=== PATIENT | male | born 1930 | race Caucasian/White ===

== ENCOUNTER 2016-10-26 12:22 | Emergency (ER) | payer OTHER ==
[~2016-10-26] VITALS: Ht 162.6 cm; Wt 62.0 kg
[~2016-10-26 12:22] MED LIST: ACET-1311 PO; ALUM-30 PO; ATOR-22 PO; BUDE0.5S INH; CHOL100010 PO; CHONCAP PO; CLR10 PO; DEXTSYP41 PO; DYZ; FINA5TAB PO; FLM4 PO; FLUT0.15 NAE; FSM70 PO; GLUC10007 PO; GUAI1TAB55 PO; IMD/2 PO; IPRASOL4 INH; MAGNSUS5 PO; MIRT15TA2 PO; NEOMOIN3 TOP; OXYB10TA PO; PRLSR20 PO; SALI0.6510 NAE; SODI5OIN4 OP
[2016-10-26 12:28] VITALS: TEMP 36.5; Ht 162.6 cm; Wt 62.0 kg
[2016-10-26] MEDS ORDERED: TAMS0.4C38 PO (13:20)
[2016-10-26] MEDS ORDERED: DEXTSYP27 PO (13:20)
[2016-10-26] MEDS ORDERED: TRIATAB3 PO (13:20)
[2016-10-26] MEDS ORDERED: OXYB15TA12 PO (13:20)
[2016-10-26] MEDS ORDERED: FORM1NEB NEB (13:20)
[2016-10-26] MEDS ORDERED: FSM70 PO (13:20)
[2016-10-26] MEDS ORDERED: GUAI1TAB75 PO (13:20)
[2016-10-26] MEDS ORDERED: CHOL1000 PO (13:20)
[2016-10-26] MEDS ORDERED: CALC625T4 PO (13:20)
[2016-10-26] MEDS ORDERED: PLMINSR5 INH (13:20)
[2016-10-26] MEDS ORDERED: SODI1SOL OPB (13:20)
[2016-10-26] MEDS ORDERED: ONDA4TAB46 UT (13:20)
--- NOTE | 2016-10-26 13:21 | DIAGNOSTIC IMAGING REPORT ---
CHEST ONE VIEW PORTABLE CLINICAL HISTORY: fall COMPARISON STUDY: 07/12/2014 FINDINGS: The cardiac and sternal contours remain stable. 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 There is no acute parenchymal consolidation. There are no pleural effusions. There is no pneumothorax.[ IMPRESSION: Stable interstitial point fibrotic change. No acute findings. Electronically signed by: Simon Braden M.D. 10/26/2016 1:20 PM Dictated Date/Time: 10/26/2016 1:19 PM
--- NOTE | 2016-10-26 13:22 | DIAGNOSTIC IMAGING REPORT ---
PELVIS 1 OR 2 VIEW ROUTINE CLINICAL HISTORY: Pelvic pain status post trauma COMPARISON STUDY: None FINDINGS: There are skinfolds the level of each proximal femur. No acute fractures or dislocations are visualized. There is lobulation the cortex inferior to the left lesser trochanter. This likely reflects either the sequela of old trauma, or an osteochondroma. This is incompletely visualized. Degenerative changes are present within the lower lumbar spine. IMPRESSION: No acute fractures identified. Electronically signed by: Simon Braden M.D. 10/26/2016 1:21 PM Dictated Date/Time: 10/26/2016 1:20 PM
--- NOTE | 2016-10-26 13:43 | DIAGNOSTIC IMAGING REPORT ---
CT HEAD WITHOUT CONTRAST (CT) CLINICAL HISTORY: Head trauma. COMPARISON STUDY: 03/08/2006 TECHNIQUE: Axial CT of the brain is performed from the vertex to the skull base. IV contrast was not administered for this examination. CT DOSE: 767.83 mGy.cm FINDINGS: No intra or extra-axial mass lesions are visualized. There is no CT evidence of acute cortical infarction. There is no evidence of midline shift. There is no acute hemorrhage. No calvarial fractures are visualized. There are patchy white matter hypodensities likely on a small vessel basis. 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 There is persistent dilatation of the anterior horns of the lateral ventricles. There is no evidence of acute sinusitis IMPRESSION: No acute intracranial findings Electronically signed by: Simon Braden M.D. 10/26/2016 1:41 PM Dictated Date/Time: 10/26/2016 1:39 PM
[2016-10-26 14:35] VITALS: BP 155/76; PULSE 78; O2SAT 98
--- NOTE | 2016-10-26 15:34 | EMERGENCY ROOM VISIT NOTE ---
History Report prepared by Paul: Radha Castillo Under the Supervision of: Dr. Rosalino Rodriguez D.O. First contact with patient: 12:37 Chief Complaint: FALL Stated Complaint: FALL History of Present Illness The patient is a 86 year old male who presents to the Emergency Room with complaints of a sudden fall that occurred [employer]. The patient's caregiver from [employer] is at bedside. The patient's caregiver states that she was in the house when the patient fell and heard him fall but she did not witness it. When she got to the patient, he was lying on his left side. She helped the patient up, but when he got to his feet he just fell back over. She did not notice any obvious bruising, but she states that she did not completely undress him. She states that the patient is at his baseline currently. He is unable to hold a conversation, but he can communicate yes or no to questions. The patient denies head pain, neck pain, back pain, abdominal pain, hip pain, and leg pain. The patient's caregiver denies any new cough, rhinorrhea, or sorethroat. The patient is not on any blood thinners. The patient's caregiver adds that the patient is supposed to be on oxygen at home, but he does not use it. Source of History: patient, caregiver Onset: GAS LINE REPAIRER Position: other (global) Quality: other (fall) Timing: other (sudden) Associated Symptoms: No abdominal pain, No back pain, No cough, No neck pain , No sorethroat Note: no head pain, no hip pain, no leg pain, no rhinorrhea Review of Systems See HPI for pertinent positives & negatives. A total of 10 systems reviewed and were otherwise negative. Past Medical & Surgical Medical Problems: (1) Asthma (2) Heart disease Family History Cancer Heart disease Hypertension Lung disease Social History Smoking Status: Never Smoker Housing Status: assisted living Current/Historical Medications Scheduled Alendronate Sodium (Alendronate Sodium), 70 MG PO WK Atorvastatin (Lipitor), 20 MG PO DAILY Budesonide (Pulmicort Respules 0.5MG/2ML), 2 ML INH BID Calcium Polycarbophil (Fiber Laxative), 625 MG PO DAILY Cholecalciferol (Vitamin D3), 1,000 INTER.UNIT PO DAILY Chondroitin Sulfate-Vitamin C- (Chondroitin Sulfate), 400 MG PO TID Finasteride (Proscar), 5 MG PO DAILY Fluticasone Propionate (Nasal) (Flonase Allergy Relief), 2 SPRAYS PRANEETH DAILY Formoterol Fumarate (Perforomist), 2 ML NEB BID Glucosamine Sulfate (Glucosamine), 500 MG PO TID Guaifenesin La (Guaifenesin Er), 600 MG PO BID Ipratropium-Albuterol (Duoneb), 1 TREATMENT INH TID Loratadine (Claritin), 10 MG PO DAILY Mirtazapine Soltab (Remeron Soltab), 15 MG PO HS Omeprazole (Prilosec), 20 MG PO DAILY Oxybutynin Chloride (Ditropan Xl), 15 MG PO DAILY Saline ([place]), 2 SPRAYS PRANEETH DAILY Sodium Chloride Hypertonic (Sodium Chloride), 1 DROP OPB BID Tamsulosin Hcl (Flomax), 0.4 MG PO HS Triamterene/Hctz (Triamterene/Hctz 37.5-25MG), 1 TAB PO DAILY Scheduled PRN Acetaminophen (Tylenol), 650 MG PO Q6 PRN for Pain Alum & Mag Hydrox-Simethicone (Mylanta), 30 ML PO Q6 PRN for GI Upset Dextromethorphan-Guaifenesin (Guaifenesin Dm), 2 TSP PEG Q6H PRN for Cough Loperamide Hcl (Imodium), 2 MG PO UD PRN for Diarrhea Neomycin/Polymyx/Bacitr (Neosporin), 1 APPL TOP UD PRN for ut/scrsape/scratch Ondansetron Hcl (Zofran), 4 MG UT QID PRN for Nausea Allergies Coded Allergies: Chocolate (Verified Allergy, Unknown, 07/19/09) Tomato (Verified Allergy, Unknown, 07/19/09) No Known Allergies (Verified , 07/02/08) Physical Exam Vital Signs Date Time Temp Pulse Resp B/P Pulse Ox O2 Delivery O2 Flow Rate FiO2 10/26/16 14:35 78 18 155/76 98 10/26/16 12:28 36.5 81 18 153/78 98 Room Air Physical Exam GENERAL: alert, sitting up in bed, well appearing, well nourished, no distress, non-toxic HEAD: normal cephalic, atraumatic EYE EXAM: normal conjunctiva, PERRL and EOM's grossly intact OROPHARYNX: no exudate, no erythema, lips, buccal mucosa, and tongue normal and mucous membranes are moist EARS: TMs clear b/l NECK: supple, no nuchal rigidity, no adenopathy, non-tender CHEST: stable to compression anteriorly and posteriorly LUNGS: clear to auscultation. Normal chest wall mechanics HEART: no murmurs, S1 normal and S2 normal ABDOMEN: abdomen soft, non-tender, normo-active bowel sounds, no masses, no rebound or guarding. PELVIS: stable to compression anteriorly and posteriorly BACK: Back is symmetrical on inspection and there is no deformity, no midline tenderness, no CVA tenderness. UPPER EXTREMITIES: full active and passive range of motion of all joints without tenderness to palpation, small abrasions over left posterior shoulder, bruising on right forearm with 4 mm laceration. LOWER EXTREMITIES: full active and passive range of motion of all joints without tenderness to palpation, healing bruising on left knee. NEURO EXAM: Alert, following commands, able to answer yes or no questions at baseline per examination scorer, no focal deficits Medical Decision & Procedures ER Provider Diagnostic Interpretation: Radiology results as stated below per my review and the radiologist's interpretation: CHEST ONE VIEW PORTABLE FINDINGS: The cardiac and sternal contours remain stable. 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 There is no acute parenchymal consolidation. There are no pleural effusions. There is no pneumothorax.[ IMPRESSION: Stable interstitial point fibrotic change. No acute findings. Electronically signed by: Simon Braden M.D. 10/26/2016 1:20 PM Dictated Date/Time: 10/26/2016 1:19 PM PELVIS 1 OR 2 VIEW ROUTINE FINDINGS: There are skinfolds the level of each proximal femur. No acute fractures or dislocations are visualized. There is lobulation the cortex inferior to the left lesser trochanter. This likely reflects either the sequela of old trauma, or an osteochondroma. This is incompletely visualized. Degenerative changes are present within the lower lumbar spine. IMPRESSION: No acute fractures identified. Electronically signed by: Simon Braden M.D. 10/26/2016 1:21 PM Dictated Date/Time: 10/26/2016 1:[address] HEAD WITHOUT CONTRAST (CT) FINDINGS: No intra or extra-axial mass lesions are visualized. There is no CT evidence of acute cortical infarction. There is no evidence of midline shift. There is no acute hemorrhage. No calvarial fractures are visualized. There are patchy white matter hypodensities likely on a small vessel basis. 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 There is persistent dilatation of the anterior horns of the lateral ventricles. There is no evidence of acute sinusitis IMPRESSION: No acute intracranial findings Electronically signed by: Simon Braden M.D. 10/26/2016 1:41 PM Dictated Date/Time: 10/26/2016 1:39 PM ED Course ED COURSE: Vital signs were reviewed and showed normal. The patients medical record was reviewed The above diagnostic studies were performed and reviewed. ED treatments and interventions as stated above. 1242: The patient was evaluated in room B4. A complete history and physical examination was performed. 1406: Upon reevaluation, the patient is doing well. I discussed my findings with the patient and his caregiver. They understand and agree with the treatment plan. Based on the patients age, coexisting illnesses, exam and lab findings the decision to treat as an outpatient was made. The patient remained stable while under my care. The patient appeared well at the time of discharge. Medical Decision Differential diagnoses include major intracranial, cervical, spinal, thoracic, abdominal, pelvic and neurologic injury. Fracture, contusion, sprain, strain, laceration, abrasions included as well. Patient is an 86 her old male who [facility]. Upon presentation of the examination scorer he was on the ground and she difficulty getting him up. No complaints. He does have previous old abrasions from falls. Exam shows no focal deficit. CT head, chest x-ray and x-ray of the pelvis were unremarkable. He was at his baseline. Patient was discharged in the care of examination scorer to follow up with the primary care. Tetanus is up-to- date per examination scorer. Discussed with Pt concerning signs and symptoms to watch out for. Pt was instructed to follow up with their PCP and discussed with the patient their option to return to the ED at anytime for persistent or worsening symptoms. The appropriate anticipatory guidance and out-patient management, including indications for return to the emergency department, were explained at length to the patient and understood. Impression Primary Impression: Fall Additional Impression: Contusion of upper back Scribe Attestation The scribe's documentation has been prepared under my direction and personally reviewed by me in its entirety. I confirm that the note above accurately reflects all work, treatment, procedures, and medical decision making performed by me. Departure Information Dispostion Home / Self-Care Referrals Barbra Phillips M.D. (MEDICAL) (PCP) Forms HOME CARE DOCUMENTATION FORM, IMPORTANT VISIT INFORMATION Patient Instructions ED Contusion Back, ED Fall Uncertain Cause, My [facility] Additional Instructions Please follow up with your primary care doctor with in the next 24 hours. Any worsening of your symptoms, please return to the ED immediately. This includes passing out, recurrent falls, new pain, or any other concerning signs or symptoms from your standpoint. Problem Qualifiers Primary Impression: Fall Encounter type: initial encounter Qualified Codes: W19.XXXA - Unspecified fall, initial encounter Additional Impression: Contusion of upper back Encounter type: initial encounter Laterality: left Qualified Codes: S20.222A - Contusion of left back wall of thorax, initial encounter
== END 2016-10-26 14:43 | disposition home or self-care (01) ==
LOC: EDBD 12:22 → C.EDB 12:24
DX: S20.222A Contusion of left back wall of thorax, initial encounter (principal); J45.909 Unspecified asthma, uncomplicated; Z79.899 Other long term (current) drug therapy; Z86.79 Personal history of other diseases of the circulatory system; Z82.49 Family history of ischemic heart disease and other diseases of the circulatory system; Z83.6 Family history of other diseases of the respiratory system; W19.XXXA Unspecified fall, initial encounter; Y92.009 Unspecified place in unspecified non-institutional (private) residence as the place of occurrence of the external cause

== ENCOUNTER 2016-10-29 11:28 | Emergency (ER) | payer OTHER ==
[~2016-10-29] VITALS: Ht 157.5 cm; Wt 59.3 kg
[~2016-10-29 11:28] MED LIST changes: -BUDE0.5S INH; +CALC625T4 PO; +CHOL1000 PO; -CHOL100010 PO; +DEXTSYP27 PO; -DEXTSYP41 PO; -DYZ; -FLM4 PO; +FORM1NEB NEB; -GUAI1TAB55 PO; +GUAI1TAB75 PO; -MAGNSUS5 PO; +ONDA4TAB46 UT; -OXYB10TA PO; +OXYB15TA12 PO; +PLMINSR5 INH; +SODI1SOL OPB; -SODI5OIN4 OP; +TAMS0.4C38 PO; +TRIATAB3 PO
[2016-10-29 11:32] VITALS: TEMP 36.3
[2016-10-29 11:52] VITALS: Ht 157.5 cm; Wt 59.3 kg
[2016-10-29] MEDS ORDERED: FIBER PO (12:03)
[2016-10-29] MEDS ORDERED: MOML PO (12:03)
--- NOTE | 2016-10-29 12:33 | EMERGENCY ROOM VISIT NOTE ---
History Report prepared by Paul: Ashly Neff Under the Supervision of: Dr. Rosalino Rodriguez D.O. First contact with patient: 11:49 Chief Complaint: SWELLING TO EXTREMITY Stated Complaint: HANDS SWELLING, FACE History of Present Illness The patient is an 86 year old male who presents to the Emergency Room with complaints of persistent bilateral hand swelling that began this morning. Per the patient's caregiver, the patient woke this morning with swelling to his bilateral hands and additionally his face and eyes. She states she tried getting the patient into his PCP's office, but notes that there were no openings. The patient's caregiver states that she took the patient to an urgent care facility and was told to bring the patient to the emergency department for further evaluation and treatment. She notes that the patient fell two weeks ago and ripped an area of skin off of his right arm. The patient 's caregiver states that she is concerned that the area has been becoming infected, but notes that she has been using Neosporin on the area and has been keeping it covered. The patient's caregiver states that the patient was evaluated on Wednesday after a recent fall. She additionally notes that the patient is going to see his PCP on Wednesday. Pt denies headache, chest pain, shortness of breath, abdominal pain, or extremity pain. Source of History: patient, caregiver Onset: this morning Position: head, hand (bilateral) Quality: other (swelling) Timing: other (persistent) Associated Symptoms: No abdominal pain, No chest pain, No headache Review of Systems See HPI for pertinent positives & negatives. A total of 10 systems reviewed and were otherwise negative. Past Medical & Surgical Medical Problems: (1) Asthma (2) Heart disease Family History Cancer Heart disease Hypertension Lung disease Social History Smoking Status: Never Smoker Marital Status: single Housing Status: assisted living Occupation Status: disabled Current/Historical Medications Scheduled Alendronate Sodium (Alendronate Sodium), 70 MG PO WK Atorvastatin (Lipitor), 20 MG PO DAILY Budesonide (Pulmicort Respules 0.5MG/2ML), 2 ML INH BID Calcium Polycarbophil (Fiber Laxative), 625 MG PO DAILY Cholecalciferol (Vitamin D3), 1,000 INTER.UNIT PO DAILY Chondroitin Sulfate-Vitamin C- (Chondroitin Sulfate), 400 MG PO TID Finasteride (Proscar), 5 MG PO DAILY Fluticasone Propionate (Nasal) (Flonase Allergy Relief), 2 SPRAYS PRANEETH DAILY Formoterol Fumarate (Perforomist), 2 ML NEB BID Glucosamine Sulfate (Glucosamine), 500 MG PO TID Guaifenesin La (Guaifenesin Er), 600 MG PO BID Ipratropium-Albuterol (Duoneb), 1 TREATMENT INH TID Loratadine (Claritin), 10 MG PO DAILY Mirtazapine Soltab (Remeron Soltab), 15 MG PO HS Omeprazole (Prilosec), 20 MG PO DAILY Oxybutynin Chloride (Ditropan Xl), 15 MG PO DAILY Saline ([place] Nasal [place]), 2 SPRAYS PRANEETH DAILY Sodium Chloride Hypertonic (Sodium Chloride), 1 DROP OPB BID Tamsulosin Hcl (Flomax), 0.4 MG PO HS Triamterene/Hctz (Triamterene/Hctz 37.5-25MG), 1 TAB PO DAILY Scheduled PRN Acetaminophen (Tylenol), 650 MG PO Q6 PRN for Pain Alum & Mag Hydrox-Simethicone (Mylanta), 30 ML PO Q6 PRN for GI Upset Dextromethorphan-Guaifenesin (Guaifenesin Dm), 2 TSP PEG Q6H PRN for Cough Loperamide Hcl (Imodium), 2 MG PO UD PRN for Diarrhea Magnesium Hydroxide (Milk Of Magnesia), 30 ML PO Q3D PRN for Constipation Neomycin/Polymyx/Bacitr (Neosporin), 1 APPL TOP UD PRN for ut/scrsape/scratch Ondansetron Hcl (Zofran), 4 MG UT QID PRN for Nausea Allergies Coded Allergies: Aspirin (Unverified Allergy, Severe, STOMACH ISSUES, 10/29/16) Grapefruit (Unverified Allergy, Severe, SHOULD AVOID DUE TO OTHER MEDS, ) Propoxyphene (Unverified Allergy, Severe, CONSTIPATION, 10/29/16) Tramadol (Unverified Allergy, Severe, CONSTIPATION, 10/29/16) Chocolate (Verified Allergy, Unknown, 07/19/09) Tomato (Verified Allergy, Unknown, 07/19/09) No Known Allergies (Verified , 07/02/08) Physical Exam Vital Signs Date Time Temp Pulse Resp B/P Pulse Ox O2 Delivery O2 Flow Rate FiO2 10/29/16 14:53 65 21 10/29/16 14:48 67 14 92 10/29/16 14:43 68 22 92 10/29/16 14:38 66 17 92 10/29/16 14:33 54 18 92 10/29/16 14:31 149/82 10/29/16 14:28 68 17 91 10/29/16 14:23 71 19 10/29/16 14:18 58 16 10/29/16 14:13 52 17 10/29/16 14:08 57 18 10/29/16 14:03 63 15 10/29/16 14:01 144/73 10/29/16 13:58 65 18 10/29/16 13:53 65 19 10/29/16 13:48 64 16 10/29/16 13:43 65 22 10/29/16 13:38 72 21 10/29/16 13:37 154/122 10/29/16 13:03 78 23 10/29/16 13:01 146/85 10/29/16 12:58 77 21 10/29/16 12:53 72 22 95 10/29/16 12:48 79 30 96 10/29/16 12:43 72 25 94 10/29/16 12:38 66 18 96 10/29/16 12:33 75 22 92 10/29/16 12:31 138/79 10/29/16 12:28 72 17 96 10/29/16 12:23 58 19 95 10/29/16 12:18 67 21 96 10/29/16 12:13 81 16 95 10/29/16 12:01 160/90 10/29/16 11:32 36.3 80 20 146/89 93 Room Air Physical Exam GENERAL: Sitting up in bed, alert, well appearing, well nourished, no acute distress, non-toxic HEAD: Normocephalic, atraumatic. EYE EXAM: normal conjunctiva, PERRL and EOM's grossly intact OROPHARYNX: no exudate, no erythema, lips, buccal mucosa, and tongue normal and mucous membranes are moist NECK: supple, no nuchal rigidity, no adenopathy, non-tender LUNGS: Diffuse wheezing bilaterally. Normal chest wall mechanics HEART: no murmurs, S1 normal and S2 normal ABDOMEN: abdomen soft, non-tender, normo-active bowel sounds, no masses, no rebound or guarding. BACK: Back is symmetrical on inspection and there is no deformity, no midline tenderness, no CVA tenderness. SKIN: no rashes and no bruising UPPER EXTREMITIES: Radial pulses in upper extremities bilaterally, Right upper extremity on dorsal aspect has a 2.5-3 cm laceration, which is moist, without purulent discharge or surrounding erythema. Small flap to the distal portion of the laceration. Mild edema to the right hand, just distal to the bandage. LOWER EXTREMITIES: No pitting edema. NEURO EXAM: Alert, answers yes or no questioning. Able to give a thumbs up, moving all extremities. No focal deficits. Medical Decision & Procedures ER Provider Diagnostic Interpretation: Radiology results as stated below per my review and the radiologist's interpretation: ULTRASOUND VENOUS DOPPLER ULTRASOUND THE RIGHT UPPER EXTREMITY CLINICAL HISTORY: Right upper extremity swelling COMPARISON STUDY: No previous studies for comparison. FINDINGS: No intraluminal thrombus was visualized. The internal jugular, subclavian, axillary, cephalic, brachial, basilic, radial, and ulnar veins were patent. IMPRESSION: No evidence of right upper extremity DVT. Electronically signed by: Simon Braden M.D. 10/29/2016 1:39 PM Dictated Date/Time: 10/29/2016 1:39 PM CHEST ONE VIEW PORTABLE CLINICAL HISTORY: Right upper extremity swelling COMPARISON STUDY: 10/26/2016 FINDINGS: The cardiac and mediastinal contours remain stable. There is radiographic evidence of underlying interstitial pulmonary fibrosis. There is no acute parenchymal consolidation. There are no significant pleural effusions.[ IMPRESSION: Stable interstitial pulmonary fibrotic change. Electronically signed by: Simon Braden M.D. 10/29/2016 12:41 PM Dictated Date/Time: 10/29/2016 12:40 PM Laboratory Results 10/29/16 12:50 Red Blood Count 4.77, Mean Corpuscular Volume 93.9, Mean Corpuscular Hemoglobin 31.4, Mean Corpuscular Hemoglobin Concent 33.5, Mean Platelet Volume 9.6, Neutrophils (%) (Auto) 68.5, Lymphocytes (%) (Auto) 23.8, Monocytes (%) (Auto) 5.7, Eosinophils (%) (Auto) 1.6, Basophils (%) (Auto) 0.3, Neutrophils # (Auto) 6.08, Lymphocytes # (Auto) 2.11, Monocytes # (Auto) 0.51, Eosinophils # (Auto) 0.14, Basophils # (Auto) 0.03 10/29/16 12:50 Test 10/29/16 12:50 White Blood Count 8.88 K/uL (4.8-10.8) Red Blood Count 4.77 M/uL (4.7-6.1) Hemoglobin 15.0 g/dL (14.0-18.0) Hematocrit 44.8 % (42-52) Mean Corpuscular Volume 93.9 fL (80-100) Mean Corpuscular Hemoglobin 31.4 pg (25-34) Mean Corpuscular Hemoglobin Concent 33.5 g/dl (32-36) Platelet Count 181 K/uL (130-400) Mean Platelet Volume 9.6 fL (7.4-10.4) Neutrophils (%) (Auto) 68.5 % Lymphocytes (%) (Auto) 23.8 % Monocytes (%) (Auto) 5.7 % Eosinophils (%) (Auto) 1.6 % Basophils (%) (Auto) 0.3 % Neutrophils # (Auto) 6.08 K/uL (1.4-6.5) Lymphocytes # (Auto) 2.11 K/uL (1.2-3.4) Monocytes # (Auto) 0.51 K/uL (0.11-0.59) Eosinophils # (Auto) 0.14 K/uL (0-0.5) Basophils # (Auto) 0.03 K/uL (0-0.2) RDW Standard Deviation 45.8 fL (36.4-46.3) RDW Coefficient of Variation 13.3 % (11.5-14.5) Immature Granulocyte % (Auto) 0.1 % Immature Granulocyte # (Auto) 0.01 K/uL (0.00-0.02) Anion Gap 7.0 mmol/L (3-11) Est Creatinine Clear Calc Drug Dose 31.5 ml/min Estimated GFR () 57.3 Estimated GFR (Non- 49.4 BUN/Creatinine Ratio 20.4 (10-20) Calcium Level 9.7 mg/dl (8.5-10.1) Total Bilirubin 0.5 mg/dl (0.2-1) Direct Bilirubin 0.1 mg/dl (0-0.2) Aspartate Amino Transf (AST/SGOT) 15 U/L (15-37) Alanine Aminotransferase (ALT/SGPT) 18 U/L (12-78) Alkaline Phosphatase 101 U/L (45-117) Pro-B-Type Natriuretic Peptide 255 pg/ml (0-1800) Total Protein 7.0 gm/dl (6.4-8.2) Albumin 3.7 gm/dl (3.4-5.0) Laboratory results per my review. ED Course ED COURSE: Vital signs were reviewed and showed normal vitals The patients medical record was reviewed The above diagnostic studies were performed and reviewed. ED treatments and interventions as stated above. 1203: The patient was evaluated in room B5. A complete history and physical examination was performed. 1442: Upon reevaluation, the patient is resting comfortably.I discussed my findings with the patient's caregiver and she understands and agrees with the treatment plan. Based on the patients age, coexisting illnesses, exam and lab findings the decision to treat as an outpatient was made. The patient remained stable while under my care. The patient appeared well at the time of discharge. Medical Decision Differential diagnosis: Etiologies such as DVT, musculoskeletal, infection, joint effusion, trauma, lymphedema, idiopathic, CHF, as well as others were entertained. Patient is an 86-year-old male that presents the ER for swelling in his right hand, left hand and face. Everything has resolved with exception of his right hand. He does have a brace around the wrist of his right hand for laceration which has been present for over a week. Laceration appears to be unchanged from his previous visit 3 days ago as I saw him at that time. At that point he had a CT head, chest x-ray and pelvis x-ray which were unremarkable. Gentleman has MR and has no complaints. He is able to state if he has pain by answering yes and no questioning. He is at his baseline. Again no edema with exception of his right wrist distally into the fingers. I do believe that this was secondary to the bandage that was in place which has been removed. Unable to suture the cut as this has been present for over week. Discussed with home theatre technician concerning signs and symptoms to watch out for. Health Safety Coordinator was instructed to follow up with their PCP and discussed with the home theatre technician their option to return to the ED at anytime for persistent or worsening symptoms. The appropriate anticipatory guidance and out-patient management, including indications for return to the emergency department, were explained at length to the home theatre technician and understood. Impression Primary Impression: Swelling of right extremity Additional Impression: Hypokalemia Scribe Attestation The scribe's documentation has been prepared under my direction and personally reviewed by me in its entirety. I confirm that the note above accurately reflects all work, treatment, procedures, and medical decision making performed by me. Departure Information Dispostion Home / Self-Care Referrals Barbra Phillips M.D. (MEDICAL) (PCP) Forms HOME CARE DOCUMENTATION FORM, IMPORTANT VISIT INFORMATION, WORK / SCHOOL INSTRUCTIONS Patient Instructions My [facility] - [facility], [place] Additional Instructions Please follow up with your primary care doctor with in the next 24 hours. Any worsening of your symptoms, please return to the ED immediately. This includes fevers greater than 100.4, significant redness around the wound site, purulent discharge, or any other concerning signs or symptoms from your standpoint. Please keep the wound dressed but in a loose bandage as I favor this is likely the cause of the edema in his hand. Please continue to apply double antibiotic ointment to the wound. Problem Qualifiers
--- NOTE | 2016-10-29 12:42 | DIAGNOSTIC IMAGING REPORT ---
CHEST ONE VIEW PORTABLE CLINICAL HISTORY: Right upper extremity swelling COMPARISON STUDY: 10/26/2016 FINDINGS: The cardiac and mediastinal contours remain stable. There is radiographic evidence of underlying interstitial pulmonary fibrosis. There is no acute parenchymal consolidation. There are no significant pleural effusions.[ IMPRESSION: Stable interstitial pulmonary fibrotic change. Electronically signed by: Simon Braden M.D. 10/29/2016 12:41 PM Dictated Date/Time: 10/29/2016 12:40 PM
[2016-10-29 13:07] LABS: BASO % 0.3 %; BASO ABS # 0.03 K/uL (0-0.2); COMPLETE YES; EOS % 1.6 %; HEMATOCRIT 44.8 % (42-52); IG% 0.1 %; LYMPH % 23.8 %; LYMPH ABS # 2.11 K/uL (1.2-3.4); MEAN CELL VOLUME 93.9 fL (80-100); MEAN CORPUSCULAR HEMOGLOBIN 31.4 pg (25-34); MEAN CORPUSCULAR HGB CONC 33.5 g/dl (32-36); MEAN PLATELET VOLUME 9.6 fL (7.4-10.4); MONO % 5.7 %; NEUT % 68.5 %; PLATELET COUNT 181 K/uL (130-400); RED BLOOD COUNT 4.77 M/uL (4.7-6.1); WHITE BLOOD COUNT 8.88 K/uL (4.8-10.8)
[2016-10-29 13:27] LABS: BUN/CREATININE RATIO 20.4 (10-20); CALCIUM 9.7 mg/dl (8.5-10.1); CREATININE 1.3 mg/dl (0.60-1.40); POTASSIUM 3.3 mmol/L (3.5-5.1)
--- NOTE | 2016-10-29 13:41 | DIAGNOSTIC IMAGING REPORT ---
ULTRASOUND VENOUS DOPPLER ULTRASOUND THE RIGHT UPPER EXTREMITY CLINICAL HISTORY: Right upper extremity swelling COMPARISON STUDY: No previous studies for comparison. FINDINGS: No intraluminal thrombus was visualized. The internal jugular, subclavian, axillary, cephalic, brachial, basilic, radial, and ulnar veins were patent. IMPRESSION: No evidence of right upper extremity DVT. Electronically signed by: Simon Braden M.D. 10/29/2016 1:39 PM Dictated Date/Time: 10/29/2016 1:39 PM
[2016-10-29 14:31] VITALS: BP 149/82
[2016-10-29 14:48] VITALS: O2SAT 92
[2016-10-29 14:53] VITALS: PULSE 65
== END 2016-10-29 14:58 | disposition home or self-care (01) ==
LOC: C.EDB 11:30
DX: R22.31 Localized swelling, mass and lump, right upper limb (principal); E87.6 Hypokalemia; I51.9 Heart disease, unspecified; J45.909 Unspecified asthma, uncomplicated; Z79.899 Other long term (current) drug therapy; Z88.6 Allergy status to analgesic agent; Z88.8 Allergy status to other drugs, medicaments and biological substances; Z91.018 Allergy to other foods; Z80.9 Family history of malignant neoplasm, unspecified; Z82.49 Family history of ischemic heart disease and other diseases of the circulatory system

== ENCOUNTER 2016-12-10 17:17 | Emergency (ER) | payer OTHER ==
[~2016-12-10] VITALS: Ht 167.6 cm; Wt 58.2 kg
[~2016-12-10 17:17] MED LIST changes: +MOML PO; +NEOMOIN2 TOP; -NEOMOIN3 TOP
[2016-12-10 17:25] VITALS: TEMP 36.7; Ht 167.6 cm; Wt 58.2 kg
[2016-12-10 18:14] VITALS: BP 150/71; PULSE 82; O2SAT 96
--- NOTE | 2016-12-11 01:06 | EMERGENCY ROOM VISIT NOTE ---
History Report prepared by Paul: Nathaniel Will Under the Supervision of: Dr. Black Solitario M.D. First contact with patient: 17:19 Chief Complaint: FALL Stated Complaint: FALL, SKIN TEARS History of Present Illness The patient is an 86 year old male who presents to the Emergency Room with complaints of a constant small contusion to his right elbow that occurred prior to arrival. EMS reports that the patient was reaching for something and fell between the wall and bed at his assisted living home. Pt denies LOC, headache, fevers, chills, diaphoresis, visual changes, neck pain, chest pain, breathing difficulties, nausea, vomiting, abdominal pain, back pain, melena, hematochezia , urinary symptoms, numbness, weakness, lymphadenopathy, rash, or other complaints. Source of History: patient, EMS Onset: prior to arrival Position: elbow (right) Timing: constant Review of Systems See HPI for pertinent positives and negatives. A total of ten systems were reviewed and were otherwise negative although somewhat limited secondary to the patient's mental acuity . Past Medical & Surgical Medical Problems: (1) Asthma (2) Heart disease Family History Cancer Heart disease Hypertension Lung disease Social History Smoking Status: Never Smoker Marital Status: single Housing Status: assisted living Occupation Status: disabled Current/Historical Medications Scheduled Alendronate Sodium (Alendronate Sodium), 70 MG PO WK Atorvastatin (Lipitor), 20 MG PO DAILY Budesonide (Pulmicort Respules 0.5MG/2ML), 2 ML INH BID Calcium Polycarbophil (Fiber Laxative), 625 MG PO DAILY Cholecalciferol (Vitamin D3), 1,000 INTER.UNIT PO DAILY Chondroitin Sulfate-Vitamin C- (Chondroitin Sulfate), 400 MG PO TID Finasteride (Proscar), 5 MG PO DAILY Fluticasone Propionate (Nasal) (Flonase Allergy Relief), 2 SPRAYS PRANEETH DAILY Formoterol Fumarate (Perforomist), 2 ML NEB BID Glucosamine Sulfate (Glucosamine), 500 MG PO TID Guaifenesin La (Guaifenesin Er), 600 MG PO BID Ipratropium-Albuterol (Duoneb), 1 TREATMENT INH TID Loratadine (Claritin), 10 MG PO DAILY Mirtazapine Soltab (Remeron Soltab), 15 MG PO HS Omeprazole (Prilosec), 20 MG PO DAILY Oxybutynin Chloride (Ditropan Xl), 15 MG PO DAILY Saline ([place] Nasal [place]), 2 SPRAYS PRANEETH DAILY Sodium Chloride Hypertonic (Sodium Chloride), 1 DROP OPB BID Tamsulosin Hcl (Flomax), 0.4 MG PO HS Triamterene/Hctz (Triamterene/Hctz 37.5-25MG), 1 TAB PO DAILY Scheduled PRN Acetaminophen (Tylenol), 650 MG PO Q6 PRN for Pain Alum & Mag Hydrox-Simethicone (Mylanta), 30 ML PO Q6 PRN for GI Upset Dextromethorphan-Guaifenesin (Guaifenesin Dm), 2 TSP PO Q6H PRN for Cough Loperamide Hcl (Imodium), 2 MG PO UD PRN for Diarrhea Magnesium Hydroxide (Milk Of Magnesia), 30 ML PO Q3D PRN for Constipation Neomycin/Polymyx/Bacitr (Neosporin), 1 APPL TOP UD PRN for ut/scrsape/scratch Ondansetron Hcl (Zofran), 4 MG UT QID PRN for Nausea Allergies Coded Allergies: Aspirin (Unverified Allergy, Severe, STOMACH ISSUES, 12/10/16) Grapefruit (Unverified Allergy, Severe, SHOULD AVOID DUE TO OTHER MEDS, ) Propoxyphene (Unverified Allergy, Severe, CONSTIPATION, 12/10/16) Tramadol (Unverified Allergy, Severe, CONSTIPATION, 12/10/16) Chocolate (Verified Allergy, Unknown, 12/10/16) Tomato (Verified Allergy, Unknown, 12/10/16) Physical Exam Vital Signs Date Time Temp Pulse Resp B/P (MAP) Pulse Ox O2 Delivery O2 Flow Rate FiO2 12/10/16 18:14 82 22 150/71 96 12/10/16 17:37 79 12/10/16 17:25 36.7 71 18 162/84 95 Room Air Physical Exam GENERAL: Awake, alert, well appearing, no distress HEAD: Normocephalic, atraumatic. No knox sign. No raccoon eyes. EYES: Normal conjunctiva. PERRL. EARS: External ears normal. Right TM normal. Left TM normal. NOSE: Atraumatic OROPHARYNX: Lips, tongue, and mucosa unremarkable. No erythema or exudate. NECK: Supple. Full ROM. No tracheal deviation or JVD. No posterior midline tenderness. No step offs noted. RESPIRATORY: CTA bilaterally CARDIAC: Regular rate, normal rhythm. ABDOMEN: Inspection reveals no abnormalities. Soft, non distended. No tenderness to palpation. No hernias. BACK: No midline step offs or tenderness to palpation. Small abrasion to the left lateral back, no tenderness to the ribs. PELVIS: Stable to rock. SKIN: Normal. LYMPH: No adenopathy. MUSCULOSKELETAL: Upper and lower extremities are atraumatic. Small contusion and skin tear to the right elbow, no tenderness or bony deformity. NEURO: GCS 15. Normal sensorium. No sensory or motor deficits noted. Medical Decision & Procedures Procedure Dermabond tissue adhesive repair: Indication skin tear. The wound was cleansed with sterile saline. The skin tear was placed back in the proper position and Dermabond was used to repair the wound. occasions. Patient tolerated well. ED Course 172: The patient was evaluated in room C06. A complete history and physical exam was performed. 1741: I reevaluated the patient. Discussed discharge instructions: he and his caregiver verbalized understanding and agreement. The patient is ready for discharge. Medical Decision Medication Reconciliation: I attest that I have personally reviewed the patient' s current medication list Blood pressure screening: Patient was found to have an elevated blood pressure and was referred to their primary doctor for recheck and further treatment. The patient was evaluated. He checked out very well. He had a minor wound to the right elbow. This was repaired as above. He had no other trauma. I discussed conservative management. The patient was discharged in stable condition. No indication for x-ray or blood work at this time. Impression Primary Impression: Skin tear of right elbow without complication Additional Impression: Fall Scribe Attestation The scribe's documentation has been prepared under my direction and personally reviewed by me in its entirety. I confirm that the note above accurately reflects all work, treatment, procedures, and medical decision making performed by me. Departure Information Dispostion Home / Self-Care Referrals Barbra Phillips M.D. (MEDICAL) (PCP) Forms HOME CARE DOCUMENTATION FORM, IMPORTANT VISIT INFORMATION Patient Instructions My [facility] Additional Instructions Dermabond skin adhesive was used to close the wound. It should fall off in 5 to 10 days on its own. You do not did not need to keep it bandaged. Do not soak the wound for 8 hours. After 8 hours you may get it wet, but again do not soak it. Tylenol: Take 1000 mg every 6 hours as needed for pain. Do not take more than 3000 mg in a 24 hour period. Continue current medications Follow-up with your primary care physician in 2 to 3 days for a recheck of your current condition and blood pressure. Return to the ER immediately for spreading redness, fevers, pus-like drainage, severe pain, or as needed. Problem Qualifiers
== END 2016-12-10 18:18 | disposition home or self-care (01) ==
LOC: EDBD 17:17 → C.EDC 17:18
DX: S50.01XA Contusion of right elbow, initial encounter (principal); W19.XXXA Unspecified fall, initial encounter; J45.909 Unspecified asthma, uncomplicated; I51.9 Heart disease, unspecified; Z82.49 Family history of ischemic heart disease and other diseases of the circulatory system

== ENCOUNTER 2017-06-08 16:41 | Inpatient (IN) | payer OTHER ==
[~2017-06-08] VITALS: Ht 165.1 cm; Wt 58.3 kg
[~2017-06-08 16:41] MED LIST changes: -NEOMOIN2 TOP; +NEOMOIN3 TOP; +ONDANSETRON INJ 2 MG/ML 2 ML VIAL IV STA; +SODIUM CHLORIDE 0.9% 1000ML 1,000 ML IV STA
--- NOTE | 2017-06-08 17:36 | DIAGNOSTIC IMAGING REPORT ---
CHEST ONE VIEW PORTABLE CLINICAL HISTORY: 86 years-old Male presenting with vomiting. TECHNIQUE: Portable upright AP view of the chest was obtained. COMPARISON: 10/29/2016. FINDINGS: Atherosclerosis of the aortic arch. Cardiac silhouette normal in size. Prominence of the bilateral viv unchanged. Persistent peripheral and basilar predominant reticular opacities, left greater than right. No new focal infiltrate. No large pleural effusion or pneumothorax. Osseous structures normal. Upper abdomen normal. IMPRESSION: 1. Chronic reticular opacities suggestive of fibrosis, left greater than right, with a peripheral and basilar predominance. No superimposed focal infiltrate. Electronically signed by: Kannan Pan M.D. 06/08/2017 5:34 PM Dictated Date/Time: 06/08/2017 5:33 PM
[2017-06-08 17:37] LABS: BASO % 0.1 %; BASO ABS # 0.01 K/uL (0-0.2); EOS ABS # 0.19 K/uL (0-0.5); HEMATOCRIT 48.7 % (42-52); HEMOGLOBIN 16.6 g/dL (14.0-18.0); IG# 0.06 K/uL (0.00-0.02); LYMPH % 2.8 %; LYMPH ABS # 0.51 K/uL (1.2-3.4); MEAN CELL VOLUME 94.2 fL (80-100); MEAN CORPUSCULAR HEMOGLOBIN 32.1 pg (25-34); MEAN CORPUSCULAR HGB CONC 34.1 g/dl (32-36); MONO % 2.8 %; MONO ABS # 0.52 K/uL (0.11-0.59); NEUT ABS # 17.06 K/uL (1.4-6.5); PLATELET COUNT 235 K/uL (130-400); RED CELL DISTRIBUTION WIDTH CV 13.8 % (11.5-14.5); RED CELL DISTRIBUTION WIDTH SD 47.1 fL (36.4-46.3); WHITE BLOOD COUNT 18.35 K/uL (4.8-10.8)
[2017-06-08 18:16] LABS: ALBUMIN 3.9 gm/dl (3.4-5.0); ALKALINE PHOSPHATASE 109 U/L (45-117); ALT/SGPT 24 U/L (12-78); BLOOD UREA NITROGEN 29 mg/dl (7-18); CALCIUM 10.4 mg/dl (8.5-10.1); CARBON DIOXIDE 29 mmol/L (21-32); GLUCOSE 92 mg/dl (70-99); LIPASE 108 U/L (73-393); SODIUM 140 mmol/L (136-145); TOTAL PROTEIN 8.1 gm/dl (6.4-8.2)
[2017-06-08] MEDS ORDERED: PROCHLORPERAZINE 5 MG/ML 2 ML VIAL IV STA (19:19)
[2017-06-08] MEDS ORDERED: SODIUM CHLORIDE 0.9% 1000ML 1,000 ML IV STA (19:28)
[2017-06-08] MEDS ORDERED: OPTIRAY 320 IV PRN (20:15)
--- NOTE | 2017-06-08 20:52 | DIAGNOSTIC IMAGING REPORT ---
CT OF THE ABDOMEN AND PELVIS WITH CONTRAST CLINICAL HISTORY: Vomiting. COMPARISON STUDY: CT of the abdomen and pelvis March 05, 2011 and renal ultrasound January 17, 2016. TECHNIQUE: Following IV administration of 115 mL of Optiray-320, axial images of the abdomen and pelvis were obtained from the lung bases to the proximal femurs. Images were reviewed in the axial, sagittal, and coronal planes. IV contrast was administered without complication. A dose lowering technique was utilized adhering to the principles of ALARA. CT DOSE: 432.46 mGy.cm FINDINGS: Visualized portions of the lower lungs are suboptimally assessed due to respiratory motion. There may be underlying emphysema or interstitial lung disease. A small hiatal hernia is noted. No pneumatosis, free air or portal venous gas is present. There is no biliary or pancreatic ductal dilatation. A peripherally calcified left renal lesion is unchanged since prior exam of March 05, 2011. This is likely benign given stability. An additional left renal cyst is noted. There is marked right renal atrophy. No peripancreatic or pericholecystic infiltration is present. There is extensive atherosclerotic plaque of the abdominal aorta. A sigmoid anastomosis is noted. There is no evidence for a bowel obstruction. There is a large amount of stool within the colon and rectum. The appendix is normal. Moderate bladder wall thickening is noted. IMPRESSION: 1. Large amount of stool within the rectum and colon. No evidence for a bowel obstruction. Normal appendix. 2. Moderate bladder wall thickening which could be correlated with urinalysis to exclude cystitis. 3. Partially calcified left renal lesion which is unchanged since CT of March 05, 2011. This is likely benign. No hydronephrosis. Marked right renal atrophy. 4. Study mildly compromised by motion artifact. Electronically signed by: Mina Hidalgo M.D. 06/08/2017 8:51 PM Dictated Date/Time: 06/08/2017 8:41 PM
[2017-06-08] MEDS ORDERED: BISACODYL 10 MG SUPP PR STA (21:01)
--- NOTE | 2017-06-08 21:40 | EMERGENCY ROOM VISIT NOTE ---
History Report prepared by Paul: Nathaniel Will Under the Supervision of: Dr. Ivan Shane D.O. First contact with patient: 16:38 Chief Complaint: VOMITING Stated Complaint: VOMITING History of Present Illness The patient is an 86 year old male who presents to the Emergency Room with complaints of intermittent vomiting beginning 8.5 hours ago. EMS states the patient started vomiting after he ate oatmeal for breakfast. They report the patient came from a detention and is nonverbal. EMS notes the patient has a history of COPD. They state they were not told how many times he vomited, but it was clear and more than once throughout the day. EMS reports the patient and staff members deny all other complaints. HPI limited secondary to the patient being nonverbal. Source of History: EMS History Limited By: other (nonverbal) Review of Systems ROS limited secondary to the patient being nonverbal. Past Medical & Surgical Medical Problems: (1) Asthma (2) Heart disease (3) Vomiting Unobtainable secondary to the patient being nonverbal. Family History Unobtainable secondary to the patient being nonverbal. Social History Unobtainable secondary to the patient being nonverbal. Current/Historical Medications Scheduled Alendronate Sodium (Alendronate Sodium), 70 MG PO WK Atorvastatin (Lipitor), 20 MG PO DAILY Budesonide (Pulmicort Respules 0.5MG/2ML), 2 ML INH BID Calcium Polycarbophil (Fiber Laxative), 625 MG PO DAILY Cholecalciferol (Vitamin D3), 1,000 INTER.UNIT PO DAILY Chondroitin Sulfate-Vitamin C- (Chondroitin Sulfate), 400 MG PO TID Finasteride (Proscar), 5 MG PO DAILY Fluticasone Propionate (Nasal) (Flonase Allergy Relief), 2 SPRAYS PRANEETH DAILY Formoterol Fumarate (Perforomist), 2 ML NEB BID Glucosamine Sulfate (Glucosamine), 500 MG PO TID Guaifenesin La (Guaifenesin Er), 600 MG PO BID Ipratropium-Albuterol (Duoneb), 1 TREATMENT INH TID Loratadine (Claritin), 10 MG PO DAILY Mirtazapine Soltab (Remeron Soltab), 15 MG PO HS Omeprazole (Prilosec), 20 MG PO DAILY Oxybutynin Chloride (Ditropan Xl), 15 MG PO DAILY Saline ([place] Nasal [place]), 2 SPRAYS PRANEETH DAILY Sodium Chloride Hypertonic (Sodium Chloride), 1 DROP OPB BID Tamsulosin Hcl (Flomax), 0.4 MG PO HS Triamterene/Hctz (Triamterene/Hctz 37.5-25MG), 1 TAB PO DAILY Scheduled PRN Acetaminophen (Tylenol), 650 MG PO Q6 PRN for Pain Alum & Mag Hydrox-Simethicone (Mylanta), 30 ML PO Q6 PRN for GI Upset Dextromethorphan-Guaifenesin (Guaifenesin Dm), 2 TSP PO Q6H PRN for Cough Loperamide Hcl (Imodium), 2 MG PO UD PRN for Diarrhea Magnesium Hydroxide (Milk Of Magnesia), 30 ML PO Q3D PRN for Constipation Neomycin/Polymyx/Bacitr (Neosporin), 1 APPL TOP UD PRN for ut/scrsape/scratch Ondansetron Hcl (Zofran), 4 MG UT QID PRN for Nausea Allergies Coded Allergies: Aspirin (Unverified Allergy, Severe, STOMACH ISSUES, 12/10/16) Grapefruit (Unverified Allergy, Severe, SHOULD AVOID DUE TO OTHER MEDS, ) Propoxyphene (Unverified Allergy, Severe, CONSTIPATION, 12/10/16) Tramadol (Unverified Allergy, Severe, CONSTIPATION, 12/10/16) Chocolate (Verified Allergy, Unknown, 12/10/16) Tomato (Verified Allergy, Unknown, 12/10/16) Physical Exam Vital Signs Date Time Temp Pulse Resp B/P (MAP) Pulse Ox O2 Delivery O2 Flow Rate FiO2 06/08/17 19:36 121 28 89 06/08/17 19:31 143/99 06/08/17 19:06 127 22 93 06/08/17 19:01 142/92 06/08/17 18:41 128 30 94 06/08/17 18:32 143/94 06/08/17 18:11 128 36 96 06/08/17 18:02 108/69 06/08/17 17:41 125 25 96 06/08/17 17:36 121 29 94 06/08/17 17:31 126/80 06/08/17 17:31 123 06/08/17 17:01 119/76 06/08/17 16:50 36.8 108 28 117/72 96 Room Air Physical Exam CONSTITUTIONAL/VITAL SIGNS: Reviewed / noted above. GENERAL: Non-toxic in appearance. INTEGUMENTARY: Warm, dry, and [place]. HEAD: Normocephalic. EYES: without scleral icterus or trauma. ENT/OROPHARYNX: clear and moist. LYMPHADENOPATHY/NECK: Is supple without lymphadenopathy or meningismus. RESPIRATORY: Lungs clear and equal. CARDIOVASCULAR: Regular rate and rhythm. GI/ABDOMEN: Soft and nontender. No organomegaly or pulsatile mass. No rebound or guarding. Normal bowel sounds. EXTREMITIES: Warm and well perfused. BACK: No CVA tenderness. NEUROLOGICAL: Intact without focal deficits. PSYCHIATRIC: normal affect. MUSCULOSKELETAL: Normally developed with good muscle tone. Medical Decision & Procedures ER Provider Diagnostic Interpretation: Radiology results as stated below per my review and radiologist interpretation: CHEST ONE VIEW PORTABLE CLINICAL HISTORY: 86 years-old Male presenting with vomiting. TECHNIQUE: Portable upright AP view of the chest was obtained. COMPARISON: 10/29/2016. FINDINGS: Atherosclerosis of the aortic arch. Cardiac silhouette normal in size. Prominence of the bilateral viv unchanged. Persistent peripheral and basilar predominant reticular opacities, left greater than right. No new focal infiltrate. No large pleural effusion or pneumothorax. Osseous structures normal. Upper abdomen normal. IMPRESSION: 1. Chronic reticular opacities suggestive of fibrosis, left greater than right, with a peripheral and basilar predominance. No superimposed focal infiltrate. Electronically signed by: Kannan Pan M.D. 06/08/2017 5:34 PM Dictated Date/Time: 06/08/2017 5:[address] OF THE ABDOMEN AND PELVIS WITH CONTRAST CLINICAL HISTORY: Vomiting. COMPARISON STUDY: CT of the abdomen and pelvis March 05, 2011 and renal ultrasound January 17, 2016. TECHNIQUE: Following IV administration of 115 mL of Optiray-320, axial images of the abdomen and pelvis were obtained from the lung bases to the proximal femurs. Images were reviewed in the axial, sagittal, and coronal planes. IV contrast was administered without complication. A dose lowering technique was utilized adhering to the principles of ALARA. CT DOSE: 432.46 mGy.cm FINDINGS: Visualized portions of the lower lungs are suboptimally assessed due to respiratory motion. There may be underlying emphysema or interstitial lung disease. A small hiatal hernia is noted. No pneumatosis, free air or portal venous gas is present. There is no biliary or pancreatic ductal dilatation. A peripherally calcified left renal lesion is unchanged since prior exam of March 05, 2011. This is likely benign given stability. An additional left renal cyst is noted. There is marked right renal atrophy. No peripancreatic or pericholecystic infiltration is present. There is extensive atherosclerotic plaque of the abdominal aorta. A sigmoid anastomosis is noted. There is no evidence for a bowel obstruction. There is a large amount of stool within the colon and rectum. The appendix is normal. Moderate bladder wall thickening is noted. IMPRESSION: 1. Large amount of stool within the rectum and colon. No evidence for a bowel obstruction. Normal appendix. 2. Moderate bladder wall thickening which could be correlated with urinalysis to exclude cystitis. 3. Partially calcified left renal lesion which is unchanged since CT of March 05, 2011. This is likely benign. No hydronephrosis. Marked right renal atrophy. 4. Study mildly compromised by motion artifact. Electronically signed by: Mina Hidalgo M.D. 06/08/2017 8:51 PM Dictated Date/Time: 06/08/2017 8:41 PM Laboratory Results 06/08/17 17:20 Red Blood Count 5.17, Mean Corpuscular Volume 94.2, Mean Corpuscular Hemoglobin 32.1, Mean Corpuscular Hemoglobin Concent 34.1, Mean Platelet Volume 10.0, Neutrophils (%) (Auto) 93.0, Lymphocytes (%) (Auto) 2.8, Monocytes (%) (Auto) 2.8, Eosinophils (%) (Auto) 1.0, Basophils (%) (Auto) 0.1, Neutrophils # (Auto) 17.06, Lymphocytes # (Auto) 0.51, Monocytes # (Auto) 0.52, Eosinophils # (Auto) 0.19, Basophils # (Auto) 0.01 06/08/17 17:20 06/08/17 18:18 Test 06/08/17 17:20 06/08/17 18:18 White Blood Count 18.35 K/uL (4.8-10.8) Red Blood Count 5.17 M/uL (4.7-6.1) Hemoglobin 16.6 g/dL (14.0-18.0) Hematocrit 48.7 % (42-52) Mean Corpuscular Volume 94.2 fL (80-100) Mean Corpuscular Hemoglobin 32.1 pg (25-34) Mean Corpuscular Hemoglobin Concent 34.1 g/dl (32-36) Platelet Count 235 K/uL (130-400) Mean Platelet Volume 10.0 fL (7.4-10.4) Neutrophils (%) (Auto) 93.0 % Lymphocytes (%) (Auto) 2.8 % Monocytes (%) (Auto) 2.8 % Eosinophils (%) (Auto) 1.0 % Basophils (%) (Auto) 0.1 % Neutrophils # (Auto) 17.06 K/uL (1.4-6.5) Lymphocytes # (Auto) 0.51 K/uL (1.2-3.4) Monocytes # (Auto) 0.52 K/uL (0.11-0.59) Eosinophils # (Auto) 0.19 K/uL (0-0.5) Basophils # (Auto) 0.01 K/uL (0-0.2) RDW Standard Deviation 47.1 fL (36.4-46.3) RDW Coefficient of Variation 13.8 % (11.5-14.5) Immature Granulocyte % (Auto) 0.3 % Immature Granulocyte # (Auto) 0.06 K/uL (0.00-0.02) Anion Gap 7.0 mmol/L (3-11) Estimated GFR () 52.4 Estimated GFR (Non- 45.2 BUN/Creatinine Ratio 20.6 (10-20) Calcium Level 10.4 mg/dl (8.5-10.1) Total Bilirubin 0.8 mg/dl (0.2-1) Alanine Aminotransferase (ALT/SGPT) 24 U/L (12-78) Alkaline Phosphatase 109 U/L (45-117) Total Protein 8.1 gm/dl (6.4-8.2) Albumin 3.9 gm/dl (3.4-5.0) Lipase 108 U/L (73-393) Direct Bilirubin mg/dl (0-0.2) Aspartate Amino Transf (AST/SGOT) U/L (15-37) Troponin I < 0.015 ng/ml (0-0.045) Laboratory results as stated above per my review. Medications Administered Medications (Trade) Dose Ordered Sig/Braulio Route Start Time Stop Time Status Last Admin Dose Admin Sodium Chloride 1,000 ml @ 999 mls/hr Q1H1M STAT IV 06/08/17 16:41 06/08/17 17:41 DC 06/08/17 17:27 999 MLS/HR Ondansetron HCl (Zofran Inj) 4 mg NOW STAT IV 06/08/17 16:41 06/08/17 16:43 DC 06/08/17 17:27 4 MG Prochlorperazine Edisylate (Compazine Inj) 10 mg NOW STAT IV 06/08/17 19:19 06/08/17 19:20 DC 06/08/17 19:50 10 MG Sodium Chloride 1,000 ml @ 999 mls/hr Q1H1M STAT IV 06/08/17 19:28 06/08/17 20:28 DC 06/08/17 19:50 999 MLS/HR Bisacodyl (Dulcolax Supp) 10 mg NOW STAT MO 06/08/17 21:01 06/08/17 21:02 DC 06/08/17 21:16 10 MG ED Course 1638: Previous medical records were reviewed. The patient was evaluated in room A04B. A complete history and physical examination was performed. 1641: Ordered Ondansetron HCl 4mg IV, Sodium Chloride 1000 ml @ 999 mls/hr IV IV 1919: Ordered Compazine inj 10 mg IV 8: Ordered Sodium Chloride 1000 ml @ 999 mls/hr IV 210: Ordered Bisacodyl 10mg MO 4: On reevaluation, the patient is resting comfortably. I discussed the results and findings with the staff member from the detention. They do not feel comfortable with the patient going home. They verbalized agreement of the treatment plan. 2109: I discussed the patient's case with Dr. Conway, [facility]. The patient will be evaluated for further management and care. Medical Decision Differential diagnosis: Etiologies such as gastroenteritis, food borne illness, infections, appendicitis , diverticulitis, inflammatory bowel disease, obstruction, GI bleed, biliary pathology, as well as others were entertained. This is a nonverbal 86-year-old male who presents from the detention where he resides with a chief complaint, per staff, of vomiting. The patient's vomiting started around 8 AM today. He has not had a bowel movement. His vital signs are stable. His physical exam did not reveal any obvious abdominal tenderness. His CBC reveals an elevated white blood cell count of 18,000. Troponin was negative. Complete metabolic panel was unremarkable. Chest x-ray did not show acute process. CT scan of the abdomen and pelvis reveals constipation. The patient was treated with IV fluids, normal saline 2 L. He was given IV Zofran. Despite this he continued to have vomiting here. He was given IV Compazine as well. The patient was given Dulcolax suppository. Because of his elevated white blood cell count and persistent vomiting as well as some persistent tachycardia despite 2 L normal saline, the patient will be observed overnight for his symptoms. She does not appear to be in any distress. Repeat abdominal exam did not reveal any focal or generalized tenderness. Medication Reconcilliation Current Medication List: was personally reviewed by me Blood Pressure Screening Patient's blood pressure: Elevated blood pressure Monitored by hospitalist. Consults Time Called: 2007 Consulting Physician: Tony Carvajal Hospitalist Returned Call: 2009 I discussed the patient's case with Tony Carvajal Hospitalist. The patient will be evaluated for further management and care. Impression Primary Impression: Constipation Additional Impressions: Leukocytosis Tachycardia Vomiting Scribe Attestation The scribe's documentation has been prepared under my direction and personally reviewed by me in its entirety. I confirm that the note above accurately reflects all work, treatment, procedures, and medical decision making performed by me. Departure Information Dispostion Being Evaluated By Hospitalist Patient Instructions My [facility] Problem Qualifiers
[2017-06-08] MEDS ORDERED: SKINOIL9 OTB (22:05)
[2017-06-08] MEDS ORDERED: CONSULT PHARMACY STA (22:05)
[2017-06-08] MEDS ORDERED: LEVALBUTEROL 0.63MG/3 ML NEB INH PRN (22:15)
[2017-06-08] MEDS ORDERED: TAP WATER ENEMA PR PRN (22:15)
[2017-06-08] MEDS ORDERED: MAGNESIUM HYDROXIDE SUSP 30 ML UDC PO PRN (22:15)
[2017-06-08] MEDS ORDERED: PIPERACILL/TAZOBAC IV 3.375 GM in DEXTROSE 5% 100ML IV STA (22:21)
[2017-06-08] MEDS ORDERED: PIPERACILLIN/TAZOBACTAM 4.5 GM/100ML D5W ONE (22:27)
[2017-06-08] MEDS ORDERED: ACETAMINOPHEN 325 MG TAB PO PRN (22:30)
[2017-06-08] MEDS ORDERED: PIPERACILL/TAZOBAC CONSULT ACTIVE PRN (22:30)
[2017-06-08] MEDS ORDERED: D5W AND NSS 1,000 ML IV SCH (23:00)
[2017-06-08] MEDS ORDERED: IPRATROPIUM BROMIDE NEB SOLN 0.02% 2.5 ML VIAL INH SCH (23:00)
[2017-06-08 23:35] VITALS: BP 106/70; PULSE 124; TEMP 37.5; O2SAT 96; Ht 165.1 cm; Wt 58.3 kg
[2017-06-09] VITALS (11 sets, daily range): BP systolic 99–124; BP diastolic 58–70; PULSE 73–97; TEMP 36.6–38.3; O2SAT 90–100
[2017-06-09] MEDS ORDERED: IV FLUIDS COMPLETED PRN (00:30)
[2017-06-09] MEDS: POTASSIUM CHLR 10 MEQ / WTR 10 MEQ in PREMIXED WATER 100 ML IV SCH ×2 (00:37→01:52)
[2017-06-09] MEDS: D5NSS + 20MEQ KCL 1,000 ML IV SCH ×3 (00:37→18:56)
--- NOTE | 2017-06-09 00:58 | History and Physical ---
History & Physical Date & Time of Service: Jun 09, 2017 at 00:51 Chief Complaint: Vomiting Primary Care Physician: Barbra Phillips M.D. (MEDICAL) History of Present Illness 86 year old male, resident of [facility], history of mental disability, rectal CA, Urinary Incontinence, UTI, Interstitial Fibrosis and other problems noted below presenting with vomiting episodes starting this afternoon. History obtained from patient's main caregiver Jane, at the bedside. Apparently, patient was noted to have multiple episodes of vomiting that started after patient had oatmeal for lunch. No blood noted in the vomitus. No fever/chills. Vomiting was then associated with coughing spells. Hence patient was brought to the ER. Per caregiver, patient was treated 1-2 months ago for UTI and has history of urinary incontinence. CT abdomen showed constipation- stool at the rectum and colon. No signs of obstruction. Also, patient was tachycardic in the 120s, and had an elevated WBC. On exam, patient was alert, cooperative, not in distress. Denies pain. Past Medical/Surgical History Medical Problems: (1) Asthma Status: Chronic (2) Heart disease Status: Chronic Family History Cancer Heart disease Hypertension Lung disease Social History Smoking Status: Never Smoker Smokeless Tobacco Use: No Alcohol Use: none Drug Use: none Marital Status: single Housing status: other (Detention) Occupational Status: disabled Immunizations History of Influenza Vaccine: No History of Tetanus Vaccine?: No Tetanus Immunization Date: Nov 20, 1999 History of Pneumococcal: No History of Hepatitis B Vaccine: No Hepatitis Immunization Date: Mar 08, 2004 Multi-Drug Resistant Organisms History of MDRO: No Allergies Coded Allergies: Aspirin (Unverified Allergy, Severe, STOMACH ISSUES, 12/10/16) Grapefruit (Unverified Allergy, Severe, SHOULD AVOID DUE TO OTHER MEDS, ) Propoxyphene (Unverified Allergy, Severe, CONSTIPATION, 12/10/16) Tramadol (Unverified Allergy, Severe, CONSTIPATION, 12/10/16) Chocolate (Verified Allergy, Unknown, 12/10/16) Tomato (Verified Allergy, Unknown, 12/10/16) Home Medications Scheduled Alendronate Sodium (Alendronate Sodium), 70 MG PO WK Atorvastatin (Lipitor), 20 MG PO DAILY Budesonide (Pulmicort Respules 0.5MG/2ML), 2 ML INH BID Calcium Polycarbophil (Fiber Laxative), 625 MG PO DAILY Cholecalciferol (Vitamin D3), 1,000 INTER.UNIT PO DAILY Chondroitin Sulfate-Vitamin C- (Chondroitin Sulfate), 400 MG PO TID Finasteride (Proscar), 5 MG PO DAILY Fluticasone Propionate (Nasal) (Flonase Allergy Relief), 2 SPRAYS PRANEETH DAILY Formoterol Fumarate (Perforomist), 2 ML NEB BID Glucosamine Sulfate (Glucosamine), 500 MG PO TID Guaifenesin La (Guaifenesin Er), 600 MG PO BID Ipratropium-Albuterol (Duoneb), 1 TREATMENT INH TID Loratadine (Claritin), 10 MG PO DAILY Mirtazapine Soltab (Remeron Soltab), 15 MG PO HS Omeprazole (Prilosec), 20 MG PO DAILY Oxybutynin Chloride (Ditropan Xl), 15 MG PO DAILY Saline ([place] Nasal [place]), 2 SPRAYS PRANEETH DAILY Skin Oils (Baby Oil), 2 DROPS OTB 2XWK Sodium Chloride Hypertonic (Sodium Chloride), 1 DROP OPB BID Tamsulosin Hcl (Flomax), 0.4 MG PO HS Triamterene/Hctz (Triamterene/Hctz 37.5-25MG), 1 TAB PO DAILY Scheduled PRN Acetaminophen (Tylenol), 650 MG PO Q6 PRN for Pain Alum & Mag Hydrox-Simethicone (Mylanta), 30 ML PO Q6 PRN for GI Upset Dextromethorphan-Guaifenesin (Guaifenesin Dm), 2 TSP PO Q6H PRN for Cough Loperamide Hcl (Imodium), 2 MG PO UD PRN for Diarrhea Magnesium Hydroxide (Milk Of Magnesia), 30 ML PO Q3D PRN for Constipation Neomycin/Polymyx/Bacitr (Neosporin), 1 APPL TOP UD PRN for ut/scrsape/scratch Ondansetron Hcl (Zofran), 4 MG UT QID PRN for Nausea Review of Systems Constitutional- no fever; no weight loss Eyes- no acute visual changes ENT- no sinus drainage; no pharyngitis Pulmonary- no cough, no wheezing, no shortness of breath Cardiac- no chest pain, no palpitations, no orthopnea, no dependent edema GI- (+) as noted above - no dysuria, no hematuria Musculoskeletal- no arthralgias, no myalgias Derm- no rashes, no new skin lesions, no changing skin lesions Hematologic- no unusual bruising, no unusual bleeding Lymphatics- no adenopathy Endocrine- no polyuria or polydipsia; no heat or cold intolerance Neuro- no headaches, no focal neurologic symptoms Psych- no anxiety, no depression Physical Exam Vital Signs Date Time Temp Pulse Resp B/P (MAP) Pulse Ox O2 Delivery O2 Flow Rate FiO2 06/08/17 23:35 37.5 124 32 106/70 96 Nasal Cannula 3.0 06/08/17 23:06 113 30 97/58 96 06/08/17 23:01 97/58 06/08/17 22:46 112 28 96 06/08/17 22:31 101/65 06/08/17 22:16 123 26 94 06/08/17 22:15 95 Nasal Cannula 2.0 06/08/17 22:15 95 Nasal Cannula 2.0 06/08/17 22:10 88 Room Air 06/08/17 22:08 104/65 06/08/17 22:07 37.4 126 22 104/65 94 Room Air 06/08/17 19:46 129 20 90 06/08/17 19:41 128 30 88 06/08/17 19:36 121 28 89 06/08/17 19:31 143/99 06/08/17 19:06 127 22 93 06/08/17 19:01 142/92 06/08/17 18:41 128 30 94 06/08/17 18:32 143/94 06/08/17 18:11 128 36 96 06/08/17 18:02 108/69 06/08/17 17:41 125 25 96 06/08/17 17:36 121 29 94 06/08/17 17:31 126/80 06/08/17 17:31 123 06/08/17 17:01 119/76 06/08/17 16:50 36.8 108 28 117/72 96 Room Air General Appearance: WD/WN, no apparent distress Head: normocephalic, atraumatic Eyes: normal inspection, PERRL, EOMI, sclerae normal ENT: normal ENT inspection, hearing grossly normal, pharynx normal, + pertinent finding (dry oral mucoa) Neck: supple, no adenopathy, thyroid normal, no JVD, trachea midline Respiratory/Chest: chest non-tender, no respiratory distress, no accessory muscle use, + pertinent finding (distant breath sounds) Cardiovascular: regular rate, rhythm, no edema, no gallop, no JVD, no murmur Abdomen/GI: normal bowel sounds, non tender, soft, no organomegaly Back: normal inspection, no CVA tenderness Extremities/Musculoskelatal: normal inspection, no calf tenderness, normal capillary refill, no pedal edema, normal range of motion 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, no motor/sensory deficits, alert, normal mood/affect, oriented x 3 Skin: normal color, warm/dry, no rash Lymphatic: no adenopathy Diagnostics Laboratory Results Results Past 24 Hours Test 06/08/17 17:20 06/08/17 18:18 06/08/17 22:57 Range/Units White Blood Count 18.35 4.8-10.8 K/uL Red Blood Count 5.17 4.7-6.1 M/uL Hemoglobin 16.6 14.0-18.0 g/dL Hematocrit 48.7 42-52 % Mean Corpuscular Volume 94.2 80-100 fL Mean Corpuscular Hemoglobin 32.1 25-34 pg Mean Corpuscular Hemoglobin Concent 34.1 32-36 g/dl Platelet Count 235 130-400 K/uL Mean Platelet Volume 10.0 7.4-10.4 fL Neutrophils (%) (Auto) 93.0 % Lymphocytes (%) (Auto) 2.8 % Monocytes (%) (Auto) 2.8 % Eosinophils (%) (Auto) 1.0 % Basophils (%) (Auto) 0.1 % Neutrophils # (Auto) 17.06 1.4-6.5 K/uL Lymphocytes # (Auto) 0.51 1.2-3.4 K/uL Monocytes # (Auto) 0.52 0.11-0.59 K/uL Eosinophils # (Auto) 0.19 0-0.5 K/uL Basophils # (Auto) 0.01 0-0.2 K/uL RDW Standard Deviation 47.1 36.4-46.3 fL RDW Coefficient of Variation 13.8 11.5-14.5 % Immature Granulocyte % (Auto) 0.3 % Immature Granulocyte # (Auto) 0.06 0.00-0.02 K/uL Sodium Level 140 136-145 mmol/L Potassium Level 3.4 3.5-5.1 mmol/L Chloride Level 104 98-107 mmol/L Carbon Dioxide Level 29 21-32 mmol/L Anion Gap 7.0 3-11 mmol/L Blood Urea Nitrogen 29 7-18 mg/dl Creatinine 1.40 0.60-1.40 mg/dl Estimated GFR () 52.4 Estimated GFR (Non- 45.2 BUN/Creatinine Ratio 20.6 10-20 Random Glucose 92 70-99 mg/dl Calcium Level 10.4 8.5-10.1 mg/dl Total Bilirubin 0.8 0.2-1 mg/dl Direct Bilirubin 0-0.2 mg/dl Aspartate Amino Transf (AST/SGOT) 15-37 U/L Alanine Aminotransferase (ALT/SGPT) 24 12-78 U/L Alkaline Phosphatase 109 45-117 U/L Total Protein 8.1 6.4-8.2 gm/dl Albumin 3.9 3.4-5.0 gm/dl Lipase 108 73-393 U/L Troponin I < 0.015 0-0.045 ng/ml Lactic Acid Level 0.8 0.4-2.0 mmol/L Microbiology Results 06/08/17 Blood Culture, Received Pending 06/08/17 Blood Culture, Received Pending Diagnostic Radiology CT abdomen 1. Large amount of stool within the rectum and colon. No evidence for a bowel obstruction. Normal appendix. 2. Moderate bladder wall thickening which could be correlated with urinalysis to exclude cystitis. 3. Partially calcified left renal lesion which is unchanged since CT of March 05, 2011. This is likely benign. No hydronephrosis. Marked right renal atrophy. 4. Study mildly compromised by motion artifact. Impression Assessment and Plan 86 year old male, resident of [facility], history of mental disability, rectal CA, Urinary Incontinence, UTI, Interstitial Fibrosis and other problems noted below presenting with vomiting episodes starting this afternoon. VOMITING, SECONDARY TO: CONSTIPATION - has history of Rectal Cancer last Colonoscopy by Dr. Gudino in 2008, family declined further intervention per chart history - CT abdomen: no masses noted - trial of Dulcolax Supp, tap water enema PRN may need to consult GI if without improvement R/O UTI - history of Enterococcus faecalis sens to Ampicillin Mar 2017 - ff up UA, Urine Culture - empiric Zosyn IV ordered TACHYCARDIA - sinus tachycardia - possible from dehydration, UTI? - IV NSS, antibiotics monitor R/O ASPIRATION - noted to be coughing after vomiting - noted to have O2 sats of 89% at the ER - has history of Interstitial Fibrosis - repeat CXR in AM on Zosyn HISTORY OF MENTAL DISABILITY - non verbal as per caregiver but does understand simple commands, able to say yes or no - 1:1 observation for now as patient used to ambulate to the bathroom at night HTN - hold triamterene/HCTZ as patient on the dry side monitor BPH - has history of urinary incontinence - continue Tamsulosin NOCTURNAL HYPOXEMIA - continue oxygen supplement DVT PROPHYLAXIS SCDs FULL CODE for now per caregiver, needs to verify with family DISPOSITION anticipate return to [facility] when medically stable Advanced Directives Existing Living Will: No Existing Power of Doll Wig Maker Rooted Hair: No VTE Prophylaxis VTE Risk Assessment Done? Y/N: Yes Risk Level: Moderate Given or contraindicated: SCD's
[2017-06-09] MEDS ORDERED: GUAIFENESIN/DEXTROM SYRUP 200MG/20MG 10ML UDC PO PRN (01:30)
[2017-06-09] MEDS ORDERED: PNEUMOCOCCAL ADMINISTRATION CHARGE ONE (01:30)
[2017-06-09] MEDS ORDERED: INFLUENZA ADMINISTRATION CHARGE ONE (01:30)
[2017-06-09] MEDS ORDERED: PNEUMOCOCCAL POLYSACCHARIDES 25 MCG/0.5 ML VIAL/SYR IM. ONE (01:30)
[2017-06-09] MEDS ORDERED: INFLUENZA VIRUS QUAD VACCINE 0.5 ML SYR IM. ONE (01:30)
[2017-06-09] MEDS: IPRATROPIUM BROMIDE NEB SOLN 0.02% 2.5 ML VIAL INH SCH ×4 (02:18→19:27)
[2017-06-09] MEDS: LEVALBUTEROL 0.63MG/3 ML NEB INH SCH ×4 (02:18→19:27)
[2017-06-09] MEDS: PIPERACILL/TAZOBAC IV 3.375 GM in DEXTROSE 5% 100ML IV SCH ×3 (04:56→20:31)
[2017-06-09] MEDS: GUAIFENESIN 600 MG TABCR PO SCH ×2 (07:26→21:14)
[2017-06-09] MEDS: FINASTERIDE 5 MG TAB PO SCH (07:26)
[2017-06-09] MEDS: SODIUM CHLORIDE 5% OP SOLN 15 ML BTL OPB SCH ×2 (07:26→21:15)
[2017-06-09] MEDS: LORATADINE 10 MG TAB PO SCH (07:26)
[2017-06-09] MEDS ORDERED: SODIUM CHLORIDE 0.65% NA SOLN 45 ML (OCEAN) ONE (07:27)
[2017-06-09] MEDS: SODIUM CHLORIDE 0.65% NA SOLN 45 ML (OCEAN) NAE SCH (07:28)
[2017-06-09 07:33] LABS: BASO % 0.1 %; BASO ABS # 0.02 K/uL (0-0.2); EOS % 0.1 %; EOS ABS # 0.01 K/uL (0-0.5); HEMATOCRIT 40.2 % (42-52); HEMOGLOBIN 13.7 g/dL (14.0-18.0); IG# 0.03 K/uL (0.00-0.02); LYMPH % 4.1 %; LYMPH ABS # 0.68 K/uL (1.2-3.4); MEAN CELL VOLUME 93.7 fL (80-100); MEAN CORPUSCULAR HEMOGLOBIN 31.9 pg (25-34); MEAN CORPUSCULAR HGB CONC 34.1 g/dl (32-36); MEAN PLATELET VOLUME 9.8 fL (7.4-10.4); MONO % 3.7 %; MONO ABS # 0.61 K/uL (0.11-0.59); NEUT % 91.8 %; NEUT ABS # 15.07 K/uL (1.4-6.5); PLATELET COUNT 197 K/uL (130-400); RED CELL DISTRIBUTION WIDTH SD 47.9 fL (36.4-46.3); WHITE BLOOD COUNT 16.42 K/uL (4.8-10.8)
[2017-06-09] MEDS: FORMOTEROL FUMA NEBULIZER SOLN 20 MCG/2 ML VIAL INH SCH ×2 (07:37→19:26)
[2017-06-09] MEDS: BUDESONIDE 0.5 MG/2 ML VIAL (PULMICORT) INH SCH ×2 (07:37→19:27)
[2017-06-09 07:54] LABS: CALCIUM 8.2 mg/dl (8.5-10.1); CREATININE 1.55 mg/dl (0.60-1.40); POTASSIUM 3.5 mmol/L (3.5-5.1)
[2017-06-09] MEDS ORDERED: FORMOTEROL FUMA NEBULIZER SOLN 20 MCG/2 ML VIAL INH SCH (08:00)
[2017-06-09] MEDS ORDERED: OXYBUTYNIN CHLORIDE 5 MG TABCR PO SCH (09:00)
[2017-06-09] MEDS: FLUTICASONE PROPIONATE NA SPR 16 GM BTL NAE SCH (09:02)
[2017-06-09] MEDS: BISACODYL 10 MG SUPP PR PRN (09:05)
--- NOTE | 2017-06-09 09:53 | DIAGNOSTIC IMAGING REPORT ---
CHEST ONE VIEW PORTABLE CLINICAL HISTORY: 86 years-old Male presenting with ff up, possible aspiration. TECHNIQUE: Portable upright AP view of the chest was obtained. COMPARISON: 06/08/2017. FINDINGS: Atherosclerosis of the aortic arch. Cardiac silhouette normal in size. Persistent reticular opacities, left greater than right, with a peripheral and basilar predominance. Lung aeration is unchanged. No new infiltrate. No large effusion or pneumothorax. Osseous structures normal. Upper abdomen normal. IMPRESSION: 1. Chronic reticular opacities suggestive of fibrosis, left greater than right. No new focal infiltrate. This could be seen in the setting of underlying fibrosis. Aspiration is also a consideration if the patient is frequently left lateral decubitus. This would be better evaluated with chest CT. Electronically signed by: Kannan Pan M.D. 06/09/2017 9:52 AM Dictated Date/Time: 06/09/2017 9:50 AM
--- NOTE | 2017-06-09 10:42 | Clinical Documentation Query ---
CLINICAL DOCUMENTATION QUERY Dr. LAUREN, In your clinical opinion is this patient being managed for: ( ) Suspected aspiration pneumonia ( ) Not Agree ( ) Other explanation of clinical findings (Please Explain) ( ) Unable to determine (Please Define) ( ) Need to Discuss The medical record reflects the following clinical findings, treatment, and risk factors. 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 Repeat CXR suggests aspiration is also a consideration if frequently left in L lateral decubitus position. WBC 18.35, HR 108, RR 28, initial O2 sat 96% on RA, eventually down trended to 88% requiring O2 support. Treatment:IV zosyn, IV fluids, nebs, aspiration precautions, NPO except meds, O2 support Risk Factors: age, vomiting, mentally challenged, interstitial fibrosis Please clarify and document your clinical opinion in the progress notes and discharge summary. Terms such as "probable", "suspected", "likely", "questionable", "possible", or "still to be ruled out" are acceptable. IF IN AGREEMENT, YOU MUST DOCUMENT ABOVE DIAGNOSTIC STATEMENT IN DAILY PROGRESS NOTES AND DISCHARGE SUMMARY. This document is not part of the patient's record. Thank You, Elisa Antonio, EVERARDO [phone]
[2017-06-09 13:56] LABS: INFLUENZA B ANTIGEN Neg for Influ B (NEG)
[2017-06-09] MEDS: ENOXAPARIN 30 MG/0.3 ML SYR SQ SCH (14:22)
--- NOTE | 2017-06-09 15:30 | Progress Note ---
Medicine Progress Note Date & Time of Visit: Jun 09, 2017 at 12:19. Subjective 86 yoM presents with acute onset vomiting yesterday. 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 He lives in a nursing home and has pulmonary fibrosis. His [employer] is at bedside today and reported that the vomiting began around 3pm yesterday and persisted for 1 hour which is what prompted him to come in. She states that the patient's roommate attends a day group and there has been a GI bug going around there. The roommate was not ill , however. The patient's reported last BM was 06/06. He was evaluated in the ER with a CT a/p and no signs of obstruction or perforation was seen. There was a notable about of stool present, however. The patient was admitted to telemetry because of new onset hypoxia, presence of leukocytosis and as a consideration for a developing sepsis picture. IVF were started and he was kept NPO overnight. Although he reports some nausea today he was able to tolerate his lunch and is drinking water and liquids on his own. WRT the new hypoxia the [employer] did report some coughing and gurgling with the vomiting yesterday and it sounds very possible that he might have aspirated. Repeat CXR this morning revealed chronic lung changes consistent with fibrosis but no new infiltrates. The patient is alert and answers yes and no on his own. Per [employer] he is at his baseline mental status. She also states that he ambulates independently at baseline. Will order PT/OT eval. She could not give me a code status and deferred me to his family. He was also recently treated for a UTI (E.faecalis) with two rounds of Nitrofurantoin in Mar. Objective Last 8 Hrs Date Time Temp Pulse Resp B/P (MAP) Pulse Ox O2 Delivery O2 Flow Rate FiO2 06/09/17 12:00 Nasal Cannula 3.0 06/09/17 10:57 36.6 78 20 101/58 (72) 92 Room Air 06/09/17 08:00 Nasal Cannula 3.0 06/09/17 07:37 91 16 93 06/09/17 07:21 36.7 73 20 110/65 (80) 100 Nasal Cannula 2.0 Physical Exam: GEN: WNWD, in no acute distress, alert and at baseline mental status per caregiver who is at bedside. nonverbal except for yes and no. Developmental delay. No respiratory distress. Pt with 2L via NC in place. HEENT: NC/AT, pupils are equal and round bilaterally, mucous membranes are dry. CARDIO: reg rate, S1/2 heard without m/g/r LUNGS: CTA bilaterally, no crackles, rales or wheezes, good diaphragmatic excursion ABD: soft, non-tender, non-distended, no rebound or guarding, +BS EXTREMITY: RP and DP palpable 2+ bilat, no LE swelling or edema, extremities are warm and well-perfused N/M: no gross focal deficits. SKIN: warm and dry Laboratory Results: 06/09/17 06:57 Red Blood Count 4.29, Mean Corpuscular Volume 93.7, Mean Corpuscular Hemoglobin 31.9, Mean Corpuscular Hemoglobin Concent 34.1, Mean Platelet Volume 9.8, Neutrophils (%) (Auto) 91.8, Lymphocytes (%) (Auto) 4.1, Monocytes (%) (Auto) 3.7, Eosinophils (%) (Auto) 0.1, Basophils (%) (Auto) 0.1, Neutrophils # (Auto) 15.07, Lymphocytes # (Auto) 0.68, Monocytes # (Auto) 0.61, Eosinophils # (Auto) 0.01, Basophils # (Auto) 0.02 06/09/17 06:57 Test 06/08/17 12:20 06/08/17 17:20 06/08/17 18:18 06/08/17 22:57 Prothrombin Time 10.2 SECONDS (9.0-12.0) Prothromb Time International Ratio 1.0 (0.9-1.1) Total Bilirubin 0.8 mg/dl (0.2-1) Alanine Aminotransferase (ALT/SGPT) 24 U/L (12-78) Alkaline Phosphatase 109 U/L (45-117) Total Protein 8.1 gm/dl (6.4-8.2) Albumin 3.9 gm/dl (3.4-5.0) Lipase 108 U/L (73-393) Direct Bilirubin mg/dl (0-0.2) Aspartate Amino Transf (AST/SGOT) U/L (15-37) Troponin I < 0.015 ng/ml (0-0.045) Lactic Acid Level 0.8 mmol/L (0.4-2.0) Test 06/09/17 00:00 06/09/17 06:57 06/09/17 12:25 06/09/17 15:02 Urine Color YELLOW Urine Appearance TURBID (CLEAR) Urine pH 5.0 (4.5-7.5) Urine Specific Ashley 1.033 (1.000-1.030) Urine Protein 1+ (NEG) Urine Glucose (UA) NEG (NEG) Urine Ketones NEG (NEG) Urine Occult Blood 1+ (NEG) Urine Nitrite POS (NEG) Urine Bilirubin NEG (NEG) Urine Urobilinogen NEG (NEG) Urine Leukocyte Esterase LARGE (NEG) Urine WBC (Auto) >30 /hpf (0-5) Urine RBC (Auto) 0-4 /hpf (0-4) Urine Hyaline Casts (Auto) 1-5 /lpf (0-5) Urine Epithelial Cells (Auto) 10-20 /lpf (0-5) Urine Bacteria (Auto) 1+ (NEG) Urine Pathogenic Casts /lpf (0) White Blood Count 16.42 K/uL (4.8-10.8) Red Blood Count 4.29 M/uL (4.7-6.1) Hemoglobin 13.7 g/dL (14.0-18.0) Hematocrit 40.2 % (42-52) Mean Corpuscular Volume 93.7 fL (80-100) Mean Corpuscular Hemoglobin 31.9 pg (25-34) Mean Corpuscular Hemoglobin Concent 34.1 g/dl (32-36) Platelet Count 197 K/uL (130-400) Mean Platelet Volume 9.8 fL (7.4-10.4) Neutrophils (%) (Auto) 91.8 % Lymphocytes (%) (Auto) 4.1 % Monocytes (%) (Auto) 3.7 % Eosinophils (%) (Auto) 0.1 % Basophils (%) (Auto) 0.1 % Neutrophils # (Auto) 15.07 K/uL (1.4-6.5) Lymphocytes # (Auto) 0.68 K/uL (1.2-3.4) Monocytes # (Auto) 0.61 K/uL (0.11-0.59) Eosinophils # (Auto) 0.01 K/uL (0-0.5) Basophils # (Auto) 0.02 K/uL (0-0.2) RDW Standard Deviation 47.9 fL (36.4-46.3) RDW Coefficient of Variation 14.0 % (11.5-14.5) Immature Granulocyte % (Auto) 0.2 % Immature Granulocyte # (Auto) 0.03 K/uL (0.00-0.02) Anion Gap 6.0 mmol/L (3-11) Est Creatinine Clear Calc Drug Dose 25.9 ml/min Estimated GFR () 46.3 Estimated GFR (Non- 39.9 BUN/Creatinine Ratio 15.2 (10-20) Calcium Level 8.2 mg/dl (8.5-10.1) Magnesium Level 1.9 mg/dl (1.8-2.4) Influenza Type A Antigen Neg for Influ A (NEG) Influenza Type B Antigen Neg for Influ B (NEG) Date/Time Source Procedure Growth Status 06/08/17 22:58 Blood Blood Culture Pending Received 06/09/17 00:00 Urine,Catheterized Urine Culture Pending Received Last 24 Hours Test 06/08/17 12:20 06/08/17 17:20 06/08/17 18:18 06/08/17 22:57 Prothrombin Time 10.2 SECONDS Prothromb Time International Ratio 1.0 White Blood Count 18.35 K/uL Red Blood Count 5.17 M/uL Hemoglobin 16.6 g/dL Hematocrit 48.7 % Mean Corpuscular Volume 94.2 fL Mean Corpuscular Hemoglobin 32.1 pg Mean Corpuscular Hemoglobin Concent 34.1 g/dl Platelet Count 235 K/uL Mean Platelet Volume 10.0 fL Neutrophils (%) (Auto) 93.0 % Lymphocytes (%) (Auto) 2.8 % Monocytes (%) (Auto) 2.8 % Eosinophils (%) (Auto) 1.0 % Basophils (%) (Auto) 0.1 % Neutrophils # (Auto) 17.06 K/uL Lymphocytes # (Auto) 0.51 K/uL Monocytes # (Auto) 0.52 K/uL Eosinophils # (Auto) 0.19 K/uL Basophils # (Auto) 0.01 K/uL RDW Standard Deviation 47.1 fL RDW Coefficient of Variation 13.8 % Immature Granulocyte % (Auto) 0.3 % Immature Granulocyte # (Auto) 0.06 K/uL Sodium Level 140 mmol/L Potassium Level mmol/L mmol/L 3.4 mmol/L Chloride Level 104 mmol/L Carbon Dioxide Level 29 mmol/L Anion Gap 7.0 mmol/L Blood Urea Nitrogen 29 mg/dl Creatinine 1.40 mg/dl Estimated GFR () 52.4 Estimated GFR (Non- 45.2 BUN/Creatinine Ratio 20.6 Random Glucose 92 mg/dl Calcium Level 10.4 mg/dl Total Bilirubin 0.8 mg/dl Direct Bilirubin mg/dl mg/dl Aspartate Amino Transf (AST/SGOT) U/L U/L Alanine Aminotransferase (ALT/SGPT) 24 U/L Alkaline Phosphatase 109 U/L Total Protein 8.1 gm/dl Albumin 3.9 gm/dl Lipase 108 U/L Troponin I < 0.015 ng/ml Lactic Acid Level 0.8 mmol/L Test 06/09/17 06:57 White Blood Count 16.42 K/uL Red Blood Count 4.29 M/uL Hemoglobin 13.7 g/dL Hematocrit 40.2 % Mean Corpuscular Volume 93.7 fL Mean Corpuscular Hemoglobin 31.9 pg Mean Corpuscular Hemoglobin Concent 34.1 g/dl Platelet Count 197 K/uL Mean Platelet Volume 9.8 fL Neutrophils (%) (Auto) 91.8 % Lymphocytes (%) (Auto) 4.1 % Monocytes (%) (Auto) 3.7 % Eosinophils (%) (Auto) 0.1 % Basophils (%) (Auto) 0.1 % Neutrophils # (Auto) 15.07 K/uL Lymphocytes # (Auto) 0.68 K/uL Monocytes # (Auto) 0.61 K/uL Eosinophils # (Auto) 0.01 K/uL Basophils # (Auto) 0.02 K/uL RDW Standard Deviation 47.9 fL RDW Coefficient of Variation 14.0 % Immature Granulocyte % (Auto) 0.2 % Immature Granulocyte # (Auto) 0.03 K/uL Sodium Level 144 mmol/L Potassium Level 3.5 mmol/L Chloride Level 112 mmol/L Carbon Dioxide Level 25 mmol/L Anion Gap 6.0 mmol/L Blood Urea Nitrogen 24 mg/dl Creatinine 1.55 mg/dl Est Creatinine Clear Calc Drug Dose 25.9 ml/min Estimated GFR () 46.3 Estimated GFR (Non- 39.9 BUN/Creatinine Ratio 15.2 Random Glucose 136 mg/dl Calcium Level 8.2 mg/dl Magnesium Level 1.9 mg/dl Date/Time Source Procedure Growth Status 06/08/17 22:58 Blood Blood Culture Pending Received 06/08/17 22:57 Blood Blood Culture Pending Received Assessment & Plan 86 yoM presents with acute onset vomiting yesterday. 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 He lives in a nursing home and has pulmonary fibrosis. His [employer] is at bedside today and reported that the vomiting began around 3pm yesterday and persisted for 1 hour which is what prompted him to come in. She states that the patient's roommate attends a day group and there has been a GI bug going around there. The roommate was not ill , however. The patient's reported last BM was 06/06. He was evaluated in the ER with a CT a/p and no signs of obstruction or perforation was seen. There was a notable about of stool present, however. The patient was admitted to telemetry because of new onset hypoxia, presence of leukocytosis and as a consideration for a developing sepsis picture. IVF were started and he was kept NPO overnight. Although he reports some nausea today he was able to tolerate his lunch and is drinking water and liquids on his own. WRT the new hypoxia the [employer] did report some coughing and gurgling with the vomiting yesterday and it sounds very possible that he might have aspirated. Repeat CXR this morning revealed chronic lung changes consistent with fibrosis but no new infiltrates. The patient is alert and answers yes and no on his own. Per [employer] he is at his baseline mental status. She also states that he ambulates independently at baseline. Will order PT/OT eval. She could not give me a code status and deferred me to his family. He was also recently treated for a UTI (E.faecalis) with two rounds of Nitrofurantoin in Mar.14. Nausea and vomiting-etiologies include but not limited to acute gastritis that is self-limited, as a result of constipation/stool impaction or poss related to a UTI. He was given an enema this morning and had a large BM per nursing staff. He has been kept NPO all night with IVF running. Attempt to give him lunch was successful. Will keep IVF running for now until it is clear he is rehydrated and back to baseline tolerance of PO. Flu swab was negative as this was a confirmed diagnosis going around his nursing home area. Cont Miralax and Fibercon supplementation daily until reliably going. 2. UTI-recent E faecalis UTI present in early Oct treated with two rounds of Macrobid. Some bacteria is present in his urine (cath specimen had to be obtained as he is incontinent). Ditropan was stopped for now. Cont Zosyn empirically pending culture results. 3. Tachycardia poss 2/2 dehydration vs anxiety vs early sepsis in setting of UTI or aspiration pneumonitis-resolved. 4. Hypoxia-pt uses oxygen at night only but now is requiring continuously while at rest. Poss 2/2 aspiration pneumonitis-no acute infiltrate seen on repeat CXR this morning. Cont Zosyn for now and try to wean oxygen. Considering CT chest tomorrow if no improvement. Will consult pulm to see him in am. 5. 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 Close monitoring per nursing staff. Pt lives in a nursing home setting. 6. HTN-restarted maxzide 7. CKD Stage III-appears to be at baseline creatinine which is 1.4-1.7. Monitor PRP in am. 8. BPH-cont tamsulosin and fiinasteride DVT PROPHYLAXIS: Lovenox 30mg Full Code Disposition: likely hospitalized 1-2 more days. Will keep on telemetry for now while hypoxia still ongoing. Joanne Brand DO [facility] Hospitalist Current Inpatient Medications: Current Inpatient Medications Medications (Trade) Dose Ordered Sig/Braulio Route Start Time Stop Time Status Last Admin Dose Admin Ioversol (Optiray 320) 115 ml UD PRN IV 06/08/17 20:15 06/12/17 20:14 Bisacodyl (Dulcolax Supp) 10 mg DAILY PRN IA 06/08/17 22:15 07/08/17 22:14 06/09/17 09:05 10 MG Magnesium Hydroxide (Milk Of Magnesia Susp) 30 ml Q6H PRN PO 06/08/17 22:15 07/08/17 22:14 06/09/17 09:05 30 ML Levalbuterol (Xopenex 0.63 Mg/ 3 Ml Neb) 0.63 mg Q4H PRN INH 06/08/17 22:15 07/08/17 22:14 Miscellaneous (Tap Water Enema) 1 ea DAILY PRN IA 06/08/17 22:15 07/08/17 22:14 Levalbuterol (Xopenex 0.63 Mg/ 3 Ml Neb) 0.63 mg Q6R INH 06/09/17 03:00 07/09/17 02:59 06/09/17 07:37 0.63 MG Piperacillin Sod/ Tazobactam Sod 3.375 gm/Dextrose 115 ml @ 28.75 mls/ hr Q8H IV 06/09/17 04:00 06/19/17 03:59 06/09/17 04:56 28.75 MLS/HR Ondansetron HCl (Zofran Inj) 4 mg Q6H PRN IV 06/08/17 22:30 07/08/17 22:29 Budesonide (Pulmicort Respules 0.5MG/ 2ML Neb Soln) 1 mg BID INH 06/09/17 09:00 07/09/17 08:59 06/09/17 07:37 1 MG Finasteride (Proscar Tab) 5 mg DAILY PO 06/09/17 09:00 07/09/17 08:59 06/09/17 07:26 5 MG Fluticasone Propionate (Flonase Nasal [place]) 2 sprays DAILY PRANEETH 06/09/17 09:00 07/09/17 08:59 06/09/17 09:02 2 SPRAYS Guaifenesin (Mucinex Contr Rel Tab) 600 mg BID PO 06/09/17 09:00 07/09/17 08:59 06/09/17 07:26 600 MG Loratadine (Claritin Tab) 10 mg DAILY PO 06/09/17 09:00 07/09/17 08:59 06/09/17 07:26 10 MG Sodium Chloride ([place] Nasal [place]) 2 sprays DAILY PRANEETH 06/09/17 09:00 07/09/17 08:59 06/09/17 07:28 2 SPRAYS Sodium Chloride ([place] 128 Oph Soln) 1 drops BID OPB 06/09/17 09:00 07/09/17 08:59 06/09/17 07:26 1 DROPS Tamsulosin HCl (Flomax Cap) 0.4 mg HS PO 06/09/17 21:00 07/09/17 20:59 Oxybutynin Chloride (Ditropan-Xl Tab) 15 mg DAILY PO 06/09/17 09:00 07/09/17 08:59 06/09/17 07:26 15 MG Piperacillin Sod/ Tazobactam Sod (Consult) 1 ea UD PRN N/A 06/08/17 22:30 07/08/17 22:29 Acetaminophen (Tylenol Tab) 650 mg Q4H PRN PO 06/08/17 22:30 07/08/17 22:29 Formoterol Fumarate (Perforomist 20MCG/2ML Neb Soln) 40 mcg BIDR INH 06/09/17 08:00 07/09/17 07:59 06/09/17 07:37 40 MCG Ipratropium [place] (Atrovent 0.02% 0.5MG/2.5ML Neb) 0.5 mg Q6R INH 06/09/17 03:00 07/08/17 22:59 06/09/17 07:37 0.5 MG Potassium Chloride/Dextrose/ Sod Cl 1,000 ml @ 100 mls/hr Q10H IV 06/09/17 00:15 07/09/17 00:14 06/09/17 09:06 100 MLS/HR Miscellaneous (Iv Fluids Completed) 1 ea PRN PRN N/A 06/09/17 00:30 06/09/18 00:29 Mirtazapine (Remeron Tab) 15 mg HS PO 06/09/17 21:00 07/09/17 20:59 Guaifenesin/ Dextromethorphan (Robitussin-Dm Syrup) 10 ml Q6H PRN PO 06/09/17 01:30 07/09/17 01:29
--- NOTE | 2017-06-09 20:12 | PULMONARY CONSULTATION ---
DATE OF CONSULTATION: 06/09/2017 TIME: 4:40 p.m. REPORT OF CONSULTATION: The patient was seen in room 241. He is an 86-year-old male who resides at a custodial. He was brought to the hospital yesterday because of severe episodes of vomiting. It is unknown exactly how many times he did vomit yesterday. He was brought to the ER. He was found to have tachycardia with heart rates in the 120s and he had leukocytosis. There has been concern about possible aspiration. Sepsis was also a concern. The patient himself is unable to give any substantial history. He cannot verbalize. He has a history of mental disability. When I came to see patient today, he was having severe coughing spell. He was not expectorating any phlegm. He reportedly did have lunch. Nursing staff did not think he had had something to eat or drink; however, just prior to my exam. The patient was also attended to by a caregiver from a custodial. He states patient can understand what we ask him, but he cannot respond properly. The patient apparently has some history of constipation. He did have reportedly a large amount of stool in the rectum and colon from a CAT scan of the abdomen and pelvis done when he came in. As noted, it is very difficult to get the history from patient. PAST MEDICAL HISTORY: 1. Asthma. 2. Heart disease. 3. Urinary incontinence. 4. Rectal cancer. 5. Urinary infection, fairly recently. 6. Interstitial fibrosis. FAMILY HISTORY: Reportedly there is a family history of cancer, heart disease, hypertension, and lung disease. Exactly what type and who had them is not clear. SOCIAL HISTORY: The patient reportedly never smoked and does not drink alcohol. ALLERGIES: LISTED ALLERGIES INCLUDE ASPIRIN, PROPOXYPHENE, TRAMADOL, CHOCOLATE, TOMATO, AND GRAPEFRUIT. MEDICATIONS AT HOME: 1. Alendronate 70 mg weekly. 2. Atorvastatin 20 mg daily. 3. Budesonide nebulizations 0.5 b.i.d. 4. DuoNeb t.i.d. 5. Vitamin D3 daily. 6. Chondroitin 400 mg t.i.d. 7. Finasteride 5 mg daily. 8. Fluticasone nasal spray 2 sprays daily. 9. Perforomist 1 treatment b.i.d. 10. Glucosamine 500 t.i.d. 11. Guaifenesin. 12. Loratadine 10 mg daily. 13. Mirtazapine 15 mg at bedtime. 14. Omeprazole 20 mg daily. 15. Oxybutynin 15 mg daily. 16. [place] nasal spray. 17. Tamsulosin 0.4 mg at bedtime. 18. Triamterene/HCTZ 37.5/25 one daily. 19. Ondansetron p.r.n. REVIEW OF SYSTEMS: Unable to obtain as patient cannot give me any history. PHYSICAL EXAMINATION: GENERAL: The patient is an 86-year-old male who looks younger than his chronologic age. He was coughing significantly during my exam. VITAL SIGNS: Temperature is 36.7. Maximum temperature has been 37.5. HEENT: Eye exam was difficult as patient would not cooperate for evaluation. His pupils did seem to react. Nasal passages were showing some deviated septum. Mouth exam reveals a large wad of thick mucus on the anterior hard palate, this looked to be dried. He had what appeared to be food or beverage on his tongue. NECK: Palpation of the neck reveals no lymph nodes. The patient was able to follow commands such as sitting forward for me. HEART: Rate was 88 per minute. Blood pressure was 106/62. Respiratory rate was 36 per minute, however, this was following a coughing spell and he was still coughing. LUNGS: The breath sounds were diffusely diminished and hard to evaluate. He seemed to have mild dry rales mainly on the left. Oxygen saturation on room air was 90%. ABDOMEN: Inspection of the abdomen shows a scar from prior surgery. Bowel sounds were present. There was no apparent tenderness to palpation and no definite mass. EXTREMITIES: Showed no cyanosis, clubbing or edema. LABORATORY DATA: Chest x-ray on admission suggests chronic reticular opacities suggesting fibrosis, greater on the left than the right. These appear to be chronic when compared with prior x-ray on 10/29/2016. Chest x-ray done today showed no significant change. CAT scan of the abdomen and pelvis showed a large amount of stool in the rectum and colon. There was motion artifact when evaluated the lower lung bautista. There was a calcified left renal lesion noted. A left renal cyst was noted. Moderate bladder wall thickening was noted. White count on admission was 18.35, today was 16.42. Hemoglobin was 16.6 yesterday and today was 13.7. Platelets yesterday 235,000. Differential count showed 93 neutrophils yesterday and 91.8 neutrophils today. Coags showed INR of 1. Urinalysis showed +1 protein, +1 blood, positive nitrites, greater than 30 WBCs, 1+ bacteria. Electrolytes showed a sodium of 144, potassium 3.5, chloride 112, bicarbonate 25. The BUN was 24 with a creatinine of 1.55. Yesterday, the BUN was 29 with a creatinine of 1.4. Lactic acid was 0.8. Troponin was negative. Flu test was negative. IMPRESSION: 1. Aspiration pneumonia. 2. Pulmonary fibrosis. 3. Renal insufficiency. COMMENTS AND RECOMMENDATIONS: This patient has a history of recurring episodes of vomiting recently. It is difficult with certainty to say if he has aspirated. He is being treated with Zosyn. I think I would make the assumption he may have aspirated. As far as I know, he is tolerating treatment well. His white count improved somewhat today. He has what appears to be radiographically pulmonary fibrosis and it is more prominent on the left than the right. The alternative would be if this reflected some degree of infiltrate superimposed from aspiration. The radiologist indicated it was difficult to say without doing a CAT scan. The CAT scan of the abdomen was done showing the lower lung field and due to motion that did not really add much either. I believe rather than giving patient additional radiation, I would simply treat him for 10 days first with Zosyn and subsequently with Augmentin if it is tolerated. He may need to have swallowing function test done while he is here; however. I have asked nursing staff to try and do mouth care to relieve the large amount of thickened mucus on the hard palate. He is tachypneic at present, but he just had a bad coughing spell as noted. A decision will need to be made whether he should be on a limited diet or n.p.o. at least in the short run. Perhaps a speech evaluation would be advisable. His oxygen saturation is marginal, but acceptable at present. Thank you for asking me to assist in his care.
[2017-06-09] MEDS ORDERED: TAMSULOSIN HCL 0.4 MG CAP PO SCH (21:00)
[2017-06-09] MEDS ORDERED: MIRTAZAPINE TAB 15 MG TAB PO SCH (21:00)
[2017-06-09] MEDS: ONDANSETRON INJ 2 MG/ML 2 ML VIAL IV PRN (21:17)
[2017-06-10] VITALS (10 sets, daily range): BP systolic 111–146; BP diastolic 68–84; PULSE 71–109; TEMP 36.8–37.6; O2SAT 90–94
[2017-06-10] MEDS: LEVALBUTEROL 0.63MG/3 ML NEB INH SCH ×4 (01:50→19:15)
[2017-06-10] MEDS: IPRATROPIUM BROMIDE NEB SOLN 0.02% 2.5 ML VIAL INH SCH ×4 (01:50→19:15)
[2017-06-10] MEDS: D5NSS + 20MEQ KCL 1,000 ML IV SCH ×2 (04:00→14:46)
[2017-06-10] MEDS: ONDANSETRON INJ 2 MG/ML 2 ML VIAL IV PRN (04:23)
[2017-06-10] MEDS: PIPERACILL/TAZOBAC IV 3.375 GM in DEXTROSE 5% 100ML IV SCH ×3 (04:23→20:21)
[2017-06-10] MEDS: FORMOTEROL FUMA NEBULIZER SOLN 20 MCG/2 ML VIAL INH SCH ×2 (07:12→19:12)
[2017-06-10] MEDS: BUDESONIDE 0.5 MG/2 ML VIAL (PULMICORT) INH SCH ×2 (07:12→19:12)
[2017-06-10 07:20] LABS: BASO % 0.1 %; BASO ABS # 0.01 K/uL (0-0.2); EOS % 0.1 %; EOS ABS # 0.01 K/uL (0-0.5); HEMATOCRIT 42.9 % (42-52); HEMOGLOBIN 14.2 g/dL (14.0-18.0); IG# 0.05 K/uL (0.00-0.02); LYMPH % 6.7 %; MEAN CELL VOLUME 94.3 fL (80-100); MEAN CORPUSCULAR HEMOGLOBIN 31.2 pg (25-34); MEAN CORPUSCULAR HGB CONC 33.1 g/dl (32-36); MEAN PLATELET VOLUME 9.8 fL (7.4-10.4); MONO % 4.6 %; MONO ABS # 0.68 K/uL (0.11-0.59); NEUT % 88.2 %; NEUT ABS # 13.12 K/uL (1.4-6.5); PLATELET COUNT 199 K/uL (130-400); RED CELL DISTRIBUTION WIDTH CV 14.2 % (11.5-14.5); RED CELL DISTRIBUTION WIDTH SD 49.2 fL (36.4-46.3); WHITE BLOOD COUNT 14.87 K/uL (4.8-10.8)
[2017-06-10 07:45] LABS: CALCIUM 8.5 mg/dl (8.5-10.1); CREATININE 1.43 mg/dl (0.60-1.40); POTASSIUM 3.4 mmol/L (3.5-5.1)
[2017-06-10] MEDS ORDERED: PROMETHAZINE HCL 12.5 MG SUPP PR PRN (08:45)
[2017-06-10] MEDS ORDERED: TRIAMTERENE/HCTZ 37.5/25MG TAB PO SCH (09:00)
[2017-06-10] MEDS ORDERED: ATORVASTATIN 20 MG TAB PO SCH (09:00)
[2017-06-10] MEDS ORDERED: CALCIUM POLYCARBOPHIL 1 TAB PO SCH (09:00)
[2017-06-10] MEDS ORDERED: POLYETHYLENE (MIRALAX) 17 GM PACK PO SCH (09:00)
[2017-06-10] MEDS ORDERED: PANTOprazole SOD 40 MG TAB PO SCH (09:00)
[2017-06-10] MEDS: ONDANSETRON INJ 2 MG/ML 2 ML VIAL IV SCH ×2 (09:27→17:15)
[2017-06-10] MEDS: ENOXAPARIN 30 MG/0.3 ML SYR SQ SCH (11:00)
[2017-06-10] MEDS: SODIUM CHLORIDE 0.65% NA SOLN 45 ML (OCEAN) NAE SCH (11:20)
[2017-06-10] MEDS: SODIUM CHLORIDE 5% OP SOLN 15 ML BTL OPB SCH ×2 (11:20→20:23)
[2017-06-10] MEDS: FLUTICASONE PROPIONATE NA SPR 16 GM BTL NAE SCH (11:20)
[2017-06-10] MEDS: LORATADINE 10 MG TAB PO SCH (11:20)
[2017-06-10] MEDS: FINASTERIDE 5 MG TAB PO SCH (11:21)
[2017-06-10] MEDS: GUAIFENESIN 600 MG TABCR PO SCH (11:21)
--- NOTE | 2017-06-10 15:32 | Progress Note ---
Medicine Progress Note Date & Time of Visit: Jun 10, 2017 at 15:11. Subjective 86 yoM presents with acute onset vomiting. 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 He lives in a assisted and has pulmonary fibrosis. IVF were started and he was kept NPO overnight. He was challenged with lunch and dinner the following day without issue but then began vomiting persistently throughout the night last night and through this morning. The vomitus is dark black appearing. He is still requiring 2L supplementation and reported some nausea. Answers are yes and no and not seemingly reliable. After the initial exam this morning, I called and spoke with his sister, Cassie, who is his mPOA. I explained the situation and we also discussed his code status. She confirmed that he was a DNR/DNI. Around 3pm I was called by the nurse with reports that he was persistently vomiting a stool-like substance and lungs sounded more coarse. Bedside exam performed,KUB and NGT ordered. See below. Objective Last 8 Hrs Date Time Temp Pulse Resp B/P (MAP) Pulse Ox O2 Delivery O2 Flow Rate FiO2 06/10/17 14:03 104 16 90 Nasal Cannula 2.0 06/10/17 12:00 Nasal Cannula 2.0 06/10/17 10:59 37.1 97 20 145/84 (104) 94 Room Air 06/10/17 08:00 Nasal Cannula 2.0 06/10/17 07:17 96 16 92 Nasal Cannula 2.0 Physical Exam: GEN: WNWD, in no acute distress, alert and appears to be at baseline. HEENT: NC/AT, pupils are equal and round bilaterally, mucous membranes are dry. CARDIO: reg rate, S1/2 heard without m/g/r LUNGS: CTA bilaterally, no crackles, rales or wheezes, good diaphragmatic excursion ABD: soft, non-tender, non-distended, no rebound or guarding, +BS EXTREMITY: RP and DP palpable 2+ bilat, no LE swelling or edema, extremities are warm and well-perfused N/M: no gross focal deficits. SKIN: warm and dry ADDENDUM 3pm: Lungs have coarse rhonchi diffusely with upper airway gurgling. Does not appear to be in respiratory distress. Abdomen appears diffusely more firm. +BS still present. Laboratory Results: 06/10/17 06:58 Red Blood Count 4.55, Mean Corpuscular Volume 94.3, Mean Corpuscular Hemoglobin 31.2, Mean Corpuscular Hemoglobin Concent 33.1, Mean Platelet Volume 9.8, Neutrophils (%) (Auto) 88.2, Lymphocytes (%) (Auto) 6.7, Monocytes (%) (Auto) 4.6, Eosinophils (%) (Auto) 0.1, Basophils (%) (Auto) 0.1, Neutrophils # (Auto) 13.12, Lymphocytes # (Auto) 1.00, Monocytes # (Auto) 0.68, Eosinophils # (Auto) 0.01, Basophils # (Auto) 0.01 06/10/17 06:58 Test 06/08/17 12:20 06/08/17 17:20 06/08/17 18:18 06/08/17 22:57 Prothrombin Time 10.2 SECONDS (9.0-12.0) Prothromb Time International Ratio 1.0 (0.9-1.1) Total Bilirubin 0.8 mg/dl (0.2-1) Alanine Aminotransferase (ALT/SGPT) 24 U/L (12-78) Alkaline Phosphatase 109 U/L (45-117) Total Protein 8.1 gm/dl (6.4-8.2) Albumin 3.9 gm/dl (3.4-5.0) Lipase 108 U/L (73-393) Direct Bilirubin mg/dl (0-0.2) Aspartate Amino Transf (AST/SGOT) U/L (15-37) Troponin I < 0.015 ng/ml (0-0.045) Lactic Acid Level 0.8 mmol/L (0.4-2.0) Test 06/09/17 00:00 06/09/17 12:25 06/10/17 06:58 Urine Color YELLOW Urine Appearance TURBID (CLEAR) Urine pH 5.0 (4.5-7.5) Urine Specific [place] 1.033 (1.000-1.030) Urine Protein 1+ (NEG) Urine Glucose (UA) NEG (NEG) Urine Ketones NEG (NEG) Urine Occult Blood 1+ (NEG) Urine Nitrite POS (NEG) Urine Bilirubin NEG (NEG) Urine Urobilinogen NEG (NEG) Urine Leukocyte Esterase LARGE (NEG) Urine WBC (Auto) >30 /hpf (0-5) Urine RBC (Auto) 0-4 /hpf (0-4) Urine Hyaline Casts (Auto) 1-5 /lpf (0-5) Urine Epithelial Cells (Auto) 10-20 /lpf (0-5) Urine Bacteria (Auto) 1+ (NEG) Urine Pathogenic Casts /lpf (0) Influenza Type A Antigen Neg for Influ A (NEG) Influenza Type B Antigen Neg for Influ B (NEG) White Blood Count 14.87 K/uL (4.8-10.8) Red Blood Count 4.55 M/uL (4.7-6.1) Hemoglobin 14.2 g/dL (14.0-18.0) Hematocrit 42.9 % (42-52) Mean Corpuscular Volume 94.3 fL (80-100) Mean Corpuscular Hemoglobin 31.2 pg (25-34) Mean Corpuscular Hemoglobin Concent 33.1 g/dl (32-36) Platelet Count 199 K/uL (130-400) Mean Platelet Volume 9.8 fL (7.4-10.4) Neutrophils (%) (Auto) 88.2 % Lymphocytes (%) (Auto) 6.7 % Monocytes (%) (Auto) 4.6 % Eosinophils (%) (Auto) 0.1 % Basophils (%) (Auto) 0.1 % Neutrophils # (Auto) 13.12 K/uL (1.4-6.5) Lymphocytes # (Auto) 1.00 K/uL (1.2-3.4) Monocytes # (Auto) 0.68 K/uL (0.11-0.59) Eosinophils # (Auto) 0.01 K/uL (0-0.5) Basophils # (Auto) 0.01 K/uL (0-0.2) RDW Standard Deviation 49.2 fL (36.4-46.3) RDW Coefficient of Variation 14.2 % (11.5-14.5) Immature Granulocyte % (Auto) 0.3 % Immature Granulocyte # (Auto) 0.05 K/uL (0.00-0.02) Anion Gap 5.0 mmol/L (3-11) Est Creatinine Clear Calc Drug Dose 29.6 ml/min Estimated GFR () 51.0 Estimated GFR (Non- 44.0 BUN/Creatinine Ratio 13.6 (10-20) Calcium Level 8.5 mg/dl (8.5-10.1) Magnesium Level 2.0 mg/dl (1.8-2.4) Date/Time Source Procedure Growth Status 06/08/17 22:58 Blood Blood Culture - Preliminary NO GROWTH TO DATE. Resulted 06/09/17 00:00 Urine,Catheterized Urine Culture - Preliminary Gram Negative Bacilli Resulted Last 24 Hours Test 06/10/17 06:58 White Blood Count 14.87 K/uL Red Blood Count 4.55 M/uL Hemoglobin 14.2 g/dL Hematocrit 42.9 % Mean Corpuscular Volume 94.3 fL Mean Corpuscular Hemoglobin 31.2 pg Mean Corpuscular Hemoglobin Concent 33.1 g/dl Platelet Count 199 K/uL Mean Platelet Volume 9.8 fL Neutrophils (%) (Auto) 88.2 % Lymphocytes (%) (Auto) 6.7 % Monocytes (%) (Auto) 4.6 % Eosinophils (%) (Auto) 0.1 % Basophils (%) (Auto) 0.1 % Neutrophils # (Auto) 13.12 K/uL Lymphocytes # (Auto) 1.00 K/uL Monocytes # (Auto) 0.68 K/uL Eosinophils # (Auto) 0.01 K/uL Basophils # (Auto) 0.01 K/uL RDW Standard Deviation 49.2 fL RDW Coefficient of Variation 14.2 % Immature Granulocyte % (Auto) 0.3 % Immature Granulocyte # (Auto) 0.05 K/uL Sodium Level 145 mmol/L Potassium Level 3.4 mmol/L Chloride Level 113 mmol/L Carbon Dioxide Level 27 mmol/L Anion Gap 5.0 mmol/L Blood Urea Nitrogen 20 mg/dl Creatinine 1.43 mg/dl Est Creatinine Clear Calc Drug Dose 29.6 ml/min Estimated GFR () 51.0 Estimated GFR (Non- 44.0 BUN/Creatinine Ratio 13.6 Random Glucose 155 mg/dl Calcium Level 8.5 mg/dl Magnesium Level 2.0 mg/dl Assessment & Plan 86 yoM presents with acute onset vomiting. 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 He lives in a assisted and has pulmonary fibrosis. IVF were started and he was kept NPO overnight. He was challenged with lunch and dinner the following day without issue but then began vomiting persistently throughout the night last night and through this morning. The vomitus is dark black appearing. He is still requiring 2L supplementation and reported some nausea. Answers are yes and no and not seemingly reliable. After the exam I called and spoke with his sister, Cassie, who is his mPOA. I explained the situation and we also discussed his code status. She confirmed that he was a DNR/DNI. Around 3pm I was called by the nurse with reports that he was persistently vomiting a stool-like substance and lungs sounded more coarse. Bedside exam performed,KUB and NGT ordered. See below. 1. Nausea and vomiting-etiologies include but not limited to acute gastritis that is self-limited, as a result of constipation/stool impaction vs evolving obstruction or ileus. Large BM yesterday per nursing staff and appeared to improve as he was tolerating regular food for lunch and dinner. Vomiting persistently overnight, however. Scheduled Zofran with PRN phenergan suppository was ordered. At that time his abdomen was soft and non-distended without guarding or apparent tenderness. Around 3pm abdomen seemed to be more diffusely distended and breath sounds were more coarse. Had some trickle vomit from his mouth while I was there that was blackish in color. NPO, all PO meds held. Cont IVF. Cont Zofran and PRN phenergan and bowel rest with NGT to LIS for now. KUB ordered. Would consider repeat CT scan if he continues to worsen. 2. Hypoxia 2/2 aspiration pneumonia-pt uses oxygen at night only but now is requiring continuously while at rest. No acute infiltrates seen on imaging to date, however, breath sounds are more coarse and patient continues to vomit making him very high risk for aspiration. Cont Zosyn and NGT with plan as above. PT is DNR/DNI. Apprec pulm input. 3. UTI-recent E faecalis UTI present in early Oct treated with two rounds of Macrobid. Some bacteria is present in his urine but this is 40K. Ditropan was stopped for now. Cont Zosyn which is covering him empirically. 4. Tachycardia poss 2/2 dehydration vs anxiety vs early sepsis in setting of UTI or aspiration pneumonitis-persistent. With dark black vomiting will check gastric contents for occult blood. 5. 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 Close monitoring per nursing staff. Pt lives in a assisted setting. 6. HTN-Maxzide on hold. Control with IV meds PRN. 7. CKD Stage III-appears to be at baseline creatinine which is 1.4-1.7. Monitor PRP in am. 8. BPH-cont tamsulosin and finasteride DVT PROPHYLAXIS: Lovenox 30mg DNR Disposition: cont telemetry monitoring. Joanne Brand DO [facility] Hospitalist Current Inpatient Medications: Current Inpatient Medications Medications (Trade) Dose Ordered Sig/Braulio Route Start Time Stop Time Status Last Admin Dose Admin Ioversol (Optiray 320) 115 ml UD PRN IV 06/08/17 20:15 06/12/17 20:14 Bisacodyl (Dulcolax Supp) 10 mg DAILY PRN [place] 06/08/17 22:15 07/08/17 22:14 06/09/17 09:05 10 MG Magnesium Hydroxide (Milk Of Magnesia Susp) 30 ml Q6H PRN PO 06/08/17 22:15 07/08/17 22:14 06/09/17 09:05 30 ML Levalbuterol (Xopenex 0.63 Mg/ 3 Ml Neb) 0.63 mg Q4H PRN INH 06/08/17 22:15 07/08/17 22:14 Levalbuterol (Xopenex 0.63 Mg/ 3 Ml Neb) 0.63 mg Q6R INH 06/09/17 03:00 07/09/17 02:59 06/10/17 14:03 0.63 MG Piperacillin Sod/ Tazobactam Sod 3.375 gm/Dextrose 115 ml @ 28.75 mls/ hr Q8H IV 06/09/17 04:00 06/19/17 03:59 06/10/17 11:19 28.75 MLS/HR Finasteride (Proscar Tab) 5 mg DAILY PO 06/09/17 09:00 07/09/17 08:59 06/09/17 07:26 5 MG Fluticasone Propionate (Flonase Nasal [place]) 2 sprays DAILY PRANEETH 06/09/17 09:00 07/09/17 08:59 06/09/17 09:02 2 SPRAYS Guaifenesin (Mucinex Contr Rel Tab) 600 mg BID PO 06/09/17 09:00 07/09/17 08:59 06/09/17 21:14 600 MG Loratadine (Claritin Tab) 10 mg DAILY PO 06/09/17 09:00 07/09/17 08:59 06/09/17 07:26 10 MG Sodium Chloride (Mccreary Nasal [place]) 2 sprays DAILY PRANEETH 06/09/17 09:00 07/09/17 08:59 06/09/17 07:28 2 SPRAYS Sodium Chloride ([place] 128 Oph Soln) 1 drops BID OPB 06/09/17 09:00 07/09/17 08:59 06/09/17 21:15 1 DROPS Tamsulosin HCl (Flomax Cap) 0.4 mg HS PO 06/09/17 21:00 07/09/17 20:59 06/09/17 21:14 0.4 MG Piperacillin Sod/ Tazobactam Sod (Consult) 1 ea UD PRN N/A 06/08/17 22:30 07/08/17 22:29 Acetaminophen (Tylenol Tab) 650 mg Q4H PRN PO 06/08/17 22:30 07/08/17 22:29 06/09/17 23:45 650 MG Ipratropium [place] (Atrovent 0.02% 0.5MG/2.5ML Neb) 0.5 mg Q6R INH 06/09/17 03:00 07/08/17 22:59 06/10/17 14:03 0.5 MG Potassium Chloride/Dextrose/ Sod Cl 1,000 ml @ 100 mls/hr Q10H IV 06/09/17 00:15 07/09/17 00:14 06/10/17 14:46 100 MLS/HR Miscellaneous (Iv Fluids Completed) 1 ea PRN PRN N/A 06/09/17 00:30 06/09/18 00:29 Mirtazapine (Remeron Tab) 15 mg HS PO 06/09/17 21:00 07/09/17 20:59 06/09/17 21:14 15 MG Guaifenesin/ Dextromethorphan (Robitussin-Dm Syrup) 10 ml Q6H PRN PO 06/09/17 01:30 07/09/17 01:29 Enoxaparin Sodium (Lovenox Inj) 30 mg Q24H SQ 06/09/17 12:30 07/09/17 12:29 06/10/17 11:00 30 MG Polyethylene (Miralax Powder Packet) 17 gm DAILY PO 06/10/17 09:00 07/10/17 08:59 Alendronate Sodium (Fosamax Tab) 70 mg Fr@0900 PO 06/11/17 09:00 07/11/17 08:59 Atorvastatin Calcium (Lipitor Tab) 20 mg DAILY PO 06/10/17 09:00 07/10/17 08:59 Calcium Polycarbophil (Fibercon Tab) 1 tab DAILY PO 06/10/17 09:00 07/10/17 08:59 Triamterene/HCTZ (Maxzide 37.5/25 Tab) 1 tab DAILY PO 06/10/17 09:00 07/10/17 08:59 Pantoprazole Sodium (Protonix Tab) 40 mg QAM PO 06/10/17 09:00 07/10/17 08:59 Ondansetron HCl (Zofran Inj) 4 mg Q8H IV 06/10/17 10:00 07/08/17 09:59 06/10/17 09:27 4 MG Promethazine HCl (Phenergan Supp) 12.5 mg Q6H PRN [place] 06/10/17 08:45 07/10/17 08:44 06/10/17 10:59 12.5 MG Formoterol Fumarate (Perforomist 20MCG/2ML Neb Soln) 20 mcg BIDR INH 06/10/17 20:00 07/09/17 07:59 Budesonide (Pulmicort Respules 0.5MG/ 2ML Neb Soln) 0.5 mg BIDR INH 06/10/17 20:00 07/10/17 19:59
--- NOTE | 2017-06-10 16:36 | DIAGNOSTIC IMAGING REPORT ---
AP CHEST AND KUB CLINICAL HISTORY: Bowel obstruction. FINDINGS: 3 AP supine chest radiographs are compared to study dated 06/09/2017. Examination is degraded by patient rotation. An enteric tube has been placed. This extends into the right lower lobe bronchus. The cardiomediastinal silhouette is unremarkable. There is atherosclerotic calcification of the thoracic aorta. Changes of chronic interstitial lung disease are similar to previous. More focal airspace opacities are present both lung bases. No large pleural effusion or pneumothorax is seen. The skeletal structures are osteopenic. Degenerative change is noted throughout the thoracic spine. AP supine abdominal radiographs are correlated with abdominal CT dated 06/08/2017. There is gaseous distention of the stomach and small bowel loops. The small bowel does measure up to 4.5 cm. Fecal retention is noted throughout the colon. No evidence of intraperitoneal free air is seen on these supine images. There are no abnormal abdominal calcifications. Phlebolith are seen in the pelvis. There is moderate to advanced lumbar sacral spondylosis as well as scoliosis. The lumbosacral spine and bony pelvis appear intact. IMPRESSION: 1. An enteric tube has been placed. This initially went in to the right lower lobe bronchus. This was subsequently repositioned and projects over the proximal stomach on the final image. 2. Changes of chronic lung disease are similar to previous. More focal bibasilar airspace opacities have increased from older prior studies. Correlate clinically for evidence of a superimposed infectious/inflammatory pneumonitis. 3. There is gaseous distention of the small bowel loops which could represent developing obstruction versus ileus. Electronically signed by: Wesly Car M.D. 06/10/2017 4:34 PM Dictated Date/Time: 06/10/2017 4:29 PM
--- NOTE | 2017-06-10 17:00 | Procedure Note ---
Procedure Note Procedure Date Jun 10, 2017. Procedure Description Procedure Name: Placement of nasal gastric tube Procedure time out: side/site verified, patient ID confirmed, correct procedure Time of procedure: 16:00 Performed by: physician geothermal technician (Wesly Mercado PA-C) Indications: therapeutic Contraindications: none Description: Nursing called and asked for assistance in placing an NG tube in Mr. Vargas. Dr. Brand had updated us on this patient and indicated that he was vomiting feces. Initial attempts to place the NGT were unsuccessful by nursing. Initial attempt my RN with my assistance resulted in the NGT migrating down the right main bronchus into the right lower lobe. The patient had no cough or other indication of placement in the lung. There was no bleeding or evidence of hemoptysis. Oxygenation remained adequate with NC at same settings as prior to procedure. A KUB was taken which revealed inappropriate placement. The patient had an episode of vomiting after which, a Glidescope was used to visualize the epiglottis and esophagus. The epiglottis did not seem to have any motion. The NGT was then advanced down the esophagus with the administration of sips of water. KUB confirmed placement below the diaphragm and presumably in the stomach. The NGT was placed to LIWS and immediately had return of approximately 250 mLs of bilious gastric contents. I then reported procedure to Dr. Mckenna and also called Dr. Brand to advise them of the placement of the tube in the RLL. The patient will be continued on Zosyn for aspiration and a repeat CXR will be obtained in the morning. Complications: other (Initial placement of the NGT in the RLL) Patient tolerated procedure: well Post-procedure vital signs: reviewed and stable
--- NOTE | 2017-06-10 17:07 | Pulmonology Progress Note ---
Pulmonary Progress Note Date of Service Jun 10, 2017. Attending Dr. Bradley Subjective Patient has had continued vomiting today per his SILK TRIMMER in the room with him. He is growing gram-negative bacilli from his urine culture. Blood cultures have shown no growth to date. His white blood cell count today was 14.87. His creatinine was 1.43, and BUN was 20. Vital signs were reviewed. The patient has been afebrile. O2 saturation has been 90-94% on 2 liters via nasal cannula. The patient did have a chest x-ray yesterday which showed chronic reticular opacities suggestive of fibrosis, but no new focal infiltrate. It was noted that aspiration was a consideration. Patient answered some brief yes or no questions today. He stated that he has not had coughing today but has had some shortness of breath. Objective CHEST ONE VIEW PORTABLE CLINICAL HISTORY: 86 years-old Male presenting with ff up, possible aspiration. TECHNIQUE: Portable upright AP view of the chest was obtained. COMPARISON: 06/08/2017. FINDINGS: Atherosclerosis of the aortic arch. Cardiac silhouette normal in size. Persistent reticular opacities, left greater than right, with a peripheral and basilar predominance. Lung aeration is unchanged. No new infiltrate. No large effusion or pneumothorax. Osseous structures normal. Upper abdomen normal. IMPRESSION: 1. Chronic reticular opacities suggestive of fibrosis, left greater than right. No new focal infiltrate. This could be seen in the setting of underlying fibrosis. Aspiration is also a consideration if the patient is frequently left lateral decubitus. This would be better evaluated with chest CT. General: Patient is nonverbal. Appears ill. Has a bucket beside him for vomiting. Head: Atraumatic. ENT: No discharge. Sclera normal Neck: Normal ROM. Trachea midline. Respiratory: Decreased breath sounds noted throughout. No respiratory distress. No accessory muscle use. Cardiovascular: Regular rate and rhythm. Neuro: Alert. Answers yes/no questions. Assessment & Plan Possible aspiration pneumonia Pulmonary fibrosis Renal insufficiency Patient continues to have episodes of vomiting today. He otherwise denies cough today which is an improvement from yesterday. He does continue to have some mild shortness of breath on an off. The patient is currently on Pulmicort , Zosyn, Xopenex, and Atrovent nebulizers. Recommend continuing current antibiotic therapy for concern of aspiration pneumonia with continued vomiting. Continue nebulizers as scheduled and p.r.n.. Continue supplemental O2 to maintain SaO2 >90%. Recommend speech evaluation once GI upset has settled. May be able to transition to p.o. Augmentin in a liquid or pill form once patient shows further improvement. Data Medications: Current Inpatient Medications Medications (Trade) Dose Ordered Sig/Braulio Route Start Time Stop Time Status Last Admin Dose Admin Ioversol (Optiray 320) 115 ml UD PRN IV 06/08/17 20:15 06/12/17 20:14 Bisacodyl (Dulcolax Supp) 10 mg DAILY PRN [place] 06/08/17 22:15 07/08/17 22:14 06/09/17 09:05 10 MG Magnesium Hydroxide (Milk Of Magnesia Susp) 30 ml Q6H PRN PO 06/08/17 22:15 07/08/17 22:14 Future Hold 06/09/17 09:05 30 ML Levalbuterol (Xopenex 0.63 Mg/ 3 Ml Neb) 0.63 mg Q4H PRN INH 06/08/17 22:15 07/08/17 22:14 Levalbuterol (Xopenex 0.63 Mg/ 3 Ml Neb) 0.63 mg Q6R INH 06/09/17 03:00 07/09/17 02:59 06/10/17 14:03 0.63 MG Piperacillin Sod/ Tazobactam Sod 3.375 gm/Dextrose 115 ml @ 28.75 mls/ hr Q8H IV 06/09/17 04:00 06/19/17 03:59 06/10/17 11:19 28.75 MLS/HR Finasteride (Proscar Tab) 5 mg DAILY PO 06/09/17 09:00 07/09/17 08:59 Future Hold 06/09/17 07:26 5 MG Fluticasone Propionate (Flonase Nasal [place]) 2 sprays DAILY PRANEETH 06/09/17 09:00 07/09/17 08:59 Future Hold 06/09/17 09:02 2 SPRAYS Guaifenesin (Mucinex Contr Rel Tab) 600 mg BID PO 06/09/17 09:00 07/09/17 08:59 Future Hold 06/09/17 21:14 600 MG Loratadine (Claritin Tab) 10 mg DAILY PO 06/09/17 09:00 07/09/17 08:59 Future Hold 06/09/17 07:26 10 MG Sodium Chloride ([place] Nasal [place]) 2 sprays DAILY PRANEETH 06/09/17 09:00 07/09/17 08:59 06/09/17 07:28 2 SPRAYS Sodium Chloride ([place] 128 Oph Soln) 1 drops BID OPB 06/09/17 09:00 07/09/17 08:59 06/09/17 21:15 1 DROPS Tamsulosin HCl (Flomax Cap) 0.4 mg HS PO 06/09/17 21:00 07/09/17 20:59 Future Hold 06/09/17 21:14 0.4 MG Piperacillin Sod/ Tazobactam Sod (Consult) 1 ea UD PRN N/A 06/08/17 22:30 07/08/17 22:29 Acetaminophen (Tylenol Tab) 650 mg Q4H PRN PO 06/08/17 22:30 07/08/17 22:29 Future Hold 06/09/17 23:45 650 MG Ipratropium [place] (Atrovent 0.02% 0.5MG/2.5ML Neb) 0.5 mg Q6R INH 06/09/17 03:00 07/08/17 22:59 06/10/17 14:03 0.5 MG Potassium Chloride/Dextrose/ Sod Cl 1,000 ml @ 100 mls/hr Q10H IV 06/09/17 00:15 07/09/17 00:14 06/10/17 14:46 100 MLS/HR Miscellaneous (Iv Fluids Completed) 1 ea PRN PRN N/A 06/09/17 00:30 06/09/18 00:29 Mirtazapine (Remeron Tab) 15 mg HS PO 06/09/17 21:00 07/09/17 20:59 Future Hold 06/09/17 21:14 15 MG Guaifenesin/ Dextromethorphan (Robitussin-Dm Syrup) 10 ml Q6H PRN PO 06/09/17 01:30 07/09/17 01:29 Future Hold Enoxaparin Sodium (Lovenox Inj) 30 mg Q24H SQ 06/09/17 12:30 07/09/17 12:29 06/10/17 11:00 30 MG Polyethylene (Miralax Powder Packet) 17 gm DAILY PO 06/10/17 09:00 07/10/17 08:59 Future Hold Alendronate Sodium (Fosamax Tab) 70 mg Fr@0900 PO 06/11/17 09:00 07/11/17 08:59 Future Hold Atorvastatin Calcium (Lipitor Tab) 20 mg DAILY PO 06/10/17 09:00 07/10/17 08:59 Future Hold Calcium Polycarbophil (Fibercon Tab) 1 tab DAILY PO 06/10/17 09:00 07/10/17 08:59 Future Hold Triamterene/HCTZ (Maxzide 37.5/25 Tab) 1 tab DAILY PO 06/10/17 09:00 07/10/17 08:59 Future Hold Pantoprazole Sodium (Protonix Tab) 40 mg QAM PO 06/10/17 09:00 07/10/17 08:59 Future Hold Ondansetron HCl (Zofran Inj) 4 mg Q8H IV 06/10/17 10:00 07/08/17 09:59 06/10/17 09:27 4 MG Promethazine HCl (Phenergan Supp) 12.5 mg Q6H PRN TX 06/10/17 08:45 07/10/17 08:44 06/10/17 10:59 12.5 MG Formoterol Fumarate (Perforomist 20MCG/2ML Neb Soln) 20 mcg BIDR INH 06/10/17 20:00 07/09/17 07:59 Budesonide (Pulmicort Respules 0.5MG/ 2ML Neb Soln) 0.5 mg BIDR INH 06/10/17 20:00 07/10/17 19:59 I & O: 24-Hour Column 06/11/17 08:00 Intake Total 1054 ml Balance 1054 ml Vital Signs: Date Time Temp Pulse Resp B/P (MAP) Pulse Ox O2 Delivery O2 Flow Rate FiO2 06/10/17 16:00 Nasal Cannula 2.0 06/10/17 15:19 37.0 109 22 136/73 (94) 90 2.0 06/10/17 14:03 104 16 90 Nasal Cannula 2.0 06/10/17 12:00 Nasal Cannula 2.0 06/10/17 10:59 37.1 97 20 145/84 (104) 94 Room Air 06/10/17 08:00 Nasal Cannula 2.0 06/10/17 07:17 96 16 92 Nasal Cannula 2.0 06/10/17 06:45 37.1 96 17 125/81 (96) 92 Nasal Cannula 2.0 06/10/17 05:00 Room Air 06/10/17 03:21 37.2 71 16 111/68 (82) 91 Nasal Cannula 2.0 06/10/17 01:52 83 14 90 Room Air 06/10/17 01:52 37.6 06/10/17 00:00 Room Air 06/09/17 22:50 38.3 97 20 124/70 (88) 90 Room Air 06/09/17 21:00 37.4 06/09/17 20:26 38.1 87 17 109/63 (78) 91 Room Air 06/09/17 20:00 Nasal Cannula 2.0 06/09/17 19:30 82 16 91 Room Air Laboratory Results: Last 24 Hours Test 06/10/17 06:58 White Blood Count 14.87 K/uL Red Blood Count 4.55 M/uL Hemoglobin 14.2 g/dL Hematocrit 42.9 % Mean Corpuscular Volume 94.3 fL Mean Corpuscular Hemoglobin 31.2 pg Mean Corpuscular Hemoglobin Concent 33.1 g/dl Platelet Count 199 K/uL Mean Platelet Volume 9.8 fL Neutrophils (%) (Auto) 88.2 % Lymphocytes (%) (Auto) 6.7 % Monocytes (%) (Auto) 4.6 % Eosinophils (%) (Auto) 0.1 % Basophils (%) (Auto) 0.1 % Neutrophils # (Auto) 13.12 K/uL Lymphocytes # (Auto) 1.00 K/uL Monocytes # (Auto) 0.68 K/uL Eosinophils # (Auto) 0.01 K/uL Basophils # (Auto) 0.01 K/uL RDW Standard Deviation 49.2 fL RDW Coefficient of Variation 14.2 % Immature Granulocyte % (Auto) 0.3 % Immature Granulocyte # (Auto) 0.05 K/uL Sodium Level 145 mmol/L Potassium Level 3.4 mmol/L Chloride Level 113 mmol/L Carbon Dioxide Level 27 mmol/L Anion Gap 5.0 mmol/L Blood Urea Nitrogen 20 mg/dl Creatinine 1.43 mg/dl Est Creatinine Clear Calc Drug Dose 29.6 ml/min Estimated GFR () 51.0 Estimated GFR (Non- 44.0 BUN/Creatinine Ratio 13.6 Random Glucose 155 mg/dl Calcium Level 8.5 mg/dl Magnesium Level 2.0 mg/dl
--- NOTE | 2017-06-10 17:26 | Critical Care Consultation ---
Critical Care Consultation Date of Consultation: Jun 10, 2017. Attending Physician: Joanne Brand DO Reason for Consultation: Placement of NG tube History of Present Illness Barrel Washer: Dr. Mckenna Consult only for placement of NG tube This is a 86-year-old male that presented with vomiting and episodes of nausea and questionable aspiration yesterday. The patient has associated coughing spells with the vomiting. CT abdomen showed constipation and stool in the rectum and colon. There was no sign of obstruction however patient had symptoms consistent with ileus versus obstruction. The attending physician Dr. Brand requested an NG tube be placed by nursing staff. After several attempts, I was asked to assist with placement. Patient was nonverbal due to mental disability. Patient was identified with name band and date of with nurse present. Please refer to procedure note under separate cover for details regarding NG tube placement Past Medical/Surgical History PAST MEDICAL HISTORY: Mental disability Nonverbal Rectal CA Urinary incontinence Recent UTI Interstitial fibrosis Intractable vomiting Probable aspiration Asthma Heart disease PAST SURGICAL HISTORY: Nothing noted in the chart Patient unable to give history Family History Cancer Heart disease Hypertension Lung disease Social History Smoking Status: Never Smoker Smokeless Tobacco Use: No Alcohol Use: none Drug Use: none Marital Status: single Housing Status: assisted living (patient resides in a retirement) Occupation Status: disabled Allergies Coded Allergies: Chocolate (Verified Allergy, Unknown, 12/10/16) Tomato (Verified Allergy, Unknown, 12/10/16) Grapefruit (Verified Adverse Reaction, Severe, SHOULD AVOID DUE TO OTHER MEDS, 06/09/17) Aspirin (Verified Adverse Reaction, Intermediate, STOMACH ISSUES, 06/09/17 ) Propoxyphene (Verified Adverse Reaction, Intermediate, CONSTIPATION, 06/09) Tramadol (Verified Adverse Reaction, Intermediate, CONSTIPATION, 06/09/17) Home Medications Scheduled Alendronate Sodium (Alendronate Sodium), 70 MG PO WK Atorvastatin (Lipitor), 20 MG PO DAILY Budesonide (Pulmicort Respules 0.5MG/2ML), 2 ML INH BID Calcium Polycarbophil (Fiber Laxative), 625 MG PO DAILY Cholecalciferol (Vitamin D3), 1,000 INTER.UNIT PO DAILY Chondroitin Sulfate-Vitamin C- (Chondroitin Sulfate), 400 MG PO TID Finasteride (Proscar), 5 MG PO DAILY Fluticasone Propionate (Nasal) (Flonase Allergy Relief), 2 SPRAYS PRANEETH DAILY Formoterol Fumarate (Perforomist), 2 ML NEB BID Glucosamine Sulfate (Glucosamine), 500 MG PO TID Guaifenesin La (Guaifenesin Er), 600 MG PO BID Ipratropium-Albuterol (Duoneb), 1 TREATMENT INH TID Loratadine (Claritin), 10 MG PO DAILY Mirtazapine Soltab (Remeron Soltab), 15 MG PO HS Omeprazole (Prilosec), 20 MG PO DAILY Oxybutynin Chloride (Ditropan Xl), 15 MG PO DAILY Saline (Mcneal Nasal [place]), 2 SPRAYS PRANEETH DAILY Skin Oils (Baby Oil), 2 DROPS OTB 2XWK Sodium Chloride Hypertonic (Sodium Chloride), 1 DROP OPB BID Tamsulosin Hcl (Flomax), 0.4 MG PO HS Triamterene/Hctz (Triamterene/Hctz 37.5-25MG), 1 TAB PO DAILY Scheduled PRN Acetaminophen (Tylenol), 650 MG PO Q6 PRN for Pain Alum & Mag Hydrox-Simethicone (Mylanta), 30 ML PO Q6 PRN for GI Upset Dextromethorphan-Guaifenesin (Guaifenesin Dm), 2 TSP PO Q6H PRN for Cough Loperamide Hcl (Imodium), 2 MG PO UD PRN for Diarrhea Magnesium Hydroxide (Milk Of Magnesia), 30 ML PO Q3D PRN for Constipation Neomycin/Polymyx/Bacitr (Neosporin), 1 APPL TOP UD PRN for ut/scrsape/scratch Ondansetron Hcl (Zofran), 4 MG UT QID PRN for Nausea Current Inpatient Medications Current Inpatient Medications Medications (Trade) Dose Ordered Sig/Braulio Route Start Time Stop Time Status Last Admin Dose Admin Ioversol (Optiray 320) 115 ml UD PRN IV 06/08/17 20:15 06/12/17 20:14 Bisacodyl (Dulcolax Supp) 10 mg DAILY PRN MS 06/08/17 22:15 07/08/17 22:14 06/09/17 09:05 10 MG Magnesium Hydroxide (Milk Of Magnesia Susp) 30 ml Q6H PRN PO 06/08/17 22:15 07/08/17 22:14 Future Hold 06/09/17 09:05 30 ML Levalbuterol (Xopenex 0.63 Mg/ 3 Ml Neb) 0.63 mg Q4H PRN INH 06/08/17 22:15 07/08/17 22:14 Levalbuterol (Xopenex 0.63 Mg/ 3 Ml Neb) 0.63 mg Q6R INH 06/09/17 03:00 07/09/17 02:59 06/10/17 14:03 0.63 MG Piperacillin Sod/ Tazobactam Sod 3.375 gm/Dextrose 115 ml @ 28.75 mls/ hr Q8H IV 06/09/17 04:00 06/19/17 03:59 06/10/17 11:19 28.75 MLS/HR Finasteride (Proscar Tab) 5 mg DAILY PO 06/09/17 09:00 07/09/17 08:59 Future Hold 06/09/17 07:26 5 MG Fluticasone Propionate (Flonase Nasal [place]) 2 sprays DAILY PRANEETH 06/09/17 09:00 07/09/17 08:59 Future Hold 06/09/17 09:02 2 SPRAYS Guaifenesin (Mucinex Contr Rel Tab) 600 mg BID PO 06/09/17 09:00 07/09/17 08:59 Future Hold 06/09/17 21:14 600 MG Loratadine (Claritin Tab) 10 mg DAILY PO 06/09/17 09:00 07/09/17 08:59 Future Hold 06/09/17 07:26 10 MG Sodium Chloride (Mcneal Nasal [place]) 2 sprays DAILY PRANEETH 06/09/17 09:00 07/09/17 08:59 06/09/17 07:28 2 SPRAYS Sodium Chloride ([place] 128 Oph Soln) 1 drops BID OPB 06/09/17 09:00 07/09/17 08:59 06/09/17 21:15 1 DROPS Tamsulosin HCl (Flomax Cap) 0.4 mg HS PO 06/09/17 21:00 07/09/17 20:59 Future Hold 06/09/17 21:14 0.4 MG Piperacillin Sod/ Tazobactam Sod (Consult) 1 ea UD PRN N/A 06/08/17 22:30 07/08/17 22:29 Acetaminophen (Tylenol Tab) 650 mg Q4H PRN PO 06/08/17 22:30 07/08/17 22:29 Future Hold 06/09/17 23:45 650 MG Ipratropium [place] (Atrovent 0.02% 0.5MG/2.5ML Neb) 0.5 mg Q6R INH 06/09/17 03:00 07/08/17 22:59 06/10/17 14:03 0.5 MG Potassium Chloride/Dextrose/ Sod Cl 1,000 ml @ 100 mls/hr Q10H IV 06/09/17 00:15 07/09/17 00:14 06/10/17 14:46 100 MLS/HR Miscellaneous (Iv Fluids Completed) 1 ea PRN PRN N/A 06/09/17 00:30 06/09/18 00:29 Mirtazapine (Remeron Tab) 15 mg HS PO 06/09/17 21:00 07/09/17 20:59 Future Hold 06/09/17 21:14 15 MG Guaifenesin/ Dextromethorphan (Robitussin-Dm Syrup) 10 ml Q6H PRN PO 06/09/17 01:30 07/09/17 01:29 Future Hold Enoxaparin Sodium (Lovenox Inj) 30 mg Q24H SQ 06/09/17 12:30 07/09/17 12:29 06/10/17 11:00 30 MG Polyethylene (Miralax Powder Packet) 17 gm DAILY PO 06/10/17 09:00 07/10/17 08:59 Future Hold Alendronate Sodium (Fosamax Tab) 70 mg Fr@0900 PO 06/11/17 09:00 07/11/17 08:59 Future Hold Atorvastatin Calcium (Lipitor Tab) 20 mg DAILY PO 06/10/17 09:00 07/10/17 08:59 Future Hold Calcium Polycarbophil (Fibercon Tab) 1 tab DAILY PO 06/10/17 09:00 07/10/17 08:59 Future Hold Triamterene/HCTZ (Maxzide 37.5/25 Tab) 1 tab DAILY PO 06/10/17 09:00 07/10/17 08:59 Future Hold Pantoprazole Sodium (Protonix Tab) 40 mg QAM PO 06/10/17 09:00 07/10/17 08:59 Future Hold Ondansetron HCl (Zofran Inj) 4 mg Q8H IV 06/10/17 10:00 07/08/17 09:59 06/10/17 09:27 4 MG Promethazine HCl (Phenergan Supp) 12.5 mg Q6H PRN MS 06/10/17 08:45 07/10/17 08:44 06/10/17 10:59 12.5 MG Formoterol Fumarate (Perforomist 20MCG/2ML Neb Soln) 20 mcg BIDR INH 06/10/17 20:00 07/09/17 07:59 Budesonide (Pulmicort Respules 0.5MG/ 2ML Neb Soln) 0.5 mg BIDR INH 06/10/17 20:00 07/10/17 19:59 Review of Systems Unable to obtain secondary to patient condition Physical Exam Date Time Temp Pulse Resp B/P (MAP) Pulse Ox O2 Delivery O2 Flow Rate FiO2 06/10/17 16:00 Nasal Cannula 2.0 06/10/17 15:19 37.0 109 22 136/73 (94) 90 2.0 06/10/17 14:03 104 16 90 Nasal Cannula 2.0 06/10/17 12:00 Nasal Cannula 2.0 06/10/17 10:59 37.1 97 20 145/84 (104) 94 Room Air 06/10/17 08:00 Nasal Cannula 2.0 06/10/17 07:17 96 16 92 Nasal Cannula 2.0 06/10/17 06:45 37.1 96 17 125/81 (96) 92 Nasal Cannula 2.0 06/10/17 05:00 Room Air 06/10/17 03:21 37.2 71 16 111/68 (82) 91 Nasal Cannula 2.0 06/10/17 01:52 83 14 90 Room Air 06/10/17 01:52 37.6 06/10/17 00:00 Room Air 06/09/17 22:50 38.3 97 20 124/70 (88) 90 Room Air 06/09/17 21:00 37.4 06/09/17 20:26 38.1 87 17 109/63 (78) 91 Room Air 06/09/17 20:00 Nasal Cannula 2.0 06/09/17 19:30 82 16 91 Room Air General Appearance: well-appearing, no apparent distress Eyes: PERRLA, sclerae normal ENT: other (patient absent of teeth. No dentures. Poor function of epiglottis when visualized with glide scope) Neck: normal range of motion, no tenderness, trachea midline, no stridor Respiratory: rhonchi, other (course Rales bilaterally) Cardiovasular: regular rate/rhythm Abdomen: hypoactive bowel sounds, other (abdomen distended but soft. No guarding or rebound tenderness) Upper Extremities: no edema Lower Extremities: no edema Neuro: other (appears to have mental retardation but does respond with hand gestures appropriately) Laboratory Results Last 24 Hours Test 06/10/17 06:58 White Blood Count 14.87 K/uL Red Blood Count 4.55 M/uL Hemoglobin 14.2 g/dL Hematocrit 42.9 % Mean Corpuscular Volume 94.3 fL Mean Corpuscular Hemoglobin 31.2 pg Mean Corpuscular Hemoglobin Concent 33.1 g/dl Platelet Count 199 K/uL Mean Platelet Volume 9.8 fL Neutrophils (%) (Auto) 88.2 % Lymphocytes (%) (Auto) 6.7 % Monocytes (%) (Auto) 4.6 % Eosinophils (%) (Auto) 0.1 % Basophils (%) (Auto) 0.1 % Neutrophils # (Auto) 13.12 K/uL Lymphocytes # (Auto) 1.00 K/uL Monocytes # (Auto) 0.68 K/uL Eosinophils # (Auto) 0.01 K/uL Basophils # (Auto) 0.01 K/uL RDW Standard Deviation 49.2 fL RDW Coefficient of Variation 14.2 % Immature Granulocyte % (Auto) 0.3 % Immature Granulocyte # (Auto) 0.05 K/uL Sodium Level 145 mmol/L Potassium Level 3.4 mmol/L Chloride Level 113 mmol/L Carbon Dioxide Level 27 mmol/L Anion Gap 5.0 mmol/L Blood Urea Nitrogen 20 mg/dl Creatinine 1.43 mg/dl Est Creatinine Clear Calc Drug Dose 29.6 ml/min Estimated GFR () 51.0 Estimated GFR (Non- 44.0 BUN/Creatinine Ratio 13.6 Random Glucose 155 mg/dl Calcium Level 8.5 mg/dl Magnesium Level 2.0 mg/dl Diagnostic Results AP CHEST AND KUB CLINICAL HISTORY: Bowel obstruction. FINDINGS: 3 AP supine chest radiographs are compared to study dated 06/09/2017. Examination is degraded by patient rotation. An enteric tube has been placed. This extends into the right lower lobe bronchus. The cardiomediastinal silhouette is unremarkable. There is atherosclerotic calcification of the thoracic aorta. Changes of chronic interstitial lung disease are similar to previous. More focal airspace opacities are present both lung bases. No large pleural effusion or pneumothorax is seen. The skeletal structures are osteopenic. Degenerative change is noted throughout the thoracic spine. AP supine abdominal radiographs are correlated with abdominal CT dated 06/08/2017. There is gaseous distention of the stomach and small bowel loops. The small bowel does measure up to 4.5 cm. Fecal retention is noted throughout the colon. No evidence of intraperitoneal free air is seen on these supine images. There are no abnormal abdominal calcifications. Phlebolith are seen in the pelvis. There is moderate to advanced lumbar sacral spondylosis as well as scoliosis. The lumbosacral spine and bony pelvis appear intact. IMPRESSION: 1. An enteric tube has been placed. This initially went in to the right lower lobe bronchus. This was subsequently repositioned and projects over the proximal stomach on the final image. 2. Changes of chronic lung disease are similar to previous. More focal bibasilar airspace opacities have increased from older prior studies. Correlate clinically for evidence of a superimposed infectious/inflammatory pneumonitis. 3. There is gaseous distention of the small bowel loops which could represent developing obstruction versus ileus. Electronically signed by: Wesly Car M.D. 06/10/2017 4:34 PM CHEST ONE VIEW PORTABLE CLINICAL HISTORY: 86 years-old Male presenting with ff up, possible aspiration. TECHNIQUE: Portable upright AP view of the chest was obtained. COMPARISON: 06/08/2017. FINDINGS: Atherosclerosis of the aortic arch. Cardiac silhouette normal in size. Persistent reticular opacities, left greater than right, with a peripheral and basilar predominance. Lung aeration is unchanged. No new infiltrate. No large effusion or pneumothorax. Osseous structures normal. Upper abdomen normal. IMPRESSION: 1. Chronic reticular opacities suggestive of fibrosis, left greater than right. No new focal infiltrate. This could be seen in the setting of underlying fibrosis. Aspiration is also a consideration if the patient is frequently left lateral decubitus. This would be better evaluated with chest CT. Electronically signed by: Kannan Pan M.D. 06/09/2017 9:[address] OF THE ABDOMEN AND PELVIS WITH CONTRAST CLINICAL HISTORY: Vomiting. COMPARISON STUDY: CT of the abdomen and pelvis March 05, 2011 and renal ultrasound January 17, 2016. TECHNIQUE: Following IV administration of 115 mL of Optiray-320, axial images of the abdomen and pelvis were obtained from the lung bases to the proximal femurs. Images were reviewed in the axial, sagittal, and coronal planes. IV contrast was administered without complication. A dose lowering technique was utilized adhering to the principles of ALARA. CT DOSE: 432.46 mGy.cm FINDINGS: Visualized portions of the lower lungs are suboptimally assessed due to respiratory motion. There may be underlying emphysema or interstitial lung disease. A small hiatal hernia is noted. No pneumatosis, free air or portal venous gas is present. There is no biliary or pancreatic ductal dilatation. A peripherally calcified left renal lesion is unchanged since prior exam of March 05, 2011. This is likely benign given stability. An additional left renal cyst is noted. There is marked right renal atrophy. No peripancreatic or pericholecystic infiltration is present. There is extensive atherosclerotic plaque of the abdominal aorta. A sigmoid anastomosis is noted. There is no evidence for a bowel obstruction. There is a large amount of stool within the colon and rectum. The appendix is normal. Moderate bladder wall thickening is noted. IMPRESSION: 1. Large amount of stool within the rectum and colon. No evidence for a bowel obstruction. Normal appendix. 2. Moderate bladder wall thickening which could be correlated with urinalysis to exclude cystitis. 3. Partially calcified left renal lesion which is unchanged since CT of March 05, 2011. This is likely benign. No hydronephrosis. Marked right renal atrophy. 4. Study mildly compromised by motion artifact. Electronically signed by: Mina Hidalgo M.D. 06/08/2017 8:51 PM Assessment & Plan INTRACTABLE NAUSEA AND VOMITING The attending PCP, Dr. Brand, requested placement of NG tube Unable to be adequately placed by nursing staff Using glide scope, I was able to visualize the epiglottis which had no movement as well as the opening to the esophagus Successfully placed NG tube and confirmed with KUB Continue NG tube to low intermittent wall suction Interim report given to Dr. Brand and to Dr. Mckenna Repeat KUB in the morning ASPIRATION PNEUMONIA Patient most likely has aspiration of stomach contents Patient empirically started on Zosyn Due to limited movement of epiglottis on visual examination, recommend speech swallow evaluation Repeat chest x-ray in the morning The patient is being followed by Dr. Bradley pulmonary - will defer to him for need for bronchoscopy due to large amounts of aspirated vomit Thank you for including us in the care of this patient. We will follow with the KUB tomorrow morning. Otherwise we will sign off at this time. Please feel free to reconsult us as needed. Please refer to Dr. Mckenna's addendum for further recommendations. I have seen the patient and examined the patient who had aspirated. Initially the patient had some respiratory distress after the NG tube, but it has cleared up and the CXR also do not represent any consolidation or aspiration. Clinically he looks better and seems to have improved. Also NG tube has drained 700 +. Will continue with current plan of care as prescribed above and agree with recommendations made by my colleague Wesly Mercado. If you have any questions, please do not hesitate to contact us. [facility].
[2017-06-11] VITALS (13 sets, daily range): BP systolic 116–143; BP diastolic 65–76; PULSE 90–100; TEMP 36.7–37.7; O2SAT 90–97
[2017-06-11] MEDS: D5NSS + 20MEQ KCL 1,000 ML IV SCH ×3 (00:42→21:53)
[2017-06-11] MEDS: ONDANSETRON INJ 2 MG/ML 2 ML VIAL IV SCH ×3 (01:37→17:51)
[2017-06-11] MEDS: IPRATROPIUM BROMIDE NEB SOLN 0.02% 2.5 ML VIAL INH SCH ×4 (02:00→20:08)
[2017-06-11] MEDS: LEVALBUTEROL 0.63MG/3 ML NEB INH SCH ×4 (02:00→20:08)
[2017-06-11] MEDS: PIPERACILL/TAZOBAC IV 3.375 GM in DEXTROSE 5% 100ML IV SCH ×3 (04:10→20:32)
[2017-06-11] MEDS: BUDESONIDE 0.5 MG/2 ML VIAL (PULMICORT) INH SCH ×2 (07:05→20:11)
[2017-06-11] MEDS: FORMOTEROL FUMA NEBULIZER SOLN 20 MCG/2 ML VIAL INH SCH ×2 (07:05→20:11)
--- NOTE | 2017-06-11 07:22 | DIAGNOSTIC IMAGING REPORT ---
CHEST ONE VIEW PORTABLE HISTORY: Aspiration of stomach contents COMPARISON: Chest 06/09/2017. FINDINGS: Nasogastric tube terminates in the proximal stomach. The heart is normal in size. No pleural effusions. No pneumothorax. Left greater than right interstitial thickening persists. IMPRESSION: Persistent interstitial thickening, left greater than right. This is not significantly changed. Nasogastric tube terminates in the stomach. Electronically signed by: Deuce Edouard M.D. 06/11/2017 7:21 AM Dictated Date/Time: 06/11/2017 7:19 AM
[2017-06-11 07:49] LABS: MEAN CORPUSCULAR HGB CONC 33.4 g/dl (32-36); MEAN PLATELET VOLUME 10.1 fL (7.4-10.4); PLATELET COUNT 194 K/uL (130-400)
[2017-06-11 08:10] LABS: BASO % 0.1 %; BASO ABS # 0.02 K/uL (0-0.2); EOS % 0.2 %; EOS ABS # 0.03 K/uL (0-0.5); HEMATOCRIT 42.8 % (42-52); HEMOGLOBIN 14.3 g/dL (14.0-18.0); IG# 0.06 K/uL (0.00-0.02); LYMPH ABS # 1.06 K/uL (1.2-3.4); MEAN CELL VOLUME 95.5 fL (80-100); MEAN CORPUSCULAR HEMOGLOBIN 31.9 pg (25-34); MONO % 4.8 %; MONO ABS # 0.86 K/uL (0.11-0.59); NEUT % 88.6 %; NEUT ABS # 15.78 K/uL (1.4-6.5); RED CELL DISTRIBUTION WIDTH CV 14.5 % (11.5-14.5); RED CELL DISTRIBUTION WIDTH SD 50.8 fL (36.4-46.3); WHITE BLOOD COUNT 17.81 K/uL (4.8-10.8)
--- NOTE | 2017-06-11 08:16 | DIAGNOSTIC IMAGING REPORT ---
YON CLINICAL HISTORY: Confirm placement of NGT placed 06/10 COMPARISON STUDY: KULeroy June 10, 2017. FINDINGS: Tip of nasogastric tube is within the body of the stomach. Small bowel dilatation has improved. There is a moderate amount of stool within the colon. IMPRESSION: 1. Tip of nasogastric tube within the body of stomach. 2. Interval improvement in small bowel dilatation. Electronically signed by: Mina Hidalgo M.D. 06/11/2017 8:15 AM Dictated Date/Time: 06/11/2017 8:01 AM
[2017-06-11 08:22] LABS: CALCIUM 8.3 mg/dl (8.5-10.1); CREATININE 1.28 mg/dl (0.60-1.40); POTASSIUM 3.5 mmol/L (3.5-5.1)
[2017-06-11] MEDS ORDERED: ALENDRONATE SODIUM 70 MG TAB PO SCH (09:00)
[2017-06-11] MEDS: SODIUM CHLORIDE 0.65% NA SOLN 45 ML (OCEAN) NAE SCH (09:11)
[2017-06-11] MEDS: SODIUM CHLORIDE 5% OP SOLN 15 ML BTL OPB SCH ×2 (09:12→20:39)
--- NOTE | 2017-06-11 10:34 | Pulmonology Progress Note ---
Pulmonary Progress Note Date of Service Jun 11, 2017. Attending Dr. Bradley Subjective Patient is s/p NG tube placement yesterday afternoon after continued vomiting throughout the day. Per Dr. Brand's notes, patient was having dark/black vomitus yesterday. His abdomen became increaslingly distended, and his breath sounds became more coarse. It was recommended that the patient have KUB and NG tube placement at that time. KUB/CXR reviewed: KUB noted initially enteric tube was place in right lower lobe bronchus and then was repositioned and was in the stomach on final KUB. Improvement of small bowel dilatation was noted post-placement. These images were viewed by me today. Chest X-Ray showed persistent interstitial thickening, L>R. No major change from previous chest X-Ray. Pansensitive E. Coli noted to be growing in the patient's urine culture. Patient continues IV Zosyn for concern of aspiration pneumonia. Medications otherwise reviewed. Labs reviewed: WBC 17.81 Hgb 14.3 Creatinine 1.28 BUN 18 Sodium 149 Chloride 114 Potassium 3.5 Patient does answer some yes/no questions, but the answers are of questionable reliability. Patient states that he has had continued cough. No further GI upset/nausea/ vomiting today with NG in place. No SOB today. Objective CHEST ONE VIEW PORTABLE HISTORY: Aspiration of stomach contents COMPARISON: Chest 06/09/2017. FINDINGS: Nasogastric tube terminates in the proximal stomach. The heart is normal in size. No pleural effusions. No pneumothorax. Left greater than right interstitial thickening persists. IMPRESSION: Persistent interstitial thickening, left greater than right. This is not significantly changed. Nasogastric tube terminates in the stomach. KUB CLINICAL HISTORY: Confirm placement of NGT placed 06/10 COMPARISON STUDY: KUB June 10, 2017. FINDINGS: Tip of nasogastric tube is within the body of the stomach. Small bowel dilatation has improved. There is a moderate amount of stool within the colon. IMPRESSION: 1. Tip of nasogastric tube within the body of stomach. 2. Interval improvement in small bowel dilatation. VS reviewed: TMax: 37.6 C over past 2 days RR 18 HR 92 BP 142/71 SaO2 90-95% on 2L-5L General: Patient is nonverbal. Appearing slightly improved from prior exam. NG Tube in place. Brown liquid in tubing draining. Head: Atraumatic. ENT: No discharge. Sclera normal Neck: Normal ROM. Trachea midline. Respiratory: Decreased breath sounds noted throughout. Mild coarse breath sounds at bases. Cardiovascular: Regular rate and rhythm. Neuro: Alert. Answers yes/no questions. Assessment & Plan Aspiration pneumonia Pulmonary fibrosis Renal insufficiency Patient is s/p NG tube placement following continued vomiting of black/dark substance. NG tube is draining dark liquid today. Cough has diminished, but patient continues to have decrease breath sounds/ coarse breath sounds. Recommend continuing IV Zosyn. If patient becomes increasingly hypoxic or begins to have fever, may need to consider bronchoscopic evaluation, but overall do not feel that it is necessary at this time. Continue O2 supplementation to maintain SaO2 >90%. Recommend speech evaluation once GI upset has settled. Pulmonary will follow. Data Medications: Current Inpatient Medications Medications (Trade) Dose Ordered Sig/Braulio Route Start Time Stop Time Status Last Admin Dose Admin Ioversol (Optiray 320) 115 ml UD PRN IV 06/08/17 20:15 06/12/17 20:14 Bisacodyl (Dulcolax Supp) 10 mg DAILY PRN [place] 06/08/17 22:15 07/08/17 22:14 06/09/17 09:05 10 MG Magnesium Hydroxide (Milk Of Magnesia Susp) 30 ml Q6H PRN PO 06/08/17 22:15 07/08/17 22:14 Future Hold 06/09/17 09:05 30 ML Levalbuterol (Xopenex 0.63 Mg/ 3 Ml Neb) 0.63 mg Q4H PRN INH 06/08/17 22:15 07/08/17 22:14 Levalbuterol (Xopenex 0.63 Mg/ 3 Ml Neb) 0.63 mg Q6R INH 06/09/17 03:00 07/09/17 02:59 06/11/17 02:00 0.63 MG Piperacillin Sod/ Tazobactam Sod 3.375 gm/Dextrose 115 ml @ 28.75 mls/ hr Q8H IV 06/09/17 04:00 06/19/17 03:59 06/11/17 04:10 28.75 MLS/HR Finasteride (Proscar Tab) 5 mg DAILY PO 06/09/17 09:00 07/09/17 08:59 Future Hold 06/09/17 07:26 5 MG Fluticasone Propionate (Flonase Nasal [place]) 2 sprays DAILY PRANEETH 06/09/17 09:00 07/09/17 08:59 Future Hold 06/09/17 09:02 2 SPRAYS Guaifenesin (Mucinex Contr Rel Tab) 600 mg BID PO 06/09/17 09:00 07/09/17 08:59 Future Hold 06/09/17 21:14 600 MG Loratadine (Claritin Tab) 10 mg DAILY PO 06/09/17 09:00 07/09/17 08:59 Future Hold 06/09/17 07:26 10 MG Sodium Chloride ([place] Nasal [place]) 2 sprays DAILY PRANEETH 06/09/17 09:00 07/09/17 08:59 06/11/17 09:11 2 SPRAYS Sodium Chloride ([place] 128 Oph Soln) 1 drops BID OPB 06/09/17 09:00 07/09/17 08:59 06/11/17 09:12 1 DROPS Tamsulosin HCl (Flomax Cap) 0.4 mg HS PO 06/09/17 21:00 07/09/17 20:59 Future Hold 06/09/17 21:14 0.4 MG Piperacillin Sod/ Tazobactam Sod (Consult) 1 ea UD PRN N/A 06/08/17 22:30 07/08/17 22:29 Acetaminophen (Tylenol Tab) 650 mg Q4H PRN PO 06/08/17 22:30 07/08/17 22:29 Future Hold 06/09/17 23:45 650 MG Ipratropium [place] (Atrovent 0.02% 0.5MG/2.5ML Neb) 0.5 mg Q6R INH 06/09/17 03:00 07/08/17 22:59 06/11/17 02:00 0.5 MG Potassium Chloride/Dextrose/ Sod Cl 1,000 ml @ 100 mls/hr Q10H IV 06/09/17 00:15 07/09/17 00:14 06/11/17 00:42 100 MLS/HR Miscellaneous (Iv Fluids Completed) 1 ea PRN PRN N/A 06/09/17 00:30 06/09/18 00:29 Mirtazapine (Remeron Tab) 15 mg HS PO 06/09/17 21:00 07/09/17 20:59 Future Hold 06/09/17 21:14 15 MG Guaifenesin/ Dextromethorphan (Robitussin-Dm Syrup) 10 ml Q6H PRN PO 06/09/17 01:30 07/09/17 01:29 Future Hold Polyethylene (Miralax Powder Packet) 17 gm DAILY PO 06/10/17 09:00 07/10/17 08:59 Future Hold Alendronate Sodium (Fosamax Tab) 70 mg Fr@0900 PO 06/11/17 09:00 07/11/17 08:59 Future Hold Atorvastatin Calcium (Lipitor Tab) 20 mg DAILY PO 06/10/17 09:00 07/10/17 08:59 Future Hold Calcium Polycarbophil (Fibercon Tab) 1 tab DAILY PO 06/10/17 09:00 07/10/17 08:59 Future Hold Triamterene/HCTZ (Maxzide 37.5/25 Tab) 1 tab DAILY PO 06/10/17 09:00 07/10/17 08:59 Future Hold Pantoprazole Sodium (Protonix Tab) 40 mg QAM PO 06/10/17 09:00 07/10/17 08:59 Future Hold Ondansetron HCl (Zofran Inj) 4 mg Q8H IV 06/10/17 10:00 07/08/17 09:59 06/11/17 09:57 4 MG Promethazine HCl (Phenergan Supp) 12.5 mg Q6H PRN [place] 06/10/17 08:45 07/10/17 08:44 06/10/17 10:59 12.5 MG Formoterol Fumarate (Perforomist 20MCG/2ML Neb Soln) 20 mcg BIDR INH 06/10/17 20:00 07/09/17 07:59 06/11/17 07:05 20 MCG Budesonide (Pulmicort Respules 0.5MG/ 2ML Neb Soln) 0.5 mg BIDR INH 06/10/17 20:00 07/10/17 19:59 06/11/17 07:05 0.5 MG Vital Signs: Date Time Temp Pulse Resp B/P (MAP) Pulse Ox O2 Delivery O2 Flow Rate FiO2 06/11/17 08:00 90 Nasal Cannula 5.0 06/11/17 07:38 36.7 90 20 136/74 (94) 90 Nasal Cannula 5.0 06/11/17 07:06 96 16 94 Nasal Cannula 2.0 06/11/17 04:14 37.6 92 18 142/71 (94) 95 Nasal Cannula 2.0 06/11/17 04:00 Nasal Cannula 2.0 06/11/17 02:03 90 14 94 Nasal Cannula 2.0 06/10/17 23:59 Nasal Cannula 2.0 06/10/17 23:58 37.5 95 18 146/83 (104) 91 06/10/17 20:00 Nasal Cannula 2.0 06/10/17 19:15 87 16 91 Nasal Cannula 2.0 06/10/17 18:50 36.8 100 20 131/81 (98) 94 Nasal Cannula 2.0 06/10/17 16:00 Nasal Cannula 2.0 06/10/17 15:19 37.0 109 22 136/73 (94) 90 2.0 06/10/17 14:03 104 16 90 Nasal Cannula 2.0 06/10/17 12:00 Nasal Cannula 2.0 06/10/17 10:59 37.1 97 20 145/84 (104) 94 Room Air Laboratory Results: Last 24 Hours Test 06/10/17 17:05 06/11/17 07:17 Gastric Fluid pH 3 Gastric Fluid Occult Blood POS White Blood Count 17.81 K/uL Red Blood Count 4.48 M/uL Hemoglobin 14.3 g/dL Hematocrit 42.8 % Mean Corpuscular Volume 95.5 fL Mean Corpuscular Hemoglobin 31.9 pg Mean Corpuscular Hemoglobin Concent 33.4 g/dl Platelet Count 194 K/uL Mean Platelet Volume 10.1 fL Neutrophils (%) (Auto) 88.6 % Lymphocytes (%) (Auto) 6.0 % Monocytes (%) (Auto) 4.8 % Eosinophils (%) (Auto) 0.2 % Basophils (%) (Auto) 0.1 % Neutrophils # (Auto) 15.78 K/uL Lymphocytes # (Auto) 1.06 K/uL Monocytes # (Auto) 0.86 K/uL Eosinophils # (Auto) 0.03 K/uL Basophils # (Auto) 0.02 K/uL RDW Standard Deviation 50.8 fL RDW Coefficient of Variation 14.5 % Immature Granulocyte % (Auto) 0.3 % Immature Granulocyte # (Auto) 0.06 K/uL Sodium Level 149 mmol/L Potassium Level 3.5 mmol/L Chloride Level 114 mmol/L Carbon Dioxide Level 28 mmol/L Anion Gap 7.0 mmol/L Blood Urea Nitrogen 18 mg/dl Creatinine 1.28 mg/dl Est Creatinine Clear Calc Drug Dose 33.5 ml/min Estimated GFR () 58.3 Estimated GFR (Non- 50.3 BUN/Creatinine Ratio 13.8 Random Glucose 115 mg/dl Calcium Level 8.3 mg/dl Magnesium Level 2.0 mg/dl
--- NOTE | 2017-06-11 11:23 | Critical Care Progress Note ---
Critical Care Progress Note Date of Service Jun 11, 2017. Attending Dr. Mckenna Subjective Patient seen and examined at bedside. NGT with approx. 750 mLs out. No further vomiting since placement of NGT. CXR this morning improved. Lung sounds this morning improved. KUB with improvement and with NGT in the stomach. Patient unable to speak so he is not able to provide ROS. He is pleasant and in ano acute distress. Objective Vital Signs - as noted below Laboratory Data - as noted below Physical Exam: General - NAD ENT - Mucosa moist, no lesions or candidiasis. NGT secured to nose Neck - Supple, No JVD Lungs - No bronchospasm or rhonchi. Fine crackles at bilateral bases Heart - Regular, rate controlled Abdomen - Soft, NT, ND, BS present. No rebound tenderness or guarding CHEST ONE VIEW PORTABLE HISTORY: Aspiration of stomach contents COMPARISON: Chest 06/09/2017. FINDINGS: Nasogastric tube terminates in the proximal stomach. The heart is normal in size. No pleural effusions. No pneumothorax. Left greater than right interstitial thickening persists. IMPRESSION: Persistent interstitial thickening, left greater than right. This is not significantly changed. Nasogastric tube terminates in the stomach. Electronically signed by: Deuce Edouard M.D. 06/11/2017 7:21 AM KUB CLINICAL HISTORY: Confirm placement of NGT placed 06/10 COMPARISON STUDY: KULeroy June 10, 2017. FINDINGS: Tip of nasogastric tube is within the body of the stomach. Small bowel dilatation has improved. There is a moderate amount of stool within the colon. IMPRESSION: 1. Tip of nasogastric tube within the body of stomach. 2. Interval improvement in small bowel dilatation. Electronically signed by: Mina Hidalgo M.D. 06/11/2017 8:15 AM Current SOFA Score SOFA Score Response (Comments) Value Platelets (x10) > 150 0 Bilirubin (mg/dL) < 1.2 0 Alysha Coma Score 15 0 Level of Hypotension No Hypotension 0 Creatinine (mg/dL) < 1.2 0 Total 0 Assessment & Plan ASPIRATION OF VOMIT CXR with improvement and no blossuming of infiltrates NGT in place Oxygenation adequate on NC Day # 2 Zosyn Pulmonology following NGT Adequate placement Continue LIWS Dr. Brand to manage from this point forward DVT PROPHYLAXIS Occult blood with gastric secretions Enoxaparin held Consider SCDs and TEDs Thank you for including us in the care of this patient. We will sign off at this time. Further management per primary team. This has been discussed with Dr. Brand Consults & Procedures Consultants: Critical Care Medicine for placement of NG Tube Procedures: NG Tube placement 06/10/2017 Data Medications: Current Inpatient Medications Medications (Trade) Dose Ordered Sig/Braulio Route Start Time Stop Time Status Last Admin Dose Admin Ioversol (Optiray 320) 115 ml UD PRN IV 06/08/17 20:15 06/12/17 20:14 Bisacodyl (Dulcolax Supp) 10 mg DAILY PRN [place] 06/08/17 22:15 07/08/17 22:14 06/09/17 09:05 10 MG Magnesium Hydroxide (Milk Of Magnesia Susp) 30 ml Q6H PRN PO 06/08/17 22:15 07/08/17 22:14 Future Hold 06/09/17 09:05 30 ML Levalbuterol (Xopenex 0.63 Mg/ 3 Ml Neb) 0.63 mg Q4H PRN INH 06/08/17 22:15 07/08/17 22:14 Levalbuterol (Xopenex 0.63 Mg/ 3 Ml Neb) 0.63 mg Q6R INH 06/09/17 03:00 07/09/17 02:59 06/11/17 02:00 0.63 MG Piperacillin Sod/ Tazobactam Sod 3.375 gm/Dextrose 115 ml @ 28.75 mls/ hr Q8H IV 06/09/17 04:00 06/19/17 03:59 06/11/17 04:10 28.75 MLS/HR Finasteride (Proscar Tab) 5 mg DAILY PO 06/09/17 09:00 07/09/17 08:59 Future Hold 06/09/17 07:26 5 MG Fluticasone Propionate (Flonase Nasal [place]) 2 sprays DAILY PRANEETH 06/09/17 09:00 07/09/17 08:59 Future Hold 06/09/17 09:02 2 SPRAYS Guaifenesin (Mucinex Contr Rel Tab) 600 mg BID PO 06/09/17 09:00 07/09/17 08:59 Future Hold 06/09/17 21:14 600 MG Loratadine (Claritin Tab) 10 mg DAILY PO 06/09/17 09:00 07/09/17 08:59 Future Hold 06/09/17 07:26 10 MG Sodium Chloride ([place] Nasal [place]) 2 sprays DAILY PRANEETH 06/09/17 09:00 07/09/17 08:59 06/11/17 09:11 2 SPRAYS Sodium Chloride ([place] 128 Oph Soln) 1 drops BID OPB 06/09/17 09:00 07/09/17 08:59 06/11/17 09:12 1 DROPS Tamsulosin HCl (Flomax Cap) 0.4 mg HS PO 06/09/17 21:00 07/09/17 20:59 Future Hold 06/09/17 21:14 0.4 MG Piperacillin Sod/ Tazobactam Sod (Consult) 1 ea UD PRN N/A 06/08/17 22:30 07/08/17 22:29 Acetaminophen (Tylenol Tab) 650 mg Q4H PRN PO 06/08/17 22:30 07/08/17 22:29 Future Hold 06/09/17 23:45 650 MG Ipratropium [place] (Atrovent 0.02% 0.5MG/2.5ML Neb) 0.5 mg Q6R INH 06/09/17 03:00 07/08/17 22:59 06/11/17 02:00 0.5 MG Potassium Chloride/Dextrose/ Sod Cl 1,000 ml @ 100 mls/hr Q10H IV 06/09/17 00:15 07/09/17 00:14 06/11/17 00:42 100 MLS/HR Miscellaneous (Iv Fluids Completed) 1 ea PRN PRN N/A 06/09/17 00:30 06/09/18 00:29 Mirtazapine (Remeron Tab) 15 mg HS PO 06/09/17 21:00 07/09/17 20:59 Future Hold 06/09/17 21:14 15 MG Guaifenesin/ Dextromethorphan (Robitussin-Dm Syrup) 10 ml Q6H PRN PO 06/09/17 01:30 07/09/17 01:29 Future Hold Polyethylene (Miralax Powder Packet) 17 gm DAILY PO 06/10/17 09:00 07/10/17 08:59 Future Hold Alendronate Sodium (Fosamax Tab) 70 mg Fr@0900 PO 06/11/17 09:00 07/11/17 08:59 Future Hold Atorvastatin Calcium (Lipitor Tab) 20 mg DAILY PO 06/10/17 09:00 07/10/17 08:59 Future Hold Calcium Polycarbophil (Fibercon Tab) 1 tab DAILY PO 06/10/17 09:00 07/10/17 08:59 Future Hold Triamterene/HCTZ (Maxzide 37.5/25 Tab) 1 tab DAILY PO 06/10/17 09:00 07/10/17 08:59 Future Hold Pantoprazole Sodium (Protonix Tab) 40 mg QAM PO 06/10/17 09:00 07/10/17 08:59 Future Hold Ondansetron HCl (Zofran Inj) 4 mg Q8H IV 06/10/17 10:00 07/08/17 09:59 06/11/17 09:57 4 MG Promethazine HCl (Phenergan Supp) 12.5 mg Q6H PRN [place] 06/10/17 08:45 07/10/17 08:44 06/10/17 10:59 12.5 MG Formoterol Fumarate (Perforomist 20MCG/2ML Neb Soln) 20 mcg BIDR INH 06/10/17 20:00 07/09/17 07:59 06/11/17 07:05 20 MCG Budesonide (Pulmicort Respules 0.5MG/ 2ML Neb Soln) 0.5 mg BIDR INH 06/10/17 20:00 07/10/17 19:59 06/11/17 07:05 0.5 MG Pantoprazole Sodium 40 mg/ Syringe 10 ml @ 5 mls/min BID IV 06/11/17 11:15 07/11/17 11:14 UNV Vital Signs: Date Time Temp Pulse Resp B/P (MAP) Pulse Ox O2 Delivery O2 Flow Rate FiO2 06/11/17 11:08 36.7 91 20 134/76 (95) 90 5.0 06/11/17 08:00 90 Nasal Cannula 5.0 06/11/17 07:38 36.7 90 20 136/74 (94) 90 Nasal Cannula 5.0 06/11/17 07:06 96 16 94 Nasal Cannula 2.0 06/11/17 04:14 37.6 92 18 142/71 (94) 95 Nasal Cannula 2.0 06/11/17 04:00 Nasal Cannula 2.0 06/11/17 02:03 90 14 94 Nasal Cannula 2.0 06/10/17 23:59 Nasal Cannula 2.0 06/10/17 23:58 37.5 95 18 146/83 (104) 91 06/10/17 20:00 Nasal Cannula 2.0 06/10/17 19:15 87 16 91 Nasal Cannula 2.0 06/10/17 18:50 36.8 100 20 131/81 (98) 94 Nasal Cannula 2.0 06/10/17 16:00 Nasal Cannula 2.0 06/10/17 15:19 37.0 109 22 136/73 (94) 90 2.0 06/10/17 14:03 104 16 90 Nasal Cannula 2.0 06/10/17 12:00 Nasal Cannula 2.0 Laboratory Results: Last 24 Hours Test 06/10/17 17:05 06/11/17 07:17 Gastric Fluid pH 3 Gastric Fluid Occult Blood POS White Blood Count 17.81 K/uL Red Blood Count 4.48 M/uL Hemoglobin 14.3 g/dL Hematocrit 42.8 % Mean Corpuscular Volume 95.5 fL Mean Corpuscular Hemoglobin 31.9 pg Mean Corpuscular Hemoglobin Concent 33.4 g/dl Platelet Count 194 K/uL Mean Platelet Volume 10.1 fL Neutrophils (%) (Auto) 88.6 % Lymphocytes (%) (Auto) 6.0 % Monocytes (%) (Auto) 4.8 % Eosinophils (%) (Auto) 0.2 % Basophils (%) (Auto) 0.1 % Neutrophils # (Auto) 15.78 K/uL Lymphocytes # (Auto) 1.06 K/uL Monocytes # (Auto) 0.86 K/uL Eosinophils # (Auto) 0.03 K/uL Basophils # (Auto) 0.02 K/uL RDW Standard Deviation 50.8 fL RDW Coefficient of Variation 14.5 % Immature Granulocyte % (Auto) 0.3 % Immature Granulocyte # (Auto) 0.06 K/uL Sodium Level 149 mmol/L Potassium Level 3.5 mmol/L Chloride Level 114 mmol/L Carbon Dioxide Level 28 mmol/L Anion Gap 7.0 mmol/L Blood Urea Nitrogen 18 mg/dl Creatinine 1.28 mg/dl Est Creatinine Clear Calc Drug Dose 33.5 ml/min Estimated GFR () 58.3 Estimated GFR (Non- 50.3 BUN/Creatinine Ratio 13.8 Random Glucose 115 mg/dl Calcium Level 8.3 mg/dl Magnesium Level 2.0 mg/dl
[2017-06-11] MEDS: PANTOprazole INJ 40 MG in SYRINGE 0 ML IV SCH ×2 (12:11→20:39)
--- NOTE | 2017-06-11 18:42 | Progress Note ---
Medicine Progress Note Date & Time of Visit: Jun 11, 2017 at 1300 Subjective 86 yoM presents with acute onset vomiting. 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 He lives in a long-term and has pulmonary fibrosis. IVF were started and he was kept NPO overnight. He was challenged with lunch and dinner the following day without issue but then began vomiting persistently throughout the night last night and through the day. NGT was placed 06/10 and put out 1300cc overnight. He is still requiring 2L supplementation but appears more comfortable. Abdomen is improved. Sister, Cassie, was updated on his status this morning. Objective Last 8 Hrs Date Time Temp Pulse Resp B/P (MAP) Pulse Ox O2 Delivery O2 Flow Rate FiO2 06/11/17 16:00 90 Nasal Cannula 5.0 06/11/17 15:33 37.1 100 18 133/75 (94) 94 Nasal Cannula 2.0 06/11/17 14:15 98 16 97 Nasal Cannula 5.0 06/11/17 12:00 90 Nasal Cannula 5.0 06/11/17 11:08 36.7 91 20 134/76 (95) 90 5.0 Physical Exam: GEN: WNWD, in no acute distress, alert and appears to be at baseline. HEENT: NC/AT, pupils are equal and round bilaterally, mucous membranes are dry. CARDIO: tachy rate, S1/2 heard without m/g/r LUNGS: CTA bilaterally, no crackles, rales or wheezes, good diaphragmatic excursion ABD: soft, non-tender, non-distended, no rebound or guarding EXTREMITY: RP and DP palpable 2+ bilat, no LE swelling or edema, extremities are warm and well-perfused N/M: no gross focal deficits. SKIN: warm and dry Laboratory Results: 06/11/17 07:17 Red Blood Count 4.48, Mean Corpuscular Volume 95.5, Mean Corpuscular Hemoglobin 31.9, Mean Corpuscular Hemoglobin Concent 33.4, Mean Platelet Volume 10.1, Neutrophils (%) (Auto) 88.6, Lymphocytes (%) (Auto) 6.0, Monocytes (%) (Auto) 4.8, Eosinophils (%) (Auto) 0.2, Basophils (%) (Auto) 0.1, Neutrophils # (Auto) 15.78, Lymphocytes # (Auto) 1.06, Monocytes # (Auto) 0.86, Eosinophils # (Auto) 0.03, Basophils # (Auto) 0.02 06/11/17 07:17 Test 06/08/17 12:20 06/08/17 17:20 06/08/17 18:18 06/08/17 22:57 Prothrombin Time 10.2 SECONDS (9.0-12.0) Prothromb Time International Ratio 1.0 (0.9-1.1) Total Bilirubin 0.8 mg/dl (0.2-1) Alanine Aminotransferase (ALT/SGPT) 24 U/L (12-78) Alkaline Phosphatase 109 U/L (45-117) Total Protein 8.1 gm/dl (6.4-8.2) Albumin 3.9 gm/dl (3.4-5.0) Lipase 108 U/L (73-393) Direct Bilirubin mg/dl (0-0.2) Aspartate Amino Transf (AST/SGOT) U/L (15-37) Troponin I < 0.015 ng/ml (0-0.045) Lactic Acid Level 0.8 mmol/L (0.4-2.0) Test 06/09/17 00:00 06/09/17 12:25 06/10/17 17:05 06/11/17 07:17 Urine Color YELLOW Urine Appearance TURBID (CLEAR) Urine pH 5.0 (4.5-7.5) Urine Specific [place] 1.033 (1.000-1.030) Urine Protein 1+ (NEG) Urine Glucose (UA) NEG (NEG) Urine Ketones NEG (NEG) Urine Occult Blood 1+ (NEG) Urine Nitrite POS (NEG) Urine Bilirubin NEG (NEG) Urine Urobilinogen NEG (NEG) Urine Leukocyte Esterase LARGE (NEG) Urine WBC (Auto) >30 /hpf (0-5) Urine RBC (Auto) 0-4 /hpf (0-4) Urine Hyaline Casts (Auto) 1-5 /lpf (0-5) Urine Epithelial Cells (Auto) 10-20 /lpf (0-5) Urine Bacteria (Auto) 1+ (NEG) Urine Pathogenic Casts /lpf (0) Influenza Type A Antigen Neg for Influ A (NEG) Influenza Type B Antigen Neg for Influ B (NEG) Gastric Fluid pH 3 Gastric Fluid Occult Blood POS (NEG) White Blood Count 17.81 K/uL (4.8-10.8) Red Blood Count 4.48 M/uL (4.7-6.1) Hemoglobin 14.3 g/dL (14.0-18.0) Hematocrit 42.8 % (42-52) Mean Corpuscular Volume 95.5 fL (80-100) Mean Corpuscular Hemoglobin 31.9 pg (25-34) Mean Corpuscular Hemoglobin Concent 33.4 g/dl (32-36) Platelet Count 194 K/uL (130-400) Mean Platelet Volume 10.1 fL (7.4-10.4) Neutrophils (%) (Auto) 88.6 % Lymphocytes (%) (Auto) 6.0 % Monocytes (%) (Auto) 4.8 % Eosinophils (%) (Auto) 0.2 % Basophils (%) (Auto) 0.1 % Neutrophils # (Auto) 15.78 K/uL (1.4-6.5) Lymphocytes # (Auto) 1.06 K/uL (1.2-3.4) Monocytes # (Auto) 0.86 K/uL (0.11-0.59) Eosinophils # (Auto) 0.03 K/uL (0-0.5) Basophils # (Auto) 0.02 K/uL (0-0.2) RDW Standard Deviation 50.8 fL (36.4-46.3) RDW Coefficient of Variation 14.5 % (11.5-14.5) Immature Granulocyte % (Auto) 0.3 % Immature Granulocyte # (Auto) 0.06 K/uL (0.00-0.02) Anion Gap 7.0 mmol/L (3-11) Est Creatinine Clear Calc Drug Dose 33.5 ml/min Estimated GFR () 58.3 Estimated GFR (Non- 50.3 BUN/Creatinine Ratio 13.8 (10-20) Calcium Level 8.3 mg/dl (8.5-10.1) Magnesium Level 2.0 mg/dl (1.8-2.4) Date/Time Source Procedure Growth Status 06/08/17 22:58 Blood Blood Culture - Preliminary NO GROWTH TO DATE. Resulted 06/09/17 00:00 Urine,Catheterized Urine Culture - Final Escherichia Coli Complete Last 24 Hours Test 06/11/17 07:17 White Blood Count 17.81 K/uL Red Blood Count 4.48 M/uL Hemoglobin 14.3 g/dL Hematocrit 42.8 % Mean Corpuscular Volume 95.5 fL Mean Corpuscular Hemoglobin 31.9 pg Mean Corpuscular Hemoglobin Concent 33.4 g/dl Platelet Count 194 K/uL Mean Platelet Volume 10.1 fL Neutrophils (%) (Auto) 88.6 % Lymphocytes (%) (Auto) 6.0 % Monocytes (%) (Auto) 4.8 % Eosinophils (%) (Auto) 0.2 % Basophils (%) (Auto) 0.1 % Neutrophils # (Auto) 15.78 K/uL Lymphocytes # (Auto) 1.06 K/uL Monocytes # (Auto) 0.86 K/uL Eosinophils # (Auto) 0.03 K/uL Basophils # (Auto) 0.02 K/uL RDW Standard Deviation 50.8 fL RDW Coefficient of Variation 14.5 % Immature Granulocyte % (Auto) 0.3 % Immature Granulocyte # (Auto) 0.06 K/uL Sodium Level 149 mmol/L Potassium Level 3.5 mmol/L Chloride Level 114 mmol/L Carbon Dioxide Level 28 mmol/L Anion Gap 7.0 mmol/L Blood Urea Nitrogen 18 mg/dl Creatinine 1.28 mg/dl Est Creatinine Clear Calc Drug Dose 33.5 ml/min Estimated GFR () 58.3 Estimated GFR (Non- 50.3 BUN/Creatinine Ratio 13.8 Random Glucose 115 mg/dl Calcium Level 8.3 mg/dl Magnesium Level 2.0 mg/dl Assessment & Plan 86 yoM presents with acute onset vomiting. 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 He lives in a long-term and has pulmonary fibrosis. IVF were started and he was kept NPO overnight. He was challenged with lunch and dinner the following day without issue but then began vomiting persistently throughout the night last night and through the day. NGT was placed 06/10 and put out 1300cc overnight. He is still requiring 2L supplementation but appears more comfortable. Abdomen is improved. Sister, Cassie, was updated on his status this morning. 1. Nausea and vomiting-etiologies include but not limited to acute gastritis that is self-limited, as a result of constipation/stool impaction vs evolving obstruction or ileus. NGT placement with improvement overnight. Cont low- intermittent suction until output decreases. Cont IVF for hydration 2. Hypoxia 2/2 aspiration pneumonia-pt uses oxygen at night only but now is requiring continuously while at rest. Breath sounds are more clear today than yesterday. Possible that some debris was sucked out of lung with accidental intubation of R mainstem yesterday during placement on NGT. Cont Zosyn and NGT with plan as above. PT is DNR/DNI. Apprec pulm input. 3. UTI-recent E faecalis UTI present in early Oct treated with two rounds of Macrobid. Some bacteria is present in his urine but this is 40K. Ditropan was stopped for now. Cont Zosyn which is covering him empirically. 4. Tachycardia poss 2/2 dehydration vs anxiety vs early sepsis in setting of UTI or aspiration pneumonitis-persistent. No drop in Hb despite gastric occult blood positive. This may be from NGT placement as it was difficult and involved the glidescope. Discussed briefly with GI team who recommended monitoring for now and consulting them if he became unstable. 5. 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 Close monitoring per nursing staff. Pt lives in a long-term setting. 6. HTN-Maxzide on hold as NPO. Control with IV meds PRN. 7. CKD Stage III-appears to be at baseline creatinine which is improved since admission. Cont IVF. 8. BPH- PO meds held in setting of NGT. DVT PROPHYLAXIS: Lovenox DNR Disposition: cont telemetry monitoring. DO Tony Ferrer Hospitalist Consultants: [facility]. Current Inpatient Medications: Current Inpatient Medications Medications (Trade) Dose Ordered Sig/Braulio Route Start Time Stop Time Status Last Admin Dose Admin Ioversol (Optiray 320) 115 ml UD PRN IV 06/08/17 20:15 06/12/17 20:14 Bisacodyl (Dulcolax Supp) 10 mg DAILY PRN VA 06/08/17 22:15 07/08/17 22:14 06/09/17 09:05 10 MG Magnesium Hydroxide (Milk Of Magnesia Susp) 30 ml Q6H PRN PO 06/08/17 22:15 07/08/17 22:14 Future Hold 06/09/17 09:05 30 ML Levalbuterol (Xopenex 0.63 Mg/ 3 Ml Neb) 0.63 mg Q4H PRN INH 06/08/17 22:15 07/08/17 22:14 Levalbuterol (Xopenex 0.63 Mg/ 3 Ml Neb) 0.63 mg Q6R INH 06/09/17 03:00 07/09/17 02:59 06/11/17 14:15 0.63 MG Piperacillin Sod/ Tazobactam Sod 3.375 gm/Dextrose 115 ml @ 28.75 mls/ hr Q8H IV 06/09/17 04:00 06/19/17 03:59 06/11/17 11:21 28.75 MLS/HR Finasteride (Proscar Tab) 5 mg DAILY PO 06/09/17 09:00 07/09/17 08:59 Future Hold 06/09/17 07:26 5 MG Fluticasone Propionate (Flonase Nasal [place]) 2 sprays DAILY PRANEETH 06/09/17 09:00 07/09/17 08:59 Future Hold 06/09/17 09:02 2 SPRAYS Guaifenesin (Mucinex Contr Rel Tab) 600 mg BID PO 06/09/17 09:00 07/09/17 08:59 Future Hold 06/09/17 21:14 600 MG Loratadine (Claritin Tab) 10 mg DAILY PO 06/09/17 09:00 07/09/17 08:59 Future Hold 06/09/17 07:26 10 MG Sodium Chloride (Porter Nasal [place]) 2 sprays DAILY PRANEETH 06/09/17 09:00 07/09/17 08:59 06/11/17 09:11 2 SPRAYS Sodium Chloride ([place] 128 Oph Soln) 1 drops BID OPB 06/09/17 09:00 07/09/17 08:59 06/11/17 09:12 1 DROPS Tamsulosin HCl (Flomax Cap) 0.4 mg HS PO 06/09/17 21:00 07/09/17 20:59 Future Hold 06/09/17 21:14 0.4 MG Piperacillin Sod/ Tazobactam Sod (Consult) 1 ea UD PRN N/A 06/08/17 22:30 07/08/17 22:29 Acetaminophen (Tylenol Tab) 650 mg Q4H PRN PO 06/08/17 22:30 07/08/17 22:29 Future Hold 06/09/17 23:45 650 MG Ipratropium [place] (Atrovent 0.02% 0.5MG/2.5ML Neb) 0.5 mg Q6R INH 06/09/17 03:00 07/08/17 22:59 06/11/17 14:15 0.5 MG Potassium Chloride/Dextrose/ Sod Cl 1,000 ml @ 100 mls/hr Q10H IV 06/09/17 00:15 07/09/17 00:14 06/11/17 11:21 100 MLS/HR Miscellaneous (Iv Fluids Completed) 1 ea PRN PRN N/A 06/09/17 00:30 06/09/18 00:29 Mirtazapine (Remeron Tab) 15 mg HS PO 06/09/17 21:00 07/09/17 20:59 Future Hold 06/09/17 21:14 15 MG Guaifenesin/ Dextromethorphan (Robitussin-Dm Syrup) 10 ml Q6H PRN PO 06/09/17 01:30 07/09/17 01:29 Future Hold Polyethylene (Miralax Powder Packet) 17 gm DAILY PO 06/10/17 09:00 07/10/17 08:59 Future Hold Alendronate Sodium (Fosamax Tab) 70 mg Fr@0900 PO 06/11/17 09:00 07/11/17 08:59 Future Hold Atorvastatin Calcium (Lipitor Tab) 20 mg DAILY PO 06/10/17 09:00 07/10/17 08:59 Future Hold Calcium Polycarbophil (Fibercon Tab) 1 tab DAILY PO 06/10/17 09:00 07/10/17 08:59 Future Hold Triamterene/HCTZ (Maxzide 37.5/25 Tab) 1 tab DAILY PO 06/10/17 09:00 07/10/17 08:59 Future Hold Pantoprazole Sodium (Protonix Tab) 40 mg QAM PO 06/10/17 09:00 07/10/17 08:59 Future Hold Ondansetron HCl (Zofran Inj) 4 mg Q8H IV 06/10/17 10:00 07/08/17 09:59 06/11/17 17:51 4 MG Promethazine HCl (Phenergan Supp) 12.5 mg Q6H PRN VA 06/10/17 08:45 07/10/17 08:44 06/10/17 10:59 12.5 MG Formoterol Fumarate (Perforomist 20MCG/2ML Neb Soln) 20 mcg BIDR INH 06/10/17 20:00 07/09/17 07:59 06/11/17 07:05 20 MCG Budesonide (Pulmicort Respules 0.5MG/ 2ML Neb Soln) 0.5 mg BIDR INH 06/10/17 20:00 07/10/17 19:59 06/11/17 07:05 0.5 MG Pantoprazole Sodium 40 mg/ Syringe 10 ml @ 5 mls/min BID IV 06/11/17 12:00 07/11/17 11:59 06/11/17 12:11 5 MLS/MIN
[2017-06-12] VITALS (14 sets, daily range): BP systolic 112–128; BP diastolic 57–70; PULSE 62–88; TEMP 36.3–37.9; O2SAT 89–95
[2017-06-12] MEDS: IPRATROPIUM BROMIDE NEB SOLN 0.02% 2.5 ML VIAL INH SCH ×4 (01:52→19:26)
[2017-06-12] MEDS: LEVALBUTEROL 0.63MG/3 ML NEB INH SCH ×4 (01:52→19:26)
[2017-06-12] MEDS: ONDANSETRON INJ 2 MG/ML 2 ML VIAL IV SCH ×3 (02:07→17:04)
[2017-06-12] MEDS: PIPERACILL/TAZOBAC IV 3.375 GM in DEXTROSE 5% 100ML IV SCH ×3 (04:32→19:50)
[2017-06-12 06:56] LABS: BASO % 0.2 %; BASO ABS # 0.03 K/uL (0-0.2); EOS % 0.9 %; EOS ABS # 0.11 K/uL (0-0.5); HEMATOCRIT 38.6 % (42-52); HEMOGLOBIN 12.5 g/dL (14.0-18.0); IG# 0.07 K/uL (0.00-0.02); LYMPH % 6.8 %; LYMPH ABS # 0.87 K/uL (1.2-3.4); MEAN CORPUSCULAR HEMOGLOBIN 31.1 pg (25-34); MEAN CORPUSCULAR HGB CONC 32.4 g/dl (32-36); MEAN PLATELET VOLUME 9.9 fL (7.4-10.4); MONO % 5.8 %; MONO ABS # 0.75 K/uL (0.11-0.59); NEUT % 85.8 %; NEUT ABS # 11.01 K/uL (1.4-6.5); PLATELET COUNT 180 K/uL (130-400); RED CELL DISTRIBUTION WIDTH CV 14.5 % (11.5-14.5); RED CELL DISTRIBUTION WIDTH SD 51.9 fL (36.4-46.3); WHITE BLOOD COUNT 12.84 K/uL (4.8-10.8)
[2017-06-12 07:15] LABS: CALCIUM 7.8 mg/dl (8.5-10.1); CREATININE 1.07 mg/dl (0.60-1.40); POTASSIUM 3.3 mmol/L (3.5-5.1)
[2017-06-12] MEDS ORDERED: CHLORASEPTIC 1.4% SOLN 180 ML BTL MT ONE (07:53)
[2017-06-12] MEDS ORDERED: CHLORASEPTIC 1.4% SOLN 180 ML BTL MT PRN (08:00)
[2017-06-12] MEDS: BUDESONIDE 0.5 MG/2 ML VIAL (PULMICORT) INH SCH ×2 (08:07→19:26)
[2017-06-12] MEDS: FORMOTEROL FUMA NEBULIZER SOLN 20 MCG/2 ML VIAL INH SCH ×2 (08:07→19:25)
[2017-06-12] MEDS: SODIUM CHLORIDE 0.65% NA SOLN 45 ML (OCEAN) NAE SCH (08:23)
[2017-06-12] MEDS: PANTOprazole INJ 40 MG in SYRINGE 0 ML IV SCH ×2 (08:23→19:50)
[2017-06-12] MEDS: ENOXAPARIN 30 MG/0.3 ML SYR SQ SCH (08:24)
[2017-06-12] MEDS: SODIUM CHLORIDE 5% OP SOLN 15 ML BTL OPB SCH ×2 (08:24→19:50)
[2017-06-12] MEDS: DEXTROSE 5% 1000ML 1,000 ML IV SCH ×3 (08:40→21:37)
--- NOTE | 2017-06-12 09:04 | PULMONARY PROGRESS NOTE ---
DATE: 06/12/2017 TIME: 08:40 a.m. SUBJECTIVE: The patient appears comfortable. He has a loose cough. Nursing staff states he has been sounding a little congested in the upper airways. His NG drainage this morning is very little according to nursing staff. I cannot obtain the history from the patient as he is nonverbal. OBJECTIVE: GENERAL: The patient looked fairly comfortable. He has a nasogastric tube in place. VITAL SIGNS: The heart rate is 80 beats per minute. The rhythm is regular. Blood pressure is 123/64. LUNGS: Lung bautista were difficult to assess as I could not get the patient to take deep breaths. He did have a few rales on the left side. He had a loose cough, but I did not hear rhonchi after he had cough somewhat. Nursing did report upper airway rhonchi, however, as noted. Respiratory rate is 16 breaths per minute. Oxygen saturation is 95% on 2 liters. ABDOMEN: Fairly soft. He has bowel sounds. EXTREMITIES: Showed no edema. LABORATORY DATA: White blood cell count today is 12.84. Yesterday, it had been 17.81. Hemoglobin is 12.5. Platelets 180,000. Electrolytes today show sodium 152, potassium 3.3, chloride 121, and bicarbonate 28. The BUN is 17 with a creatinine of 1.07. IMPRESSIONS: 1. Probable aspiration pneumonia. 2. Pulmonary fibrosis. 3. Recurring vomiting of uncertain etiology. COMMENTS AND RECOMMENDATIONS: The patient seems to have stabilized from a GI perspective with placement of the NG tube. I do not believe we know with certainty why he was having the vomiting. The NG drainage has decreased. Likely soon, can give a trial of clamping the NG and see how the patient does with that. I think some of his upper airway congestion may be due from the nasogastric tube itself and that may improve after the tube is removed. He is not requiring very much oxygen and he is maintaining his saturations well. I believe the Perforomist likely could be discontinued, but would continue with levalbuterol/ipratropium for now. Would also continue with the Zosyn for the 10-day course.
[2017-06-12] MEDS: CALCIUM GLUCONATE 10% 1,000 MG in SODIUM CHLORIDE 0.9% 50ML 50 ML IV SCH ×2 (09:39→10:01)
[2017-06-12 13:16] LABS: CALCIUM 8.5 mg/dl (8.5-10.1); CREATININE 1.05 mg/dl (0.60-1.40); POTASSIUM 3.4 mmol/L (3.5-5.1)
--- NOTE | 2017-06-12 15:29 | Progress Note ---
Medicine Progress Note Date & Time of Visit: Jun 12, 2017 at 15:14. Subjective 86 yoM presents with acute onset vomiting. 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 He lives in a prison and has pulmonary fibrosis. IVF were started and he was kept NPO overnight. He was challenged with lunch and dinner the following day without issue but then began vomiting persistently throughout the night last night and through the day. NGT was placed 06/10 and put out 1300cc overnight. He has had no output since 7pm last night and is clinically more awake and looking better today. He remains on the scheduled Zofran and denies nausea. He reports feeling well. Abdomen is improved. Tele review reveals a few beats that were slow and appeared junctional which resolved. Later in the day he had a couple of runs of SVT which was also self- limited. Objective Last 8 Hrs Date Time Temp Pulse Resp B/P (MAP) Pulse Ox O2 Delivery O2 Flow Rate FiO2 06/12/17 12:00 Nasal Cannula 2.0 06/12/17 10:58 37.1 85 18 127/68 (87) 94 Nasal Cannula 2.0 06/12/17 08:07 72 16 95 Nasal Cannula 2.0 06/12/17 08:00 90 Nasal Cannula 2.0 Physical Exam: GEN: WNWD, in no acute distress, alert and appears to be at baseline. HEENT: NC/AT, pupils are equal and round bilaterally, mucous membranes are dry. NGT in place CARDIO: reg rate, S1/2 heard without m/g/r LUNGS: CTA bilaterally, no crackles, rales or wheezes, good diaphragmatic excursion ABD: soft, non-tender, non-distended, no rebound or guarding EXTREMITY: RP and DP palpable 2+ bilat, no LE swelling or edema, extremities are warm and well-perfused N/M: no gross focal deficits. SKIN: warm and dry Laboratory Results: 06/12/17 06:23 Red Blood Count 4.02, Mean Corpuscular Volume 96.0, Mean Corpuscular Hemoglobin 31.1, Mean Corpuscular Hemoglobin Concent 32.4, Mean Platelet Volume 9.9, Neutrophils (%) (Auto) 85.8, Lymphocytes (%) (Auto) 6.8, Monocytes (%) (Auto) 5.8, Eosinophils (%) (Auto) 0.9, Basophils (%) (Auto) 0.2, Neutrophils # (Auto) 11.01, Lymphocytes # (Auto) 0.87, Monocytes # (Auto) 0.75, Eosinophils # (Auto) 0.11, Basophils # (Auto) 0.03 06/12/17 12:08 Test 06/08/17 12:20 06/08/17 17:20 06/08/17 18:18 06/08/17 22:57 Prothrombin Time 10.2 SECONDS (9.0-12.0) Prothromb Time International Ratio 1.0 (0.9-1.1) Total Bilirubin 0.8 mg/dl (0.2-1) Alanine Aminotransferase (ALT/SGPT) 24 U/L (12-78) Alkaline Phosphatase 109 U/L (45-117) Total Protein 8.1 gm/dl (6.4-8.2) Albumin 3.9 gm/dl (3.4-5.0) Lipase 108 U/L (73-393) Direct Bilirubin mg/dl (0-0.2) Aspartate Amino Transf (AST/SGOT) U/L (15-37) Troponin I < 0.015 ng/ml (0-0.045) Lactic Acid Level 0.8 mmol/L (0.4-2.0) Test 06/09/17 00:00 06/09/17 12:25 06/10/17 17:05 06/12/17 06:23 Urine Color YELLOW Urine Appearance TURBID (CLEAR) Urine pH 5.0 (4.5-7.5) Urine Specific [place] 1.033 (1.000-1.030) Urine Protein 1+ (NEG) Urine Glucose (UA) NEG (NEG) Urine Ketones NEG (NEG) Urine Occult Blood 1+ (NEG) Urine Nitrite POS (NEG) Urine Bilirubin NEG (NEG) Urine Urobilinogen NEG (NEG) Urine Leukocyte Esterase LARGE (NEG) Urine WBC (Auto) >30 /hpf (0-5) Urine RBC (Auto) 0-4 /hpf (0-4) Urine Hyaline Casts (Auto) 1-5 /lpf (0-5) Urine Epithelial Cells (Auto) 10-20 /lpf (0-5) Urine Bacteria (Auto) 1+ (NEG) Urine Pathogenic Casts /lpf (0) Influenza Type A Antigen Neg for Influ A (NEG) Influenza Type B Antigen Neg for Influ B (NEG) Gastric Fluid pH 3 Gastric Fluid Occult Blood POS (NEG) White Blood Count 12.84 K/uL (4.8-10.8) Red Blood Count 4.02 M/uL (4.7-6.1) Hemoglobin 12.5 g/dL (14.0-18.0) Hematocrit 38.6 % (42-52) Mean Corpuscular Volume 96.0 fL (80-100) Mean Corpuscular Hemoglobin 31.1 pg (25-34) Mean Corpuscular Hemoglobin Concent 32.4 g/dl (32-36) Platelet Count 180 K/uL (130-400) Mean Platelet Volume 9.9 fL (7.4-10.4) Neutrophils (%) (Auto) 85.8 % Lymphocytes (%) (Auto) 6.8 % Monocytes (%) (Auto) 5.8 % Eosinophils (%) (Auto) 0.9 % Basophils (%) (Auto) 0.2 % Neutrophils # (Auto) 11.01 K/uL (1.4-6.5) Lymphocytes # (Auto) 0.87 K/uL (1.2-3.4) Monocytes # (Auto) 0.75 K/uL (0.11-0.59) Eosinophils # (Auto) 0.11 K/uL (0-0.5) Basophils # (Auto) 0.03 K/uL (0-0.2) RDW Standard Deviation 51.9 fL (36.4-46.3) RDW Coefficient of Variation 14.5 % (11.5-14.5) Immature Granulocyte % (Auto) 0.5 % Immature Granulocyte # (Auto) 0.07 K/uL (0.00-0.02) Magnesium Level 1.8 mg/dl (1.8-2.4) Test 06/12/17 12:08 Anion Gap 6.0 mmol/L (3-11) Est Creatinine Clear Calc Drug Dose 40.8 ml/min Estimated GFR () 74.1 Estimated GFR (Non- 64.0 BUN/Creatinine Ratio 15.8 (10-20) Calcium Level 8.5 mg/dl (8.5-10.1) Chemistry Specimen Hemolysis Date/Time Source Procedure Growth Status 06/08/17 22:58 Blood Blood Culture - Preliminary NO GROWTH TO DATE. Resulted 06/09/17 00:00 Urine,Catheterized Urine Culture - Final Escherichia Coli Complete Last 24 Hours Test 06/12/17 06:23 06/12/17 12:08 White Blood Count 12.84 K/uL Red Blood Count 4.02 M/uL Hemoglobin 12.5 g/dL Hematocrit 38.6 % Mean Corpuscular Volume 96.0 fL Mean Corpuscular Hemoglobin 31.1 pg Mean Corpuscular Hemoglobin Concent 32.4 g/dl Platelet Count 180 K/uL Mean Platelet Volume 9.9 fL Neutrophils (%) (Auto) 85.8 % Lymphocytes (%) (Auto) 6.8 % Monocytes (%) (Auto) 5.8 % Eosinophils (%) (Auto) 0.9 % Basophils (%) (Auto) 0.2 % Neutrophils # (Auto) 11.01 K/uL Lymphocytes # (Auto) 0.87 K/uL Monocytes # (Auto) 0.75 K/uL Eosinophils # (Auto) 0.11 K/uL Basophils # (Auto) 0.03 K/uL RDW Standard Deviation 51.9 fL RDW Coefficient of Variation 14.5 % Immature Granulocyte % (Auto) 0.5 % Immature Granulocyte # (Auto) 0.07 K/uL Sodium Level 152 mmol/L 150 mmol/L Potassium Level 3.3 mmol/L 3.4 mmol/L Chloride Level 121 mmol/L 119 mmol/L Carbon Dioxide Level 28 mmol/L 25 mmol/L Anion Gap 3.0 mmol/L 6.0 mmol/L Blood Urea Nitrogen 17 mg/dl 17 mg/dl Creatinine 1.07 mg/dl 1.05 mg/dl Est Creatinine Clear Calc Drug Dose 40.0 ml/min 40.8 ml/min Estimated GFR () 72.5 74.1 Estimated GFR (Non- 62.5 64.0 BUN/Creatinine Ratio 15.5 15.8 Random Glucose 134 mg/dl 133 mg/dl Calcium Level 7.8 mg/dl 8.5 mg/dl Magnesium Level 1.8 mg/dl Chemistry Specimen Hemolysis Assessment & Plan 86 yoM presents with acute onset vomiting. 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 He lives in a prison and has pulmonary fibrosis. IVF were started and he was kept NPO overnight. He was challenged with lunch and dinner the following day without issue but then began vomiting persistently throughout the night last night and through the day. NGT was placed 06/10 and put out 1300cc overnight. He has had no output since 7pm last night and is clinically more awake and looking better today. He remains on the scheduled Zofran and denies nausea. He reports feeling well. Abdomen is improved. Tele review reveals a few beats that were slow and appeared junctional which resolved. Later in the day he had a couple of runs of SVT which was also self- limited. 1. Nausea and vomiting-etiologies include but not limited to acute gastritis, as a result of constipation/stool impaction vs evolving obstruction or ileus. NGT placement with improvement overnight. Clamping NGT and checking residuals for 8 hrs prior to removing. Cont Zofran and IVF. 2. Hypernatremia 2/2 no access to free water. Changed IVF to D5W and trending Na. Already improved from 152 to 150. Cont IVF. 3. Hypoxia 2/2 aspiration pneumonia-pt uses oxygen at night only but now is requiring continuously while at rest. Breath sounds are more clear today than yesterday. Possible that some debris was sucked out of lung with accidental intubation of R mainstem yesterday during placement on NGT. Cont Zosyn and NGT with plan as above. PT is DNR/DNI. Apprec pulm input. 4. UTI-recent E faecalis UTI present in early Mar treated with two rounds of Macrobid. Some bacteria is present in his urine but this is 40K. Ditropan was stopped for now. Cont Zosyn which is covering him empirically. 5. Tachycardia-resolved. Noted telemetry changes above are likely 2/[address] with maybe some vagal responses. Will cont to monitor. 6. 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 Close monitoring per nursing staff. Pt lives in a prison setting. 7. HTN-Maxzide on hold as NPO. Control with IV meds PRN. 8. CKD Stage III-appears to be at baseline creatinine which is improved since admission. Cont IVF. 9. BPH- PO meds held in setting of NGT. DVT PROPHYLAXIS: Lovenox DNR Disposition: cont telemetry monitoring. Joanne Brand DO [facility] Hospitalist Consultants: Pulm-[facility]. Current Inpatient Medications: Current Inpatient Medications Medications (Trade) Dose Ordered Sig/Braulio Route Start Time Stop Time Status Last Admin Dose Admin Ioversol (Optiray 320) 115 ml UD PRN IV 06/08/17 20:15 06/12/17 20:14 Bisacodyl (Dulcolax Supp) 10 mg DAILY PRN NV 06/08/17 22:15 07/08/17 22:14 06/09/17 09:05 10 MG Magnesium Hydroxide (Milk Of Magnesia Susp) 30 ml Q6H PRN PO 06/08/17 22:15 07/08/17 22:14 Future Hold 06/09/17 09:05 30 ML Levalbuterol (Xopenex 0.63 Mg/ 3 Ml Neb) 0.63 mg Q4H PRN INH 06/08/17 22:15 07/08/17 22:14 Levalbuterol (Xopenex 0.63 Mg/ 3 Ml Neb) 0.63 mg Q6R INH 06/09/17 03:00 07/09/17 02:59 06/12/17 01:52 0.63 MG Piperacillin Sod/ Tazobactam Sod 3.375 gm/Dextrose 115 ml @ 28.75 mls/ hr Q8H IV 06/09/17 04:00 06/19/17 03:59 06/12/17 12:45 28.75 MLS/HR Finasteride (Proscar Tab) 5 mg DAILY PO 06/09/17 09:00 07/09/17 08:59 Future Hold 06/09/17 07:26 5 MG Fluticasone Propionate (Flonase Nasal [place]) 2 sprays DAILY PRANEETH 06/09/17 09:00 07/09/17 08:59 Future Hold 06/09/17 09:02 2 SPRAYS Guaifenesin (Mucinex Contr Rel Tab) 600 mg BID PO 06/09/17 09:00 07/09/17 08:59 Future Hold 06/09/17 21:14 600 MG Loratadine (Claritin Tab) 10 mg DAILY PO 06/09/17 09:00 07/09/17 08:59 Future Hold 06/09/17 07:26 10 MG Sodium Chloride ([place] Nasal [place]) 2 sprays DAILY PRANEETH 06/09/17 09:00 07/09/17 08:59 06/12/17 08:23 2 SPRAYS Sodium Chloride ([place] 128 Oph Soln) 1 drops BID OPB 06/09/17 09:00 07/09/17 08:59 06/12/17 08:24 1 DROPS Tamsulosin HCl (Flomax Cap) 0.4 mg HS PO 06/09/17 21:00 07/09/17 20:59 Future Hold 06/09/17 21:14 0.4 MG Piperacillin Sod/ Tazobactam Sod (Consult) 1 ea UD PRN N/A 06/08/17 22:30 07/08/17 22:29 Acetaminophen (Tylenol Tab) 650 mg Q4H PRN PO 06/08/17 22:30 07/08/17 22:29 Future Hold 06/09/17 23:45 650 MG Ipratropium [place] (Atrovent 0.02% 0.5MG/2.5ML Neb) 0.5 mg Q6R INH 06/09/17 03:00 07/08/17 22:59 06/12/17 01:52 0.5 MG Miscellaneous (Iv Fluids Completed) 1 ea PRN PRN N/A 06/09/17 00:30 06/09/18 00:29 Mirtazapine (Remeron Tab) 15 mg HS PO 06/09/17 21:00 07/09/17 20:59 Future Hold 06/09/17 21:14 15 MG Guaifenesin/ Dextromethorphan (Robitussin-Dm Syrup) 10 ml Q6H PRN PO 06/09/17 01:30 07/09/17 01:29 Future Hold Polyethylene (Miralax Powder Packet) 17 gm DAILY PO 06/10/17 09:00 07/10/17 08:59 Future Hold Alendronate Sodium (Fosamax Tab) 70 mg Fr@0900 PO 06/11/17 09:00 07/11/17 08:59 Future Hold Atorvastatin Calcium (Lipitor Tab) 20 mg DAILY PO 06/10/17 09:00 07/10/17 08:59 Future Hold Calcium Polycarbophil (Fibercon Tab) 1 tab DAILY PO 06/10/17 09:00 07/10/17 08:59 Future Hold Triamterene/HCTZ (Maxzide 37.5/25 Tab) 1 tab DAILY PO 06/10/17 09:00 07/10/17 08:59 Future Hold Pantoprazole Sodium (Protonix Tab) 40 mg QAM PO 06/10/17 09:00 07/10/17 08:59 Future Hold Ondansetron HCl (Zofran Inj) 4 mg Q8H IV 06/10/17 10:00 07/08/17 09:59 06/12/17 11:00 4 MG Promethazine HCl (Phenergan Supp) 12.5 mg Q6H PRN NV 06/10/17 08:45 07/10/17 08:44 06/10/17 10:59 12.5 MG Formoterol Fumarate (Perforomist 20MCG/2ML Neb Soln) 20 mcg BIDR INH 06/10/17 20:00 07/09/17 07:59 06/12/17 08:07 20 MCG Budesonide (Pulmicort Respules 0.5MG/ 2ML Neb Soln) 0.5 mg BIDR INH 06/10/17 20:00 07/10/17 19:59 06/12/17 08:07 0.5 MG Pantoprazole Sodium 40 mg/ Syringe 10 ml @ 5 mls/min BID IV 06/11/17 12:00 07/11/17 11:59 06/12/17 08:23 5 MLS/MIN Enoxaparin Sodium (Lovenox Inj) 30 mg QAM SQ 06/12/17 09:00 07/12/17 08:59 06/12/17 08:24 30 MG Dextrose 1,000 ml @ 150 mls/hr Q6H40M IV 06/12/17 08:00 07/12/17 07:59 06/12/17 14:35 150 MLS/HR Phenol (Chloraseptic 1.4% [place]) 2 sprays Q2H PRN MT 06/12/17 08:00 07/12/17 07:59
[2017-06-12 16:30] LABS: CALCIUM 8.3 mg/dl (8.5-10.1); CREATININE 1.1 mg/dl (0.60-1.40)
[2017-06-12] MEDS ORDERED: POTASSIUM CHLORIDE 20 MEQ/15 ML UDC PO ONE (17:45)
[2017-06-12] MEDS: POTASSIUM CHLORIDE 20 MEQ TABCR PO SCH ×2 (18:21→21:37)
[2017-06-12] MEDS ORDERED: POTASSIUM CHLORIDE 20 MEQ/15 ML UDC PO SCH (22:30)
[2017-06-13] VITALS (12 sets, daily range): BP systolic 106–142; BP diastolic 64–79; PULSE 73–93; TEMP 36.5–37.4; O2SAT 90–95
[2017-06-13] MEDS: ONDANSETRON INJ 2 MG/ML 2 ML VIAL IV SCH (01:46)
[2017-06-13] MEDS: IPRATROPIUM BROMIDE NEB SOLN 0.02% 2.5 ML VIAL INH SCH ×4 (01:56→20:41)
[2017-06-13] MEDS: LEVALBUTEROL 0.63MG/3 ML NEB INH SCH ×4 (01:58→20:41)
[2017-06-13] MEDS: PIPERACILL/TAZOBAC IV 3.375 GM in DEXTROSE 5% 100ML IV SCH ×3 (04:20→20:38)
[2017-06-13] MEDS: DEXTROSE 5% 1000ML 1,000 ML IV SCH (04:20)
[2017-06-13] MEDS: FORMOTEROL FUMA NEBULIZER SOLN 20 MCG/2 ML VIAL INH SCH (07:21)
[2017-06-13] MEDS: BUDESONIDE 0.5 MG/2 ML VIAL (PULMICORT) INH SCH ×2 (07:21→20:00)
[2017-06-13 07:22] LABS: BASO % 0.3 %; BASO ABS # 0.03 K/uL (0-0.2); EOS % 2.6 %; IG# 0.07 K/uL (0.00-0.02); LYMPH % 11.8 %; LYMPH ABS # 1.36 K/uL (1.2-3.4); MEAN CELL VOLUME 95.2 fL (80-100); MEAN CORPUSCULAR HEMOGLOBIN 31.7 pg (25-34); MEAN CORPUSCULAR HGB CONC 33.3 g/dl (32-36); MEAN PLATELET VOLUME 9.8 fL (7.4-10.4); MONO % 5.6 %; MONO ABS # 0.64 K/uL (0.11-0.59); NEUT % 79.1 %; NEUT ABS # 9.13 K/uL (1.4-6.5); PLATELET COUNT 155 K/uL (130-400); RED CELL DISTRIBUTION WIDTH CV 14.4 % (11.5-14.5); RED CELL DISTRIBUTION WIDTH SD 49.8 fL (36.4-46.3); WHITE BLOOD COUNT 11.53 K/uL (4.8-10.8)
[2017-06-13 08:16] LABS: CALCIUM 8.1 mg/dl (8.5-10.1); CREATININE 1.02 mg/dl (0.60-1.40); POTASSIUM 3.2 mmol/L (3.5-5.1)
[2017-06-13] MEDS: PANTOprazole INJ 40 MG in SYRINGE 0 ML IV SCH (08:30)
[2017-06-13] MEDS: SODIUM CHLORIDE 5% OP SOLN 15 ML BTL OPB SCH ×2 (08:30→21:00)
[2017-06-13] MEDS: SODIUM CHLORIDE 0.65% NA SOLN 45 ML (OCEAN) NAE SCH (08:30)
[2017-06-13] MEDS: ENOXAPARIN 30 MG/0.3 ML SYR SQ SCH (08:31)
[2017-06-13] MEDS: FLUTICASONE PROPIONATE NA SPR 16 GM BTL NAE SCH (09:00)
[2017-06-13] MEDS ORDERED: DOCUSATE SODIUM 100 MG CAP PO SCH (09:00)
[2017-06-13] MEDS ORDERED: POLYETHYLENE (MIRALAX) 17 GM PACK PO SCH (09:00)
[2017-06-13] MEDS ORDERED: POTASSIUM CHLORIDE 20 MEQ TABCR PO SCH (09:00)
[2017-06-13] MEDS ORDERED: ONDANSETRON INJ 2 MG/ML 2 ML VIAL IV PRN (10:00)
[2017-06-13] MEDS: MAGNESIUM SULFATE 1GM / D5W 1 GM in PREMIXED IN D5W 100 ML IV SCH ×4 (10:04→13:17)
--- NOTE | 2017-06-13 12:58 | PULMONARY PROGRESS NOTE ---
DATE: 06/13/2017 TIME: 12:40 p.m. SUBJECTIVE: The patient was ambulating today. However, he has had a significant increasing cough and shortness of breath since eating lunch. His RN witnessed this. He is much more congested than he had been previously. I did ask the patient yes or no type questions, so that he could respond. He acknowledged that he was having trouble swallowing. He denied feeling sick in the stomach. The NG tube obviously is out now. OBJECTIVE: GENERAL: The patient looks fairly comfortable. VITAL SIGNS: He is afebrile. Heart rate is 92 per minute. The rhythm was regular. Blood pressure is 106/64. CHEST: Diffuse rhonchi are heard bilaterally. The patient is actually fairly tight. This clearly is a change from yesterday when I examined him. It would seem that he is aspirating as he swallows. ABDOMEN: Soft. Bowel sounds were present. LABORATORY DATA: Electrolytes showed a sodium of 139, potassium 3.2, chloride 109, and bicarbonate 25. The BUN was 13 with a creatinine of 1.02. White count is 11.53. Hemoglobin is 12. Platelets are 155,000. IMPRESSIONS: 1. Aspiration pneumonia. 2. Pulmonary fibrosis. 3. Vomiting. COMMENTS AND RECOMMENDATIONS: It appears that the patient is aspirating from swallowing. This is strongly suggested based upon his history of what happened today and his change in physical exam. I do suggest that he be made n.p.o. Speech did see the patient. They cannot do a swallow study, however, until Wednesday. It would seem prudent to put him on IV fluids and keep him n.p.o. until that study can be done for completeness. We are asking respiratory to give him a treatment now. Because he is on the Perforomist, he was not given a short acting treatment this morning. I am going to stop the Perforomist. Dr. Waite will be coming on pulmonary service as of tomorrow. She will see the patient if requested. VAMSHI
[2017-06-13] MEDS ORDERED: NURSING VERBAL MED ORDER ONE (13:15)
[2017-06-13] MEDS: D5W AND 1/2NSS + 40MEQ KCL 1,000 ML IV SCH (20:00)
--- NOTE | 2017-06-13 20:36 | Progress Note ---
Medicine Progress Note Date & Time of Visit: Jun 13, 2017 at 0730. Subjective denies issues today no vomiting overnight since NGT was pulled. advancing diet as tolerated Objective Last 8 Hrs Date Time Temp Pulse Resp B/P (MAP) Pulse Ox O2 Delivery O2 Flow Rate FiO2 06/13/17 19:10 36.5 85 18 142/79 (100) 90 Nasal Cannula 1.5 06/13/17 16:00 Nasal Cannula 2.0 06/13/17 15:35 37.0 83 20 122/67 (85) 94 Nasal Cannula 2.0 06/13/17 13:02 84 20 95 Nasal Cannula 2.0 Physical Exam: GEN: WNWD, in no acute distress, alert and appears to be at baseline. HEENT: NC/AT, pupils are equal and round bilaterally, mucous membranes are moist CARDIO: reg rate, S1/2 heard without m/g/r LUNGS: CTA bilaterally, no crackles, rales or wheezes, good diaphragmatic excursion ABD: soft, non-tender, non-distended, no rebound or guarding EXTREMITY: RP and DP palpable 2+ bilat, no LE swelling or edema, extremities are warm and well-perfused N/M: no gross focal deficits. SKIN: warm and dry Laboratory Results: 06/13/17 06:46 Red Blood Count 3.78, Mean Corpuscular Volume 95.2, Mean Corpuscular Hemoglobin 31.7, Mean Corpuscular Hemoglobin Concent 33.3, Mean Platelet Volume 9.8, Neutrophils (%) (Auto) 79.1, Lymphocytes (%) (Auto) 11.8, Monocytes (%) (Auto) 5.6, Eosinophils (%) (Auto) 2.6, Basophils (%) (Auto) 0.3, Neutrophils # (Auto) 9.13, Lymphocytes # (Auto) 1.36, Monocytes # (Auto) 0.64, Eosinophils # (Auto) 0.30, Basophils # (Auto) 0.03 06/13/17 06:46 Test 06/08/17 12:20 06/08/17 17:20 06/08/17 18:18 06/08/17 22:57 Prothrombin Time 10.2 SECONDS (9.0-12.0) Prothromb Time International Ratio 1.0 (0.9-1.1) Total Bilirubin 0.8 mg/dl (0.2-1) Alanine Aminotransferase (ALT/SGPT) 24 U/L (12-78) Alkaline Phosphatase 109 U/L (45-117) Total Protein 8.1 gm/dl (6.4-8.2) Albumin 3.9 gm/dl (3.4-5.0) Lipase 108 U/L (73-393) Direct Bilirubin mg/dl (0-0.2) Aspartate Amino Transf (AST/SGOT) U/L (15-37) Troponin I < 0.015 ng/ml (0-0.045) Lactic Acid Level 0.8 mmol/L (0.4-2.0) Test 06/09/17 00:00 06/09/17 12:25 06/10/17 17:05 06/12/17 12:08 Urine Color YELLOW Urine Appearance TURBID (CLEAR) Urine pH 5.0 (4.5-7.5) Urine Specific [place] 1.033 (1.000-1.030) Urine Protein 1+ (NEG) Urine Glucose (UA) NEG (NEG) Urine Ketones NEG (NEG) Urine Occult Blood 1+ (NEG) Urine Nitrite POS (NEG) Urine Bilirubin NEG (NEG) Urine Urobilinogen NEG (NEG) Urine Leukocyte Esterase LARGE (NEG) Urine WBC (Auto) >30 /hpf (0-5) Urine RBC (Auto) 0-4 /hpf (0-4) Urine Hyaline Casts (Auto) 1-5 /lpf (0-5) Urine Epithelial Cells (Auto) 10-20 /lpf (0-5) Urine Bacteria (Auto) 1+ (NEG) Urine Pathogenic Casts /lpf (0) Influenza Type A Antigen Neg for Influ A (NEG) Influenza Type B Antigen Neg for Influ B (NEG) Gastric Fluid pH 3 Gastric Fluid Occult Blood POS (NEG) Chemistry Specimen Hemolysis Test 06/13/17 06:46 White Blood Count 11.53 K/uL (4.8-10.8) Red Blood Count 3.78 M/uL (4.7-6.1) Hemoglobin 12.0 g/dL (14.0-18.0) Hematocrit 36.0 % (42-52) Mean Corpuscular Volume 95.2 fL (80-100) Mean Corpuscular Hemoglobin 31.7 pg (25-34) Mean Corpuscular Hemoglobin Concent 33.3 g/dl (32-36) Platelet Count 155 K/uL (130-400) Mean Platelet Volume 9.8 fL (7.4-10.4) Neutrophils (%) (Auto) 79.1 % Lymphocytes (%) (Auto) 11.8 % Monocytes (%) (Auto) 5.6 % Eosinophils (%) (Auto) 2.6 % Basophils (%) (Auto) 0.3 % Neutrophils # (Auto) 9.13 K/uL (1.4-6.5) Lymphocytes # (Auto) 1.36 K/uL (1.2-3.4) Monocytes # (Auto) 0.64 K/uL (0.11-0.59) Eosinophils # (Auto) 0.30 K/uL (0-0.5) Basophils # (Auto) 0.03 K/uL (0-0.2) RDW Standard Deviation 49.8 fL (36.4-46.3) RDW Coefficient of Variation 14.4 % (11.5-14.5) Immature Granulocyte % (Auto) 0.6 % Immature Granulocyte # (Auto) 0.07 K/uL (0.00-0.02) Anion Gap 5.0 mmol/L (3-11) Est Creatinine Clear Calc Drug Dose 43.2 ml/min Estimated GFR () 76.8 Estimated GFR (Non- 66.2 BUN/Creatinine Ratio 12.5 (10-20) Calcium Level 8.1 mg/dl (8.5-10.1) Magnesium Level 1.5 mg/dl (1.8-2.4) Date/Time Source Procedure Growth Status 06/08/17 22:58 Blood Blood Culture - Preliminary NO GROWTH TO DATE. Resulted 06/09/17 00:00 Urine,Catheterized Urine Culture - Final Escherichia Coli Complete Last 24 Hours Test 06/13/17 06:46 White Blood Count 11.53 K/uL Red Blood Count 3.78 M/uL Hemoglobin 12.0 g/dL Hematocrit 36.0 % Mean Corpuscular Volume 95.2 fL Mean Corpuscular Hemoglobin 31.7 pg Mean Corpuscular Hemoglobin Concent 33.3 g/dl Platelet Count 155 K/uL Mean Platelet Volume 9.8 fL Neutrophils (%) (Auto) 79.1 % Lymphocytes (%) (Auto) 11.8 % Monocytes (%) (Auto) 5.6 % Eosinophils (%) (Auto) 2.6 % Basophils (%) (Auto) 0.3 % Neutrophils # (Auto) 9.13 K/uL Lymphocytes # (Auto) 1.36 K/uL Monocytes # (Auto) 0.64 K/uL Eosinophils # (Auto) 0.30 K/uL Basophils # (Auto) 0.03 K/uL RDW Standard Deviation 49.8 fL RDW Coefficient of Variation 14.4 % Immature Granulocyte % (Auto) 0.6 % Immature Granulocyte # (Auto) 0.07 K/uL Sodium Level 139 mmol/L Potassium Level 3.2 mmol/L Chloride Level 109 mmol/L Carbon Dioxide Level 25 mmol/L Anion Gap 5.0 mmol/L Blood Urea Nitrogen 13 mg/dl Creatinine 1.02 mg/dl Est Creatinine Clear Calc Drug Dose 43.2 ml/min Estimated GFR () 76.8 Estimated GFR (Non- 66.2 BUN/Creatinine Ratio 12.5 Random Glucose 131 mg/dl Calcium Level 8.1 mg/dl Magnesium Level 1.5 mg/dl Assessment & Plan 1. Nausea and vomiting-etiologies include but not limited to acute gastritis, as a result of constipation/stool impaction vs evolving obstruction or ileus. NGT placement with improvement-tube removed last night and patient continues to do well. Started diet today, however, he appeared to be frankly aspirating. Speech path re-evaluated him today and initially made recs for pureed diet with mods, however, he began to frankly aspirate after this and was switched to NPO until he can have a repeat video swallow study on . 2. Hypernatremia 2/2 no access to free water-resolved. With patient NPO, changed IVF to D51/5NSS + K 3. Hypoxia 2/2 aspiration pneumonia-pt uses oxygen at night only but now is requiring continuously while at rest. Breath sounds are more clear today than yesterday. Possible that some debris was sucked out of lung with accidental intubation of R mainstem yesterday during placement on NGT. Cont Zosyn for 10 days, Apprec Pulm input. 4. Bacteriuria-40K E coli in urine, on Zosyn 5. 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 Close monitoring per nursing staff. Pt lives in a custodial setting. 6. HTN-Maxzide on hold as NPO. Control with IV meds PRN. 7. CKD Stage III-appears to be at baseline creatinine which is improved since admission. Cont IVF. 8. BPH- PO meds held in setting of NGT. 9. Hypokalemia/Hypomag-replaced, repeat in am. DVT PROPHYLAXIS: Lovenox DNR Disposition: cont telemetry monitoring. [facility] Consultants: Andrés. Current Inpatient Medications: Current Inpatient Medications Medications (Trade) Dose Ordered Sig/Braulio Route Start Time Stop Time Status Last Admin Dose Admin Bisacodyl (Dulcolax Supp) 10 mg DAILY PRN MD 06/08/17 22:15 07/08/17 22:14 06/09/17 09:05 10 MG Levalbuterol (Xopenex 0.63 Mg/ 3 Ml Neb) 0.63 mg Q6R INH 06/09/17 03:00 07/09/17 02:59 06/13/17 13:02 0.63 MG Piperacillin Sod/ Tazobactam Sod 3.375 gm/Dextrose 115 ml @ 28.75 mls/ hr Q8H IV 06/09/17 04:00 06/19/17 03:59 06/13/17 11:56 28.75 MLS/HR Fluticasone Propionate (Flonase Nasal [place]) 2 sprays DAILY PRANEETH 06/09/17 09:00 07/09/17 08:59 Future hold 06/13/17 09:00 2 SPRAYS Sodium Chloride ([place] Nasal [place]) 2 sprays DAILY PRANEETH 06/09/17 09:00 07/09/17 08:59 06/13/17 08:30 2 SPRAYS Sodium Chloride ([place] 128 Oph Soln) 1 drops BID OPB 06/09/17 09:00 07/09/17 08:59 06/13/17 08:30 1 DROPS Piperacillin Sod/ Tazobactam Sod (Consult) 1 ea UD PRN N/A 06/08/17 22:30 07/08/17 22:29 Ipratropium [place] (Atrovent 0.02% 0.5MG/2.5ML Neb) 0.5 mg Q6R INH 06/09/17 03:00 07/08/17 22:59 06/13/17 13:02 0.5 MG Miscellaneous (Iv Fluids Completed) 1 ea PRN PRN N/A 06/09/17 00:30 06/09/18 00:29 Promethazine HCl (Phenergan Supp) 12.5 mg Q6H PRN MD 06/10/17 08:45 07/10/17 08:44 06/10/17 10:59 12.5 MG Budesonide (Pulmicort Respules 0.5MG/ 2ML Neb Soln) 0.5 mg BIDR INH 06/10/17 20:00 07/10/17 19:59 06/13/17 07:21 0.5 MG Enoxaparin Sodium (Lovenox Inj) 30 mg QAM SQ 06/12/17 09:00 07/12/17 08:59 06/13/17 08:31 30 MG Ondansetron HCl (Zofran Inj) 4 mg Q8H PRN IV 06/13/17 10:00 07/08/17 09:59 Potassium Chloride/Dextrose/ Sod Cl 1,000 ml @ 125 mls/hr Q8H IV 06/13/17 19:00 07/13/17 18:59
[2017-06-14] VITALS (12 sets, daily range): BP systolic 129–171; BP diastolic 68–85; PULSE 50–96; TEMP 36.3–37.5; O2SAT 92–97
[2017-06-14] MEDS: IPRATROPIUM BROMIDE NEB SOLN 0.02% 2.5 ML VIAL INH SCH ×4 (02:22→19:41)
[2017-06-14] MEDS: LEVALBUTEROL 0.63MG/3 ML NEB INH SCH ×4 (02:22→19:41)
[2017-06-14] MEDS: D5W AND 1/2NSS + 40MEQ KCL 1,000 ML IV SCH ×3 (03:58→18:41)
[2017-06-14] MEDS: PIPERACILL/TAZOBAC IV 3.375 GM in DEXTROSE 5% 100ML IV SCH ×3 (04:00→20:19)
[2017-06-14] MEDS: BUDESONIDE 0.5 MG/2 ML VIAL (PULMICORT) INH SCH ×2 (07:01→19:41)
[2017-06-14 07:20] LABS: HEMATOCRIT 37.1 % (42-52); HEMOGLOBIN 12.3 g/dL (14.0-18.0); MEAN CELL VOLUME 94.4 fL (80-100); MEAN CORPUSCULAR HEMOGLOBIN 31.3 pg (25-34); MEAN CORPUSCULAR HGB CONC 33.2 g/dl (32-36); PLATELET COUNT 180 K/uL (130-400); RED CELL DISTRIBUTION WIDTH CV 14.1 % (11.5-14.5); RED CELL DISTRIBUTION WIDTH SD 48.9 fL (36.4-46.3); WHITE BLOOD COUNT 10.11 K/uL (4.8-10.8)
[2017-06-14 07:53] LABS: CALCIUM 8.1 mg/dl (8.5-10.1); CREATININE 0.93 mg/dl (0.60-1.40); POTASSIUM 3.9 mmol/L (3.5-5.1)
[2017-06-14 08:11] LABS: PHOSPHORUS 1.3 mg/dl (2.5-4.9)
[2017-06-14] MEDS ORDERED: SODIUM PHOSPHATE 3 MMOL/1 ML INFUSION IV STA (08:29)
[2017-06-14] MEDS: FLUTICASONE PROPIONATE NA SPR 16 GM BTL NAE SCH (08:31)
[2017-06-14] MEDS: SODIUM CHLORIDE 0.65% NA SOLN 45 ML (OCEAN) NAE SCH (08:32)
[2017-06-14] MEDS: ENOXAPARIN 30 MG/0.3 ML SYR SQ SCH (08:32)
[2017-06-14] MEDS: SODIUM CHLORIDE 5% OP SOLN 15 ML BTL OPB SCH ×2 (08:32→20:29)
[2017-06-14] MEDS ORDERED: SODIUM PHOSPHATE INJ 30 MMOL in SODIUM CHLORIDE 0.9% 500ML 500 ML IV ONE (09:00)
--- NOTE | 2017-06-14 13:19 | DIAGNOSTIC IMAGING REPORT ---
SINGLE VIEW CHEST CLINICAL HISTORY: Wheezing. FINDINGS: An AP, portable, upright chest radiograph is compared to study dated 06/11/2017 The examination is degraded by portable technique and patient rotation. The enteric tube has been removed. The heart is top normal for projection and there is atherosclerotic calcification of the thoracic aorta. The pulmonary vasculature is noncongested. Chronic interstitial lung disease is similar to previous. Bibasilar airspace consolidation persists, and has increased at the right lung base as compared to 06/11/2017. Small pleural effusions are noted. No pneumothorax is seen. The skeletal structures are osteopenic. The bony thorax is grossly intact. IMPRESSION: 1. There is bibasilar airspace consolidation and small pleural effusions, increasing at the right lung base from 06/11/2017. The appearance suggests pneumonia/aspiration pneumonitis. Clinical correlation will be required and radiographic follow-up to resolution is recommended. 2. Additional changes of chronic lung disease are similar to previous. Electronically signed by: Wesly Car M.D. 06/14/2017 1:18 PM Dictated Date/Time: 06/14/2017 1:15 PM
--- NOTE | 2017-06-14 18:29 | Progress Note ---
Medicine Progress Note Date & Time of Visit: Jun 14, 2017 at 12:49. Subjective PT appears comfortable, denies nausea or pain or any discomfort at this time. Has not been vomiting after NGT removed. Remains NPO until video swallow tomorrow. Objective Last 8 Hrs Date Time Temp Pulse Resp B/P (MAP) Pulse Ox O2 Delivery O2 Flow Rate FiO2 06/14/17 11:43 36.6 88 24 150/68 (95) 97 Nasal Cannula 3.0 06/14/17 08:00 Nasal Cannula 2.0 06/14/17 07:37 36.7 85 24 133/76 (95) 96 Nasal Cannula 3.0 06/14/17 07:02 74 20 97 Nasal Cannula 3.0 Physical Exam: GEN: WNWD, in no acute distress, alert and appears to be at baseline. HEENT: NC/AT, pupils are equal and round bilaterally, mucous membranes are moist CARDIO: reg rate, S1/2 heard without m/g/r LUNGS: wheezing at bases. ABD: soft, non-tender, non-distended, no rebound or guarding, +BS EXTREMITY: RP and DP palpable 2+ bilat, no LE swelling or edema, extremities are warm and well-perfused N/M: no gross focal deficits. SKIN: warm and dry Laboratory Results: 06/14/17 06:20 06/14/17 06:20 Test 06/08/17 12:20 06/08/17 17:20 06/08/17 18:18 06/08/17 22:57 Prothrombin Time 10.2 SECONDS (9.0-12.0) Prothromb Time International Ratio 1.0 (0.9-1.1) Total Bilirubin 0.8 mg/dl (0.2-1) Alanine Aminotransferase (ALT/SGPT) 24 U/L (12-78) Alkaline Phosphatase 109 U/L (45-117) Total Protein 8.1 gm/dl (6.4-8.2) Albumin 3.9 gm/dl (3.4-5.0) Lipase 108 U/L (73-393) Direct Bilirubin mg/dl (0-0.2) Aspartate Amino Transf (AST/SGOT) U/L (15-37) Troponin I < 0.015 ng/ml (0-0.045) Lactic Acid Level 0.8 mmol/L (0.4-2.0) Test 06/09/17 00:00 06/09/17 12:25 06/10/17 17:05 06/12/17 12:08 Urine Color YELLOW Urine Appearance TURBID (CLEAR) Urine pH 5.0 (4.5-7.5) Urine Specific [place] 1.033 (1.000-1.030) Urine Protein 1+ (NEG) Urine Glucose (UA) NEG (NEG) Urine Ketones NEG (NEG) Urine Occult Blood 1+ (NEG) Urine Nitrite POS (NEG) Urine Bilirubin NEG (NEG) Urine Urobilinogen NEG (NEG) Urine Leukocyte Esterase LARGE (NEG) Urine WBC (Auto) >30 /hpf (0-5) Urine RBC (Auto) 0-4 /hpf (0-4) Urine Hyaline Casts (Auto) 1-5 /lpf (0-5) Urine Epithelial Cells (Auto) 10-20 /lpf (0-5) Urine Bacteria (Auto) 1+ (NEG) Urine Pathogenic Casts /lpf (0) Influenza Type A Antigen Neg for Influ A (NEG) Influenza Type B Antigen Neg for Influ B (NEG) Gastric Fluid pH 3 Gastric Fluid Occult Blood POS (NEG) Chemistry Specimen Hemolysis Test 06/13/17 06:46 06/14/17 06:20 Immature Granulocyte % (Auto) 0.6 % White Blood Count 11.53 K/uL (4.8-10.8) Red Blood Count 3.78 M/uL (4.7-6.1) 3.93 M/uL (4.7-6.1) Hemoglobin 12.0 g/dL (14.0-18.0) Hematocrit 36.0 % (42-52) Mean Corpuscular Volume 95.2 fL (80-100) 94.4 fL (80-100) Mean Corpuscular Hemoglobin 31.7 pg (25-34) 31.3 pg (25-34) Mean Corpuscular Hemoglobin Concent 33.3 g/dl (32-36) 33.2 g/dl (32-36) Platelet Count 155 K/uL (130-400) Mean Platelet Volume 9.8 fL (7.4-10.4) 10.0 fL (7.4-10.4) Neutrophils (%) (Auto) 79.1 % Lymphocytes (%) (Auto) 11.8 % Monocytes (%) (Auto) 5.6 % Eosinophils (%) (Auto) 2.6 % Basophils (%) (Auto) 0.3 % Neutrophils # (Auto) 9.13 K/uL (1.4-6.5) Lymphocytes # (Auto) 1.36 K/uL (1.2-3.4) Monocytes # (Auto) 0.64 K/uL (0.11-0.59) Eosinophils # (Auto) 0.30 K/uL (0-0.5) Basophils # (Auto) 0.03 K/uL (0-0.2) Immature Granulocyte # (Auto) 0.07 K/uL (0.00-0.02) RDW Standard Deviation 48.9 fL (36.4-46.3) RDW Coefficient of Variation 14.1 % (11.5-14.5) Anion Gap 6.0 mmol/L (3-11) Est Creatinine Clear Calc Drug Dose 47.0 ml/min Estimated GFR () 85.9 Estimated GFR (Non- 74.1 BUN/Creatinine Ratio 9.8 (10-20) Calcium Level 8.1 mg/dl (8.5-10.1) Phosphorus Level 1.3 mg/dl (2.5-4.9) Magnesium Level 2.2 mg/dl (1.8-2.4) Date/Time Source Procedure Growth Status 06/08/17 22:58 Blood Blood Culture - Final NO GROWTH Complete 06/14/17 00:00 Nasal MRSA DNA Surveillance Screen - Final Specimen Positive for MRSA by DNA Probe Complete 06/09/17 00:00 Urine,Catheterized Urine Culture - Final Escherichia Coli Complete Last 24 Hours Test 06/14/17 06:20 White Blood Count 10.11 K/uL Red Blood Count 3.93 M/uL Hemoglobin 12.3 g/dL Hematocrit 37.1 % Mean Corpuscular Volume 94.4 fL Mean Corpuscular Hemoglobin 31.3 pg Mean Corpuscular Hemoglobin Concent 33.2 g/dl RDW Standard Deviation 48.9 fL RDW Coefficient of Variation 14.1 % Platelet Count 180 K/uL Mean Platelet Volume 10.0 fL Sodium Level 141 mmol/L Potassium Level 3.9 mmol/L Chloride Level 110 mmol/L Carbon Dioxide Level 25 mmol/L Anion Gap 6.0 mmol/L Blood Urea Nitrogen 9 mg/dl Creatinine 0.93 mg/dl Est Creatinine Clear Calc Drug Dose 47.0 ml/min Estimated GFR () 85.9 Estimated GFR (Non- 74.1 BUN/Creatinine Ratio 9.8 Random Glucose 122 mg/dl Calcium Level 8.1 mg/dl Phosphorus Level 1.3 mg/dl Magnesium Level 2.2 mg/dl Date/Time Source Procedure Growth Status 06/14/17 00:00 Nasal MRSA DNA Surveillance Screen Pending Received Assessment & Plan 1. Nausea and vomiting-resolved. Etiologies include but not limited to acute gastritis, as a result of constipation/stool impaction vs evolving obstruction or ileus. NGT placement with improvement-tube removed 06/12 and patient continues to do well from this standpoint. Started diet on 06/13, however, he appeared to be frankly aspirating. Planning for video swallow study on . NPO until that time. If aspirating, which I suspect, will need to have a sindi conversation with sister Cassie who is POA about dangers of this and what she wants to do. Palliative consulted to assist with this. 2. Hypernatremia 2/2 no access to free water-resolved. Fluid is now D51/2 NS + KCl 3. Hypoxia 2/2 aspiration pneumonia-pt uses oxygen at night only at baseline but now is requiring continuously while at rest. Wheezing on exam today and yesterday after aspiration episode. Cont bronchodilators. Looks stable on Zosyn despite +MRSA in nares and worsening infiltrates on CXR today. Add Vanc if he gets worse clinically. Cont Zosyn for 10 days, Apprec Pulm input. 4. Bacteriuria-40K E coli in urine, on Zosyn 5. 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 Close monitoring per nursing staff. Pt lives in a shelter setting. 6. HTN-Maxzide on hold as NPO. Control with IV meds PRN. 7. CKD Stage III-appears to be at baseline creatinine which is improved since admission. Cont IVF. 8. BPH- PO meds held in setting of NGT. 9. Hypophosphatemia-replaced IV today and recheck in am. DVT PROPHYLAXIS: Lovenox DNR Disposition: cont telemetry monitoring. Joanne Brand DO [facility] Hospitalist Consultants: Andrés. Current Inpatient Medications: Current Inpatient Medications Medications (Trade) Dose Ordered Sig/Braulio Route Start Time Stop Time Status Last Admin Dose Admin Bisacodyl (Dulcolax Supp) 10 mg DAILY PRN [place] 06/08/17 22:15 07/08/17 22:14 06/09/17 09:05 10 MG Levalbuterol (Xopenex 0.63 Mg/ 3 Ml Neb) 0.63 mg Q6R INH 06/09/17 03:00 07/09/17 02:59 06/14/17 07:01 0.63 MG Piperacillin Sod/ Tazobactam Sod 3.375 gm/Dextrose 115 ml @ 28.75 mls/ hr Q8H IV 06/09/17 04:00 06/19/17 03:59 06/14/17 11:50 28.75 MLS/HR Fluticasone Propionate (Flonase Nasal [place]) 2 sprays DAILY PRANEETH 06/09/17 09:00 07/09/17 08:59 Future hold 06/13/17 09:00 2 SPRAYS Sodium Chloride ([place] Nasal [place]) 2 sprays DAILY PRANEETH 06/09/17 09:00 07/09/17 08:59 06/14/17 08:32 2 SPRAYS Sodium Chloride ([place] 128 Oph Soln) 1 drops BID OPB 06/09/17 09:00 07/09/17 08:59 06/14/17 08:32 1 DROPS Piperacillin Sod/ Tazobactam Sod (Consult) 1 ea UD PRN N/A 06/08/17 22:30 07/08/17 22:29 Ipratropium [place] (Atrovent 0.02% 0.5MG/2.5ML Neb) 0.5 mg Q6R INH 06/09/17 03:00 07/08/17 22:59 06/14/17 07:01 0.5 MG Miscellaneous (Iv Fluids Completed) 1 ea PRN PRN N/A 06/09/17 00:30 06/09/18 00:29 Promethazine HCl (Phenergan Supp) 12.5 mg Q6H PRN AL 06/10/17 08:45 07/10/17 08:44 06/10/17 10:59 12.5 MG Budesonide (Pulmicort Respules 0.5MG/ 2ML Neb Soln) 0.5 mg BIDR INH 06/10/17 20:00 07/10/17 19:59 06/14/17 07:01 0.5 MG Enoxaparin Sodium (Lovenox Inj) 30 mg QAM SQ 06/12/17 09:00 07/12/17 08:59 06/14/17 08:32 30 MG Ondansetron HCl (Zofran Inj) 4 mg Q8H PRN IV 06/13/17 10:00 07/08/17 09:59 Potassium Chloride/Dextrose/ Sod Cl 1,000 ml @ 125 mls/hr Q8H IV 06/13/17 19:00 07/13/17 18:59 06/14/17 11:43 125 MLS/HR Sodium Phosphate 30 mmol/Sodium Chloride 510 ml @ 88 mls/hr ONE ONCE IV 06/14/17 09:00 06/14/17 14:47 06/14/17 08:57 88 MLS/HR
[2017-06-14] MEDS: MUPIROCIN 2% OINT 22 GM TUBE EXT SCH (20:29)
[2017-06-15] VITALS (8 sets, daily range): BP systolic 123–149; BP diastolic 77–82; PULSE 78–113; TEMP 36.6–36.9; O2SAT 80–96
[2017-06-15] MEDS: IPRATROPIUM BROMIDE NEB SOLN 0.02% 2.5 ML VIAL INH SCH ×4 (01:32→20:19)
[2017-06-15] MEDS: LEVALBUTEROL 0.63MG/3 ML NEB INH SCH ×4 (01:32→20:19)
[2017-06-15] MEDS: PIPERACILL/TAZOBAC IV 3.375 GM in DEXTROSE 5% 100ML IV SCH ×3 (04:05→21:04)
[2017-06-15] MEDS: D5W AND 1/2NSS + 40MEQ KCL 1,000 ML IV SCH ×2 (04:06→11:32)
[2017-06-15] MEDS: BUDESONIDE 0.5 MG/2 ML VIAL (PULMICORT) INH SCH ×2 (07:45→20:19)
[2017-06-15] MEDS: SODIUM CHLORIDE 5% OP SOLN 15 ML BTL OPB SCH ×2 (08:00→21:07)
[2017-06-15] MEDS: FLUTICASONE PROPIONATE NA SPR 16 GM BTL NAE SCH (09:12)
[2017-06-15] MEDS: MUPIROCIN 2% OINT 22 GM TUBE EXT SCH ×2 (09:12→21:06)
[2017-06-15] MEDS: ENOXAPARIN 30 MG/0.3 ML SYR SQ SCH (09:13)
[2017-06-15] MEDS: SODIUM CHLORIDE 0.65% NA SOLN 45 ML (OCEAN) NAE SCH (09:13)
--- NOTE | 2017-06-15 14:00 | Progress Note ---
Subjective Date of Service: Jun 15, 2017. Subjective Pt evaluation today including: physical exam, lab review, review of studies, review of inpatient medication list Saw/examined the patient in room 453 He is nonverbal, unable to express ROS in no distress, laying comfortably Problem List Medical Problems: (1) Constipation Status: Acute (2) Fall Status: Acute (3) Leukocytosis Status: Acute (4) Swelling of right extremity Status: Acute (5) Tachycardia Status: Acute Medications Current Inpatient Medications Medications (Trade) Dose Ordered Sig/Braulio Route Start Time Stop Time Status Last Admin Dose Admin Bisacodyl (Dulcolax Supp) 10 mg DAILY PRN MA 06/08/17 22:15 07/08/17 22:14 06/09/17 09:05 10 MG Levalbuterol (Xopenex 0.63 Mg/ 3 Ml Neb) 0.63 mg Q6R INH 06/09/17 03:00 07/09/17 02:59 06/15/17 07:43 0.63 MG Piperacillin Sod/ Tazobactam Sod 3.375 gm/Dextrose 115 ml @ 28.75 mls/ hr Q8H IV 06/09/17 04:00 06/19/17 03:59 06/15/17 04:05 28.75 MLS/HR Fluticasone Propionate (Flonase Nasal [place]) 2 sprays DAILY PRANEETH 06/09/17 09:00 07/09/17 08:59 Future hold 06/15/17 09:12 2 SPRAYS Sodium Chloride ([place] Nasal [place]) 2 sprays DAILY PRANEETH 06/09/17 09:00 07/09/17 08:59 06/15/17 09:13 2 SPRAYS Sodium Chloride ([place] 128 Oph Soln) 1 drops BID OPB 06/09/17 09:00 07/09/17 08:59 06/15/17 08:00 1 DROPS Piperacillin Sod/ Tazobactam Sod (Consult) 1 ea UD PRN N/A 06/08/17 22:30 07/08/17 22:29 Ipratropium [place] (Atrovent 0.02% 0.5MG/2.5ML Neb) 0.5 mg Q6R INH 06/09/17 03:00 07/08/17 22:59 06/15/17 07:42 0.5 MG Miscellaneous (Iv Fluids Completed) 1 ea PRN PRN N/A 06/09/17 00:30 06/09/18 00:29 Promethazine HCl (Phenergan Supp) 12.5 mg Q6H PRN MA 06/10/17 08:45 07/10/17 08:44 06/10/17 10:59 12.5 MG Budesonide (Pulmicort Respules 0.5MG/ 2ML Neb Soln) 0.5 mg BIDR INH 06/10/17 20:00 07/10/17 19:59 06/14/17 19:41 0.5 MG Enoxaparin Sodium (Lovenox Inj) 30 mg QAM SQ 06/12/17 09:00 07/12/17 08:59 06/15/17 09:13 30 MG Ondansetron HCl (Zofran Inj) 4 mg Q8H PRN IV 06/13/17 10:00 07/08/17 09:59 Potassium Chloride/Dextrose/ Sod Cl 1,000 ml @ 125 mls/hr Q8H IV 06/13/17 19:00 07/13/17 18:59 06/15/17 11:32 125 MLS/HR Mupirocin (Bactroban 2% Oint) 1 appln BID EXT 06/14/17 20:00 06/19/17 20:59 06/15/17 09:12 1 APPLN Objective Vital Signs Date Time Temp Pulse Resp B/P (MAP) Pulse Ox O2 Delivery O2 Flow Rate FiO2 06/15/17 08:01 Nasal Cannula 2.0 06/15/17 07:45 88 20 80 Room Air 06/15/17 07:16 36.9 88 18 149/82 (104) 96 Room Air 06/15/17 01:32 78 20 95 Nasal Cannula 2.0 06/15/17 00:00 Nasal Cannula 2.0 06/14/17 23:26 36.3 82 18 129/68 (88) 95 Nasal Cannula 2.0 06/14/17 19:42 85 20 94 Nasal Cannula 2.0 06/14/17 17:10 142/85 (104) 06/14/17 17:04 36.4 84 22 156/81 (106) 96 Nasal Cannula 2.0 06/14/17 16:00 Nasal Cannula 2.0 06/14/17 15:25 36.4 96 19 171/78 (109) 96 Nasal Cannula 3.0 06/14/17 14:40 90 20 93 Nasal Cannula 3.0 Physical Exam General Appearance: no apparent distress Respiratory/Chest: no respiratory distress, no accessory muscle use Cardiovascular: regular rate, rhythm Abdomen: normal bowel sounds, non tender, soft, no organomegaly Neurologic/Psychiatric: + pertinent finding (MR; nonverbal at baseline) Assessment and Plan This is an 86 year old male with a PMH of mental disability, HTN, CKD stage 3, BPH - presents with nausea/vomiting, possible gastritis Aspiration patient is frankly aspirating currently NPO status will obtain a video swallow today speech therapy consulted will need palliative discussion with POA regarding goals likely comfort feeds if okay with family possible pneumonia - currently on Zosyn Possible Acute Gastritis patient has had nausea/vomiting has had NG tube placed and now removed with occult bleeding monitor H/H HTN blood pressure stable hold Maxzide Electrolyte Imbalances continue to monitor K, Mg, and Phos replace as necessary Hx. of Delayed Mental Ability lives at skilled nursing, at baseline DVT ppx Lovenox DNR
[2017-06-15] MEDS: SODIUM CHLORIDE 0.9% 1000ML 1,000 ML IV SCH (14:18)
--- NOTE | 2017-06-15 14:22 | DIAGNOSTIC IMAGING REPORT ---
VIDEO SWALLOW HISTORY: Aspiration vomiting TECHNIQUE: Video fluoroscopic evaluation of swallowing was performed in the AP and lateral projections by the speech pathology staff. The patient is fed nectar-thick and thin liquid barium, a barium coated wafer, and barium pudding. FLUOROSCOPY TIME: 2.7 minutes. NUMBER OF FLUOROSCOPY IMAGES: 0 COMPARISON STUDY: 05/13/2010 FINDINGS: With swallowing thin liquids via a teaspoon there was episode of aspiration. There is an episode of aspiration with swallowing thin liquids via cup. There is penetration, but no evidence of aspiration when swallowing nectar thick liquids. There is no aspiration when swallowing pudding or cracker with paste. IMPRESSION: 1. Aspiration of thin liquids. 2. Please see the speech pathologist report for detailed findings and recommendations. Electronically signed by: Simon Braden M.D. 06/15/2017 2:21 PM Dictated Date/Time: 06/15/2017 2:13 PM
[2017-06-16 03:26] VITALS: PULSE 72; O2SAT 95
[2017-06-16] MEDS: IPRATROPIUM BROMIDE NEB SOLN 0.02% 2.5 ML VIAL INH SCH ×4 (03:26→19:18)
[2017-06-16] MEDS: LEVALBUTEROL 0.63MG/3 ML NEB INH SCH ×4 (03:26→19:18)
[2017-06-16] MEDS: PIPERACILL/TAZOBAC IV 3.375 GM in DEXTROSE 5% 100ML IV SCH ×3 (04:26→20:44)
[2017-06-16] MEDS: SODIUM CHLORIDE 0.9% 1000ML 1,000 ML IV SCH ×2 (04:52→17:08)
[2017-06-16 06:58] LABS: HEMATOCRIT 30.7 % (42-52); HEMOGLOBIN 10.3 g/dL (14.0-18.0); MEAN CELL VOLUME 93.6 fL (80-100); MEAN CORPUSCULAR HEMOGLOBIN 31.4 pg (25-34); MEAN CORPUSCULAR HGB CONC 33.6 g/dl (32-36); MEAN PLATELET VOLUME 9.8 fL (7.4-10.4); PLATELET COUNT 206 K/uL (130-400); RED CELL DISTRIBUTION WIDTH CV 14.2 % (11.5-14.5); RED CELL DISTRIBUTION WIDTH SD 48.2 fL (36.4-46.3); WHITE BLOOD COUNT 14.89 K/uL (4.8-10.8)
[2017-06-16 07:40] LABS: CREATININE 0.88 mg/dl (0.60-1.40); PHOSPHORUS 2.3 mg/dl (2.5-4.9); POTASSIUM 4.2 mmol/L (3.5-5.1)
[2017-06-16 07:42] VITALS: BP 151/79; PULSE 103; TEMP 36.6; O2SAT 92
[2017-06-16] MEDS: MUPIROCIN 2% OINT 22 GM TUBE EXT SCH ×2 (07:44→20:46)
[2017-06-16] MEDS: SODIUM CHLORIDE 5% OP SOLN 15 ML BTL OPB SCH ×2 (07:45→20:46)
[2017-06-16] MEDS: ENOXAPARIN 30 MG/0.3 ML SYR SQ SCH (07:45)
[2017-06-16] MEDS: FLUTICASONE PROPIONATE NA SPR 16 GM BTL NAE SCH (07:45)
[2017-06-16] MEDS: SODIUM CHLORIDE 0.65% NA SOLN 45 ML (OCEAN) NAE SCH (07:45)
[2017-06-16] MEDS: BISACODYL 10 MG SUPP PR PRN (07:50)
[2017-06-16 08:14] VITALS: PULSE 105; O2SAT 92
[2017-06-16] MEDS: BUDESONIDE 0.5 MG/2 ML VIAL (PULMICORT) INH SCH ×2 (08:14→19:18)
[2017-06-16 14:58] VITALS: PULSE 104; O2SAT 96
--- NOTE | 2017-06-16 16:57 | Palliative Care Consultation ---
Consultation Date of Consultation: Jun 16, 2017. Requesting Physician: Dr. Brand Attending Physician: Dr. Brand Reason for Consultation: Goals of care History of Present Illness This 86 year old male patient with PMH severe cognitive disability, rectal CA, UTI, interstitial fibrosis, and others listed below, presented to the hospital one week ago from his care home with c/o vomiting after eating. CXR shows pneumonitis vs. pneumonia- presumed to be aspiration given the coughing after eating. CT abd/pelvis showed constipation which has been resolved. Patient has been seen by speech and had a video swallow evaluation which showed aspiration of thin liquids. Patient is now on pureed diet and nectar thickened liquids. Palliative care is consulted to help establish goals of care. I met with the patient in 453-2. He is awake and alert but essentially nonverbal and not able to answer questions/participate in conversation. He was smiling and pleasant. I called patient's sister/POA, Cassie. I discussed the patient's conditions including aspiration and its complications. Cassie states she would not want to place a feeding tube and is okay with continuing comfort feeding despite risks. We discussed goals of care and whether or not she wants patient to return to hospital in the future. See plan below. Past Medical/Surgical History Medical History: Cognitive disability Rectal CA UTI Interstitial fibrosis Asthma Htn Urinary incontinence Aspiration Social History Smoking Status: Never Smoker History of Alcohol Use: No Drug Use: none Marital Status: single Housing Status: other (Skilled Nursing) Occupation Status: disabled Review of Systems unable to obtain ROS due to cognitive disability Allergies Coded Allergies: Chocolate (Verified Allergy, Unknown, 12/10/16) Tomato (Verified Allergy, Unknown, 12/10/16) Grapefruit (Verified Adverse Reaction, Severe, SHOULD AVOID DUE TO OTHER MEDS, 06/09/17) Aspirin (Verified Adverse Reaction, Intermediate, STOMACH ISSUES, 06/09/17 ) Propoxyphene (Verified Adverse Reaction, Intermediate, CONSTIPATION, 06/09) Tramadol (Verified Adverse Reaction, Intermediate, CONSTIPATION, 06/09/17) Medications Current Inpatient Medications Medications (Trade) Dose Ordered Sig/Braulio Route Start Time Stop Time Status Last Admin Dose Admin Bisacodyl (Dulcolax Supp) 10 mg DAILY PRN [place] 06/08/17 22:15 07/08/17 22:14 06/16/17 07:50 10 MG Levalbuterol (Xopenex 0.63 Mg/ 3 Ml Neb) 0.63 mg Q6R INH 06/09/17 03:00 07/09/17 02:59 06/16/17 08:14 0.63 MG Piperacillin Sod/ Tazobactam Sod 3.375 gm/Dextrose 115 ml @ 28.75 mls/ hr Q8H IV 06/09/17 04:00 06/19/17 03:59 06/16/17 04:26 28.75 MLS/HR Fluticasone Propionate (Flonase Nasal [place]) 2 sprays DAILY PRANEETH 06/09/17 09:00 07/09/17 08:59 Future hold 06/16/17 07:45 2 SPRAYS Sodium Chloride ([place] Nasal [place]) 2 sprays DAILY PRANEETH 06/09/17 09:00 07/09/17 08:59 06/16/17 07:45 2 SPRAYS Sodium Chloride ([place] 128 Oph Soln) 1 drops BID OPB 06/09/17 09:00 07/09/17 08:59 06/16/17 07:45 1 DROPS Piperacillin Sod/ Tazobactam Sod (Consult) 1 ea UD PRN N/A 06/08/17 22:30 07/08/17 22:29 Ipratropium [place] (Atrovent 0.02% 0.5MG/2.5ML Neb) 0.5 mg Q6R INH 06/09/17 03:00 07/08/17 22:59 06/16/17 08:14 0.5 MG Miscellaneous (Iv Fluids Completed) 1 ea PRN PRN N/A 06/09/17 00:30 06/09/18 00:29 Promethazine HCl (Phenergan Supp) 12.5 mg Q6H PRN [place] 06/10/17 08:45 07/10/17 08:44 06/10/17 10:59 12.5 MG Budesonide (Pulmicort Respules 0.5MG/ 2ML Neb Soln) 0.5 mg BIDR INH 06/10/17 20:00 07/10/17 19:59 06/16/17 08:14 0.5 MG Enoxaparin Sodium (Lovenox Inj) 30 mg QAM SQ 06/12/17 09:00 07/12/17 08:59 06/16/17 07:45 30 MG Ondansetron HCl (Zofran Inj) 4 mg Q8H PRN IV 06/13/17 10:00 07/08/17 09:59 Mupirocin (Bactroban 2% Oint) 1 appln BID EXT 06/14/17 20:00 06/19/17 20:59 06/16/17 07:44 1 APPLN Sodium Chloride 1,000 ml @ 80 mls/hr [id number] IV 06/15/17 14:00 07/15/17 13:59 06/16/17 04:52 80 MLS/HR Physical Exam Date Time Temp Pulse Resp B/P (MAP) Pulse Ox O2 Delivery O2 Flow Rate FiO2 06/16/17 08:14 105 18 92 Nasal Cannula 2.0 06/16/17 07:42 36.6 103 20 151/79 (103) 92 Nasal Cannula 2.0 06/16/17 03:26 72 18 95 Nasal Cannula 2.0 06/16/17 00:00 Nasal Cannula 2.0 06/15/17 23:49 36.6 113 18 123/77 (92) 94 2.0 06/15/17 20:19 78 20 94 Nasal Cannula 2.0 06/15/17 16:34 36.8 101 18 125/79 (94) 92 Nasal Cannula 2.0 06/15/17 16:32 36.9 88 20 149/82 (104) 95 Nasal Cannula 2.0 06/15/17 16:00 Nasal Cannula 2.0 06/15/17 14:51 80 20 95 Nasal Cannula 2.0 General Appearance: no apparent distress, + thin ENT: hearing grossly normal Neck: supple, no JVD Respiratory: no respiratory distress, no accessory muscle use, + pertinent finding (LS assessment difficult due to patient condition) Cardiovascular: regular rate, rhythm, no edema, + normal peripheral pulses Abdomen: normal bowel sounds, soft Neurologic/Psychiatric: alert, + pertinent finding (nonverbal) Laboratory Results Last 24 Hours Test 06/16/17 06:27 White Blood Count 14.89 K/uL Red Blood Count 3.28 M/uL Hemoglobin 10.3 g/dL Hematocrit 30.7 % Mean Corpuscular Volume 93.6 fL Mean Corpuscular Hemoglobin 31.4 pg Mean Corpuscular Hemoglobin Concent 33.6 g/dl RDW Standard Deviation 48.2 fL RDW Coefficient of Variation 14.2 % Platelet Count 206 K/uL Mean Platelet Volume 9.8 fL Sodium Level 140 mmol/L Potassium Level 4.2 mmol/L Chloride Level 109 mmol/L Carbon Dioxide Level 25 mmol/L Anion Gap 6.0 mmol/L Blood Urea Nitrogen 8 mg/dl Creatinine 0.88 mg/dl Est Creatinine Clear Calc Drug Dose 49.7 ml/min Estimated GFR () 90.1 Estimated GFR (Non- 77.8 BUN/Creatinine Ratio 8.7 Random Glucose 94 mg/dl Calcium Level 9.0 mg/dl Phosphorus Level 2.3 mg/dl Magnesium Level 1.8 mg/dl Assessment & Plan Problem list: Altered mental status/chronic cognitive disability Aspiration Pneumonia vs. pneumonitis- likely aspiration Constipation- resolved Hx UTI Goals of care (Z51.5) Palliative care recs: discussed with patient's sister, Cassie, and Dr. Cash -Patient is level 5/DNR. -Plan is for patient to return to [facility] as long as they are able to accommodate patient's needs. -Continue comfort feeding with recommended diet despite risk of aspiration per the patient's sister. -Sister/POA, Cassie, is not able to make a decision at this time on whether or not she wants patient to return to hospital for further treatment if/when this happens again. She does understand that this is a chronic problem that cannot be fixed. -For now, continue current treatment. -manager of global will speak to [facility] to see what their capabilities are. I do know they have taken hospice patients in the past. I do not know if the patient' s sister is quite there yet, however. Thank you kindly for this consult. I will follow as needed.
--- NOTE | 2017-06-16 17:02 | Progress Note ---
Subjective Date of Service: Jun 16, 2017. Subjective Pt evaluation today including: conversation w/ patient, physical exam, lab review, review of studies, review of inpatient medication list Saw/examined the patient in room 453 Patient's sister, Cassie, is in the room I explained patient's situation and how we are thickening his liquid She would like him to go back to the [facility] when they are able to take him Problem List Medical Problems: (1) Constipation Status: Acute (2) Fall Status: Acute (3) Leukocytosis Status: Acute (4) Swelling of right extremity Status: Acute (5) Tachycardia Status: Acute Medications Current Inpatient Medications Medications (Trade) Dose Ordered Sig/Braulio Route Start Time Stop Time Status Last Admin Dose Admin Bisacodyl (Dulcolax Supp) 10 mg DAILY PRN [place] 06/08/17 22:15 07/08/17 22:14 06/16/17 07:50 10 MG Levalbuterol (Xopenex 0.63 Mg/ 3 Ml Neb) 0.63 mg Q6R INH 06/09/17 03:00 07/09/17 02:59 06/16/17 14:58 0.63 MG Piperacillin Sod/ Tazobactam Sod 3.375 gm/Dextrose 115 ml @ 28.75 mls/ hr Q8H IV 06/09/17 04:00 06/19/17 03:59 06/16/17 12:31 28.75 MLS/HR Fluticasone Propionate (Flonase Nasal [place]) 2 sprays DAILY PRANEETH 06/09/17 09:00 07/09/17 08:59 Future hold 06/16/17 07:45 2 SPRAYS Sodium Chloride ([place] Nasal [place]) 2 sprays DAILY PRANEETH 06/09/17 09:00 07/09/17 08:59 06/16/17 07:45 2 SPRAYS Sodium Chloride ([place] 128 Oph Soln) 1 drops BID OPB 06/09/17 09:00 07/09/17 08:59 06/16/17 07:45 1 DROPS Piperacillin Sod/ Tazobactam Sod (Consult) 1 ea UD PRN N/A 06/08/17 22:30 07/08/17 22:29 Ipratropium [place] (Atrovent 0.02% 0.5MG/2.5ML Neb) 0.5 mg Q6R INH 06/09/17 03:00 07/08/17 22:59 06/16/17 14:58 0.5 MG Miscellaneous (Iv Fluids Completed) 1 ea PRN PRN N/A 06/09/17 00:30 06/09/18 00:29 Promethazine HCl (Phenergan Supp) 12.5 mg Q6H PRN [place] 06/10/17 08:45 07/10/17 08:44 06/10/17 10:59 12.5 MG Budesonide (Pulmicort Respules 0.5MG/ 2ML Neb Soln) 0.5 mg BIDR INH 06/10/17 20:00 07/10/17 19:59 06/16/17 08:14 0.5 MG Enoxaparin Sodium (Lovenox Inj) 30 mg QAM SQ 06/12/17 09:00 07/12/17 08:59 06/16/17 07:45 30 MG Ondansetron HCl (Zofran Inj) 4 mg Q8H PRN IV 06/13/17 10:00 07/08/17 09:59 Mupirocin (Bactroban 2% Oint) 1 appln BID EXT 06/14/17 20:00 06/19/17 20:59 06/16/17 07:44 1 APPLN Sodium Chloride 1,000 ml @ 80 mls/hr [id number] IV 06/15/17 14:00 07/15/17 13:59 06/16/17 04:52 80 MLS/HR Objective Vital Signs Date Time Temp Pulse Resp B/P (MAP) Pulse Ox O2 Delivery O2 Flow Rate FiO2 06/16/17 14:58 104 18 96 Nasal Cannula 2.0 06/16/17 08:14 105 18 92 Nasal Cannula 2.0 06/16/17 08:01 Nasal Cannula 2.0 06/16/17 07:42 36.6 103 20 151/79 (103) 92 Nasal Cannula 2.0 06/16/17 03:26 72 18 95 Nasal Cannula 2.0 06/16/17 00:00 Nasal Cannula 2.0 06/15/17 23:49 36.6 113 18 123/77 (92) 94 2.0 06/15/17 20:19 78 20 94 Nasal Cannula 2.0 Physical Exam General Appearance: no apparent distress, + pertinent finding (underlying mental ) Respiratory/Chest: no respiratory distress, no accessory muscle use, + rhonchi Cardiovascular: regular rate, rhythm, no edema, no murmur Extremities: non-tender, normal inspection, no pedal edema Laboratory Results Last 24 Hours Test 06/16/17 06:27 White Blood Count 14.89 K/uL Red Blood Count 3.28 M/uL Hemoglobin 10.3 g/dL Hematocrit 30.7 % Mean Corpuscular Volume 93.6 fL Mean Corpuscular Hemoglobin 31.4 pg Mean Corpuscular Hemoglobin Concent 33.6 g/dl RDW Standard Deviation 48.2 fL RDW Coefficient of Variation 14.2 % Platelet Count 206 K/uL Mean Platelet Volume 9.8 fL Sodium Level 140 mmol/L Potassium Level 4.2 mmol/L Chloride Level 109 mmol/L Carbon Dioxide Level 25 mmol/L Anion Gap 6.0 mmol/L Blood Urea Nitrogen 8 mg/dl Creatinine 0.88 mg/dl Est Creatinine Clear Calc Drug Dose 49.7 ml/min Estimated GFR () 90.1 Estimated GFR (Non- 77.8 BUN/Creatinine Ratio 8.7 Random Glucose 94 mg/dl Calcium Level 9.0 mg/dl Phosphorus Level 2.3 mg/dl Magnesium Level 1.8 mg/dl Assessment and Plan This is an 86 year old male with a PMH of mental disability, HTN, CKD stage 3, BPH - presents with nausea/vomiting, possible gastritis Aspiration 1/3 aspirating thin liquids, should thicken liquids elevate HOB appreciate palliative care consult plan is to possibly discharge to rehab and then back to nursing home POA, Cassie (sister), will consider hospice, but does not seem ready for it yet 1/2 patient is frankly aspirating currently NPO status will obtain a video swallow today speech therapy consulted will need palliative discussion with POA regarding goals likely comfort feeds if okay with family possible pneumonia - currently on Zosyn Possible Acute Gastritis patient has had nausea/vomiting has had NG tube placed and now removed with occult bleeding monitor H/H HTN blood pressure stable hold Maxzide Electrolyte Imbalances continue to monitor K, Mg, and Phos replace as necessary Hx. of Delayed Mental Ability lives at nursing home, at baseline DVT ppx Lovenox DNR
[2017-06-16 19:19] VITALS: PULSE 101; O2SAT 96
[2017-06-17] VITALS (9 sets, daily range): BP systolic 108–135; BP diastolic 65–74; PULSE 86–100; TEMP 36.3–37.4; O2SAT 80–94
[2017-06-17] MEDS: IPRATROPIUM BROMIDE NEB SOLN 0.02% 2.5 ML VIAL INH SCH ×4 (02:29→19:16)
[2017-06-17] MEDS: LEVALBUTEROL 0.63MG/3 ML NEB INH SCH ×4 (02:29→19:16)
[2017-06-17] MEDS: SODIUM CHLORIDE 0.9% 1000ML 1,000 ML IV SCH ×2 (03:37→16:03)
[2017-06-17] MEDS: PIPERACILL/TAZOBAC IV 3.375 GM in DEXTROSE 5% 100ML IV SCH ×3 (03:38→20:28)
[2017-06-17] MEDS: BUDESONIDE 0.5 MG/2 ML VIAL (PULMICORT) INH SCH ×2 (07:51→19:16)
[2017-06-17] MEDS: SODIUM CHLORIDE 5% OP SOLN 15 ML BTL OPB SCH ×2 (08:46→20:00)
[2017-06-17] MEDS: ENOXAPARIN 30 MG/0.3 ML SYR SQ SCH (08:46)
[2017-06-17] MEDS: MUPIROCIN 2% OINT 22 GM TUBE EXT SCH ×3 (08:47→20:28)
[2017-06-17] MEDS: SODIUM CHLORIDE 0.65% NA SOLN 45 ML (OCEAN) NAE SCH (08:47)
[2017-06-17] MEDS: FLUTICASONE PROPIONATE NA SPR 16 GM BTL NAE SCH (08:47)
[2017-06-17 09:38] LABS: HEMATOCRIT 32.5 % (42-52); HEMOGLOBIN 10.8 g/dL (14.0-18.0); MEAN CELL VOLUME 93.9 fL (80-100); MEAN CORPUSCULAR HEMOGLOBIN 31.2 pg (25-34); MEAN CORPUSCULAR HGB CONC 33.2 g/dl (32-36); MEAN PLATELET VOLUME 9.7 fL (7.4-10.4); PLATELET COUNT 238 K/uL (130-400); RED CELL DISTRIBUTION WIDTH CV 14.2 % (11.5-14.5); RED CELL DISTRIBUTION WIDTH SD 48.1 fL (36.4-46.3); WHITE BLOOD COUNT 13.48 K/uL (4.8-10.8)
[2017-06-17 10:17] LABS: CALCIUM 8.7 mg/dl (8.5-10.1); CREATININE 0.9 mg/dl (0.60-1.40); POTASSIUM 3.2 mmol/L (3.5-5.1)
[2017-06-17] MEDS: BOOST VANILLA PUDDING CUP PO SCH (16:05)
--- NOTE | 2017-06-17 19:01 | Progress Note ---
Subjective Date of Service: Jun 17, 2017. Subjective Pt evaluation today including: physical exam, lab review, review of studies Saw/examined the patient in room 453 In no distress Eating is dinner, including mashed potatoes during my exam and no coughing during it No rhonchi Problem List Medical Problems: (1) Constipation Status: Acute (2) Fall Status: Acute (3) Leukocytosis Status: Acute (4) Swelling of right extremity Status: Acute (5) Tachycardia Status: Acute Medications Current Inpatient Medications Medications (Trade) Dose Ordered Sig/Braulio Route Start Time Stop Time Status Last Admin Dose Admin Bisacodyl (Dulcolax Supp) 10 mg DAILY PRN [place] 06/08/17 22:15 07/08/17 22:14 06/16/17 07:50 10 MG Levalbuterol (Xopenex 0.63 Mg/ 3 Ml Neb) 0.63 mg Q6R INH 06/09/17 03:00 07/09/17 02:59 06/17/17 14:26 0.63 MG Piperacillin Sod/ Tazobactam Sod 3.375 gm/Dextrose 115 ml @ 28.75 mls/ hr Q8H IV 06/09/17 04:00 06/18/17 23:59 06/17/17 11:55 28.75 MLS/HR Fluticasone Propionate (Flonase Nasal [place]) 2 sprays DAILY PRANEETH 06/09/17 09:00 07/09/17 08:59 Future hold 06/17/17 08:47 2 SPRAYS Sodium Chloride ([place] Nasal [place]) 2 sprays DAILY PRANEETH 06/09/17 09:00 07/09/17 08:59 06/17/17 08:47 2 SPRAYS Sodium Chloride ([place] 128 Oph Soln) 1 drops BID OPB 06/09/17 09:00 07/09/17 08:59 06/17/17 08:46 1 DROPS Piperacillin Sod/ Tazobactam Sod (Consult) 1 ea UD PRN N/A 06/08/17 22:30 06/18/17 23:59 Ipratropium [place] (Atrovent 0.02% 0.5MG/2.5ML Neb) 0.5 mg Q6R INH 06/09/17 03:00 07/08/17 22:59 06/17/17 14:26 0.5 MG Miscellaneous (Iv Fluids Completed) 1 ea PRN PRN N/A 06/09/17 00:30 06/09/18 00:29 Promethazine HCl (Phenergan Supp) 12.5 mg Q6H PRN [place] 06/10/17 08:45 07/10/17 08:44 06/10/17 10:59 12.5 MG Budesonide (Pulmicort Respules 0.5MG/ 2ML Neb Soln) 0.5 mg BIDR INH 06/10/17 20:00 07/10/17 19:59 06/17/17 07:51 0.5 MG Enoxaparin Sodium (Lovenox Inj) 30 mg QAM SQ 06/12/17 09:00 07/12/17 08:59 06/17/17 08:46 30 MG Ondansetron HCl (Zofran Inj) 4 mg Q8H PRN IV 06/13/17 10:00 07/08/17 09:59 Mupirocin (Bactroban 2% Oint) 1 appln BID EXT 06/14/17 20:00 06/19/17 20:59 06/16/17 20:46 1 APPLN Sodium Chloride 1,000 ml @ 80 mls/hr [id number] IV 06/15/17 14:00 07/15/17 13:59 06/17/17 16:03 80 MLS/HR Enteral Nutritional Formula (Boost Pudding) 1 cup BIDM PO 06/17/17 17:00 07/17/17 16:59 06/17/17 16:05 1 CUP Objective Vital Signs Date Time Temp Pulse Resp B/P (MAP) Pulse Ox O2 Delivery O2 Flow Rate FiO2 06/17/17 15:40 Nasal Cannula 2.0 06/17/17 15:34 37.4 100 18 108/65 (79) 91 Nasal Cannula 3.0 06/17/17 14:26 95 18 80 Nasal Cannula 2.0 06/17/17 08:30 Nasal Cannula 2.0 06/17/17 07:51 91 18 80 Room Air 06/17/17 07:23 37.0 94 20 118/68 (85) 93 Nasal Cannula 3.0 06/17/17 02:30 88 18 92 Nasal Cannula 2.0 1/4/18 00:34 36.3 92 18 120/70 (87) 93 Nasal Cannula 2.0 06/17/17 00:10 Nasal Cannula 2.0 06/16/17 19:19 101 18 96 Nasal Cannula 2.0 Physical Exam General Appearance: no apparent distress Respiratory/Chest: lungs clear, normal breath sounds, no respiratory distress, no accessory muscle use Cardiovascular: regular rate, rhythm Extremities: no pedal edema Neurologic/Psychiatric: + pertinent finding (mental disability) Laboratory Results Last 24 Hours Test 06/17/17 09:08 White Blood Count 13.48 K/uL Red Blood Count 3.46 M/uL Hemoglobin 10.8 g/dL Hematocrit 32.5 % Mean Corpuscular Volume 93.9 fL Mean Corpuscular Hemoglobin 31.2 pg Mean Corpuscular Hemoglobin Concent 33.2 g/dl RDW Standard Deviation 48.1 fL RDW Coefficient of Variation 14.2 % Platelet Count 238 K/uL Mean Platelet Volume 9.7 fL Sodium Level 139 mmol/L Potassium Level 3.2 mmol/L Chloride Level 106 mmol/L Carbon Dioxide Level 25 mmol/L Anion Gap 8.0 mmol/L Blood Urea Nitrogen 12 mg/dl Creatinine 0.90 mg/dl Est Creatinine Clear Calc Drug Dose 48.6 ml/min Estimated GFR () 89.3 Estimated GFR (Non- 77.1 BUN/Creatinine Ratio 13.5 Random Glucose 102 mg/dl Calcium Level 8.7 mg/dl Magnesium Level 1.9 mg/dl Assessment and Plan This is an 86 year old male with a PMH of mental disability, HTN, CKD stage 3, BPH - presents with nausea/vomiting, possible gastritis Aspiration 06/17 patient is doing better with thickened liquids plan is to d/c to [facility] rehab prior to returning to [facility]-way will likely d/c on 06/18 06/16 aspirating thin liquids, should thicken liquids elevate HOB appreciate palliative care consult plan is to possibly discharge to rehab and then back to half-way POA, Cassie (sister), will consider hospice, but does not seem ready for it yet 1/2 patient is frankly aspirating currently NPO status will obtain a video swallow today speech therapy consulted will need palliative discussion with POA regarding goals likely comfort feeds if okay with family possible pneumonia - currently on Zosyn Possible Acute Gastritis patient has had nausea/vomiting has had NG tube placed and now removed with occult bleeding monitor H/H HTN blood pressure stable hold Maxzide Electrolyte Imbalances continue to monitor K, Mg, and Phos replace as necessary Hx. of Delayed Mental Ability lives at half-way, at baseline DVT ppx Lovenox DNR
[2017-06-17] MEDS ORDERED: POTASSIUM CHLORIDE 20 MEQ TABCR PO ONE (19:30)
[2017-06-18] VITALS (7 sets, daily range): BP systolic 146–149; BP diastolic 71–76; PULSE 77–93; TEMP 36.9; O2SAT 90–96
[2017-06-18] MEDS: IPRATROPIUM BROMIDE NEB SOLN 0.02% 2.5 ML VIAL INH SCH ×4 (02:18→18:14)
[2017-06-18] MEDS: LEVALBUTEROL 0.63MG/3 ML NEB INH SCH ×4 (02:18→18:14)
[2017-06-18] MEDS: PIPERACILL/TAZOBAC IV 3.375 GM in DEXTROSE 5% 100ML IV SCH ×2 (04:19→12:46)
[2017-06-18] MEDS: SODIUM CHLORIDE 0.9% 1000ML 1,000 ML IV SCH (04:19)
[2017-06-18] MEDS: BUDESONIDE 0.5 MG/2 ML VIAL (PULMICORT) INH SCH ×2 (07:32→18:13)
[2017-06-18] MEDS: SODIUM CHLORIDE 0.65% NA SOLN 45 ML (OCEAN) NAE SCH (08:31)
[2017-06-18] MEDS: MUPIROCIN 2% OINT 22 GM TUBE EXT SCH ×2 (08:31→20:18)
[2017-06-18] MEDS: FLUTICASONE PROPIONATE NA SPR 16 GM BTL NAE SCH (08:31)
[2017-06-18] MEDS: BOOST VANILLA PUDDING CUP PO SCH ×2 (08:32→17:00)
[2017-06-18] MEDS: SODIUM CHLORIDE 5% OP SOLN 15 ML BTL OPB SCH ×2 (08:34→20:18)
[2017-06-18] MEDS: ENOXAPARIN 30 MG/0.3 ML SYR SQ SCH (08:35)
[2017-06-18] MEDS ORDERED: POTASSIUM PHOS 3 MMOL/1 ML INFUSION IV STA (17:18)
--- NOTE | 2017-06-18 17:28 | Progress Note ---
Subjective Date of Service: Jun 18, 2017. Subjective Pt evaluation today including: conversation w/ patient, physical exam, lab review, review of studies, review of inpatient medication list Saw/examined the patient in room 453 He's doing well, coughing has improved Problem List Medical Problems: (1) Constipation Status: Acute (2) Fall Status: Acute (3) Leukocytosis Status: Acute (4) Swelling of right extremity Status: Acute (5) Tachycardia Status: Acute Review of Systems Cannot obtain due to patient's mental status Medications Current Inpatient Medications Medications (Trade) Dose Ordered Sig/Braluio Route Start Time Stop Time Status Last Admin Dose Admin Bisacodyl (Dulcolax Supp) 10 mg DAILY PRN [place] 06/08/17 22:15 07/08/17 22:14 06/16/17 07:50 10 MG Levalbuterol (Xopenex 0.63 Mg/ 3 Ml Neb) 0.63 mg Q6R INH 06/09/17 03:00 07/09/17 02:59 06/18/17 13:58 0.63 MG Piperacillin Sod/ Tazobactam Sod 3.375 gm/Dextrose 115 ml @ 28.75 mls/ hr Q8H IV 06/09/17 04:00 06/18/17 23:59 06/18/17 12:46 28.75 MLS/HR Fluticasone Propionate (Flonase Nasal [place]) 2 sprays DAILY PRANEETH 06/09/17 09:00 07/09/17 08:59 Future hold 06/18/17 08:31 2 SPRAYS Sodium Chloride ([place] Nasal [place]) 2 sprays DAILY PRANEETH 06/09/17 09:00 07/09/17 08:59 06/18/17 08:31 2 SPRAYS Sodium Chloride ([place] 128 Oph Soln) 1 drops BID OPB 06/09/17 09:00 07/09/17 08:59 06/18/17 08:34 1 DROPS Piperacillin Sod/ Tazobactam Sod (Consult) 1 ea UD PRN N/A 06/08/17 22:30 06/18/17 23:59 Ipratropium [place] (Atrovent 0.02% 0.5MG/2.5ML Neb) 0.5 mg Q6R INH 06/09/17 03:00 07/08/17 22:59 06/18/17 13:58 0.5 MG Miscellaneous (Iv Fluids Completed) 1 ea PRN PRN N/A 06/09/17 00:30 06/09/18 00:29 Promethazine HCl (Phenergan Supp) 12.5 mg Q6H PRN [place] 06/10/17 08:45 07/10/17 08:44 06/10/17 10:59 12.5 MG Budesonide (Pulmicort Respules 0.5MG/ 2ML Neb Soln) 0.5 mg BIDR INH 06/10/17 20:00 07/10/17 19:59 06/18/17 07:32 0.5 MG Enoxaparin Sodium (Lovenox Inj) 30 mg QAM SQ 06/12/17 09:00 07/12/17 08:59 06/18/17 08:35 30 MG Ondansetron HCl (Zofran Inj) 4 mg Q8H PRN IV 06/13/17 10:00 07/08/17 09:59 Mupirocin (Bactroban 2% Oint) 1 appln BID EXT 06/14/17 20:00 06/19/17 20:59 06/18/17 08:31 1 APPLN Sodium Chloride 1,000 ml @ 80 mls/hr [id number] IV 06/15/17 14:00 07/15/17 13:59 06/18/17 04:19 80 MLS/HR Enteral Nutritional Formula (Boost Pudding) 1 cup BIDM PO 06/17/17 17:00 07/17/17 16:59 06/18/17 17:00 1 CUP Potassium Phosphate (Potassium Phosphate Replacement) 21 mmol NOW STAT IV 06/18/17 17:18 06/18/17 17:19 UNV Objective Vital Signs Date Time Temp Pulse Resp B/P (MAP) Pulse Ox O2 Delivery O2 Flow Rate FiO2 06/18/17 16:00 Nasal Cannula 3.0 06/18/17 14:48 36.9 82 22 149/76 (100) 96 Nasal Cannula 3.0 06/18/17 13:58 93 18 90 Nasal Cannula 3.0 06/18/17 07:55 Nasal Cannula 2.0 06/18/17 07:35 79 18 95 Nasal Cannula 3.0 06/18/17 07:27 36.9 86 22 146/76 (99) 90 Nasal Cannula 3.0 06/18/17 02:18 88 18 92 Nasal Cannula 3.0 06/18/17 00:00 Nasal Cannula 2.0 06/17/17 23:51 36.7 97 20 135/74 (94) 94 Nasal Cannula 3.0 06/17/17 21:19 37.1 06/17/17 19:00 86 18 92 Nasal Cannula 3.0 06/17/17 19:00 Nasal Cannula 2.0 Physical Exam General Appearance: no apparent distress, + pertinent finding (at baseline, cognitive dysfunction, nonverbal) Respiratory/Chest: lungs clear, normal breath sounds, no respiratory distress, no accessory muscle use Cardiovascular: regular rate, rhythm Assessment and Plan This is an 86 year old male with a PMH of mental disability, HTN, CKD stage 3, BPH - presents with nausea/vomiting, possible gastritis Aspiration Pneumonia 06/18 doing better with thickened liquids d/c when able to [facility] aware will change Zosyn to Augmentin to total out 10 days 06/17 patient is doing better with thickened liquids plan is to [facility] prior to returning to residential will likely d/c on 06/18 06/16 aspirating thin liquids, should thicken liquids elevate HOB appreciate palliative care consult plan is to possibly discharge to rehab and then back to residential POA, Cassie (sister), will consider hospice, but does not seem ready for it yet / patient is frankly aspirating currently NPO status will obtain a video swallow today speech therapy consulted will need palliative discussion with POA regarding goals likely comfort feeds if okay with family possible pneumonia - currently on Zosyn Possible Acute Gastritis patient has had nausea/vomiting has had NG tube placed and now removed with occult bleeding monitor H/H HTN blood pressure stable hold Maxzide Electrolyte Imbalances continue to monitor K, Mg, and Phos replace as necessary Hx. of Delayed Mental Ability lives at residential, at baseline DVT ppx Lovenox DNR
[2017-06-18] MEDS ORDERED: POTASSIUM PHOSPHATE INJ 21 MMOL in SODIUM CHLORIDE 0.9% 500ML 500 ML IV ONE (18:00)
[2017-06-18] MEDS: AMOXICILLIN/CLAVULANATE TAB 875 MG TAB PO SCH (18:17)
[2017-06-19] MEDS: SODIUM CHLORIDE 0.9% 1000ML 1,000 ML IV SCH ×2 (01:35→13:37)
[2017-06-19 07:03] VITALS: BP 142/76; PULSE 81; TEMP 36.8; O2SAT 91
[2017-06-19 07:33] VITALS: PULSE 88; O2SAT 94
[2017-06-19] MEDS: IPRATROPIUM BROMIDE NEB SOLN 0.02% 2.5 ML VIAL INH SCH ×2 (07:33→14:29)
[2017-06-19] MEDS: LEVALBUTEROL 0.63MG/3 ML NEB INH SCH ×2 (07:33→14:29)
[2017-06-19] MEDS: BUDESONIDE 0.5 MG/2 ML VIAL (PULMICORT) INH SCH (07:33)
[2017-06-19 07:59] LABS: HEMATOCRIT 29.2 % (42-52); HEMOGLOBIN 9.6 g/dL (14.0-18.0); MEAN CELL VOLUME 94.8 fL (80-100); MEAN CORPUSCULAR HEMOGLOBIN 31.2 pg (25-34); MEAN CORPUSCULAR HGB CONC 32.9 g/dl (32-36); MEAN PLATELET VOLUME 9.9 fL (7.4-10.4); PLATELET COUNT 271 K/uL (130-400); RED CELL DISTRIBUTION WIDTH CV 14.6 % (11.5-14.5); WHITE BLOOD COUNT 10.72 K/uL (4.8-10.8)
[2017-06-19] MEDS: AMOXICILLIN/CLAVULANATE TAB 875 MG TAB PO SCH (08:00)
[2017-06-19] MEDS ORDERED: AMOXICILLIN/CLAVULANATE SUSP 400 MG/5 ML PO SCH (08:00)
[2017-06-19] MEDS: SODIUM CHLORIDE 5% OP SOLN 15 ML BTL OPB SCH (08:00)
[2017-06-19 08:33] LABS: CALCIUM 8.1 mg/dl (8.5-10.1); CREATININE 0.7 mg/dl (0.60-1.40); PHOSPHORUS 2.3 mg/dl (2.5-4.9)
[2017-06-19 09:23] LABS: POTASSIUM 3.3 mmol/L (3.5-5.1)
[2017-06-19] MEDS: MUPIROCIN 2% OINT 22 GM TUBE EXT SCH (09:35)
[2017-06-19] MEDS: ENOXAPARIN 30 MG/0.3 ML SYR SQ SCH (09:36)
[2017-06-19] MEDS: SODIUM CHLORIDE 0.65% NA SOLN 45 ML (OCEAN) NAE SCH (09:38)
[2017-06-19] MEDS: FLUTICASONE PROPIONATE NA SPR 16 GM BTL NAE SCH (09:38)
[2017-06-19] MEDS: BOOST VANILLA PUDDING CUP PO SCH (12:11)
[2017-06-19] MEDS ORDERED: POTASSIUM PHOS 3 MMOL/1 ML INFUSION IV STA (12:34)
--- NOTE | 2017-06-19 12:39 | Progress Note ---
Subjective Date of Service: Jun 19, 2017. Subjective Pt evaluation today including: conversation w/ patient, physical exam, lab review, review of studies, review of inpatient medication list Saw/examined the patient in room 453 He is doing well, no rhonchi on exam, minimal wheezing eating solids with no issues In no distress Problem List Medical Problems: (1) Constipation Status: Acute (2) Fall Status: Acute (3) Leukocytosis Status: Acute (4) Swelling of right extremity Status: Acute (5) Tachycardia Status: Acute Medications Current Inpatient Medications Medications (Trade) Dose Ordered Sig/Braulio Route Start Time Stop Time Status Last Admin Dose Admin Bisacodyl (Dulcolax Supp) 10 mg DAILY PRN [place] 06/08/17 22:15 07/08/17 22:14 06/16/17 07:50 10 MG Levalbuterol (Xopenex 0.63 Mg/ 3 Ml Neb) 0.63 mg Q6R INH 06/09/17 03:00 07/09/17 02:59 06/19/17 07:33 0.63 MG Fluticasone Propionate (Flonase Nasal [place]) 2 sprays DAILY PRANEETH 06/09/17 09:00 07/09/17 08:59 Future hold 06/19/17 09:38 2 SPRAYS Sodium Chloride ([place] Nasal [place]) 2 sprays DAILY PRANEETH 06/09/17 09:00 07/09/17 08:59 06/19/17 09:38 2 SPRAYS Sodium Chloride ([place] 128 Oph Soln) 1 drops BID OPB 06/09/17 09:00 07/09/17 08:59 06/19/17 08:00 1 DROPS Ipratropium [place] (Atrovent 0.02% 0.5MG/2.5ML Neb) 0.5 mg Q6R INH 06/09/17 03:00 07/08/17 22:59 06/19/17 07:33 0.5 MG Miscellaneous (Iv Fluids Completed) 1 ea PRN PRN N/A 06/09/17 00:30 06/09/18 00:29 Promethazine HCl (Phenergan Supp) 12.5 mg Q6H PRN [place] 06/10/17 08:45 07/10/17 08:44 06/10/17 10:59 12.5 MG Budesonide (Pulmicort Respules 0.5MG/ 2ML Neb Soln) 0.5 mg BIDR INH 06/10/17 20:00 07/10/17 19:59 06/19/17 07:33 0.5 MG Enoxaparin Sodium (Lovenox Inj) 30 mg QAM SQ 06/12/17 09:00 07/12/17 08:59 06/19/17 09:36 30 MG Ondansetron HCl (Zofran Inj) 4 mg Q8H PRN IV 06/13/17 10:00 07/08/17 09:59 Mupirocin (Bactroban 2% Oint) 1 appln BID EXT 06/14/17 20:00 06/19/17 20:59 06/19/17 09:35 1 APPLN Sodium Chloride 1,000 ml @ 80 mls/hr [id number] IV 06/15/17 14:00 07/15/17 13:59 06/19/17 01:35 80 MLS/HR Enteral Nutritional Formula (Boost Pudding) 1 cup BIDM PO 06/17/17 17:00 07/17/17 16:59 06/19/17 12:11 1 CUP Amoxicillin/ Clavulanate Potassium (Augmentin Susp) 10.93 ml BIDM PO 06/19/17 08:00 06/25/17 16:59 06/19/17 09:36 10.93 ML Objective Vital Signs Date Time Temp Pulse Resp B/P (MAP) Pulse Ox O2 Delivery O2 Flow Rate FiO2 06/19/17 08:00 Nasal Cannula 2.0 06/19/17 07:33 88 18 94 Nasal Cannula 3.0 06/19/17 07:03 36.8 81 20 142/76 (98) 91 Nasal Cannula 3.0 06/19/17 00:45 Nasal Cannula 3.0 06/18/17 23:23 36.9 77 18 149/71 (97) 95 Nasal Cannula 3.0 06/18/17 18:14 91 18 92 Nasal Cannula 3.0 06/18/17 16:00 Nasal Cannula 3.0 06/18/17 14:48 36.9 82 22 149/76 (100) 96 Nasal Cannula 3.0 06/18/17 13:58 93 18 90 Nasal Cannula 3.0 Physical Exam General Appearance: no apparent distress, + pertinent finding (mental disability) Respiratory/Chest: no respiratory distress, no accessory muscle use, + wheezing (minimal end expiratory wheezing) Extremities: normal inspection, no pedal edema Laboratory Results Last 24 Hours Test 06/19/17 06:51 06/19/17 08:50 White Blood Count 10.72 K/uL Red Blood Count 3.08 M/uL Hemoglobin 9.6 g/dL Hematocrit 29.2 % Mean Corpuscular Volume 94.8 fL Mean Corpuscular Hemoglobin 31.2 pg Mean Corpuscular Hemoglobin Concent 32.9 g/dl RDW Standard Deviation 50.0 fL RDW Coefficient of Variation 14.6 % Platelet Count 271 K/uL Mean Platelet Volume 9.9 fL Sodium Level 141 mmol/L Potassium Level mmol/L 3.3 mmol/L Chloride Level 111 mmol/L Carbon Dioxide Level 23 mmol/L Anion Gap 7.0 mmol/L Blood Urea Nitrogen 10 mg/dl Creatinine 0.70 mg/dl Est Creatinine Clear Calc Drug Dose 62.5 ml/min Estimated GFR () 99.0 Estimated GFR (Non- 85.5 BUN/Creatinine Ratio 13.8 Random Glucose 70 mg/dl Calcium Level 8.1 mg/dl Phosphorus Level 2.3 mg/dl Magnesium Level mg/dl 1.7 mg/dl Assessment and Plan This is an 86 year old male with a PMH of mental disability, HTN, CKD stage 3, BPH - presents with nausea/vomiting, possible gastritis Aspiration Pneumonia 06/19 plan on d/c'ing to [facility] today will d/c with Augmentin thickened liquids 06/18 doing better with thickened liquids d/c when able to [facility] CM aware will change Zosyn to Augmentin to total out 10 days 06/17 patient is doing better with thickened liquids plan is to d/c to [facility] rehab prior to returning to residential will likely d/c on 06/18 06/16 aspirating thin liquids, should thicken liquids elevate HOB appreciate palliative care consult plan is to possibly discharge to rehab and then back to residential JOSIAS, Cassie (sister), will consider hospice, but does not seem ready for it yet 1/ patient is frankly aspirating currently NPO status will obtain a video swallow today speech therapy consulted will need palliative discussion with POJanusz regarding goals likely comfort feeds if okay with family possible pneumonia - currently on Zosyn Possible Acute Gastritis patient has had nausea/vomiting has had NG tube placed and now removed with occult bleeding monitor H/H HTN blood pressure stable hold Maxzide Electrolyte Imbalances continue to monitor K, Mg, and Phos replace as necessary Hx. of Delayed Mental Ability lives at residential, at baseline DVT ppx Lovenox DNR
[2017-06-19] MEDS ORDERED: AMOX400S2 PO (12:42)
[2017-06-19] MEDS ORDERED: NUTRMIS PO (12:42)
--- NOTE | 2017-06-19 12:44 | Discharge Instructions ---
Discharge Instructions Date of Service Jun 19, 2017. Admission Reason for Admission: Vomiting Discharge Discharge Diagnosis / Problem: Aspiration, likely pneumonia Discharge Goals Goal(s): Decrease discomfort, Improve function, Diagnostic testing, Therapeutic intervention Activity Recommendations Activity Level: Up Ad [place] Therapies: Physical Therapy, Occupational Therapy, Speech Therapy . Additional Information Patient informed of condition: No Advance Directives: Yes DNR: Yes Level of Care: Skilled Communicable Disease: No Prognosis: Stable Oxygen at (LPM): 2; wean as tolerated Waite Catheter: No Instructions / Follow-Up Instructions / Follow-Up Patient to be on Augmentin for aspiration pneumonia MUST THICKEN LIQUIDS 1.Pureed diet, NECTAR thick liquids. 2.Aspiration precautions, NO straws, fully upright for meals and for 30 minutes after meals. Chin neutral. 3.Stringent oral care to include brushing all surfaces of the mouth and tongue prior to and after meals, as well as before bed to reduced oral bacteria that can be aspirated in saliva. As tolerated. 4.Small single sips of liquid. Monitor for impulsivity. Meds placed in a carrier (applesauce or pudding). 5.Would benefit from continued speech upon discharge for carryover of diet and recommendations. Current Hospital Diet Patient's current hospital diet: Regular Diet Discharge Diet Recommended Diet: Regular Diet Diet Texture: Pureed (blended smooth) Liquid Consistency: [place] Thick Pending Studies Studies pending at discharge: no Medical Emergencies . Who to Call and When: Medical Emergencies: If at any time you feel your situation is an emergency, please call 911 immediately. . Non-Emergent Contact Non-Emergency issues call your: Primary Care Provider . . "Provider Documentation" section prepared by Santosh Cash. . Core Measure Problem Core Measures: None
[2017-06-19] MEDS ORDERED: POTASSIUM PHOSPHATE INJ 15 MMOL in SODIUM CHLORIDE 0.9% 250ML 250 ML IV ONE (12:45)
[2017-06-19] MEDS ORDERED: POTASSIUM CHLORIDE PWD 20 MEQ PACK PO ONE (12:45)
[2017-06-19] MEDS ORDERED: MAGNESIUM CHLORIDE 64MG DELAYED REL TAB PO ONE (12:45)
--- NOTE | 2017-06-19 12:46 | Discharge Summary ---
Discharge Summary Date of Service Jun 19, 2017. Discharge Summary Admission Date: Jun 08, 2017 at 22:13 Discharge Date: Jun 19, 2017 Discharge Disposition: snf facility Principal Diagnosis: Aspiration Pneumonia Aspirating Liquids Consultations: Pulclaire-Mirna. Medication Reconciliation New Medications: Amoxicillin & Pot Clavulanate (Amoxicillin/Clavulanate P) 1 Jossy Jossy 10.93 ML PO BIDM for 5 Days, #150 ML Nutritional Supplements (Boost Pudding) 1 Mis Mis 1 CUP PO BIDM for 30 Days, #60 PKT 5 Refills Continued Medications: Acetaminophen (Tylenol) 325 Mg Tab 650 MG PO Q6 PRN for Pain, TAB Alendronate Sodium (Alendronate Sodium) 70 Mg Tab 70 MG PO WK TAKE FIRST THING IN THE MORNING WITH 8OZ OF WATER. DO NOT LAY FLAT FOR 1 HR AFTER TAKING PILL. TAKES ON FRIDAYS Alum & Mag Hydrox-Simethicone (Mylanta) 1 Jossy Jossy 30 ML PO Q6 PRN for GI Upset Atorvastatin (Lipitor) 20 Mg Tab 20 MG PO DAILY, TAB Budesonide (Pulmicort Respules 0.5MG/2ML) 0.5 Mg/2 Ml Nebu 2 ML INH BID MIX WITH PERFOROMIST Calcium Polycarbophil (Fiber Laxative) 625 Mg Tab 625 MG PO DAILY Cholecalciferol (Vitamin D3) 1,000 Unit Tab 1000 INTER.UNIT PO DAILY for 90 Days, TAB 3 Refills Chondroitin Sulfate-Vitamin C- (Chondroitin Sulfate) 1 Cap Cap 400 MG PO TID Dextromethorphan-Guaifenesin (Guaifenesin Dm) 1 Syp Syp 2 TSP PO Q6H PRN for Cough Finasteride (Proscar) 5 Mg Tab 5 MG PO DAILY, 0 Refills Fluticasone Propionate (Nasal) (Flonase Allergy Relief) 50 Mcg/Act Spr 2 SPRAYS PRANEETH DAILY Formoterol Fumarate (Perforomist) 20 Mcg/2 Ml Neb 2 ML NEB BID MIX WITH PULMICORT Glucosamine Sulfate (Glucosamine) 1,000 Mg Tab 500 MG PO TID, TAB Guaifenesin La (Guaifenesin Er) 600 Mg Tabcr 600 MG PO BID, TAB TAKE WITH PLENTY OF WATER. DO NOT CRUSH OR CHEW Ipratropium-Albuterol (Duoneb) 3 Ml Nebu 1 TREATMENT INH TID, INHA Loperamide Hcl (Imodium) 2 Mg Cap 2 MG PO UD PRN for Diarrhea, CAP Loratadine (Claritin) 10 Mg Tab 10 MG PO DAILY, TAB Magnesium Hydroxide (Milk Of Magnesia) 30 Ml Susp 30 ML PO Q3D PRN for Constipation, ML Mirtazapine Soltab (Remeron Soltab) 15 Mg Soltab 15 MG PO HS, TAB Neomycin/Polymyx/Bacitr (Neosporin) Oint 1 APPL TOP UD PRN for ut/scrsape/scratch Omeprazole (Prilosec) 20 Mg Capcr 20 MG PO DAILY, 0 Refills TAKE 30 MINS BEFORE MEAL Ondansetron Hcl (Zofran) 4 Mg Tab 4 MG UT QID PRN for Nausea, TAB Oxybutynin Chloride (Ditropan Xl) 15 Mg Tab 15 MG PO DAILY, 3 Refills Saline (Morgan Nasal [place]) 0.65 % Spr 2 SPRAYS PRANEETH DAILY Skin Oils (Baby Oil) 1 Oil Oil 2 DROPS OTB 2XWK Sodium Chloride Hypertonic (Sodium Chloride) 5 % Sissy 1 DROP OPB BID Tamsulosin Hcl (Flomax) 0.4 Mg Cap 0.4 MG PO HS, CAP Triamterene/Hctz (Triamterene/Hctz 37.5-25MG) 1 Tab Tab 1 TAB PO DAILY, TAB Admission Information HPI (per Admitting provider): 86 year old male, resident of [facility], history of mental disability, rectal CA, Urinary Incontinence, UTI, Interstitial Fibrosis and other problems noted below presenting with vomiting episodes starting this afternoon. History obtained from patient's main caregiver Jane, at the bedside. Apparently, patient was noted to have multiple episodes of vomiting that started after patient had oatmeal for lunch. No blood noted in the vomitus. No fever/chills. Vomiting was then associated with coughing spells. Hence patient was brought to the ER. Per caregiver, patient was treated 1-2 months ago for UTI and has history of urinary incontinence. CT abdomen showed constipation- stool at the rectum and colon. No signs of obstruction. Also, patient was tachycardic in the 120s, and had an elevated WBC. On exam, patient was alert, cooperative, not in distress. Denies pain. Physical Exam (per Admitting): General Appearance: WD/WN, no apparent distress Head: normocephalic, atraumatic Eyes: normal inspection, PERRL, EOMI, sclerae normal ENT: normal ENT inspection, hearing grossly normal, pharynx normal, + pertinent finding (dry oral mucoa) Neck: supple, no adenopathy, thyroid normal, no JVD, trachea midline Respiratory/Chest: chest non-tender, no respiratory distress, no accessory muscle use, + pertinent finding (distant breath sounds) Cardiovascular: regular rate, rhythm, no edema, no gallop, no JVD, no murmur Abdomen/GI: normal bowel sounds, non tender, soft, no organomegaly Back: normal inspection, no CVA tenderness Extremities/Musculoskelatal: normal inspection, no calf tenderness, normal capillary refill, no pedal edema, normal range of motion Neurologic/Psych: hot box spotter II-XII nml as tested, no motor/sensory deficits, alert , normal mood/affect, oriented x 3 Skin: normal color, warm/dry, no rash Lymphatic: no adenopathy Hospital Course This is an 86 year old male with a PMH of mental disability, HTN, CKD stage 3, BPH - presents with nausea/vomiting, possible gastritis Aspiration Pneumonia 06/19 plan on d/c'ing to [facility] today will d/c with Augmentin thickened liquids 06/18 doing better with thickened liquids d/c when able to [facility] CM aware will change Zosyn to Augmentin to total out 10 days 1 patient is doing better with thickened liquids plan is to d/c to [facility] rehab prior to returning to [facility] will likely d/c on 06/18 06/16 aspirating thin liquids, should thicken liquids elevate HOB appreciate palliative care consult plan is to possibly discharge to rehab and then back to [facility] POA, Cassie (sister), will consider hospice, but does not seem ready for it yet 1/2 patient is frankly aspirating currently NPO status will obtain a video swallow today speech therapy consulted will need palliative discussion with POJanusz regarding goals likely comfort feeds if okay with family possible pneumonia - currently on Zosyn Possible Acute Gastritis patient has had nausea/vomiting has had NG tube placed and now removed with occult bleeding monitor H/H HTN blood pressure stable hold Maxzide Electrolyte Imbalances continue to monitor K, Mg, and Phos replace as necessary Hx. of Delayed Mental Ability lives at [facility], at baseline DVT ppx Lovenox DNR Total time spent on discharge = 40 minutes This includes examination of the patient, discharge planning, medication reconciliation, and communication with other providers. Discharge Instructions Patient to be on Augmentin for aspiration pneumonia MUST THICKEN LIQUIDS 1.Pureed diet, NECTAR thick liquids. 2.Aspiration precautions, NO straws, fully upright for meals and for 30 minutes after meals. Chin neutral. 3.Stringent oral care to include brushing all surfaces of the mouth and tongue prior to and after meals, as well as before bed to reduced oral bacteria that can be aspirated in saliva. As tolerated. 4.Small single sips of liquid. Monitor for impulsivity. Meds placed in a carrier (applesauce or pudding). 5.Would benefit from continued speech upon discharge for carryover of diet and recommendations.
[2017-06-19] MEDS ORDERED: MAGNESIUM OXIDE 400 MG TAB PO ONE (13:15)
[2017-06-19 14:04] VITALS: BP 142/76; PULSE 88; TEMP 36.8; O2SAT 94
[2017-06-19 14:29] VITALS: PULSE 88; O2SAT 95
[2017-06-19 16:04] VITALS: BP 156/97; PULSE 86; TEMP 36.4; O2SAT 97
[2017-07-21] MEDS ORDERED: MCTP EXT (10:31)
[2017-07-21] MEDS ORDERED: SLWMEC PO (10:31)
[2017-07-21] MEDS ORDERED: MCRK20 PO (10:31)
[2017-07-21] MEDS ORDERED: ASPEC81 PO (10:31)
== END 2017-06-19 16:15 | DRG 178 ==
LOC: EDBD 16:41 → C.EDA 16:42 → EDBEDREQSVC 21:31 → ENRESERV 21:51 → C.2T 22:13 → EDBEDREQ 22:16 → CANRESERV 06-14 13:59 → ENRESERV 06-14 13:59 → C.MS4W 06-14 17:00
PROVIDERS: ADMIT Internal Medicine; ATTEND Family Medicine
DX: J69.0 Pneumonitis due to inhalation of food and vomit (principal); E87.0 Hyperosmolality and hypernatremia; N39.0 Urinary tract infection, site not specified; F72 Severe intellectual disabilities; J44.9 Chronic obstructive pulmonary disease, unspecified; K29.00 Acute gastritis without bleeding; I12.9 Hypertensive chronic kidney disease with stage 1 through stage 4 chronic kidney disease, or unspecified chronic kidney disease; E87.8 Other disorders of electrolyte and fluid balance, not elsewhere classified; Z66 Do not resuscitate; Z51.5 Encounter for palliative care; R09.02 Hypoxemia; R00.0 Tachycardia, unspecified; N18.3 Chronic kidney disease, stage 3 (moderate); N40.0 Benign prostatic hyperplasia without lower urinary tract symptoms

== ENCOUNTER 2017-07-08 09:49 | Inpatient (IN) | payer OTHER ==
[~2017-07-08] VITALS: Ht 175.3 cm; Wt 52.2 kg
[2017-07-08] MEDS: SODIUM CHLORIDE 0.9% 1000ML 1,000 ML IV SCH ×2 (03:30→17:58)
[~2017-07-08 09:49] MED LIST changes: +AMOX400S2 PO; +NUTRMIS PO; -ONDANSETRON INJ 2 MG/ML 2 ML VIAL IV STA; +SKINOIL9 OTB; -SODIUM CHLORIDE 0.9% 1000ML 1,000 ML IV STA
[2017-07-08] MEDS ORDERED: ACETAMINOPHEN 500 MG TAB PO STA (10:15)
[2017-07-08] MEDS ORDERED: SODIUM CHLORIDE 0.9% 1000ML 1,000 ML IV ONE (10:15)
[2017-07-08] MEDS ORDERED: ACETAMINOPHEN 500 MG TAB PO ONE (10:16)
--- NOTE | 2017-07-08 10:31 | EMERGENCY ROOM VISIT NOTE ---
History Report prepared by Paul: Mae Escoto Under the Supervision of: Dr. Parag Victoria D.O. First contact with patient: 10:12 Chief Complaint: FEVER Stated Complaint: ILLNESS History of Present Illness The patient is a 87 year old male who presents to the Emergency Room with complaints of an constant fever occurring this morning. The patient lives in a chcf. Per nursing, the patient wears 2 L of oxygen at baseline. The patient was recently in the ED and was diagnosed with pneumonia and was discharged to [facility]. History is limited secondary to the patient's mental status. Source of History: patient History Limited By: other (mental status) Onset: this morning Position: other (generalized) Timing: constant Associated Symptoms: + fevers Review of Systems ROS limited secondary to the patient's mental status. Past Medical & Surgical Medical Problems: (1) BPH (benign prostatic hyperplasia) (2) Cancer of rectum (3) CKD (chronic kidney disease), stage III (4) Depression (5) HLD (hyperlipidemia) (6) HTN (hypertension) (7) Moderate intellectual disability (8) Nocturnal hypoxia (9) Pulmonary interstitial fibrosis (10) Urinary incontinence (11) Vitamin D deficiency Family History Cancer Heart disease Hypertension Lung disease Social History Smoking Status: Unknown if Ever Smoked Drug Use: none Marital Status: single Housing Status: assisted living Occupation Status: disabled Current/Historical Medications Scheduled Alendronate Sodium (Alendronate Sodium), 70 MG PO WK Atorvastatin (Lipitor), 20 MG PO DAILY Budesonide (Pulmicort Respules 0.5MG/2ML), 2 ML INH BID Cholecalciferol (Vitamin D3), 1,000 INTER.UNIT PO DAILY Chondroitin Sulfate-Vitamin C- (Chondroitin Sulfate), 400 MG PO TID Finasteride (Proscar), 5 MG PO DAILY Fluticasone Propionate (Nasal) (Flonase Allergy Relief), 2 SPRAYS PRANEETH DAILY Formoterol Fumarate (Perforomist), 2 ML NEB BID Glucosamine Sulfate (Glucosamine), 500 MG PO TID Guaifenesin La (Guaifenesin Er), 600 MG PO BID Loratadine (Claritin), 10 MG PO DAILY Mirtazapine Soltab (Remeron Soltab), 15 MG PO HS Omeprazole (Prilosec), 20 MG PO DAILY Oxybutynin Chloride (Ditropan Xl), 15 MG PO DAILY Saline (Isabela Nasal [place]), 2 SPRAYS PRANEETH DAILY Skin Oils (Baby Oil), 2 DROPS OTB 2XWK Sodium Chloride Hypertonic (Sodium Chloride), 1 DROP OPB BID Tamsulosin Hcl (Flomax), 0.4 MG PO HS Triamterene/Hctz (Triamterene/Hctz 37.5-25MG), 1 TAB PO DAILY Scheduled PRN Acetaminophen (Tylenol), 650 MG PO Q6 PRN for Pain Alum & Mag Hydrox-Simethicone (Mylanta), 30 ML PO Q6 PRN for GI Upset Dextromethorphan-Guaifenesin (Guaifenesin Dm), 2 TSP PO Q6H PRN for Cough Ipratropium-Albuterol (Duoneb), 1 TREATMENT INH TID PRN for SOB/Wheezing Loperamide Hcl (Imodium), 2 MG PO UD PRN for Diarrhea Magnesium Hydroxide (Milk Of Magnesia), 30 ML PO Q3D PRN for Constipation Ondansetron Hcl (Zofran), 4 MG UT QID PRN for Nausea Allergies Coded Allergies: Chocolate (Verified Allergy, Unknown, 07/08/17) Tomato (Verified Allergy, Unknown, 07/08/17) Grapefruit (Verified Adverse Reaction, Severe, SHOULD AVOID DUE TO OTHER MEDS, 07/08/17) Aspirin (Verified Adverse Reaction, Intermediate, STOMACH ISSUES, 07/08/17) Propoxyphene (Verified Adverse Reaction, Intermediate, CONSTIPATION, ) Tramadol (Verified Adverse Reaction, Intermediate, CONSTIPATION, 07/08/17) Physical Exam Vital Signs Date Time Temp Pulse Resp B/P (MAP) Pulse Ox O2 Delivery O2 Flow Rate FiO2 07/08/17 13:35 36.4 90 22 124/69 98 Nasal Cannula 2.0 07/08/17 12:55 76 22 124/69 95 Nasal Cannula 2.0 07/08/17 12:50 95 Nasal Cannula 2.0 07/08/17 11:53 75 22 115/59 95 Nasal Cannula 2.0 07/08/17 11:12 73 20 113/60 96 Nasal Cannula 2.0 07/08/17 10:09 96 Nasal Cannula 4.0 07/08/17 10:09 96 Nasal Cannula 4.0 07/08/17 10:03 38.8 87 24 121/61 96 Nasal Cannula 4.0 Physical Exam GENERAL: Patient is awake, alert, and oriented to person, palace but not time or situation. He does not appear to be in pain. EYES: The conjunctivae are clear. The pupils are round and reactive. EARS, NOSE, MOUTH AND THROAT: The nose is without any evidence of any deformity. Mucous membranes are dry tongue is midline NECK: The neck is nontender and supple. RESPIRATORY: Lung sounds diminished in left lung field, scattered rhonchi throughout, mild tachypnea. CARDIOVASCULAR: Tachycardic rate and regular rhythm noted there are no murmurs appreciated. GASTROINTESTINAL: The abdomen is soft. Bowel sounds are present in all quadrants. Abdomen is nontender MUSCULOSKELETAL/EXTREMITIES: There is no evidence of gross deformity full range of motion is noted in the hips and shoulders SKIN: There is no obvious evidence of any rash. There are no petechiae, pallor or cyanosis noted. NEUROLOGIC: Patient is awake alert and oriented x3 strength is symmetric patellar reflexes are 2+ bilaterally Medical Decision & Procedures ER Provider Diagnostic Interpretation: Radiology results as stated below per my review and radiologist interpretation: CHEST ONE VIEW PORTABLE FINDINGS: No pleural effusions. No pneumothorax. The heart is normal in size. There is diffuse interstitial thickening most pronounced at the periphery and the lung bases consistent with fibrotic change. This is similar to the prior study. No new focal lung consolidations identified. No evidence for pulmonary edema. IMPRESSION: Chronic interstitial thickening consistent with fibrotic change. No new focal lung consolidations. Electronically signed by: Deuce Edouard M.D. Laboratory Results 07/08/17 10:30 Red Blood Count 3.78, Mean Corpuscular Volume 99.2, Mean Corpuscular Hemoglobin 31.7, Mean Corpuscular Hemoglobin Concent 32.0, Mean Platelet Volume 9.9, Neutrophils (%) (Auto) 88.5, Lymphocytes (%) (Auto) 8.3, Monocytes (%) (Auto) 2.5, Eosinophils (%) (Auto) 0.2, Basophils (%) (Auto) 0.2, Neutrophils # (Auto) 7.79, Lymphocytes # (Auto) 0.73, Monocytes # (Auto) 0.22, Eosinophils # (Auto) 0.02, Basophils # (Auto) 0.02 07/08/17 10:30 Test 07/08/17 10:30 07/08/17 10:37 07/08/17 10:40 07/08/17 10:50 White Blood Count 8.81 K/uL (4.8-10.8) Red Blood Count 3.78 M/uL (4.7-6.1) Hemoglobin 12.0 g/dL (14.0-18.0) Hematocrit 37.5 % (42-52) Mean Corpuscular Volume 99.2 fL (80-100) Mean Corpuscular Hemoglobin 31.7 pg (25-34) Mean Corpuscular Hemoglobin Concent 32.0 g/dl (32-36) Platelet Count 289 K/uL (130-400) Mean Platelet Volume 9.9 fL (7.4-10.4) Neutrophils (%) (Auto) 88.5 % Lymphocytes (%) (Auto) 8.3 % Monocytes (%) (Auto) 2.5 % Eosinophils (%) (Auto) 0.2 % Basophils (%) (Auto) 0.2 % Neutrophils # (Auto) 7.79 K/uL (1.4-6.5) Lymphocytes # (Auto) 0.73 K/uL (1.2-3.4) Monocytes # (Auto) 0.22 K/uL (0.11-0.59) Eosinophils # (Auto) 0.02 K/uL (0-0.5) Basophils # (Auto) 0.02 K/uL (0-0.2) RDW Standard Deviation 57.7 fL (36.4-46.3) RDW Coefficient of Variation 15.9 % (11.5-14.5) Immature Granulocyte % (Auto) 0.3 % Immature Granulocyte # (Auto) 0.03 K/uL (0.00-0.02) Erythrocyte Sedimentation Rate 75 mm/hr (0-14) Prothrombin Time 10.6 SECONDS (9.0-12.0) Prothromb Time International Ratio 1.0 (0.9-1.1) Activated Partial Thromboplast Time 29.2 SECONDS (21.0-31.0) Partial Thromboplastin Ratio 1.1 Anion Gap 6.0 mmol/L (3-11) Est Creatinine Clear Calc Drug Dose 25.1 ml/min Estimated GFR () 46.7 Estimated GFR (Non- 40.3 BUN/Creatinine Ratio 23.1 (10-20) Calcium Level 9.6 mg/dl (8.5-10.1) Phosphorus Level 2.5 mg/dl (2.5-4.9) Magnesium Level 2.2 mg/dl (1.8-2.4) Total Bilirubin 0.4 mg/dl (0.2-1) Aspartate Amino Transf (AST/SGOT) 27 U/L (15-37) Alanine Aminotransferase (ALT/SGPT) 40 U/L (12-78) Alkaline Phosphatase 98 U/L (45-117) Total Creatine Kinase 27 U/L (39-308) Creatine Kinase MB < 0.5 ng/ml (0.5-3.6) Creatine Kinase MB Ratio (0-3.0) Troponin I < 0.015 ng/ml (0-0.045) C-Reactive Protein 6.41 mg/dl (0-0.29) Pro-B-Type Natriuretic Peptide 310 pg/ml (0-1800) Total Protein 7.0 gm/dl (6.4-8.2) Albumin 2.6 gm/dl (3.4-5.0) Globulin 4.4 gm/dl (2.5-4.0) Albumin/Globulin Ratio 0.6 (0.9-2) Lipase 81 U/L (73-393) Venous Blood pH 7.44 (7.36-7.41) Venous Blood Partial Pressure CO2 41 mmHg (38.0-50.0) Venous Blood Partial Pressure O2 124 mmHg Venous Blood HCO3 27 mmol/L Venous Blood Oxygen Saturation 98.4 % Venous Blood Base Excess 2.5 mEq/L Bedside Lactic Acid Venous 1.30 mmol/L (0.90-1.70) Influenza Type A Antigen Neg for Influ A (NEG) Influenza Type B Antigen Neg for Influ B (NEG) Urine Color YELLOW Urine Appearance CLEAR (CLEAR) Urine pH 7.5 (4.5-7.5) Urine Specific [place] 1.018 (1.000-1.030) Urine Protein NEG (NEG) Urine Glucose (UA) NEG (NEG) Urine Ketones NEG (NEG) Urine Occult Blood NEG (NEG) Urine Nitrite NEG (NEG) Urine Bilirubin NEG (NEG) Urine Urobilinogen NEG (NEG) Urine Leukocyte Esterase NEG (NEG) Urine WBC (Auto) 1-5 /hpf (0-5) Urine RBC (Auto) 0-4 /hpf (0-4) Urine Hyaline Casts (Auto) 1-5 /lpf (0-5) Urine Epithelial Cells (Auto) 5-10 /lpf (0-5) Urine Bacteria (Auto) NEG (NEG) Laboratory results per my review. Medications Administered Medications (Trade) Dose Ordered Sig/Braulio Route Start Time Stop Time Status Last Admin Dose Admin Sodium Chloride 1,000 ml @ 999 mls/hr Q1H1M ONCE IV 07/08/17 10:15 07/08/17 11:15 DC 07/08/17 10:19 999 MLS/HR Acetaminophen (Tylenol Tab) 1,000 mg NOW STAT PO 07/08/17 10:15 07/08/17 10:17 DC 07/08/17 10:19 1,000 MG Levofloxacin (Levaquin / D5W) 750 mg NOW STAT IV 07/08/17 11:42 07/08/17 11:43 DC 07/08/17 11:51 750 MG Sodium Chloride 1,000 ml @ 100 mls/hr Q10H IV 07/08/17 12:04 08/07/17 12:03 07/08/17 17:58 100 MLS/HR ED Course 1014: The patient was evaluated in room A11A. A complete history and physical examination were performed. 1015: Ordered Acetaminophen 1000 mg PO, NSS 1,000 ml @ 999 mls/hr IV. 1016: Ordered Acetaminophen 1000 mg PO. 1142: Ordered Levofloxacin 750 mg IV. 1147: I updated the patient on his test results. 1151: I discussed the patient's case with Dr. Edy Jimenez. The patient will be evaluated for further management. Medical Decision Differential diagnosis: Etiologies such as viral syndrome, otitis, pharyngitis, pneumonia, influenza, meningitis, urinary tract infection, sepsis, bacteremia, as well as others were entertained. Nursing reviewed. The patient is an 87-year-old male who presented to the emergency department for evaluation of fever. The patient definite pneumonia on chest x-ray. CT abdomen was an area of possible consolidation noted. The patient was treated with IV fluids and IV antibiotics. He was reevaluated multiple times. The patient had an episode of hypoxia prior to arrival. He was placed on supplemental oxygen and appears to be holding an improved saturation. I discussed the patient's condition with the on-call Tony hospitalist. Agreed to evaluate the patient in the emergency department for further management and disposition. Medication Reconcilliation Current Medication List: was personally reviewed by me Blood Pressure Screening Patient's blood pressure: Normal blood pressure Consults Time Called: 1149 Consulting Physician: Dr. Edy Jimenez Returned Call: 1151 I discussed the patient's case with Dr. Edy Jimenez. The patient will be evaluated for further management. Impression Primary Impression: Fever Additional Impressions: Pneumonia Acute kidney injury Scribe Attestation The scribe's documentation has been prepared under my direction and personally reviewed by me in its entirety. I confirm that the note above accurately reflects all work, treatment, procedures, and medical decision making performed by me. Departure Information Dispostion Being Evaluated By Hospitalist Referrals Barbra Phillips M.D. (MEDICAL) (PCP) Patient Instructions My [facility] Problem Qualifiers Primary Impression: Fever Fever type: unspecified Qualified Codes: R50.9 - Fever, unspecified Additional Impressions: Pneumonia Pneumonia type: due to unspecified organism Laterality: unspecified laterality Lung location: unspecified part of lung Qualified Codes: J18.9 - Pneumonia, unspecified organism
[2017-07-08 10:54] LABS: BASO % 0.2 %; BASO ABS # 0.02 K/uL (0-0.2); EOS % 0.2 %; EOS ABS # 0.02 K/uL (0-0.5); HEMATOCRIT 37.5 % (42-52); IG# 0.03 K/uL (0.00-0.02); LYMPH % 8.3 %; LYMPH ABS # 0.73 K/uL (1.2-3.4); MEAN CELL VOLUME 99.2 fL (80-100); MEAN CORPUSCULAR HEMOGLOBIN 31.7 pg (25-34); MEAN PLATELET VOLUME 9.9 fL (7.4-10.4); MONO % 2.5 %; MONO ABS # 0.22 K/uL (0.11-0.59); NEUT % 88.5 %; NEUT ABS # 7.79 K/uL (1.4-6.5); PLATELET COUNT 289 K/uL (130-400); RED CELL DISTRIBUTION WIDTH CV 15.9 % (11.5-14.5); RED CELL DISTRIBUTION WIDTH SD 57.7 fL (36.4-46.3); WHITE BLOOD COUNT 8.81 K/uL (4.8-10.8)
[2017-07-08 11:08] LABS: PTT PATIENT 29.2 SECONDS (21.0-31.0)
--- NOTE | 2017-07-08 11:12 | DIAGNOSTIC IMAGING REPORT ---
CHEST ONE VIEW PORTABLE HISTORY: Sepsis COMPARISON: Chest 06/14/2017. FINDINGS: No pleural effusions. No pneumothorax. The heart is normal in size. There is diffuse interstitial thickening most pronounced at the periphery and the lung bases consistent with fibrotic change. This is similar to the prior study. No new focal lung consolidations identified. No evidence for pulmonary edema. IMPRESSION: Chronic interstitial thickening consistent with fibrotic change. No new focal lung consolidations. Electronically signed by: Deuce Edouard M.D. 07/08/2017 11:11 AM Dictated Date/Time: 07/08/2017 11:08 AM
[2017-07-08 11:17] LABS: ALBUMIN 2.6 gm/dl (3.4-5.0); ALT/SGPT 40 U/L (12-78); BLOOD UREA NITROGEN 35 mg/dl (7-18); CALCIUM 9.6 mg/dl (8.5-10.1); CARBON DIOXIDE 27 mmol/L (21-32); CREATININE 1.53 mg/dl (0.60-1.40); GLUCOSE 151 mg/dl (70-99); LIPASE 81 U/L (73-393); POTASSIUM 3.6 mmol/L (3.5-5.1); SODIUM 145 mmol/L (136-145)
[2017-07-08 11:20] LABS: ALKALINE PHOSPHATASE 98 U/L (45-117); AST/SGOT 27 U/L (15-37); CKMB < 0.5 ng/ml (0.5-3.6); PHOSPHORUS 2.5 mg/dl (2.5-4.9)
[2017-07-08 11:35] LABS: INFLUENZA B ANTIGEN Neg for Influ B (NEG)
[2017-07-08] MEDS ORDERED: LEVAQUIN 750MG / 150ML D5W IV STA (11:42)
[2017-07-08] MEDS ORDERED: ACETAMINOPHEN 325 MG TAB PO PRN ×2 (12:15→14:00)
[2017-07-08] MEDS ORDERED: MAGNESIUM HYDROXIDE SUSP 30 ML UDC PO PRN (12:15)
[2017-07-08] MEDS ORDERED: POLYETHYLENE (MIRALAX) 17 GM PACK PO PRN (12:15)
[2017-07-08] MEDS ORDERED: ONDANSETRON INJ 2 MG/ML 2 ML VIAL IV PRN (12:15)
[2017-07-08] MEDS ORDERED: ALUMINUM/MAGNESIUM/SIMETH (MAALOX MAX) 30 ML UDC PO PRN (12:15)
[2017-07-08] MEDS ORDERED: NITROGLYCERIN 0.4 MG SL PER TAB CHARGE SL PRN (12:15)
[2017-07-08 12:50] VITALS: O2SAT 95; BMI 17.0
[2017-07-08] MEDS ORDERED: ALBUT/IPRATROP 3MG/0.5MG NEB 3 ML VIAL INH PRN (14:15)
--- NOTE | 2017-07-08 14:39 | History and Physical ---
History & Physical Date & Time of Service: Jul 08, 2017 at 12:30 Chief Complaint: Illness Primary Care Physician: Barbra Phillips M.D. (MEDICAL) History of Present Illness Source: patient, clinic records, hospital records This is a 87yo M with a PMH of pulmonary interstitial fibrosis, HTN, HLD, nocturnal hypoxia, urinary incontinence, BPH, CKD III, h/o rectal cancer, moderate intellectual disability and other medical problems listed below who presents with fever and worsening SOB. Patient resides at [facility]. Was recently admitted to [facility] from 06/08/17-06/19/17 for aspiration PNA and was treated with Zosyn and discharged to [facility] for rehab. Returned to [facility] 2 days ago. Due to patient's intellectual disability, history was obtained from [facility] employee and sister/JOSIAS Matthews, at bedside. They state that the patient's health has been slowly declining ever since his May admission. He ambulates with more difficulty, is harder to transfer and seems to be experiencing generalized weakness. Appetite is consistent to before, despite recent adjustments to food texture made after speech evaluation during last admission. Per staff, patient was sitting on the edge of his bed today awaiting transfer when he slid down to the floor. Seems to be out of breath despite chronic wearing 2L NC O2. Was found to have a temperature of 103 degrees and EMS was called to bring patient to ED for further evaluation. Patient denies that he is in pain. Endorses SOB. Denies fever, chills, CP, palpitations, abd pain, nausea, vomiting. Has not had a bowel movement in 3 days. During previous admission, palliative care met with patient's sister, Cassie, to discuss transitioning patient to hospice care. Sister was not ready to make that decision but has since met with Dr. Phillips, patient's PCP, to further discuss end of life care. Completed paperwork to initiate hospice yesterday and brought a DNR/DNI POLST form to the hospital today. Is still interested in patient receiving IVF and IV abx. Would ideally like patient to return to [facility] at discharge if they are able to care for him with new hospice diagnosis. Past Medical/Surgical History Medical Problems: (1) BPH (benign prostatic hyperplasia) Status: Chronic (2) Cancer of rectum Status: Chronic (3) CKD (chronic kidney disease), stage III Status: Chronic (4) Depression Status: Chronic (5) HLD (hyperlipidemia) Status: Chronic (6) HTN (hypertension) Status: Chronic (7) Moderate intellectual disability Status: Chronic (8) Nocturnal hypoxia Status: Chronic (9) Pulmonary interstitial fibrosis Status: Chronic (10) Urinary incontinence Status: Chronic (11) Vitamin D deficiency Status: Chronic Family History Cancer Heart disease Hypertension Lung disease Social History Smoking Status: Former Smoker Drug Use: none Marital Status: single Housing status: other Occupational Status: disabled Immunizations History of Influenza Vaccine: No History of Tetanus Vaccine?: No Tetanus Immunization Date: Nov 20, 1999 History of Pneumococcal: No History of Hepatitis B Vaccine: No Hepatitis Immunization Date: Mar 08, 2004 Multi-Drug Resistant Organisms History of MDRO: Yes Type of MDRO: MRSA Allergies Coded Allergies: Chocolate (Verified Allergy, Unknown, 07/08/17) Tomato (Verified Allergy, Unknown, 07/08/17) Grapefruit (Verified Adverse Reaction, Severe, SHOULD AVOID DUE TO OTHER MEDS, 07/08/17) Aspirin (Verified Adverse Reaction, Intermediate, STOMACH ISSUES, 07/08/17) Propoxyphene (Verified Adverse Reaction, Intermediate, CONSTIPATION, ) Tramadol (Verified Adverse Reaction, Intermediate, CONSTIPATION, 07/08/17) Home Medications Scheduled Alendronate Sodium (Alendronate Sodium), 70 MG PO WK Atorvastatin (Lipitor), 20 MG PO DAILY Budesonide (Pulmicort Respules 0.5MG/2ML), 2 ML INH BID Cholecalciferol (Vitamin D3), 1,000 INTER.UNIT PO DAILY Chondroitin Sulfate-Vitamin C- (Chondroitin Sulfate), 400 MG PO TID Finasteride (Proscar), 5 MG PO DAILY Fluticasone Propionate (Nasal) (Flonase Allergy Relief), 2 SPRAYS PRANEETH DAILY Formoterol Fumarate (Perforomist), 2 ML NEB BID Glucosamine Sulfate (Glucosamine), 500 MG PO TID Guaifenesin La (Guaifenesin Er), 600 MG PO BID Loratadine (Claritin), 10 MG PO DAILY Mirtazapine Soltab (Remeron Soltab), 15 MG PO HS Omeprazole (Prilosec), 20 MG PO DAILY Oxybutynin Chloride (Ditropan Xl), 15 MG PO DAILY Saline ([place] Nasal [place]), 2 SPRAYS PRANEETH DAILY Skin Oils (Baby Oil), 2 DROPS OTB 2XWK Sodium Chloride Hypertonic (Sodium Chloride), 1 DROP OPB BID Tamsulosin Hcl (Flomax), 0.4 MG PO HS Triamterene/Hctz (Triamterene/Hctz 37.5-25MG), 1 TAB PO DAILY Scheduled PRN Acetaminophen (Tylenol), 650 MG PO Q6 PRN for Pain Alum & Mag Hydrox-Simethicone (Mylanta), 30 ML PO Q6 PRN for GI Upset Dextromethorphan-Guaifenesin (Guaifenesin Dm), 2 TSP PO Q6H PRN for Cough Ipratropium-Albuterol (Duoneb), 1 TREATMENT INH TID PRN for SOB/Wheezing Loperamide Hcl (Imodium), 2 MG PO UD PRN for Diarrhea Magnesium Hydroxide (Milk Of Magnesia), 30 ML PO Q3D PRN for Constipation Ondansetron Hcl (Zofran), 4 MG UT QID PRN for Nausea Review of Systems Ten systems reviewed and negative except as noted in the HPI. Physical Exam Vital Signs Date Time Temp Pulse Resp B/P (MAP) Pulse Ox O2 Delivery O2 Flow Rate FiO2 07/08/17 13:35 36.4 90 22 124/69 98 Nasal Cannula 2.0 07/08/17 12:55 76 22 124/69 95 Nasal Cannula 2.0 07/08/17 12:50 95 Nasal Cannula 2.0 07/08/17 11:53 75 22 115/59 95 Nasal Cannula 2.0 07/08/17 11:12 73 20 113/60 96 Nasal Cannula 2.0 07/08/17 10:09 96 Nasal Cannula 4.0 07/08/17 10:09 96 Nasal Cannula 4.0 07/08/17 10:03 38.8 87 24 121/61 96 Nasal Cannula 4.0 General Appearance: no apparent distress Head: normocephalic, atraumatic Eyes: normal inspection, PERRL, sclerae normal ENT: normal ENT inspection, hearing grossly normal, pharynx normal Neck: supple, thyroid normal, trachea midline Respiratory/Chest: chest non-tender, no respiratory distress, no accessory muscle use, + decreased breath sounds, + pertinent finding (Breathing comfortably on NC O2) Cardiovascular: regular rate, rhythm, no murmur, normal peripheral pulses Abdomen/GI: non tender, soft, no organomegaly Extremities/Musculoskelatal: normal inspection, no calf tenderness, no pedal edema Neurologic/Psych: alert (at baseline mentation per staff), normal mood/affect, + pertinent finding (communicated mainly with nodding yes/no) Skin: normal color, warm/dry Diagnostics Laboratory Results Results Past 24 Hours Test 07/08/17 10:30 07/08/17 10:37 07/08/17 10:40 07/08/17 10:50 Range/Units White Blood Count 8.81 4.8-10.8 K/uL Red Blood Count 3.78 4.7-6.1 M/uL Hemoglobin 12.0 14.0-18.0 g/dL Hematocrit 37.5 42-52 % Mean Corpuscular Volume 99.2 80-100 fL Mean Corpuscular Hemoglobin 31.7 25-34 pg Mean Corpuscular Hemoglobin Concent 32.0 32-36 g/dl Platelet Count 289 130-400 K/uL Mean Platelet Volume 9.9 7.4-10.4 fL Neutrophils (%) (Auto) 88.5 % Lymphocytes (%) (Auto) 8.3 % Monocytes (%) (Auto) 2.5 % Eosinophils (%) (Auto) 0.2 % Basophils (%) (Auto) 0.2 % Neutrophils # (Auto) 7.79 1.4-6.5 K/uL Lymphocytes # (Auto) 0.73 1.2-3.4 K/uL Monocytes # (Auto) 0.22 0.11-0.59 K/uL Eosinophils # (Auto) 0.02 0-0.5 K/uL Basophils # (Auto) 0.02 0-0.2 K/uL RDW Standard Deviation 57.7 36.4-46.3 fL RDW Coefficient of Variation 15.9 11.5-14.5 % Immature Granulocyte % (Auto) 0.3 % Immature Granulocyte # (Auto) 0.03 0.00-0.02 K/uL Erythrocyte Sedimentation Rate 75 0-14 mm/hr Prothrombin Time 10.6 9.0-12.0 SECONDS Prothromb Time International Ratio 1.0 0.9-1.1 Activated Partial Thromboplast Time 29.2 21.0-31.0 SECONDS Partial Thromboplastin Ratio 1.1 Sodium Level 145 136-145 mmol/L Potassium Level 3.6 3.5-5.1 mmol/L Chloride Level 112 98-107 mmol/L Carbon Dioxide Level 27 21-32 mmol/L Anion Gap 6.0 3-11 mmol/L Blood Urea Nitrogen 35 7-18 mg/dl Creatinine 1.53 0.60-1.40 mg/dl Est Creatinine Clear Calc Drug Dose 25.1 ml/min Estimated GFR () 46.7 Estimated GFR (Non- 40.3 BUN/Creatinine Ratio 23.1 10-20 Random Glucose 151 70-99 mg/dl Calcium Level 9.6 8.5-10.1 mg/dl Phosphorus Level 2.5 2.5-4.9 mg/dl Magnesium Level 2.2 1.8-2.4 mg/dl Total Bilirubin 0.4 0.2-1 mg/dl Aspartate Amino Transf (AST/SGOT) 27 15-37 U/L Alanine Aminotransferase (ALT/SGPT) 40 12-78 U/L Alkaline Phosphatase 98 45-117 U/L Total Creatine Kinase 27 39-308 U/L Creatine Kinase MB < 0.5 0.5-3.6 ng/ml Creatine Kinase MB Ratio 0-3.0 Troponin I < 0.015 0-0.045 ng/ml C-Reactive Protein 6.41 0-0.29 mg/dl Pro-B-Type Natriuretic Peptide 310 0-1800 pg/ml Total Protein 7.0 6.4-8.2 gm/dl Albumin 2.6 3.4-5.0 gm/dl Globulin 4.4 2.5-4.0 gm/dl Albumin/Globulin Ratio 0.6 0.9-2 Lipase 81 73-393 U/L Venous Blood pH 7.44 7.36-7.41 Venous Blood Partial Pressure CO2 41 38.0-50.0 mmHg Venous Blood Partial Pressure O2 124 mmHg Venous Blood HCO3 27 mmol/L Venous Blood Oxygen Saturation 98.4 % Venous Blood Base Excess 2.5 mEq/L Bedside Lactic Acid Venous 1.30 0.90-1.70 mmol/L Influenza Type A Antigen Neg for Influ A NEG Influenza Type B Antigen Neg for Influ B NEG Urine Color YELLOW Urine Appearance CLEAR CLEAR Urine pH 7.5 4.5-7.5 Urine Specific [place] 1.018 1.000-1.030 Urine Protein NEG NEG Urine Glucose (UA) NEG NEG Urine Ketones NEG NEG Urine Occult Blood NEG NEG Urine Nitrite NEG NEG Urine Bilirubin NEG NEG Urine Urobilinogen NEG NEG Urine Leukocyte Esterase NEG NEG Urine WBC (Auto) 1-5 0-5 /hpf Urine RBC (Auto) 0-4 0-4 /hpf Urine Hyaline Casts (Auto) 1-5 0-5 /lpf Urine Epithelial Cells (Auto) 5-10 0-5 /lpf Urine Bacteria (Auto) NEG NEG Microbiology Results 07/08/17 Blood Culture, Received Pending 07/08/17 Blood Culture, Received Pending Diagnostic Radiology CXR: IMPRESSION: Chronic interstitial thickening consistent with fibrotic change. No new focal lung consolidations. Normal EKG Impression Assessment and Plan This is a 87yo M with a PMH of pulmonary interstitial fibrosis, HTN, HLD, nocturnal hypoxia, urinary incontinence, BPH, CKD III, h/o rectal cancer, moderate intellectual disability and other medical problems listed below who presents with fever and worsening SOB and was found to have PNA. PNA: -Fever, cough, SOB in setting of interstitial fibrosis -Flu Ag negative -Unasyn empirically -Follow blood cultures -IVF resuscitation -Home nebs, inhalers, mucinex -Supplemental O2 (currently saturating well at baseline of 2L NC) MICHELINE on CKD: -Likely caused by poor po intake -Cr of 1.5 today (baseline ~ 0.8) -IVF resuscitation -Repeat lab work in AM -Hold triamterene/hctz HTN: -Held meds 2/2 MICHELINE -Monitor and add additional agent if needed HLD: -Cont statin Nocturnal hypoxia: -Supplemental O2 as needed BPH: -Has history of urinary incontinence -Cont home tamsulosin, oxybutynin H/o aspiration: -Pudding consistency food, nectar thick liquids -Medications to be given in pudding Dispo: -Palliative care consulted -Cassie wishes patient to return to [facility] after discharge DVT Ppx: SQ heparin Code status: DNR/DNI PCP: Alan Dispo: Admitted to [facility]. Discharge planning ordered. Patient seen in collaboration with Dr. Sarabia. Please see addendum. ATTENDING ADDENDUM : pt seen and examined with Meaghan Vargas PA-C , in agree with above H&P labs and images reviewed 87 yo M with complicated past medical hx of Intellectual disability /MR , pulmonary fibrosis on home 02 , sent form [facility]f [facility] for generalized weakness hypoxia , moist cough , concern for aspiration P/E: gen : elderly gentleman , frail appearing , no sign of distress HEENT : sclera non icteric HT : regular , tachycardic Lungs : Coarse breath sound ,+ crackles at base abdomen : soft, non tender Ext: no edema , no skin breakdown neuro: Mental retardation , minimally communicative , no focal neurological deficit A/P : HYPOXIA /ASPIRATION PNEUMONIA : will empirically treat with Unasyn baseline dysphagia -on Purred and [place] thick diet NPO except meds till Speech eval Sister Cassie POA present -no feeding tube , wants palliative care to be involved willing for comfort care MICHELINE on CKD stage 3 Due to above, veterinarian laboratory animal care also reports poor PO intake pt does not like to drink fluid as it is thickened gentle IV fluids VERY POOR PROGNOSIS , multiple co morbidities, severe dysphagia , repeated aspiration at present bed bound , needs complete care , Pt's Sister Cassie had a discussion with Primary Care Physician yesterday at the Clinic POLST form signed -Comfort care only with further clinical decline -referral was made for Hospice agency had long discussion with Sister and Caregiver at the [facility] wants to have D/w Palliative care -consult placed Sister wants pt to be treated with Abx and IVF for Antibiotic and dehydration and return back to [facility] as hospice DNR/DNI please refer to documentation of Meaghan Vargas PA-C for further discussion of other issues Justina Sarabia MD Level of Care Med/Surg Advanced Directives Existing Living Will: No Existing Power of Engineering Technical Specialist: No Resuscitation Status DO NOT RESUSCITATE VTE Prophylaxis VTE Risk Assessment Done? Y/N: Yes Risk Level: Moderate Given or contraindicated: Enoxaparin (Lovenox)SQ Additional Copies To Barbra Phillips M.D. (MEDICAL)
[2017-07-08 16:00] VITALS: O2SAT 98
[2017-07-08] MEDS ORDERED: AMPICILLIN/SULBACTAM CONSULT ACTIVE PRN (16:00)
[2017-07-08 16:12] VITALS: BP 106/69; PULSE 100; TEMP 36.8; O2SAT 96
[2017-07-08] MEDS ORDERED: NURSING VERBAL MED ORDER ONE (16:15)
[2017-07-08] MEDS ORDERED: SOD PHOSPHATE/SOD BIPHOSPHATE ENEMA 132 ML BTL PR STA (16:16)
[2017-07-08] MEDS: BUDESONIDE 0.5 MG/2 ML VIAL (PULMICORT) INH SCH (19:08)
[2017-07-08 19:09] VITALS: PULSE 94; O2SAT 92
[2017-07-08] MEDS: FORMOTEROL FUMA NEBULIZER SOLN 20 MCG/2 ML VIAL INH SCH (19:09)
[2017-07-08 20:02] VITALS: BP 121/72; PULSE 86; TEMP 36; O2SAT 96
[2017-07-08] MEDS: GUAIFENESIN 600 MG TABCR PO SCH (22:17)
[2017-07-08] MEDS: AMPICILLIN/SULBACTAM SOD INJ 1,500 MG in SODIUM CHLORIDE 0.9% 100ML 100 ML IV SCH (22:17)
[2017-07-08] MEDS: HEPARIN SOD 5000 UNIT/0.5 ML CARP SQ SCH (22:17)
[2017-07-08] MEDS: TAMSULOSIN HCL 0.4 MG CAP PO SCH (22:18)
[2017-07-08] MEDS: MIRTAZAPINE SOLTAB 15 MG PO SCH (22:19)
[2017-07-08] MEDS: SODIUM CHLORIDE 5% OP SOLN 15 ML BTL OPB SCH (22:21)
[2017-07-08 22:56] VITALS: BP 118/74; PULSE 75; TEMP 36; O2SAT 95
[2017-07-09] MEDS: HEPARIN SOD 5000 UNIT/0.5 ML CARP SQ SCH ×3 (06:27→20:35)
[2017-07-09] MEDS: FORMOTEROL FUMA NEBULIZER SOLN 20 MCG/2 ML VIAL INH SCH ×2 (07:04→19:40)
[2017-07-09] MEDS: BUDESONIDE 0.5 MG/2 ML VIAL (PULMICORT) INH SCH ×2 (07:04→19:41)
[2017-07-09 07:05] VITALS: PULSE 84; O2SAT 90
[2017-07-09 07:11] LABS: HEMATOCRIT 38.6 % (42-52); HEMOGLOBIN 12.2 g/dL (14.0-18.0); MEAN CELL VOLUME 99.2 fL (80-100); MEAN CORPUSCULAR HEMOGLOBIN 31.4 pg (25-34); MEAN CORPUSCULAR HGB CONC 31.6 g/dl (32-36); MEAN PLATELET VOLUME 9.7 fL (7.4-10.4); PLATELET COUNT 222 K/uL (130-400); RED CELL DISTRIBUTION WIDTH CV 15.4 % (11.5-14.5); RED CELL DISTRIBUTION WIDTH SD 55.6 fL (36.4-46.3); WHITE BLOOD COUNT 10.02 K/uL (4.8-10.8)
[2017-07-09 07:33] VITALS: BP 94/52; PULSE 84; TEMP 36.8; O2SAT 91
[2017-07-09 07:45] LABS: CALCIUM 8.6 mg/dl (8.5-10.1); CREATININE 1.18 mg/dl (0.60-1.40); POTASSIUM 3.1 mmol/L (3.5-5.1)
[2017-07-09] MEDS: GUAIFENESIN 600 MG TABCR PO SCH ×2 (08:43→20:31)
[2017-07-09] MEDS: LORATADINE 10 MG TAB PO SCH (08:43)
[2017-07-09] MEDS: FINASTERIDE 5 MG TAB PO SCH (08:44)
[2017-07-09] MEDS: PANTOprazole SOD 40 MG TAB PO SCH (08:45)
[2017-07-09] MEDS: ATORVASTATIN 20 MG TAB PO SCH (08:45)
[2017-07-09] MEDS: OXYBUTYNIN CHLORIDE 5 MG TABCR PO SCH (08:45)
[2017-07-09] MEDS: FLUTICASONE PROPIONATE NA SPR 16 GM BTL NAE SCH (08:47)
[2017-07-09] MEDS: SODIUM CHLORIDE 5% OP SOLN 15 ML BTL OPB SCH ×2 (08:47→20:31)
[2017-07-09] MEDS: ASPIRIN 81 MG ECTAB PO SCH (08:48)
[2017-07-09] MEDS: SODIUM CHLORIDE 0.65% NA SOLN 45 ML (OCEAN) NAE SCH (08:51)
[2017-07-09] MEDS: GUAIFENESIN/DEXTROM SYRUP 100MG/10MG 5ML UDC PO PRN (08:58)
--- NOTE | 2017-07-09 10:21 | Palliative Care Consultation ---
Consultation Date of Consultation: Jul 09, 2017. Requesting Physician: Dr. Sarabia Attending Physician: Dr. Weber Reason for Consultation: Goals of care/hospice History of Present Illness This 87 year old male patient with PMH severe cognitive disability, recurrent aspiration/pneumonia, rectal CA, UTI, interstitial fibrosis, and others listed below, presented to the hospital for the second time in 30 days with fever and SOB. Found to have pneumonia. He is on IV fluids and abx. Has been seen by speech in the past and had video swallow done which showed aspiration of thin liquids. Given patient's cognitive dysfunction, he is very high risk for aspiration. Palliative care saw patient on previous admission given his chronic problems and advanced age. At the time, sister/POA Cassie was not ready to place patient on hospice. Since discharge, patient has reportedly continued to decline and Cassie made the decision to place him on hospice. He was signed up for hospice the day before admission, but sister wanted him to come to hospital for IVF and abx. Plan is for him to return to [facility] hosp[facility] as documented. Palliative care is asked to see patient again. I met with patient in room 453. He is awake and alert, currently being assessed by primary RN and was somewhat agitated. He is in no distress and looks about the way he did when I last saw him at the beginning of the month. Patient unable to participate in conversation as he is mostly nonverbal. I called patient's sister Cassie, but no answer. I left a message. It seems that arrangements have already been made, so I asked case investigator to follow up on this and confirm plan to return to [facility] hospice. Past Medical/Surgical History Medical History: Cognitive disability Rectal CA UTI Interstitial fibrosis Asthma Htn Urinary incontinence Aspiration Social History Smoking Status: Former Smoker History of Alcohol Use: No Drug Use: none Marital Status: single Housing Status: other Occupation Status: disabled Review of Systems unable to obtain due to AMS Allergies Coded Allergies: Chocolate (Verified Allergy, Unknown, 07/08/17) Tomato (Verified Allergy, Unknown, 07/08/17) Grapefruit (Verified Adverse Reaction, Severe, SHOULD AVOID DUE TO OTHER MEDS, 07/08/17) Aspirin (Verified Adverse Reaction, Intermediate, STOMACH ISSUES, 07/08/17) Propoxyphene (Verified Adverse Reaction, Intermediate, CONSTIPATION, ) Tramadol (Verified Adverse Reaction, Intermediate, CONSTIPATION, 07/08/17) Medications Current Inpatient Medications Medications (Trade) Dose Ordered Sig/Braulio Route Start Time Stop Time Status Last Admin Dose Admin Heparin Sodium (Porcine) (Heparin Sq 5000 Unit/0.5ml) 5,000 unit Q8 SQ 07/08/17 22:00 08/07/17 21:59 07/09/17 06:27 5,000 UNIT Sodium Chloride 1,000 ml @ 100 mls/hr Q10H IV 07/08/17 12:04 08/07/17 12:03 07/08/17 03:30 100 MLS/HR Al Hydrox/Mg Hydrox/Simethicone (Maalox Max Susp) 15 ml Q4H PRN PO 07/08/17 12:15 08/07/17 12:14 Magnesium Hydroxide (Milk Of Magnesia Susp) 30 ml Q12H PRN PO 07/08/17 12:15 08/07/17 12:14 Ondansetron HCl (Zofran Inj) 4 mg Q6H PRN IV 07/08/17 12:15 08/07/17 12:14 Nitroglycerin (Nitrostat Tab) 0.4 mg UD PRN SL 07/08/17 12:15 08/07/17 12:14 Polyethylene (Miralax Powder Packet) 17 gm DAILY PRN PO 07/08/17 12:15 08/07/17 12:14 Acetaminophen (Tylenol Tab) 650 mg Q6 PRN PO 07/08/17 14:00 08/07/17 13:59 Atorvastatin Calcium (Lipitor Tab) 20 mg DAILY PO 07/09/17 08:00 08/08/17 08:59 07/09/17 08:45 20 MG Budesonide (Pulmicort Respules 0.5MG/ 2ML Neb Soln) 1 mg BIDR INH 07/08/17 20:00 08/07/17 19:59 07/09/17 07:04 1 MG Guaifenesin/ Dextromethorphan (Robitussin-Dm Syrup) 10 ml Q6H PRN PO 07/08/17 16:00 08/07/17 15:59 07/09/17 08:58 10 ML Finasteride (Proscar Tab) 5 mg DAILY PO 07/09/17 08:00 08/08/17 08:59 07/09/17 08:44 5 MG Fluticasone Propionate (Flonase Nasal [place]) 2 sprays DAILY PRANEETH 07/09/17 08:00 08/08/17 08:59 07/09/17 08:47 2 SPRAYS Formoterol Fumarate (Perforomist 20MCG/2ML Neb Soln) 40 mcg BIDR INH 07/08/17 20:00 08/07/17 19:59 07/09/17 07:04 40 MCG Guaifenesin (Mucinex Contr Rel Tab) 600 mg BID PO 07/08/17 20:00 08/07/17 20:59 07/09/17 08:43 600 MG Loratadine (Claritin Tab) 10 mg DAILY PO 07/09/17 08:00 08/08/17 08:59 07/09/17 08:43 10 MG Sodium Chloride ([place] Nasal [place]) 2 sprays DAILY PRANEETH 07/09/17 08:00 08/08/17 08:59 07/09/17 08:51 2 SPRAYS Sodium Chloride ([place] 128 Oph Soln) 1 drops BID OPB 07/08/17 20:00 08/07/17 20:59 07/09/17 08:47 1 DROPS Tamsulosin HCl (Flomax Cap) 0.4 mg HS PO 07/08/17 21:00 08/07/17 20:59 07/08/17 22:18 0.4 MG Mirtazapine (Remeron Solutab) 15 mg HS PO 07/08/17 21:00 08/07/17 20:59 07/08/17 22:19 15 MG Pantoprazole Sodium (Protonix Tab) 40 mg QAM PO 07/09/17 08:00 08/08/17 08:59 07/09/17 08:45 40 MG Oxybutynin Chloride (Ditropan-Xl Tab) 15 mg DAILY PO 07/09/17 08:00 08/08/17 08:59 07/09/17 08:45 15 MG Albuterol/ Ipratropium (Duoneb) 3 ml TID PRN INH 07/08/17 14:15 08/07/17 14:14 Ampicillin Sodium/ Sulbactam Sodium (Consult) 1 ea UD PRN N/A 07/08/17 16:00 08/07/17 15:59 Aspirin (Ecotrin Tab) 81 mg QAM PO 07/09/17 08:00 08/08/17 08:59 07/09/17 08:48 81 MG Ampicillin Sodium/ Sulbactam Sodium 3000 mg/Sodium Chloride 108 ml @ 200 mls/hr Q6H IV 07/09/17 16:00 07/15/17 23:59 Physical Exam Date Time Temp Pulse Resp B/P (MAP) Pulse Ox O2 Delivery O2 Flow Rate FiO2 07/09/17 07:33 36.8 84 16 94/52 (66) 91 07/09/17 07:05 84 16 90 Nasal Cannula 1.0 07/09/17 00:00 Nasal Cannula 2.0 07/08/17 22:56 36.0 75 20 118/74 (89) 95 Nasal Cannula 1.5 07/08/17 20:02 36.0 86 22 121/72 (88) 96 Nasal Cannula 2.0 07/08/17 20:00 Nasal Cannula 2.0 07/08/17 19:09 94 16 92 Nasal Cannula 2.0 07/08/17 16:12 36.8 100 20 106/69 (81) 96 Nasal Cannula 2.0 07/08/17 16:00 98 Nasal Cannula 2.0 07/08/17 14:55 95 16 128/76 96 Nasal Cannula 2.0 07/08/17 13:35 36.4 90 22 124/69 98 Nasal Cannula 2.0 07/08/17 12:55 76 22 124/69 95 Nasal Cannula 2.0 07/08/17 12:50 95 Nasal Cannula 2.0 07/08/17 11:53 75 22 115/59 95 Nasal Cannula 2.0 07/08/17 11:12 73 20 113/60 96 Nasal Cannula 2.0 General Appearance: no apparent distress, + thin ENT: hearing grossly normal Neck: supple, no JVD Respiratory: no respiratory distress, no accessory muscle use, + pertinent finding (2LNC) Cardiovascular: regular rate, rhythm, no edema Abdomen: + pertinent finding (did not assess abdomen at this time) Neurologic/Psychiatric: alert, + pertinent finding (in his normal mental state) Skin: normal color Laboratory Results Last 24 Hours Test 07/08/17 10:30 07/08/17 10:37 07/08/17 10:40 07/08/17 10:50 White Blood Count 8.81 K/uL Red Blood Count 3.78 M/uL Hemoglobin 12.0 g/dL Hematocrit 37.5 % Mean Corpuscular Volume 99.2 fL Mean Corpuscular Hemoglobin 31.7 pg Mean Corpuscular Hemoglobin Concent 32.0 g/dl Platelet Count 289 K/uL Mean Platelet Volume 9.9 fL Neutrophils (%) (Auto) 88.5 % Lymphocytes (%) (Auto) 8.3 % Monocytes (%) (Auto) 2.5 % Eosinophils (%) (Auto) 0.2 % Basophils (%) (Auto) 0.2 % Neutrophils # (Auto) 7.79 K/uL Lymphocytes # (Auto) 0.73 K/uL Monocytes # (Auto) 0.22 K/uL Eosinophils # (Auto) 0.02 K/uL Basophils # (Auto) 0.02 K/uL RDW Standard Deviation 57.7 fL RDW Coefficient of Variation 15.9 % Immature Granulocyte % (Auto) 0.3 % Immature Granulocyte # (Auto) 0.03 K/uL Erythrocyte Sedimentation Rate 75 mm/hr Prothrombin Time 10.6 SECONDS Prothromb Time International Ratio 1.0 Activated Partial Thromboplast Time 29.2 SECONDS Partial Thromboplastin Ratio 1.1 Sodium Level 145 mmol/L Potassium Level 3.6 mmol/L Chloride Level 112 mmol/L Carbon Dioxide Level 27 mmol/L Anion Gap 6.0 mmol/L Blood Urea Nitrogen 35 mg/dl Creatinine 1.53 mg/dl Est Creatinine Clear Calc Drug Dose 25.1 ml/min Estimated GFR () 46.7 Estimated GFR (Non- 40.3 BUN/Creatinine Ratio 23.1 Random Glucose 151 mg/dl Calcium Level 9.6 mg/dl Phosphorus Level 2.5 mg/dl Magnesium Level 2.2 mg/dl Total Bilirubin 0.4 mg/dl Aspartate Amino Transf (AST/SGOT) 27 U/L Alanine Aminotransferase (ALT/SGPT) 40 U/L Alkaline Phosphatase 98 U/L Total Creatine Kinase 27 U/L Creatine Kinase MB < 0.5 ng/ml Creatine Kinase MB Ratio Troponin I < 0.015 ng/ml C-Reactive Protein 6.41 mg/dl Pro-B-Type Natriuretic Peptide 310 pg/ml Total Protein 7.0 gm/dl Albumin 2.6 gm/dl Globulin 4.4 gm/dl Albumin/Globulin Ratio 0.6 Lipase 81 U/L Venous Blood pH 7.44 Venous Blood Partial Pressure CO2 41 mmHg Venous Blood Partial Pressure O2 124 mmHg Venous Blood HCO3 27 mmol/L Venous Blood Oxygen Saturation 98.4 % Venous Blood Base Excess 2.5 mEq/L Bedside Lactic Acid Venous 1.30 mmol/L Influenza Type A Antigen Neg for Influ A Influenza Type B Antigen Neg for Influ B Urine Color YELLOW Urine Appearance CLEAR Urine pH 7.5 Urine Specific [place] 1.018 Urine Protein NEG Urine Glucose (UA) NEG Urine Ketones NEG Urine Occult Blood NEG Urine Nitrite NEG Urine Bilirubin NEG Urine Urobilinogen NEG Urine Leukocyte Esterase NEG Urine WBC (Auto) 1-5 /hpf Urine RBC (Auto) 0-4 /hpf Urine Hyaline Casts (Auto) 1-5 /lpf Urine Epithelial Cells (Auto) 5-10 /lpf Urine Bacteria (Auto) NEG Test 07/09/17 06:34 White Blood Count 10.02 K/uL Red Blood Count 3.89 M/uL Hemoglobin 12.2 g/dL Hematocrit 38.6 % Mean Corpuscular Volume 99.2 fL Mean Corpuscular Hemoglobin 31.4 pg Mean Corpuscular Hemoglobin Concent 31.6 g/dl RDW Standard Deviation 55.6 fL RDW Coefficient of Variation 15.4 % Platelet Count 222 K/uL Mean Platelet Volume 9.7 fL Sodium Level 145 mmol/L Potassium Level 3.1 mmol/L Chloride Level 112 mmol/L Carbon Dioxide Level 27 mmol/L Anion Gap 6.0 mmol/L Blood Urea Nitrogen 32 mg/dl Creatinine 1.18 mg/dl Est Creatinine Clear Calc Drug Dose 32.6 ml/min Estimated GFR () 63.9 Estimated GFR (Non- 55.2 BUN/Creatinine Ratio 27.1 Random Glucose 114 mg/dl Calcium Level 8.6 mg/dl Magnesium Level 2.2 mg/dl Assessment & Plan Problem list: Fever and SOB- improved Hypoxia Pneumonia with history of recurrent aspiration MICHELINE on CKD- improved Overall decline in health and functional status Goals of care Palliative care recs: -Patient is DNR. POLST form was completed prior to arriving to hospital by patient's PCP. -Patient seems to be back at his baseline. Hopefully abx can be switched to PO so he may be discharged. Abx treatment not likely to help much at this point given recurrent aspiration and therefore recurrent pneumonia. -Could add low dose Roxanol 5mg PO Q3h PRN pain or SOB for when patient becomes symptomatic at [facility]. -Already has plans/arrangements for hospice at [facility]. Case management following. Thank you kindly for this consult. I have nothing further to add at this time. Please contact me with any further palliative care needs.
[2017-07-09] MEDS: SODIUM CHLORIDE 0.9% 1000ML 1,000 ML IV SCH ×2 (11:25→20:30)
[2017-07-09] MEDS: AMPICILLIN/SULBACTAM SOD INJ 1,500 MG in SODIUM CHLORIDE 0.9% 100ML 100 ML IV SCH (11:25)
[2017-07-09 12:20] VITALS: Ht 175.3 cm; Wt 52.2 kg
[2017-07-09] MEDS: BOOST VANILLA PUDDING CUP PO SCH ×2 (13:32→20:39)
--- NOTE | 2017-07-09 13:37 | Clinical Documentation Query ---
Dr. LAUREN,RUSTY : CLINICAL DOCUMENTATION QUERIES QUERY 1 OF 2 Patient is an 87 year old male admitted for evaluation and treatment of pneumonia and MICHELINE. 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 He is being treated with IV Unasyn. Blood cultures pending in addition to IVF, nebs, inhalers, mucinex. Please clarify as clinically appropriate. Thank you. In your clinical opinion is this patient being managed for: ( x ) Aspiration pneumonia ( ) Not Agree ( ) Other explanation of clinical findings (Please Explain) ( ) Unable to determine (Please Define) ( ) Need to Discuss The medical record reflects the following clinical findings, treatment, and risk factors. Clinical Indicators: As above Treatment:He is being treated with IV Unasyn. Blood cultures pending in addition to IVF, nebs, inhalers, Mucinex Risk Factors: Age, intellectual disability QUERY 2 OF 2 BMI 17.0 kg/m*m. Body weight of 52.2 Kg is 10% less than documented weight earlier this mount in EMR. Noted decreased intake in the setting of intellectual disability, infection/pneumonia. In order to capture this clinical information (the BMI), an associated medical diagnosis must be explicitly documented by the provider. As appropriate, consider documentation as below. Thank you. In your clinical opinion is this patient being managed for: ( x ) Underweight, BMI 17.0 kg/m*m ( ) Not Agree ( ) Other explanation of clinical findings (Please Explain) ( ) Unable to determine (Please Define) ( ) Need to Discuss The medical record reflects the following clinical findings, treatment, and risk factors. Clinical Indicators: As above Treatment: Boost pudding, palliative care consultation Risk Factors: Age, infection, intellectual disability Please clarify and document your clinical opinion in the progress notes and discharge summary. Terms such as "probable", "suspected", "likely", "questionable", "possible", or "still to be ruled out" are acceptable. IF IN AGREEMENT, YOU MUST DOCUMENT ABOVE DIAGNOSTIC STATEMENT IN DAILY PROGRESS NOTES AND DISCHARGE SUMMARY. This document is not part of the patient's record. Thank You, Angel Sloan, RN [phone]
[2017-07-09 14:50] VITALS: BP 95/60; PULSE 81; TEMP 36.7; O2SAT 94
[2017-07-09] MEDS: AMPICILLIN/SULBACTAM SOD INJ 3,000 MG in SODIUM CHLORIDE 0.9% 100ML 100 ML IV SCH ×2 (16:04→21:41)
--- NOTE | 2017-07-09 18:37 | Progress Note ---
Medicine Progress Note Date & Time of Visit: Jul 09, 2017 at 18:35. Subjective Patient denies any complaints. Tolerating PO without difficulty. No overnight events noted. No issues noted per staff. Spoke with Cassie FERRARA and Katy (at [facility]) and plan is for discharge with hospice on Wednesday. Objective Last 8 Hrs Date Time Temp Pulse Resp B/P (MAP) Pulse Ox O2 Delivery O2 Flow Rate FiO2 07/09/17 16:00 Nasal Cannula 2.0 07/09/17 14:50 36.7 81 20 95/60 (72) 94 Physical Exam: GENERAL: Patient is in no acute distress. HEENT: No acute trauma, normocephalic, mucous membranes moist, no nasal congestion, no scleral icterus. NECK: No stridor, trachea is midline. LUNGS: Coarse breath sounds bilaterally, no wheeze, no rhonchi, breath sounds equal. HEART: Without murmurs gallops or rubs, regular rate and rhythm. ABDOMEN: Soft, nontender, bowel sounds positive, no hepatosplenomegaly EXTREMITIES: No cyanosis or edema, full range of motion of all the joints without pain or difficulty, no signs for acute trauma. NEUROLOGIC: Oriented, no acute motor or sensory deficits, no focal weakness. SKIN: No rash, no jaundice, no diaphoresis. Laboratory Results: Last 24 Hours Test 07/09/17 06:34 White Blood Count 10.02 K/uL Red Blood Count 3.89 M/uL Hemoglobin 12.2 g/dL Hematocrit 38.6 % Mean Corpuscular Volume 99.2 fL Mean Corpuscular Hemoglobin 31.4 pg Mean Corpuscular Hemoglobin Concent 31.6 g/dl RDW Standard Deviation 55.6 fL RDW Coefficient of Variation 15.4 % Platelet Count 222 K/uL Mean Platelet Volume 9.7 fL Sodium Level 145 mmol/L Potassium Level 3.1 mmol/L Chloride Level 112 mmol/L Carbon Dioxide Level 27 mmol/L Anion Gap 6.0 mmol/L Blood Urea Nitrogen 32 mg/dl Creatinine 1.18 mg/dl Est Creatinine Clear Calc Drug Dose 32.6 ml/min Estimated GFR () 63.9 Estimated GFR (Non- 55.2 BUN/Creatinine Ratio 27.1 Random Glucose 114 mg/dl Calcium Level 8.6 mg/dl Magnesium Level 2.2 mg/dl Assessment & Plan PNEUMONIA: likely aspiration pneumonia -Fever, cough, SOB, with known interstitial fibrosis -Flu Ag negative -on Unasyn empirically -blood cultures no growth thus far -IV fluids -continued on nebs, inhalers, mucinex -oxygen therapy, at baseline requirements of 2L NC MICHELINE on CKD Stage II: -Likely caused by poor po intake -Cr of 1.5 (baseline ~ 0.8)-->1.18 today -IV fluids -monitor -Hold triamterene/hctz HTN: -Held meds secondary to MICHELINE, resume when BP improves if needed -monitor HYPERLIPIDEMIA: -continue statin Nocturnal hypoxia: -Supplemental O2 as needed BPH: -has history of urinary incontinence -continue home tamsulosin, oxybutynin History of recurrent aspiration: -on pudding consistency food, nectar thick liquids -medications generally given in pudding Current Inpatient Medications: Current Inpatient Medications Medications (Trade) Dose Ordered Sig/Braulio Route Start Time Stop Time Status Last Admin Dose Admin Heparin Sodium (Porcine) (Heparin Sq 5000 Unit/0.5ml) 5,000 unit Q8 SQ 07/08/17 22:00 08/07/17 21:59 07/09/17 13:31 5,000 UNIT Sodium Chloride 1,000 ml @ 100 mls/hr Q10H IV 07/08/17 12:04 08/07/17 12:03 07/09/17 11:25 100 MLS/HR Al Hydrox/Mg Hydrox/Simethicone (Maalox Max Susp) 15 ml Q4H PRN PO 07/08/17 12:15 08/07/17 12:14 Magnesium Hydroxide (Milk Of Magnesia Susp) 30 ml Q12H PRN PO 07/08/17 12:15 08/07/17 12:14 Ondansetron HCl (Zofran Inj) 4 mg Q6H PRN IV 07/08/17 12:15 08/07/17 12:14 Nitroglycerin (Nitrostat Tab) 0.4 mg UD PRN SL 07/08/17 12:15 08/07/17 12:14 Polyethylene (Miralax Powder Packet) 17 gm DAILY PRN PO 07/08/17 12:15 08/07/17 12:14 Acetaminophen (Tylenol Tab) 650 mg Q6 PRN PO 07/08/17 14:00 2/24/18 13:59 Atorvastatin Calcium (Lipitor Tab) 20 mg DAILY PO 07/09/17 08:00 08/08/17 08:59 07/09/17 08:45 20 MG Budesonide (Pulmicort Respules 0.5MG/ 2ML Neb Soln) 1 mg BIDR INH 07/08/17 20:00 08/07/17 19:59 07/09/17 07:04 1 MG Guaifenesin/ Dextromethorphan (Robitussin-Dm Syrup) 10 ml Q6H PRN PO 07/08/17 16:00 08/07/17 15:59 07/09/17 08:58 10 ML Finasteride (Proscar Tab) 5 mg DAILY PO 07/09/17 08:00 08/08/17 08:59 07/09/17 08:44 5 MG Fluticasone Propionate (Flonase Nasal [place]) 2 sprays DAILY PRANEETH 07/09/17 08:00 08/08/17 08:59 07/09/17 08:47 2 SPRAYS Formoterol Fumarate (Perforomist 20MCG/2ML Neb Soln) 40 mcg BIDR INH 07/08/17 20:00 08/07/17 19:59 07/09/17 07:04 40 MCG Guaifenesin (Mucinex Contr Rel Tab) 600 mg BID PO 07/08/17 20:00 08/07/17 20:59 07/09/17 08:43 600 MG Loratadine (Claritin Tab) 10 mg DAILY PO 07/09/17 08:00 08/08/17 08:59 07/09/17 08:43 10 MG Sodium Chloride ([place] Nasal [place]) 2 sprays DAILY PRANEETH 07/09/17 08:00 08/08/17 08:59 07/09/17 08:51 2 SPRAYS Sodium Chloride ([place] 128 Oph Soln) 1 drops BID OPB 07/08/17 20:00 08/07/17 20:59 07/09/17 08:47 1 DROPS Tamsulosin HCl (Flomax Cap) 0.4 mg HS PO 07/08/17 21:00 08/07/17 20:59 07/08/17 22:18 0.4 MG Mirtazapine (Remeron Solutab) 15 mg HS PO 1/25/18 21:00 08/07/17 20:59 07/08/17 22:19 15 MG Pantoprazole Sodium (Protonix Tab) 40 mg QAM PO 07/09/17 08:00 08/08/17 08:59 07/09/17 08:45 40 MG Oxybutynin Chloride (Ditropan-Xl Tab) 15 mg DAILY PO 07/09/17 08:00 08/08/17 08:59 07/09/17 08:45 15 MG Albuterol/ Ipratropium (Duoneb) 3 ml TID PRN INH 07/08/17 14:15 08/07/17 14:14 Ampicillin Sodium/ Sulbactam Sodium (Consult) 1 ea UD PRN N/A 07/08/17 16:00 08/07/17 15:59 Aspirin (Ecotrin Tab) 81 mg QAM PO 07/09/17 08:00 08/08/17 08:59 07/09/17 08:48 81 MG Ampicillin Sodium/ Sulbactam Sodium 3000 mg/Sodium Chloride 108 ml @ 200 mls/hr Q6H IV 07/09/17 16:00 07/15/17 23:59 07/09/17 16:04 200 MLS/HR Enteral Nutritional Formula (Boost Pudding) 1 cup TID PO 07/09/17 14:00 08/08/17 13:59
[2017-07-09 19:42] VITALS: PULSE 84; O2SAT 96
[2017-07-09] MEDS: MIRTAZAPINE SOLTAB 15 MG PO SCH (20:32)
[2017-07-09] MEDS: TAMSULOSIN HCL 0.4 MG CAP PO SCH (20:32)
[2017-07-09 22:59] VITALS: BP 122/65; PULSE 71; TEMP 36.5; O2SAT 96
[2017-07-10] VITALS: O2SAT 96
[2017-07-10] MEDS: AMPICILLIN/SULBACTAM SOD INJ 3,000 MG in SODIUM CHLORIDE 0.9% 100ML 100 ML IV SCH ×4 (03:26→22:04)
[2017-07-10] MEDS: SODIUM CHLORIDE 0.9% 1000ML 1,000 ML IV SCH ×3 (03:28→21:05)
[2017-07-10] MEDS: HEPARIN SOD 5000 UNIT/0.5 ML CARP SQ SCH ×3 (05:53→21:15)
[2017-07-10 06:23] LABS: CALCIUM 8.1 mg/dl (8.5-10.1); CREATININE 0.92 mg/dl (0.60-1.40); POTASSIUM 3.4 mmol/L (3.5-5.1)
[2017-07-10] MEDS: BUDESONIDE 0.5 MG/2 ML VIAL (PULMICORT) INH SCH (07:10)
[2017-07-10] MEDS: FORMOTEROL FUMA NEBULIZER SOLN 20 MCG/2 ML VIAL INH SCH (07:12)
[2017-07-10 07:13] VITALS: PULSE 79; O2SAT 96
[2017-07-10 07:21] VITALS: BP 106/57; PULSE 90; TEMP 36.4; O2SAT 94
[2017-07-10] MEDS: ASPIRIN 81 MG ECTAB PO SCH (09:18)
[2017-07-10] MEDS: GUAIFENESIN 600 MG TABCR PO SCH ×2 (09:18→21:08)
[2017-07-10] MEDS: ATORVASTATIN 20 MG TAB PO SCH (09:18)
[2017-07-10] MEDS: SODIUM CHLORIDE 0.65% NA SOLN 45 ML (OCEAN) NAE SCH (09:18)
[2017-07-10] MEDS: FLUTICASONE PROPIONATE NA SPR 16 GM BTL NAE SCH (09:18)
[2017-07-10] MEDS: SODIUM CHLORIDE 5% OP SOLN 15 ML BTL OPB SCH ×2 (09:19→21:05)
[2017-07-10] MEDS: PANTOprazole SOD 40 MG TAB PO SCH (09:19)
[2017-07-10] MEDS: OXYBUTYNIN CHLORIDE 5 MG TABCR PO SCH (09:19)
[2017-07-10] MEDS: LORATADINE 10 MG TAB PO SCH (09:19)
[2017-07-10] MEDS: FINASTERIDE 5 MG TAB PO SCH (09:19)
[2017-07-10] MEDS: BOOST VANILLA PUDDING CUP PO SCH ×3 (10:02→21:10)
[2017-07-10] MEDS: GUAIFENESIN/DEXTROM SYRUP 100MG/10MG 5ML UDC PO PRN (10:03)
[2017-07-10 15:09] VITALS: BP 114/68; PULSE 94; TEMP 36.7; O2SAT 92
--- NOTE | 2017-07-10 18:22 | Progress Note ---
Medicine Progress Note Date & Time of Visit: Jul 10, 2017 at 18:22. Subjective Patient denies any complaints; denies any CP or SOB. Tolerating PO. Is a poor historian but is at baseline. No overnight events noted. Occasional coughing noted but patient does not expectorate any phlegm. Objective Last 8 Hrs Date Time Temp Pulse Resp B/P (MAP) Pulse Ox O2 Delivery O2 Flow Rate FiO2 07/10/17 16:00 Nasal Cannula 2.0 07/10/17 15:09 36.7 94 20 114/68 (83) 92 Room Air Physical Exam: GENERAL: Patient is in no acute distress. HEENT: No acute trauma, normocephalic, mucous membranes moist, no nasal congestion, no scleral icterus. NECK: No stridor, trachea is midline. LUNGS: Coarse breath sounds bilaterally, no wheeze, no rhonchi, breath sounds equal. HEART: Without murmurs gallops or rubs, regular rate and rhythm. ABDOMEN: Soft, nontender, bowel sounds positive, no hepatosplenomegaly EXTREMITIES: No cyanosis or edema, full range of motion of all the joints without pain or difficulty, no signs for acute trauma. NEUROLOGIC: Oriented, no acute motor or sensory deficits, no focal weakness. SKIN: No rash, no jaundice, no diaphoresis. Laboratory Results: Last 24 Hours Test 07/10/17 05:34 Sodium Level 147 mmol/L Potassium Level 3.4 mmol/L Chloride Level 114 mmol/L Carbon Dioxide Level 28 mmol/L Anion Gap 5.0 mmol/L Blood Urea Nitrogen 26 mg/dl Creatinine 0.92 mg/dl Est Creatinine Clear Calc Drug Dose 41.8 ml/min Estimated GFR () 86.4 Estimated GFR (Non- 74.5 BUN/Creatinine Ratio 27.9 Random Glucose 81 mg/dl Calcium Level 8.1 mg/dl Magnesium Level 1.9 mg/dl Assessment & Plan PNEUMONIA: likely aspiration pneumonia -Fever, cough, SOB, with known interstitial fibrosis -Flu Ag negative -on Unasyn empirically -blood cultures no growth thus far -IV fluids -continued on nebs, inhalers, mucinex -oxygen therapy, at baseline requirements of 2L [place] MICHELINE on CKD Stage II: -Likely caused by poor po intake -Cr of 1.5 (baseline ~ 0.8)-->1.18-->0.9 today -IV fluids -monitor -Hold triamterene/hctz HTN: -held meds secondary to MICHELINE, resume when BP improves if needed -monitor HYPERLIPIDEMIA: -continue statin Nocturnal hypoxia: -Supplemental O2 as needed BPH: -has history of urinary incontinence -continue home tamsulosin, oxybutynin History of recurrent aspiration: -on pudding consistency food, nectar thick liquids -medications generally given in pudding Dispo: Medically stable for transfer back to [facility] with hospice care when able to accept pt. Current Inpatient Medications: Current Inpatient Medications Medications (Trade) Dose Ordered Sig/Braulio Route Start Time Stop Time Status Last Admin Dose Admin Heparin Sodium (Porcine) (Heparin Sq 5000 Unit/0.5ml) 5,000 unit Q8 SQ 07/08/17 22:00 08/07/17 21:59 07/10/17 14:37 5,000 UNIT Sodium Chloride 1,000 ml @ 100 mls/hr Q10H IV 07/08/17 12:04 08/07/17 12:03 07/10/17 09:34 100 MLS/HR Al Hydrox/Mg Hydrox/Simethicone (Maalox Max Susp) 15 ml Q4H PRN PO 07/08/17 12:15 08/07/17 12:14 Magnesium Hydroxide (Milk Of Magnesia Susp) 30 ml Q12H PRN PO 07/08/17 12:15 08/07/17 12:14 Ondansetron HCl (Zofran Inj) 4 mg Q6H PRN IV 07/08/17 12:15 08/07/17 12:14 Nitroglycerin (Nitrostat Tab) 0.4 mg UD PRN SL 07/08/17 12:15 08/07/17 12:14 Polyethylene (Miralax Powder Packet) 17 gm DAILY PRN PO 07/08/17 12:15 08/07/17 12:14 Acetaminophen (Tylenol Tab) 650 mg Q6 PRN PO 07/08/17 14:00 08/07/17 13:59 Atorvastatin Calcium (Lipitor Tab) 20 mg DAILY PO 07/09/17 08:00 08/08/17 08:59 07/10/17 09:18 20 MG Guaifenesin/ Dextromethorphan (Robitussin-Dm Syrup) 10 ml Q6H PRN PO 07/08/17 16:00 2/24/18 15:59 07/10/17 10:03 10 ML Finasteride (Proscar Tab) 5 mg DAILY PO 07/09/17 08:00 08/08/17 08:59 07/10/17 09:19 5 MG Fluticasone Propionate (Flonase Nasal [place]) 2 sprays DAILY PRANEETH 07/09/17 08:00 08/08/17 08:59 07/10/17 09:18 2 SPRAYS Guaifenesin (Mucinex Contr Rel Tab) 600 mg BID PO 07/08/17 20:00 08/07/17 20:59 07/10/17 09:18 600 MG Loratadine (Claritin Tab) 10 mg DAILY PO 07/09/17 08:00 08/08/17 08:59 07/10/17 09:19 10 MG Sodium Chloride ([place] Nasal [place]) 2 sprays DAILY PRANEETH 07/09/17 08:00 08/08/17 08:59 07/10/17 09:18 2 SPRAYS Sodium Chloride ([place] 128 Oph Soln) 1 drops BID OPB 07/08/17 20:00 08/07/17 20:59 07/10/17 09:19 1 DROPS Tamsulosin HCl (Flomax Cap) 0.4 mg HS PO 07/08/17 21:00 08/07/17 20:59 07/09/17 20:32 0.4 MG Mirtazapine (Remeron Solutab) 15 mg HS PO 07/08/17 21:00 08/07/17 20:59 07/09/17 20:32 15 MG Pantoprazole Sodium (Protonix Tab) 40 mg QAM PO 07/09/17 08:00 08/08/17 08:59 07/10/17 09:19 40 MG Oxybutynin Chloride (Ditropan-Xl Tab) 15 mg DAILY PO 07/09/17 08:00 08/08/17 08:59 07/10/17 09:19 15 MG Albuterol/ Ipratropium (Duoneb) 3 ml TID PRN INH 07/08/17 14:15 08/07/17 14:14 Ampicillin Sodium/ Sulbactam Sodium (Consult) 1 ea UD PRN N/A 07/08/17 16:00 08/07/17 15:59 Aspirin (Ecotrin Tab) 81 mg QAM PO 07/09/17 08:00 08/08/17 08:59 07/10/17 09:18 81 MG Ampicillin Sodium/ Sulbactam Sodium 3000 mg/Sodium Chloride 108 ml @ 200 mls/hr Q6H IV 07/09/17 16:00 07/15/17 23:59 07/10/17 17:04 200 MLS/HR Enteral Nutritional Formula (Boost Pudding) 1 cup TID PO 07/09/17 14:00 08/08/17 13:59 07/10/17 14:29 1 CUP Budesonide (Pulmicort Respules 0.5MG/ 2ML Neb Soln) 0.5 mg BIDR INH 07/10/17 20:00 08/07/17 19:59 Formoterol Fumarate (Perforomist 20MCG/2ML Neb Soln) 20 mcg BIDR INH 07/10/17 20:00 08/07/17 19:59
[2017-07-10] MEDS: MIRTAZAPINE SOLTAB 15 MG PO SCH (21:07)
[2017-07-10] MEDS: TAMSULOSIN HCL 0.4 MG CAP PO SCH (21:07)
[2017-07-10 23:10] VITALS: BP 137/77; PULSE 92; TEMP 36.6; O2SAT 91
[2017-07-11] VITALS: O2SAT 96
[2017-07-11] MEDS: HEPARIN SOD 5000 UNIT/0.5 ML CARP SQ SCH ×3 (05:41→21:05)
[2017-07-11] MEDS: AMPICILLIN/SULBACTAM SOD INJ 3,000 MG in SODIUM CHLORIDE 0.9% 100ML 100 ML IV SCH ×2 (05:48→09:34)
[2017-07-11 07:20] LABS: CALCIUM 7.8 mg/dl (8.5-10.1); CREATININE 0.88 mg/dl (0.60-1.40)
[2017-07-11 07:22] VITALS: BP 147/82; PULSE 92; TEMP 36.8; O2SAT 90
[2017-07-11] MEDS: FORMOTEROL FUMA NEBULIZER SOLN 20 MCG/2 ML VIAL INH SCH ×2 (07:32→19:10)
[2017-07-11 07:33] VITALS: PULSE 82; O2SAT 93
[2017-07-11] MEDS: BUDESONIDE 0.5 MG/2 ML VIAL (PULMICORT) INH SCH ×2 (07:33→19:11)
[2017-07-11] MEDS: SODIUM CHLORIDE 0.65% NA SOLN 45 ML (OCEAN) NAE SCH (09:24)
[2017-07-11] MEDS: SODIUM CHLORIDE 5% OP SOLN 15 ML BTL OPB SCH ×2 (09:24→20:56)
[2017-07-11] MEDS: SODIUM CHLORIDE 0.9% 1000ML 1,000 ML IV SCH (09:24)
[2017-07-11] MEDS: FLUTICASONE PROPIONATE NA SPR 16 GM BTL NAE SCH (09:25)
[2017-07-11] MEDS: ASPIRIN 81 MG ECTAB PO SCH (09:25)
[2017-07-11] MEDS: LORATADINE 10 MG TAB PO SCH (09:25)
[2017-07-11] MEDS: FINASTERIDE 5 MG TAB PO SCH (09:25)
[2017-07-11] MEDS: OXYBUTYNIN CHLORIDE 5 MG TABCR PO SCH (09:26)
[2017-07-11] MEDS: GUAIFENESIN 600 MG TABCR PO SCH ×2 (09:26→21:00)
[2017-07-11] MEDS: ATORVASTATIN 20 MG TAB PO SCH (09:26)
[2017-07-11] MEDS: PANTOprazole SOD 40 MG TAB PO SCH (09:26)
[2017-07-11] MEDS: BOOST VANILLA PUDDING CUP PO SCH ×3 (10:47→20:56)
[2017-07-11] MEDS ORDERED: MAGNESIUM SULFATE 1GM / D5W 1 GM in PREMIXED IN D5W 100 ML IV ONE (11:30)
[2017-07-11 15:01] VITALS: BP 115/72; PULSE 116; TEMP 36.3; O2SAT 93
[2017-07-11] MEDS: AMOXICILLIN/CLAVULANATE TAB 875 MG TAB PO SCH (16:58)
--- NOTE | 2017-07-11 18:04 | Progress Note ---
Medicine Progress Note Date & Time of Visit: Jul 11, 2017 at 18:04. Subjective Patient doing ok, no overnight events noted. Denies any complaints. Has been tolerating PO without difficulty. Minimal cough. Objective Last 8 Hrs Date Time Temp Pulse Resp B/P (MAP) Pulse Ox O2 Delivery O2 Flow Rate FiO2 07/11/17 16:00 Room Air 07/11/17 15:01 36.3 116 18 115/72 (86) 93 Room Air Physical Exam: GENERAL: Patient is in no acute distress. HEENT: No acute trauma, normocephalic, mucous membranes moist, no nasal congestion, no scleral icterus. NECK: No stridor, trachea is midline. LUNGS: Coarse breath sounds bilaterally, no wheeze, no rhonchi, breath sounds equal. HEART: Without murmurs gallops or rubs, regular rate and rhythm. ABDOMEN: Soft, nontender, bowel sounds positive, no hepatosplenomegaly EXTREMITIES: No cyanosis or edema, no signs for acute trauma. NEUROLOGIC: Oriented, no acute motor or sensory deficits, no focal weakness. SKIN: No rash, no jaundice, no diaphoresis. Laboratory Results: Last 24 Hours Test 07/11/17 06:27 Sodium Level 144 mmol/L Potassium Level 3.0 mmol/L Chloride Level 113 mmol/L Carbon Dioxide Level 25 mmol/L Anion Gap 6.0 mmol/L Blood Urea Nitrogen 19 mg/dl Creatinine 0.88 mg/dl Est Creatinine Clear Calc Drug Dose 43.7 ml/min Estimated GFR () 89.5 Estimated GFR (Non- 77.2 BUN/Creatinine Ratio 21.3 Random Glucose 83 mg/dl Calcium Level 7.8 mg/dl Magnesium Level 1.5 mg/dl Assessment & Plan PNEUMONIA: likely aspiration pneumonia -Fever, cough, SOB, with known interstitial fibrosis -Flu Ag negative -on Unasyn empirically, day#3 -blood cultures no growth thus far -IV fluids stopped today -continued on nebs, inhalers, mucinex -oxygen therapy, at baseline requirements of 2L [place] MICHELINE on CKD Stage II: -Likely caused by poor po intake -Cr of 1.5 (baseline ~ 0.8)-->1.18-->0.9-->0.8 today -IV fluids stopped -monitor -Hold triamterene/hctz HTN: -held meds secondary to MICHELINE, resume when BP improves if needed -monitor HYPERLIPIDEMIA: -continue statin Nocturnal hypoxia: -Supplemental O2 as needed BPH: -has history of urinary incontinence -continue home tamsulosin, oxybutynin History of recurrent aspiration: -on pudding consistency food, nectar thick liquids -medications generally given in pudding Dispo: Medically stable for transfer back to [facility] with hospice care when able to accept pt. Current Inpatient Medications: Current Inpatient Medications Medications (Trade) Dose Ordered Sig/Braulio Route Start Time Stop Time Status Last Admin Dose Admin Heparin Sodium (Porcine) (Heparin Sq 5000 Unit/0.5ml) 5,000 unit Q8 SQ 07/08/17 22:00 08/07/17 21:59 07/11/17 14:17 5,000 UNIT Al Hydrox/Mg Hydrox/Simethicone (Maalox Max Susp) 15 ml Q4H PRN PO 07/08/17 12:15 08/07/17 12:14 Magnesium Hydroxide (Milk Of Magnesia Susp) 30 ml Q12H PRN PO 07/08/17 12:15 08/07/17 12:14 Ondansetron HCl (Zofran Inj) 4 mg Q6H PRN IV 07/08/17 12:15 08/07/17 12:14 Nitroglycerin (Nitrostat Tab) 0.4 mg UD PRN SL 07/08/17 12:15 08/07/17 12:14 Polyethylene (Miralax Powder Packet) 17 gm DAILY PRN PO 07/08/17 12:15 08/07/17 12:14 Acetaminophen (Tylenol Tab) 650 mg Q6 PRN PO 07/08/17 14:00 08/07/17 13:59 Atorvastatin Calcium (Lipitor Tab) 20 mg DAILY PO 07/09/17 08:00 08/08/17 08:59 07/11/17 09:26 20 MG Guaifenesin/ Dextromethorphan (Robitussin-Dm Syrup) 10 ml Q6H PRN PO 07/08/17 16:00 08/07/17 15:59 07/10/17 10:03 10 ML Finasteride (Proscar Tab) 5 mg DAILY PO 07/09/17 08:00 08/08/17 08:59 07/11/17 09:25 5 MG Fluticasone Propionate (Flonase Nasal [place]) 2 sprays DAILY PRANEETH 07/09/17 08:00 08/08/17 08:59 07/11/17 09:25 2 SPRAYS Guaifenesin (Mucinex Contr Rel Tab) 600 mg BID PO 07/08/17 20:00 08/07/17 20:59 07/11/17 09:26 600 MG Loratadine (Claritin Tab) 10 mg DAILY PO 07/09/17 08:00 08/08/17 08:59 07/11/17 09:25 10 MG Sodium Chloride ([place] Nasal [place]) 2 sprays DAILY PRANEETH 07/09/17 08:00 08/08/17 08:59 07/11/17 09:24 2 SPRAYS Sodium Chloride ([place] 128 Oph Soln) 1 drops BID OPB 07/08/17 20:00 08/07/17 20:59 07/11/17 09:24 1 DROPS Tamsulosin HCl (Flomax Cap) 0.4 mg HS PO 07/08/17 21:00 08/07/17 20:59 07/10/17 21:07 0.4 MG Mirtazapine (Remeron Solutab) 15 mg HS PO 07/08/17 21:00 08/07/17 20:59 07/10/17 21:07 15 MG Pantoprazole Sodium (Protonix Tab) 40 mg QAM PO 07/09/17 08:00 08/08/17 08:59 07/11/17 09:26 40 MG Oxybutynin Chloride (Ditropan-Xl Tab) 15 mg DAILY PO 07/09/17 08:00 08/08/17 08:59 07/11/17 09:26 15 MG Albuterol/ Ipratropium (Duoneb) 3 ml TID PRN INH 07/08/17 14:15 08/07/17 14:14 Aspirin (Ecotrin Tab) 81 mg QAM PO 07/09/17 08:00 08/08/17 08:59 07/11/17 09:25 81 MG Enteral Nutritional Formula (Boost Pudding) 1 cup TID PO 07/09/17 14:00 08/08/17 13:59 07/11/17 14:14 1 CUP Budesonide (Pulmicort Respules 0.5MG/ 2ML Neb Soln) 0.5 mg BIDR INH 07/10/17 20:00 08/07/17 19:59 07/11/17 07:33 0.5 MG Formoterol Fumarate (Perforomist 20MCG/2ML Neb Soln) 20 mcg BIDR INH 07/10/17 20:00 08/07/17 19:59 07/11/17 07:32 20 MCG Amoxicillin/ Clavulanate Potassium (Augmentin Tab) 875 mg BIDM PO 07/11/17 17:00 07/15/17 23:59 07/11/17 16:58 875 MG
[2017-07-11] MEDS ORDERED: POTASSIUM CHLORIDE 20 MEQ TABCR PO ONE (18:30)
[2017-07-11 19:12] VITALS: PULSE 94; O2SAT 93
[2017-07-11] MEDS: TAMSULOSIN HCL 0.4 MG CAP PO SCH (20:59)
[2017-07-11] MEDS: MIRTAZAPINE SOLTAB 15 MG PO SCH (20:59)
[2017-07-11 22:58] VITALS: BP 148/73; PULSE 84; TEMP 36.5; O2SAT 94
[2017-07-12] VITALS: O2SAT 93
[2017-07-12] MEDS: HEPARIN SOD 5000 UNIT/0.5 ML CARP SQ SCH ×3 (05:33→21:50)
[2017-07-12 07:13] VITALS: BP 145/80; PULSE 79; PULSE 84; TEMP 36.7; O2SAT 90; O2SAT 92
[2017-07-12] MEDS: FORMOTEROL FUMA NEBULIZER SOLN 20 MCG/2 ML VIAL INH SCH ×2 (07:13→19:13)
[2017-07-12] MEDS: BUDESONIDE 0.5 MG/2 ML VIAL (PULMICORT) INH SCH ×2 (07:13→19:14)
[2017-07-12 07:28] LABS: CALCIUM 8.1 mg/dl (8.5-10.1); CREATININE 0.89 mg/dl (0.60-1.40); POTASSIUM 3.6 mmol/L (3.5-5.1)
[2017-07-12] MEDS: SODIUM CHLORIDE 0.65% NA SOLN 45 ML (OCEAN) NAE SCH (07:45)
[2017-07-12] MEDS: SODIUM CHLORIDE 5% OP SOLN 15 ML BTL OPB SCH ×2 (07:45→19:41)
[2017-07-12] MEDS: GUAIFENESIN 600 MG TABCR PO SCH ×2 (07:45→19:41)
[2017-07-12] MEDS: FLUTICASONE PROPIONATE NA SPR 16 GM BTL NAE SCH (07:45)
[2017-07-12] MEDS: ASPIRIN 81 MG ECTAB PO SCH (07:45)
[2017-07-12] MEDS: ATORVASTATIN 20 MG TAB PO SCH (07:46)
[2017-07-12] MEDS: LORATADINE 10 MG TAB PO SCH (07:46)
[2017-07-12] MEDS: AMOXICILLIN/CLAVULANATE TAB 875 MG TAB PO SCH ×2 (07:46→18:03)
[2017-07-12] MEDS: OXYBUTYNIN CHLORIDE 5 MG TABCR PO SCH (07:46)
[2017-07-12] MEDS: FINASTERIDE 5 MG TAB PO SCH (07:46)
[2017-07-12] MEDS: POTASSIUM CHLORIDE 20 MEQ TABCR PO SCH (07:46)
[2017-07-12] MEDS: BOOST VANILLA PUDDING CUP PO SCH ×3 (07:47→19:49)
[2017-07-12] MEDS: PANTOprazole SOD 40 MG TAB PO SCH (07:47)
[2017-07-12 14:49] VITALS: BP 143/82; PULSE 99; TEMP 36.8; O2SAT 94
--- NOTE | 2017-07-12 18:31 | Progress Note ---
Medicine Progress Note Date & Time of Visit: Jul 12, 2017 at 18:31. Subjective Patient denies any complaints. Minimally verbal. No overnight events noted. Tolerating PO without difficulty. No coughing/choking. Objective Last 8 Hrs Date Time Temp Pulse Resp B/P (MAP) Pulse Ox O2 Delivery O2 Flow Rate FiO2 07/12/17 16:10 18 07/12/17 16:08 Room Air 07/12/17 14:49 36.8 99 20 143/82 (102) 94 Room Air Physical Exam: GENERAL: Patient is in no acute distress. HEENT: No acute trauma, normocephalic, mucous membranes moist, no nasal congestion, no scleral icterus. NECK: No stridor, trachea is midline. LUNGS: Coarse breath sounds bilaterally, no wheeze, no rhonchi, breath sounds equal. HEART: Without murmurs gallops or rubs, regular rate and rhythm. ABDOMEN: Soft, nontender, bowel sounds positive, no hepatosplenomegaly EXTREMITIES: No cyanosis or edema, no signs for acute trauma. NEUROLOGIC: Oriented, no acute motor or sensory deficits, no focal weakness. SKIN: No rash, no jaundice, no diaphoresis. Laboratory Results: Last 24 Hours Test 07/12/17 06:10 Sodium Level 143 mmol/L Potassium Level 3.6 mmol/L Chloride Level 112 mmol/L Carbon Dioxide Level 24 mmol/L Anion Gap 7.0 mmol/L Blood Urea Nitrogen 16 mg/dl Creatinine 0.89 mg/dl Est Creatinine Clear Calc Drug Dose 43.2 ml/min Estimated GFR () 89.1 Estimated GFR (Non- 76.9 BUN/Creatinine Ratio 18.3 Random Glucose 83 mg/dl Calcium Level 8.1 mg/dl Magnesium Level 1.8 mg/dl Assessment & Plan PNEUMONIA: likely aspiration pneumonia -Fever, cough, SOB, with known interstitial fibrosis -Flu Ag negative -on Unasyn empirically, day#4 -blood cultures no growth thus far -IV fluids stopped yesterday -continued on nebs, inhalers, mucinex -oxygen therapy, at baseline requirements of 2L [place] MICHELINE on CKD Stage II: -Likely caused by poor po intake -Cr of 1.5 (baseline ~ 0.8)-->1.18-->0.9-->0.8 -IV fluids stopped -monitor -continue to hold triamterene/hctz HTN: -held meds secondary to MICHELINE, resume when BP improves if needed -monitor HYPERLIPIDEMIA: -continue statin Nocturnal hypoxia: -Supplemental O2 as needed BPH: -has history of urinary incontinence -continue home tamsulosin, oxybutynin History of recurrent aspiration: -on pudding consistency food, nectar thick liquids -medications generally given in pudding Dispo: Medically stable for transfer back to [facility] with hospice care when able to accept pt. Updated today that [facility] will not accept the patient and he is therefore now a target of the state and will need to await placement. He is medically stable to transfer when accepted. Current Inpatient Medications: Current Inpatient Medications Medications (Trade) Dose Ordered Sig/Braulio Route Start Time Stop Time Status Last Admin Dose Admin Heparin Sodium (Porcine) (Heparin Sq 5000 Unit/0.5ml) 5,000 unit Q8 SQ 07/08/17 22:00 08/07/17 21:59 07/12/17 14:37 5,000 UNIT Al Hydrox/Mg Hydrox/Simethicone (Maalox Max Susp) 15 ml Q4H PRN PO 07/08/17 12:15 08/07/17 12:14 Magnesium Hydroxide (Milk Of Magnesia Susp) 30 ml Q12H PRN PO 07/08/17 12:15 08/07/17 12:14 Ondansetron HCl (Zofran Inj) 4 mg Q6H PRN IV 07/08/17 12:15 08/07/17 12:14 Nitroglycerin (Nitrostat Tab) 0.4 mg UD PRN SL 07/08/17 12:15 08/07/17 12:14 Polyethylene (Miralax Powder Packet) 17 gm DAILY PRN PO 07/08/17 12:15 08/07/17 12:14 Acetaminophen (Tylenol Tab) 650 mg Q6 PRN PO 07/08/17 14:00 08/07/17 13:59 Atorvastatin Calcium (Lipitor Tab) 20 mg DAILY PO 07/09/17 08:00 08/08/17 08:59 07/12/17 07:46 20 MG Guaifenesin/ Dextromethorphan (Robitussin-Dm Syrup) 10 ml Q6H PRN PO 07/08/17 16:00 08/07/17 15:59 07/10/17 10:03 10 ML Finasteride (Proscar Tab) 5 mg DAILY PO 07/09/17 08:00 08/08/17 08:59 07/12/17 07:46 5 MG Fluticasone Propionate (Flonase Nasal [place]) 2 sprays DAILY PRANEETH 07/09/17 08:00 08/08/17 08:59 07/12/17 07:45 2 SPRAYS Guaifenesin (Mucinex Contr Rel Tab) 600 mg BID PO 07/08/17 20:00 08/07/17 20:59 07/12/17 07:45 600 MG Loratadine (Claritin Tab) 10 mg DAILY PO 07/09/17 08:00 08/08/17 08:59 07/12/17 07:46 10 MG Sodium Chloride ([place] Nasal [place]) 2 sprays DAILY PRANEETH 07/09/17 08:00 08/08/17 08:59 07/12/17 07:45 2 SPRAYS Sodium Chloride ([place] 128 Oph Soln) 1 drops BID OPB 07/08/17 20:00 08/07/17 20:59 07/12/17 07:45 1 DROPS Tamsulosin HCl (Flomax Cap) 0.4 mg HS PO 07/08/17 21:00 08/07/17 20:59 07/11/17 20:59 0.4 MG Mirtazapine (Remeron Solutab) 15 mg HS PO 07/08/17 21:00 08/07/17 20:59 07/11/17 20:59 15 MG Pantoprazole Sodium (Protonix Tab) 40 mg QAM PO 07/09/17 08:00 08/08/17 08:59 07/12/17 07:47 40 MG Oxybutynin Chloride (Ditropan-Xl Tab) 15 mg DAILY PO 07/09/17 08:00 08/08/17 08:59 07/12/17 07:46 15 MG Albuterol/ Ipratropium (Duoneb) 3 ml TID PRN INH 07/08/17 14:15 08/07/17 14:14 Aspirin (Ecotrin Tab) 81 mg QAM PO 07/09/17 08:00 08/08/17 08:59 07/12/17 07:45 81 MG Enteral Nutritional Formula (Boost Pudding) 1 cup TID PO 07/09/17 14:00 08/08/17 13:59 07/12/17 14:00 1 CUP Budesonide (Pulmicort Respules 0.5MG/ 2ML Neb Soln) 0.5 mg BIDR INH 07/10/17 20:00 08/07/17 19:59 07/12/17 07:13 0.5 MG Formoterol Fumarate (Perforomist 20MCG/2ML Neb Soln) 20 mcg BIDR INH 07/10/17 20:00 08/07/17 19:59 07/12/17 07:13 20 MCG Amoxicillin/ Clavulanate Potassium (Augmentin Tab) 875 mg BIDM PO 07/11/17 17:00 07/15/17 23:59 07/12/17 18:03 875 MG Potassium Chloride (Klor-Con Tab) 20 meq QAM PO 07/12/17 08:00 08/11/17 07:59 07/12/17 07:46 20 MEQ
[2017-07-12 19:14] VITALS: PULSE 86; O2SAT 93
[2017-07-12] MEDS: TAMSULOSIN HCL 0.4 MG CAP PO SCH (21:48)
[2017-07-12] MEDS: MIRTAZAPINE SOLTAB 15 MG PO SCH (21:48)
[2017-07-13] VITALS (7 sets, daily range): BP systolic 119–154; BP diastolic 74–85; PULSE 79–102; TEMP 36.5–36.7; O2SAT 91–98
[2017-07-13] MEDS: HEPARIN SOD 5000 UNIT/0.5 ML CARP SQ SCH ×3 (05:57→21:19)
[2017-07-13 07:10] LABS: HEMATOCRIT 36.8 % (42-52); HEMOGLOBIN 11.9 g/dL (14.0-18.0); MEAN CELL VOLUME 97.6 fL (80-100); MEAN CORPUSCULAR HEMOGLOBIN 31.6 pg (25-34); MEAN CORPUSCULAR HGB CONC 32.3 g/dl (32-36); MEAN PLATELET VOLUME 9.7 fL (7.4-10.4); PLATELET COUNT 233 K/uL (130-400); RED CELL DISTRIBUTION WIDTH CV 15.6 % (11.5-14.5); RED CELL DISTRIBUTION WIDTH SD 55.3 fL (36.4-46.3); WHITE BLOOD COUNT 8.97 K/uL (4.8-10.8)
[2017-07-13] MEDS: FORMOTEROL FUMA NEBULIZER SOLN 20 MCG/2 ML VIAL INH SCH ×2 (07:17→20:29)
[2017-07-13] MEDS: BUDESONIDE 0.5 MG/2 ML VIAL (PULMICORT) INH SCH ×2 (07:17→20:29)
[2017-07-13 07:40] LABS: CALCIUM 8.6 mg/dl (8.5-10.1); CREATININE 0.91 mg/dl (0.60-1.40); POTASSIUM 3.5 mmol/L (3.5-5.1)
[2017-07-13] MEDS: BOOST VANILLA PUDDING CUP PO SCH ×3 (08:00→21:19)
[2017-07-13] MEDS: SODIUM CHLORIDE 0.65% NA SOLN 45 ML (OCEAN) NAE SCH (08:11)
[2017-07-13] MEDS: LORATADINE 10 MG TAB PO SCH (08:11)
[2017-07-13] MEDS: OXYBUTYNIN CHLORIDE 5 MG TABCR PO SCH (08:11)
[2017-07-13] MEDS: FLUTICASONE PROPIONATE NA SPR 16 GM BTL NAE SCH (08:11)
[2017-07-13] MEDS: ATORVASTATIN 20 MG TAB PO SCH (08:11)
[2017-07-13] MEDS: SODIUM CHLORIDE 5% OP SOLN 15 ML BTL OPB SCH ×2 (08:11→21:19)
[2017-07-13] MEDS: ASPIRIN 81 MG ECTAB PO SCH (08:12)
[2017-07-13] MEDS: AMOXICILLIN/CLAVULANATE TAB 875 MG TAB PO SCH ×2 (08:12→17:04)
[2017-07-13] MEDS: POTASSIUM CHLORIDE 20 MEQ TABCR PO SCH (08:12)
[2017-07-13] MEDS: GUAIFENESIN 600 MG TABCR PO SCH ×2 (08:12→21:22)
[2017-07-13] MEDS: FINASTERIDE 5 MG TAB PO SCH (08:13)
[2017-07-13] MEDS: PANTOprazole SOD 40 MG TAB PO SCH (08:13)
--- NOTE | 2017-07-13 15:37 | Progress Note ---
Internal Med Progress Note Date of Service: Jul 13, 2017. Provider Documentation: SUBJECTIVE: Seen and examined at bedside Minimally Verbal Denies pain, cough No complaints OBJECTIVE: Vital Signs-as noted below Physical Exam: General Appearance:Moderately built and nourished, no apparent distress Head: normocephalic, Atraumatic Eyes: normal inspection, EOMI, PERRL Neck: supple, Trachea midline Respiratory/Chest: Decreased breath sounds, CTA Cardiovascular: S1, S2, No murmur Abdomen/GI:Soft, Non tender, Bowel sounds present Extremities/Musculoskelatal:normal inspection, 1+ b/l edema Neurologic/Psych:grossly no focal neurological deficits Skin: normal color, warm Lab data as noted below. 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 Cr back to baseline IV fluids discontinued hold triamterene/HCTZ for now HTN: Sable monitor Hyperlipidemia: continue statin Nocturnal hypoxia: Supplemental O2 as needed BPH: has history of urinary incontinence continue tamsulosin, oxybutynin H/O recurrent aspiration: Aspiration precautions on pudding consistency food, nectar thick liquids 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77 4.7-6.1 M/uL Hemoglobin 11.9 14.0-18.0 g/dL Hematocrit 36.8 42-52 % Mean Corpuscular Volume 97.6 80-100 fL Mean Corpuscular Hemoglobin 31.6 25-34 pg Mean Corpuscular Hemoglobin Concent 32.3 32-36 g/dl RDW Standard Deviation 55.3 36.4-46.3 fL RDW Coefficient of Variation 15.6 11.5-14.5 % Platelet Count 233 130-400 K/uL Mean Platelet Volume 9.7 7.4-10.4 fL Sodium Level 143 136-145 mmol/L Potassium Level 3.5 3.5-5.1 mmol/L Chloride Level 113 98-107 mmol/L Carbon Dioxide Level 25 21-32 mmol/L Anion Gap 5.0 3-11 mmol/L Blood Urea Nitrogen 13 7-18 mg/dl Creatinine 0.91 0.60-1.40 mg/dl Est Creatinine Clear Calc Drug Dose 42.2 ml/min Estimated GFR () 87.5 Estimated GFR (Non- 75.5 BUN/Creatinine Ratio 13.8 10-20 Random Glucose 80 70-99 mg/dl Calcium Level 8.6 8.5-10.1 mg/dl Magnesium Level 1.7 1.8-2.4 mg/dl
[2017-07-13] MEDS: MIRTAZAPINE SOLTAB 15 MG PO SCH (21:21)
[2017-07-13] MEDS: MAGNESIUM CHLORIDE 64MG DELAYED REL TAB PO SCH (21:22)
[2017-07-13] MEDS: TAMSULOSIN HCL 0.4 MG CAP PO SCH (21:22)
[2017-07-14] VITALS (7 sets, daily range): BP systolic 107–119; BP diastolic 61–69; PULSE 59–102; TEMP 35.8–36.4; O2SAT 91–94
[2017-07-14] MEDS: HEPARIN SOD 5000 UNIT/0.5 ML CARP SQ SCH ×3 (06:20→20:47)
[2017-07-14] MEDS: BUDESONIDE 0.5 MG/2 ML VIAL (PULMICORT) INH SCH ×2 (07:06→19:20)
[2017-07-14] MEDS: FORMOTEROL FUMA NEBULIZER SOLN 20 MCG/2 ML VIAL INH SCH ×2 (07:06→19:20)
[2017-07-14] MEDS: SODIUM CHLORIDE 5% OP SOLN 15 ML BTL OPB SCH ×2 (07:27→20:37)
[2017-07-14] MEDS: BOOST VANILLA PUDDING CUP PO SCH ×3 (07:27→20:37)
[2017-07-14] MEDS: PANTOprazole SOD 40 MG TAB PO SCH (07:27)
[2017-07-14] MEDS: FLUTICASONE PROPIONATE NA SPR 16 GM BTL NAE SCH (07:27)
[2017-07-14] MEDS: SODIUM CHLORIDE 0.65% NA SOLN 45 ML (OCEAN) NAE SCH (07:27)
[2017-07-14] MEDS: FINASTERIDE 5 MG TAB PO SCH (07:28)
[2017-07-14] MEDS: ATORVASTATIN 20 MG TAB PO SCH (07:28)
[2017-07-14] MEDS: AMOXICILLIN/CLAVULANATE TAB 875 MG TAB PO SCH ×2 (07:28→17:51)
[2017-07-14] MEDS: LORATADINE 10 MG TAB PO SCH (07:28)
[2017-07-14] MEDS: ASPIRIN 81 MG ECTAB PO SCH (07:28)
[2017-07-14] MEDS: MAGNESIUM CHLORIDE 64MG DELAYED REL TAB PO SCH ×2 (07:28→20:39)
[2017-07-14] MEDS: GUAIFENESIN 600 MG TABCR PO SCH ×2 (07:28→20:39)
[2017-07-14] MEDS: OXYBUTYNIN CHLORIDE 5 MG TABCR PO SCH (07:28)
[2017-07-14] MEDS: POTASSIUM CHLORIDE 20 MEQ TABCR PO SCH (07:29)
[2017-07-14 08:39] LABS: CALCIUM 9.2 mg/dl (8.5-10.1); CREATININE 0.99 mg/dl (0.60-1.40); POTASSIUM 3.6 mmol/L (3.5-5.1)
--- NOTE | 2017-07-14 12:28 | Progress Note ---
Internal Med Progress Note Date of Service: Jul 14, 2017. Provider Documentation: SUBJECTIVE: Seen and examined at bedside Minimally Verbal Denies pain, SOB No issues per staff OBJECTIVE: Vital Signs-as noted below Physical Exam: General Appearance:Moderately built and nourished, no apparent distress Head: normocephalic, Atraumatic Eyes: normal inspection, EOMI, PERRL Neck: supple, Trachea midline Respiratory/Chest: Decreased breath sounds, CTA Cardiovascular: S1, S2, No murmur Abdomen/GI:Soft, Non tender, Bowel sounds present Extremities/Musculoskelatal:normal inspection, 1+ b/l edema Neurologic/Psych:grossly no focal neurological deficits Skin: normal color, warm Lab data as noted below. 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 Cr back to baseline IV fluids discontinued hold triamterene/HCTZ for now HTN: stable monitor Hyperlipidemia: continue statin Nocturnal hypoxia: Supplemental O2 as needed BPH: has history of urinary incontinence continue tamsulosin, oxybutynin H/O recurrent aspiration: Aspiration precautions on pudding consistency food, nectar thick liquids H/O Delayed Mental Ability lives at shelter Needs placement DVT Px: Heparin SQ Code Satus: DNR Disposition: Medically stable for discharge Awaiting for placement PT/OT, software engineer web services on board Vital Signs: Date Time Temp Pulse Resp B/P (MAP) Pulse Ox O2 Delivery O2 Flow Rate FiO2 07/14/17 08:49 92 Room Air 07/14/17 08:00 Room Air 07/14/17 07:16 36.3 77 18 113/61 (78) 92 Room Air 07/14/17 07:07 59 16 91 Room Air 07/14/17 00:30 Room Air 07/13/17 23:05 36.6 79 20 154/78 (103) 95 Room Air 07/13/17 20:30 81 16 92 Room Air 07/13/17 16:23 36.5 102 20 135/85 (102) 92 Room Air 07/13/17 15:50 Room Air Lab Results: Results Past 24 Hours Test 07/14/17 07:48 Range/Units Sodium Level 144 136-145 mmol/L Potassium Level 3.6 3.5-5.1 mmol/L Chloride Level 113 98-107 mmol/L Carbon Dioxide Level 23 21-32 mmol/L Anion Gap 8.0 3-11 mmol/L Blood Urea Nitrogen 14 7-18 mg/dl Creatinine 0.99 0.60-1.40 mg/dl Est Creatinine Clear Calc Drug Dose 38.8 ml/min Estimated GFR () 79.0 Estimated GFR (Non- 68.2 BUN/Creatinine Ratio 13.7 10-20 Random Glucose 84 70-99 mg/dl Calcium Level 9.2 8.5-10.1 mg/dl Magnesium Level 1.8 1.8-2.4 mg/dl
[2017-07-14] MEDS: TAMSULOSIN HCL 0.4 MG CAP PO SCH (20:39)
[2017-07-14] MEDS: MIRTAZAPINE SOLTAB 15 MG PO SCH (20:39)
[2017-07-15] MEDS: HEPARIN SOD 5000 UNIT/0.5 ML CARP SQ SCH ×3 (05:42→20:40)
[2017-07-15 06:19] LABS: HEMOGLOBIN 11.9 g/dL (14.0-18.0)
[2017-07-15 06:57] LABS: CALCIUM 9.2 mg/dl (8.5-10.1); CREATININE 1.01 mg/dl (0.60-1.40); POTASSIUM 3.8 mmol/L (3.5-5.1)
[2017-07-15] MEDS: BUDESONIDE 0.5 MG/2 ML VIAL (PULMICORT) INH SCH ×2 (07:13→19:40)
[2017-07-15] MEDS: FORMOTEROL FUMA NEBULIZER SOLN 20 MCG/2 ML VIAL INH SCH ×2 (07:13→19:40)
[2017-07-15 07:15] VITALS: PULSE 71; O2SAT 90
[2017-07-15 07:41] VITALS: BP 111/72; PULSE 70; TEMP 36.6; O2SAT 92
[2017-07-15] MEDS: SODIUM CHLORIDE 0.65% NA SOLN 45 ML (OCEAN) NAE SCH (08:12)
[2017-07-15] MEDS: BOOST VANILLA PUDDING CUP PO SCH ×2 (08:13→19:19)
[2017-07-15] MEDS: AMOXICILLIN/CLAVULANATE TAB 875 MG TAB PO SCH ×2 (08:13→17:01)
[2017-07-15] MEDS: FLUTICASONE PROPIONATE NA SPR 16 GM BTL NAE SCH (08:13)
[2017-07-15] MEDS: GUAIFENESIN 600 MG TABCR PO SCH ×2 (08:14→20:30)
[2017-07-15] MEDS: LORATADINE 10 MG TAB PO SCH (08:14)
[2017-07-15] MEDS: POTASSIUM CHLORIDE 20 MEQ TABCR PO SCH (08:14)
[2017-07-15] MEDS: SODIUM CHLORIDE 5% OP SOLN 15 ML BTL OPB SCH ×2 (08:14→20:30)
[2017-07-15] MEDS: ATORVASTATIN 20 MG TAB PO SCH (08:15)
[2017-07-15] MEDS: PANTOprazole SOD 40 MG TAB PO SCH (08:15)
[2017-07-15] MEDS: FINASTERIDE 5 MG TAB PO SCH (08:15)
[2017-07-15] MEDS: OXYBUTYNIN CHLORIDE 5 MG TABCR PO SCH (08:15)
[2017-07-15] MEDS: ASPIRIN 81 MG ECTAB PO SCH (08:15)
[2017-07-15] MEDS: MAGNESIUM CHLORIDE 64MG DELAYED REL TAB PO SCH ×2 (08:16→20:31)
[2017-07-15 15:13] VITALS: BP 124/75; PULSE 103; TEMP 36.6; O2SAT 96
[2017-07-15 16:00] VITALS: O2SAT 96
--- NOTE | 2017-07-15 17:12 | Progress Note ---
Internal Med Progress Note Date of Service: Jul 15, 2017. Provider Documentation: SUBJECTIVE: Seen and examined at bedside Doing well No complaints Minimally Verbal Denies pain, SOB No issues per staff OBJECTIVE: Vital Signs-as noted below Physical Exam: General Appearance:Moderately built and nourished, no apparent distress Head: normocephalic, Atraumatic Eyes: normal inspection, EOMI, PERRL Neck: supple, Trachea midline Respiratory/Chest: Decreased breath sounds, CTA Cardiovascular: S1, S2, No murmur Abdomen/GI:Soft, Non tender, Bowel sounds present Extremities/Musculoskelatal:normal inspection, 1+ b/l edema Neurologic/Psych:grossly no focal neurological deficits Skin: normal color, warm Lab data as noted below. 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 Cr back to baseline IV fluids discontinued Resume diuretics tomorrow HTN: stable Continue usual meds monitor Hyperlipidemia: continue statin Nocturnal hypoxia: Supplemental O2 as needed BPH: has history of urinary incontinence continue tamsulosin, oxybutynin H/O recurrent aspiration: Aspiration precautions on pudding consistency food, nectar thick liquids H/O Delayed Mental Ability lives at [facility] Needs placement DVT Px: Heparin SQ Code Satus: DNR Disposition: Medically stable for discharge Awaiting for placement PT/OT, conference services director on board Vital Signs: Date Time Temp Pulse Resp B/P (MAP) Pulse Ox O2 Delivery O2 Flow Rate FiO2 07/15/17 15:13 36.6 103 18 124/75 (91) 96 Room Air 07/15/17 08:00 Room Air 07/15/17 07:41 36.6 70 16 111/72 (85) 92 Room Air 07/15/17 07:15 71 16 90 Room Air 07/15/17 00:00 Room Air 07/14/17 22:51 36.4 89 20 119/64 (82) 92 07/14/17 19:20 78 16 93 Room Air Lab Results: Results Past 24 Hours Test 07/15/17 05:49 Range/Units Hemoglobin 11.9 14.0-18.0 g/dL Hematocrit 37.0 42-52 % Sodium Level 141 136-145 mmol/L Potassium Level 3.8 3.5-5.1 mmol/L Chloride Level 111 98-107 mmol/L Carbon Dioxide Level 26 21-32 mmol/L Anion Gap 4.0 3-11 mmol/L Blood Urea Nitrogen 17 7-18 mg/dl Creatinine 1.01 0.60-1.40 mg/dl Est Creatinine Clear Calc Drug Dose 38.0 ml/min Estimated GFR () 77.2 Estimated GFR (Non- 66.6 BUN/Creatinine Ratio 16.5 10-20 Random Glucose 81 70-99 mg/dl Calcium Level 9.2 8.5-10.1 mg/dl Magnesium Level 1.7 1.8-2.4 mg/dl
[2017-07-15] MEDS ORDERED: MAGNESIUM OXIDE 400 MG TAB PO ONE (17:15)
[2017-07-15 19:40] VITALS: PULSE 85; O2SAT 96
[2017-07-15] MEDS: TAMSULOSIN HCL 0.4 MG CAP PO SCH (20:32)
[2017-07-15] MEDS: MIRTAZAPINE SOLTAB 15 MG PO SCH (20:32)
[2017-07-15 23:31] VITALS: BP 127/69; PULSE 72; TEMP 36.6; O2SAT 95
[2017-07-16] VITALS (7 sets, daily range): BP systolic 110–135; BP diastolic 62–74; PULSE 65–78; TEMP 36.6–36.8; O2SAT 92–93
[2017-07-16] MEDS: HEPARIN SOD 5000 UNIT/0.5 ML CARP SQ SCH ×3 (05:27→20:55)
[2017-07-16] MEDS: FORMOTEROL FUMA NEBULIZER SOLN 20 MCG/2 ML VIAL INH SCH ×2 (07:45→19:16)
[2017-07-16] MEDS: BUDESONIDE 0.5 MG/2 ML VIAL (PULMICORT) INH SCH ×2 (07:45→19:16)
[2017-07-16 07:56] LABS: CALCIUM 9.4 mg/dl (8.5-10.1); CREATININE 0.99 mg/dl (0.60-1.40)
[2017-07-16] MEDS: SODIUM CHLORIDE 0.65% NA SOLN 45 ML (OCEAN) NAE SCH (08:20)
[2017-07-16] MEDS: LORATADINE 10 MG TAB PO SCH (08:21)
[2017-07-16] MEDS: BOOST VANILLA PUDDING CUP PO SCH ×2 (08:21→20:52)
[2017-07-16] MEDS: OXYBUTYNIN CHLORIDE 5 MG TABCR PO SCH (08:21)
[2017-07-16] MEDS: FLUTICASONE PROPIONATE NA SPR 16 GM BTL NAE SCH (08:21)
[2017-07-16] MEDS: SODIUM CHLORIDE 5% OP SOLN 15 ML BTL OPB SCH ×2 (08:21→20:52)
[2017-07-16] MEDS: ATORVASTATIN 20 MG TAB PO SCH (08:22)
[2017-07-16] MEDS: POTASSIUM CHLORIDE 20 MEQ TABCR PO SCH (08:22)
[2017-07-16] MEDS: ASPIRIN 81 MG ECTAB PO SCH (08:22)
[2017-07-16] MEDS: TRIAMTERENE/HCTZ 37.5/25MG TAB PO SCH (08:23)
[2017-07-16] MEDS: PANTOprazole SOD 40 MG TAB PO SCH (08:24)
[2017-07-16] MEDS: MAGNESIUM CHLORIDE 64MG DELAYED REL TAB PO SCH ×2 (08:25→20:55)
[2017-07-16] MEDS: FINASTERIDE 5 MG TAB PO SCH (08:25)
[2017-07-16] MEDS ORDERED: NURSING VERBAL MED ORDER ONE (08:30)
[2017-07-16] MEDS: GUAIFENESIN 600 MG TABCR PO SCH ×2 (09:00→20:53)
[2017-07-16] MEDS ORDERED: MICONAZOLE NITRATE POWDER 43 GM EXT PRN (09:30)
--- NOTE | 2017-07-16 15:42 | Progress Note ---
Internal Med Progress Note Date of Service: Jul 16, 2017. Provider Documentation: SUBJECTIVE: Seen and examined at bedside No complaints Minimally Verbal Denies pain, SOB OBJECTIVE: Vital Signs-as noted below Physical Exam: General Appearance:Moderately built and nourished, no apparent distress Head: normocephalic, Atraumatic Eyes: normal inspection, EOMI, PERRL Neck: supple, Trachea midline Respiratory/Chest: Decreased breath sounds, Basal Creps Cardiovascular: S1, S2, No murmur Abdomen/GI:Soft, Non tender, Bowel sounds present Extremities/Musculoskelatal:normal inspection, 1+ b/l edema Neurologic/Psych:grossly no focal neurological deficits Skin: normal color, warm Lab data as noted below. 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 Cr back to baseline Monitor renal function HTN: stable Continue usual meds monitor Hyperlipidemia: continue statin Nocturnal hypoxia: Supplemental O2 as needed BPH: has history of urinary incontinence continue tamsulosin, oxybutynin H/O recurrent aspiration: Aspiration precautions on pudding consistency food, nectar thick liquids H/O Delayed Mental Ability lives at [facility] Needs placement DVT Px: Heparin SQ Code Satus: DNR Disposition: Medically stable for discharge Awaiting for placement PT/OT, social services specialist on board Vital Signs: Date Time Temp Pulse Resp B/P (MAP) Pulse Ox O2 Delivery O2 Flow Rate FiO2 07/16/17 08:00 93 Room Air 07/16/17 07:47 78 16 93 Room Air 07/16/17 07:26 36.6 68 18 110/62 (78) 93 Room Air 07/16/17 00:00 Room Air 07/15/17 23:31 36.6 72 18 127/69 (88) 95 Room Air 07/15/17 19:40 85 16 96 Room Air 07/15/17 16:00 96 Room Air Lab Results: Results Past 24 Hours Test 07/16/17 06:36 07/16/17 08:17 Range/Units Sodium Level 142 136-145 mmol/L Potassium Level 4.0 3.5-5.1 mmol/L Chloride Level 110 98-107 mmol/L Carbon Dioxide Level 27 21-32 mmol/L Anion Gap 5.0 3-11 mmol/L Blood Urea Nitrogen 19 7-18 mg/dl Creatinine 0.99 0.60-1.40 mg/dl Est Creatinine Clear Calc Drug Dose 38.8 ml/min Estimated GFR () 79.0 Estimated GFR (Non- 68.2 BUN/Creatinine Ratio 18.8 10-20 Random Glucose 81 70-99 mg/dl Calcium Level 9.4 8.5-10.1 mg/dl Magnesium Level 1.8 1.8-2.4 mg/dl
[2017-07-16] MEDS: TAMSULOSIN HCL 0.4 MG CAP PO SCH (20:54)
[2017-07-16] MEDS: MIRTAZAPINE SOLTAB 15 MG PO SCH (20:56)
[2017-07-17] MEDS: HEPARIN SOD 5000 UNIT/0.5 ML CARP SQ SCH ×3 (05:51→21:05)
[2017-07-17 07:10] VITALS: BP 137/72; PULSE 58; TEMP 36.4; O2SAT 97
[2017-07-17 07:26] VITALS: PULSE 91; O2SAT 92
[2017-07-17] MEDS: FORMOTEROL FUMA NEBULIZER SOLN 20 MCG/2 ML VIAL INH SCH ×2 (07:26→19:10)
[2017-07-17] MEDS: BUDESONIDE 0.5 MG/2 ML VIAL (PULMICORT) INH SCH ×2 (07:26→19:10)
[2017-07-17] MEDS: BOOST VANILLA PUDDING CUP PO SCH ×2 (07:46→20:00)
[2017-07-17] MEDS: SODIUM CHLORIDE 0.65% NA SOLN 45 ML (OCEAN) NAE SCH (07:47)
[2017-07-17] MEDS: SODIUM CHLORIDE 5% OP SOLN 15 ML BTL OPB SCH ×2 (07:47→21:06)
[2017-07-17] MEDS: OXYBUTYNIN CHLORIDE 5 MG TABCR PO SCH (07:47)
[2017-07-17] MEDS: FLUTICASONE PROPIONATE NA SPR 16 GM BTL NAE SCH (07:47)
[2017-07-17] MEDS: LORATADINE 10 MG TAB PO SCH (07:47)
[2017-07-17] MEDS: ATORVASTATIN 20 MG TAB PO SCH (07:48)
[2017-07-17] MEDS: ASPIRIN 81 MG ECTAB PO SCH (07:48)
[2017-07-17] MEDS: MAGNESIUM CHLORIDE 64MG DELAYED REL TAB PO SCH ×2 (07:49→21:01)
[2017-07-17] MEDS: POTASSIUM CHLORIDE 20 MEQ TABCR PO SCH (07:49)
[2017-07-17] MEDS: GUAIFENESIN 600 MG TABCR PO SCH ×2 (07:49→21:02)
[2017-07-17] MEDS: TRIAMTERENE/HCTZ 37.5/25MG TAB PO SCH (07:49)
[2017-07-17] MEDS: FINASTERIDE 5 MG TAB PO SCH (07:49)
[2017-07-17] MEDS: PANTOprazole SOD 40 MG TAB PO SCH (07:50)
[2017-07-17 08:00] VITALS: O2SAT 92
--- NOTE | 2017-07-17 15:17 | Progress Note ---
Internal Med Progress Note Date of Service: Jul 17, 2017. Provider Documentation: SUBJECTIVE: Seen and examined at bedside Minimally Verbal Denies pain, SOB, cough No significant change from yesterday No new complaints OBJECTIVE: Vital Signs-as noted below Physical Exam: General Appearance:Moderately built and nourished, no apparent distress Head: normocephalic, Atraumatic Eyes: normal inspection, EOMI, PERRL Neck: supple, Trachea midline Respiratory/Chest: Decreased breath sounds, CTA Cardiovascular: S1, S2, No murmur Abdomen/GI:Soft, Non tender, Bowel sounds present Extremities/Musculoskelatal:normal inspection, 1+ b/l edema Neurologic/Psych:grossly no focal neurological deficits Skin: normal color, warm Lab data as noted below. ASSESSMENT & PLAN: Pneumonia: likely secondary to aspiration Presented with Fever, cough, SOB, with known interstitial fibrosis Flu Ag negative Completed antibiotic course (Unasyn >>>Augmentin) Blood cultures: No growth to date continued nebs, mucinex PRN Aspiration precautions Continue current management MICHELINE on CKD II: Likely prerenal Cr back to baseline Monitor renal function HTN: stable Continue usual meds monitor Hyperlipidemia: continue statin Nocturnal hypoxia: Supplemental O2 as needed BPH: has history of urinary incontinence continue tamsulosin, oxybutynin H/O recurrent aspiration: Aspiration precautions on pudding consistency food, nectar thick liquids H/O Delayed [facility]eds [facility] DVT Px: Heparin SQ Code Satus: DNR Disposition: Medically stable for discharge Awaiting for placement PT/OT, 911 emergency services dispatcher on board Vital Signs: Date Time Temp Pulse Resp B/P (MAP) Pulse Ox O2 Delivery O2 Flow Rate FiO2 07/17/17 08:00 92 Room Air 07/17/17 07:26 91 16 92 Room Air 07/17/17 07:10 36.4 58 20 137/72 (93) 97 Room Air 07/17/17 00:00 Room Air 07/16/17 23:31 36.8 75 20 135/74 (94) 93 Room Air 07/16/17 20:00 Room Air 07/16/17 19:18 65 14 93 Room Air 07/16/17 16:17 36.6 72 18 129/65 (86) 92 Room Air 07/16/17 16:00 93 Room Air
[2017-07-17 16:00] VITALS: O2SAT 92
[2017-07-17 16:20] VITALS: BP 139/76; PULSE 72; TEMP 36.5; O2SAT 95
[2017-07-17 19:12] VITALS: PULSE 93; O2SAT 93
[2017-07-17] MEDS: TAMSULOSIN HCL 0.4 MG CAP PO SCH (21:01)
[2017-07-17] MEDS: MIRTAZAPINE SOLTAB 15 MG PO SCH (21:03)
[2017-07-18] VITALS (8 sets, daily range): BP systolic 95–146; BP diastolic 62–83; PULSE 68–100; TEMP 36.5–36.7; O2SAT 90–92
[2017-07-18] MEDS: HEPARIN SOD 5000 UNIT/0.5 ML CARP SQ SCH ×3 (06:08→21:16)
[2017-07-18] MEDS: BUDESONIDE 0.5 MG/2 ML VIAL (PULMICORT) INH SCH ×2 (07:31→19:01)
[2017-07-18] MEDS: FORMOTEROL FUMA NEBULIZER SOLN 20 MCG/2 ML VIAL INH SCH ×2 (07:31→19:00)
[2017-07-18] MEDS: PANTOprazole SOD 40 MG TAB PO SCH (08:00)
[2017-07-18] MEDS: SODIUM CHLORIDE 5% OP SOLN 15 ML BTL OPB SCH ×2 (08:34→20:35)
[2017-07-18] MEDS: FLUTICASONE PROPIONATE NA SPR 16 GM BTL NAE SCH (08:34)
[2017-07-18] MEDS: SODIUM CHLORIDE 0.65% NA SOLN 45 ML (OCEAN) NAE SCH (08:34)
[2017-07-18] MEDS: LORATADINE 10 MG TAB PO SCH (08:44)
[2017-07-18] MEDS: OXYBUTYNIN CHLORIDE 5 MG TABCR PO SCH (08:44)
[2017-07-18] MEDS: ATORVASTATIN 20 MG TAB PO SCH (08:45)
[2017-07-18] MEDS: TRIAMTERENE/HCTZ 37.5/25MG TAB PO SCH (08:45)
[2017-07-18] MEDS: POTASSIUM CHLORIDE 20 MEQ TABCR PO SCH (08:45)
[2017-07-18] MEDS: ASPIRIN 81 MG ECTAB PO SCH (08:45)
[2017-07-18] MEDS: FINASTERIDE 5 MG TAB PO SCH (08:46)
[2017-07-18] MEDS: GUAIFENESIN 600 MG TABCR PO SCH ×2 (08:46→20:36)
[2017-07-18] MEDS: MAGNESIUM CHLORIDE 64MG DELAYED REL TAB PO SCH ×2 (08:47→20:36)
[2017-07-18] MEDS: BOOST VANILLA PUDDING CUP PO SCH ×2 (09:03→20:35)
--- NOTE | 2017-07-18 14:28 | Progress Note ---
Internal Med Progress Note Date of Service: Jul 18, 2017. Provider Documentation: SUBJECTIVE: Seen and examined at bedside Doing well Minimally Verbal Denies pain, SOB, cough No new complaints OBJECTIVE: Vital Signs-as noted below Physical Exam: General Appearance:Moderately built and nourished, no apparent distress Head: normocephalic, Atraumatic Eyes: normal inspection, EOMI, PERRL Neck: supple, Trachea midline Respiratory/Chest: Decreased breath sounds, CTA Cardiovascular: S1, S2, No murmur Abdomen/GI:Soft, Non tender, Bowel sounds present Extremities/Musculoskelatal:normal inspection, 1+ b/l edema Neurologic/Psych:grossly no focal neurological deficits Skin: normal color, warm Lab data as noted below. ASSESSMENT & PLAN: Pneumonia: likely secondary to aspiration Presented with Fever, cough, SOB, with known interstitial fibrosis Flu Ag negative Completed antibiotic course (Unasyn >>>Augmentin) Blood cultures: No growth to date continued nebs, mucinex PRN Aspiration precautions Waiting for placement MICHELINE on CKD II: Likely prerenal Cr back to baseline Monitor renal function HTN: stable Continue usual meds monitor Hyperlipidemia: continue statin Nocturnal hypoxia: Supplemental O2 as needed BPH: has history of urinary incontinence continue tamsulosin, oxybutynin H/O recurrent aspiration: Aspiration precautions on pudding consistency food, nectar thick liquids H/O Delayed Mental Ability lives at long-term Needs placement DVT Px: Heparin SQ Code Satus: DNR Disposition: Medically stable for discharge Awaiting for placement PT/OT, surgical services tech on board Vital Signs: Date Time Temp Pulse Resp B/P (MAP) Pulse Ox O2 Delivery O2 Flow Rate FiO2 07/18/17 08:00 92 Room Air 07/18/17 07:49 89 18 92 Room Air 07/18/17 07:48 36.5 89 20 99/62 (74) 90 Room Air 07/18/17 00:25 36.7 100 20 146/83 (104) 90 Room Air 07/18/17 00:00 Room Air 07/17/17 19:12 93 18 93 Room Air 07/17/17 16:20 36.5 72 18 139/76 (97) 95 Room Air 07/17/17 16:00 92 Room Air
[2017-07-18] MEDS: MIRTAZAPINE SOLTAB 15 MG PO SCH (20:37)
[2017-07-18] MEDS: TAMSULOSIN HCL 0.4 MG CAP PO SCH (20:37)
[2017-07-19] VITALS (8 sets, daily range): BP systolic 110–129; BP diastolic 66–74; PULSE 53–91; TEMP 36.4–36.7; O2SAT 90–95
[2017-07-19] MEDS: HEPARIN SOD 5000 UNIT/0.5 ML CARP SQ SCH ×3 (05:58→21:18)
[2017-07-19] MEDS: BUDESONIDE 0.5 MG/2 ML VIAL (PULMICORT) INH SCH ×2 (07:00→19:03)
[2017-07-19] MEDS: FORMOTEROL FUMA NEBULIZER SOLN 20 MCG/2 ML VIAL INH SCH ×2 (07:00→19:02)
[2017-07-19] MEDS: BOOST VANILLA PUDDING CUP PO SCH ×2 (08:08→21:08)
[2017-07-19] MEDS: SODIUM CHLORIDE 0.65% NA SOLN 45 ML (OCEAN) NAE SCH (08:08)
[2017-07-19] MEDS: FLUTICASONE PROPIONATE NA SPR 16 GM BTL NAE SCH (08:08)
[2017-07-19] MEDS: LORATADINE 10 MG TAB PO SCH (08:08)
[2017-07-19] MEDS: SODIUM CHLORIDE 5% OP SOLN 15 ML BTL OPB SCH ×2 (08:08→21:08)
[2017-07-19] MEDS: GUAIFENESIN 600 MG TABCR PO SCH ×2 (08:09→21:09)
[2017-07-19] MEDS: TRIAMTERENE/HCTZ 37.5/25MG TAB PO SCH (08:09)
[2017-07-19] MEDS: ASPIRIN 81 MG ECTAB PO SCH (08:09)
[2017-07-19] MEDS: PANTOprazole SOD 40 MG TAB PO SCH (08:09)
[2017-07-19] MEDS: OXYBUTYNIN CHLORIDE 5 MG TABCR PO SCH (08:09)
[2017-07-19] MEDS: POTASSIUM CHLORIDE 20 MEQ TABCR PO SCH (08:09)
[2017-07-19] MEDS: FINASTERIDE 5 MG TAB PO SCH (08:09)
[2017-07-19] MEDS: MAGNESIUM CHLORIDE 64MG DELAYED REL TAB PO SCH ×2 (08:09→21:09)
[2017-07-19] MEDS: ATORVASTATIN 20 MG TAB PO SCH (08:09)
--- NOTE | 2017-07-19 16:34 | Progress Note ---
Internal Med Progress Note Date of Service: Jul 19, 2017. Provider Documentation: SUBJECTIVE: Seen and examined at bedside No significant change from yesterday Minimally Verbal Denies pain, SOB, cough No new complaints OBJECTIVE: Vital Signs-as noted below Physical Exam: General Appearance:Moderately built and nourished, no apparent distress Head: normocephalic, Atraumatic Eyes: normal inspection, EOMI, PERRL Neck: supple, Trachea midline Respiratory/Chest: Decreased breath sounds, CTA Cardiovascular: S1, S2, No murmur Abdomen/GI:Soft, Non tender, Bowel sounds present Extremities/Musculoskelatal:normal inspection, Trace b/l edema Neurologic/Psych:grossly no focal neurological deficits Skin: normal color, warm Lab data as noted below. ASSESSMENT & PLAN: Pneumonia: likely secondary to aspiration Presented with Fever, cough, SOB, with known interstitial fibrosis Flu Ag negative Completed antibiotic course (Unasyn >>>Augmentin) Blood cultures: No growth to date continued nebs, mucinex PRN Aspiration precautions Waiting for placement, plan to discharge when able MICHELINE on CKD II: Likely prerenal Cr back to baseline Monitor renal function HTN: stable Continue usual meds monitor Hyperlipidemia: continue statin Nocturnal hypoxia: Supplemental O2 as needed BPH: has history of urinary incontinence continue tamsulosin, oxybutynin H/O recurrent aspiration: Aspiration precautions on pudding consistency food, nectar thick liquids H/O Delayed Mental Ability [facility] Needs placement DVT Px: Heparin SQ Code Satus: DNR Disposition: Medically stable for discharge Awaiting for placement PT/OT, senior web services developer on board Vital Signs: Date Time Temp Pulse Resp B/P (MAP) Pulse Ox O2 Delivery O2 Flow Rate FiO2 07/19/17 15:56 36.5 72 16 110/74 (86) 92 07/19/17 12:07 36.4 70 16 129/71 (90) 93 Room Air 07/19/17 10:21 90 Room Air 07/19/17 09:54 Room Air 07/19/17 08:07 36.7 56 16 117/66 (83) 90 Room Air 07/19/17 07:01 53 14 95 Room Air 07/19/17 00:00 Room Air 07/18/17 23:46 36.6 71 18 115/68 (84) 91 Room Air 07/18/17 20:00 Room Air 07/18/17 19:02 68 14 91 Room Air
[2017-07-19] MEDS: TAMSULOSIN HCL 0.4 MG CAP PO SCH (21:08)
[2017-07-19] MEDS: MIRTAZAPINE SOLTAB 15 MG PO SCH (21:09)
[2017-07-20] MEDS: HEPARIN SOD 5000 UNIT/0.5 ML CARP SQ SCH ×3 (06:00→20:46)
[2017-07-20] MEDS: FORMOTEROL FUMA NEBULIZER SOLN 20 MCG/2 ML VIAL INH SCH ×2 (07:08→19:38)
[2017-07-20] MEDS: BUDESONIDE 0.5 MG/2 ML VIAL (PULMICORT) INH SCH ×2 (07:08→19:38)
[2017-07-20 07:12] VITALS: PULSE 81; O2SAT 90
[2017-07-20 07:51] LABS: HEMOGLOBIN 13.6 g/dL (14.0-18.0); MEAN CELL VOLUME 99.1 fL (80-100); MEAN CORPUSCULAR HEMOGLOBIN 32.1 pg (25-34); MEAN CORPUSCULAR HGB CONC 32.4 g/dl (32-36); MEAN PLATELET VOLUME 10.2 fL (7.4-10.4); PLATELET COUNT 270 K/uL (130-400); RED CELL DISTRIBUTION WIDTH CV 15.7 % (11.5-14.5); RED CELL DISTRIBUTION WIDTH SD 56.7 fL (36.4-46.3); WHITE BLOOD COUNT 8.32 K/uL (4.8-10.8)
[2017-07-20 08:14] VITALS: BP 106/66; PULSE 60; TEMP 36.6; O2SAT 95
[2017-07-20] MEDS: TRIAMTERENE/HCTZ 37.5/25MG TAB PO SCH (08:26)
[2017-07-20] MEDS: GUAIFENESIN 600 MG TABCR PO SCH ×2 (08:26→20:47)
[2017-07-20] MEDS: SODIUM CHLORIDE 0.65% NA SOLN 45 ML (OCEAN) NAE SCH (08:26)
[2017-07-20] MEDS: FINASTERIDE 5 MG TAB PO SCH (08:26)
[2017-07-20] MEDS: PANTOprazole SOD 40 MG TAB PO SCH (08:26)
[2017-07-20] MEDS: FLUTICASONE PROPIONATE NA SPR 16 GM BTL NAE SCH (08:26)
[2017-07-20] MEDS: OXYBUTYNIN CHLORIDE 5 MG TABCR PO SCH (08:26)
[2017-07-20] MEDS: POTASSIUM CHLORIDE 20 MEQ TABCR PO SCH (08:27)
[2017-07-20] MEDS: LORATADINE 10 MG TAB PO SCH (08:27)
[2017-07-20] MEDS: ASPIRIN 81 MG ECTAB PO SCH (08:27)
[2017-07-20] MEDS: MAGNESIUM CHLORIDE 64MG DELAYED REL TAB PO SCH ×2 (08:27→20:47)
[2017-07-20] MEDS: SODIUM CHLORIDE 5% OP SOLN 15 ML BTL OPB SCH ×2 (08:27→20:45)
[2017-07-20] MEDS: ATORVASTATIN 20 MG TAB PO SCH (08:27)
[2017-07-20 08:28] LABS: CALCIUM 9.8 mg/dl (8.5-10.1); CREATININE 1.21 mg/dl (0.60-1.40); POTASSIUM 4.2 mmol/L (3.5-5.1)
[2017-07-20] MEDS: BOOST VANILLA PUDDING CUP PO SCH ×2 (09:18→20:45)
[2017-07-20 15:16] VITALS: BP 109/66; PULSE 86; TEMP 36.5; O2SAT 93
--- NOTE | 2017-07-20 18:00 | Progress Note ---
Internal Med Progress Note Date of Service: Jul 20, 2017. Provider Documentation: SUBJECTIVE: The patient was seen and examined Trying to communicate Denies any pain OBJECTIVE: Vital Signs-as noted below Exam: General-No distress at rest Eyes-normal ENT-normal Neck-supple Lungs-clear to ausucltate bilaterally Heart-regular,no murmur appreciated Abdomen-Benign,no masses Extremities-No edema Neuro-AA Has Mental Retardation Lab data as noted below. ASSESSMENT & PLAN: Pneumonia: likely secondary to aspiration Presented with Fever, cough, SOB, with known interstitial fibrosis .Flu Ag negative Completed antibiotic course (Unasyn >>>Augmentin) Blood cultures: No growth to date continued nebs, Mucinex PRN Aspiration precautions::on pudding consistency food, nectar thick liquids Waiting for placement, plan to discharge when able Clinically stable and no acute issue MICHELINE on CKD II: Likely prerenal Cr back to baseline Monitor renal function-stable and normal Advised more fluid intake HTN: stable Continue usual meds monitor -remains lower side of normal Hyperlipidemia: continue statin Nocturnal hypoxia: Supplemental O2 as needed BPH: has history of urinary incontinence continue tamsulosin, oxybutynin H/O Delayed Mental Ability [facility] Needs placement DVT Px: Heparin SQ Code Satus: DNR Disposition: Medically stable for discharge Awaiting for placement PT/OT, account services analyst on board Awaiting placement Vital Signs: Date Time Temp Pulse Resp B/P (MAP) Pulse Ox O2 Delivery O2 Flow Rate FiO2 07/20/17 15:16 36.5 86 18 109/66 (80) 93 Room Air 07/20/17 08:14 36.6 60 18 106/66 (79) 95 Room Air 07/20/17 08:00 Room Air 07/20/17 07:12 81 16 90 Room Air 07/20/17 00:15 Room Air 07/19/17 23:45 36.7 91 18 117/71 (86) 90 Room Air 07/19/17 19:05 64 16 94 Room Air Lab Results: Results Past 24 Hours Test 07/20/17 07:10 Range/Units White Blood Count 8.32 4.8-10.8 K/uL Red Blood Count 4.24 4.7-6.1 M/uL Hemoglobin 13.6 14.0-18.0 g/dL Hematocrit 42.0 42-52 % Mean Corpuscular Volume 99.1 80-100 fL Mean Corpuscular Hemoglobin 32.1 25-34 pg Mean Corpuscular Hemoglobin Concent 32.4 32-36 g/dl RDW Standard Deviation 56.7 36.4-46.3 fL RDW Coefficient of Variation 15.7 11.5-14.5 % Platelet Count 270 130-400 K/uL Mean Platelet Volume 10.2 7.4-10.4 fL Sodium Level 139 136-145 mmol/L Potassium Level 4.2 3.5-5.1 mmol/L Chloride Level 106 98-107 mmol/L Carbon Dioxide Level 27 21-32 mmol/L Anion Gap 6.0 3-11 mmol/L Blood Urea Nitrogen 23 7-18 mg/dl Creatinine 1.21 0.60-1.40 mg/dl Est Creatinine Clear Calc Drug Dose 31.8 ml/min Estimated GFR () 62.0 Estimated GFR (Non- 53.5 BUN/Creatinine Ratio 18.8 10-20 Random Glucose 79 70-99 mg/dl Calcium Level 9.8 8.5-10.1 mg/dl Magnesium Level 2.5 1.8-2.4 mg/dl
[2017-07-20 19:38] VITALS: PULSE 74; O2SAT 92
[2017-07-20] MEDS: TAMSULOSIN HCL 0.4 MG CAP PO SCH (20:47)
[2017-07-20] MEDS: MIRTAZAPINE SOLTAB 15 MG PO SCH (20:47)
[2017-07-20 22:59] VITALS: BP 143/88; PULSE 82; TEMP 36.4; O2SAT 92
[2017-07-21] MEDS: HEPARIN SOD 5000 UNIT/0.5 ML CARP SQ SCH (06:15)
[2017-07-21 07:15] VITALS: PULSE 70; O2SAT 91
[2017-07-21] MEDS: BUDESONIDE 0.5 MG/2 ML VIAL (PULMICORT) INH SCH (07:15)
[2017-07-21] MEDS: FORMOTEROL FUMA NEBULIZER SOLN 20 MCG/2 ML VIAL INH SCH (07:15)
[2017-07-21 07:16] VITALS: BP 109/68; PULSE 79; TEMP 36.6; O2SAT 92
[2017-07-21 08:00] VITALS: O2SAT 92
[2017-07-21] MEDS: MAGNESIUM CHLORIDE 64MG DELAYED REL TAB PO SCH (08:50)
[2017-07-21] MEDS: PANTOprazole SOD 40 MG TAB PO SCH (08:50)
[2017-07-21] MEDS: ASPIRIN 81 MG ECTAB PO SCH (08:50)
[2017-07-21] MEDS: SODIUM CHLORIDE 5% OP SOLN 15 ML BTL OPB SCH (08:50)
[2017-07-21] MEDS: LORATADINE 10 MG TAB PO SCH (08:50)
[2017-07-21] MEDS: TRIAMTERENE/HCTZ 37.5/25MG TAB PO SCH (08:50)
[2017-07-21] MEDS: FLUTICASONE PROPIONATE NA SPR 16 GM BTL NAE SCH (08:50)
[2017-07-21] MEDS: FINASTERIDE 5 MG TAB PO SCH (08:50)
[2017-07-21] MEDS: GUAIFENESIN 600 MG TABCR PO SCH (08:50)
[2017-07-21] MEDS: ATORVASTATIN 20 MG TAB PO SCH (08:50)
[2017-07-21] MEDS: OXYBUTYNIN CHLORIDE 5 MG TABCR PO SCH (08:51)
[2017-07-21] MEDS: SODIUM CHLORIDE 0.65% NA SOLN 45 ML (OCEAN) NAE SCH (08:51)
[2017-07-21] MEDS: POTASSIUM CHLORIDE 20 MEQ TABCR PO SCH (08:51)
[2017-07-21] MEDS: BOOST VANILLA PUDDING CUP PO SCH (08:52)
--- NOTE | 2017-07-21 10:26 | Progress Note ---
Internal Med Progress Note Date of Service: Jul 21, 2017. Provider Documentation: SUBJECTIVE: The patient was seen and examined Trying to communicate Denies any pain Remains stable without any symptoms OBJECTIVE: Vital Signs-as noted below Exam: General-No distress at rest Eyes-normal ENT-normal Neck-supple Lungs-clear to ausucltate bilaterally No wheezing and or crackles Heart-regular,no murmur appreciated Abdomen-Benign,no masses Extremities-No edema Neuro-AA Has Mental Retardation no focal neuro deficit Lab data as noted below. ASSESSMENT & PLAN: Pneumonia: likely secondary to aspiration Presented with Fever, cough, SOB, with known interstitial fibrosis .Flu Ag negative Completed antibiotic course (Unasyn >>>Augmentin) Blood cultures: No growth to date continued nebs, Mucinex PRN Aspiration precautions::on pudding consistency food, nectar thick liquids Accepted to [facility] Will discharge today at [facility] MICHELINE on CKD II: Likely prerenal Cr back to baseline Monitor renal function-stable and normal Advised more fluid intake No acute issue HTN: Continue usual meds monitor -remains lower side of normal No acute issue Hyperlipidemia: Continue statin Nocturnal hypoxia: Supplemental O2 as needed BPH: has history of urinary incontinence continue tamsulosin, oxybutynin H/O Delayed Mental Ability Lives at care home Needs placement-will go to [facility] DVT Px: Heparin SQ Code Status: DNR Disposition: Medically stable for discharge PT/OT, learning support services director on board Accepted at [facility] Vital Signs: Date Time Temp Pulse Resp B/P (MAP) Pulse Ox O2 Delivery O2 Flow Rate FiO2 07/21/17 07:16 36.6 79 18 109/68 (82) 92 Room Air 07/21/17 07:15 70 16 91 Room Air 07/21/17 00:00 Room Air 07/20/17 22:59 36.4 82 18 143/88 (106) 92 Room Air 07/20/17 20:00 Room Air 07/20/17 19:38 74 16 92 Room Air 07/20/17 16:30 Room Air 07/20/17 15:16 36.5 86 18 109/66 (80) 93 Room Air
[2017-07-21] MEDS ORDERED: MCRK20 PO (10:31)
[2017-07-21] MEDS ORDERED: ASPEC81 PO (10:31)
[2017-07-21] MEDS ORDERED: SLWMEC PO (10:31)
[2017-07-21] MEDS ORDERED: MCTP EXT (10:31)
--- NOTE | 2017-07-21 10:34 | Discharge Instructions ---
Discharge Instructions Date of Service Jul 21, 2017. Admission Reason for Admission: Acute Kidney Injury, Pneumonia Discharge Discharge Diagnosis / Problem: Pneumonia-resolved,MICHELINE-corrected Discharge Goals Goal(s): Prevent Disease Progression Activity Recommendations Activity Level: Assistance Required Therapies: Physical Therapy, Occupational Therapy . Additional Information Patient informed of condition: Yes Advance Directives: No DNR: Yes Level of Care: Skilled Communicable Disease: No Prognosis: Stable Oxygen at (LPM): 2 liters/min via NC as needed Current Hospital Diet Patient's current hospital diet: Regular Diet Discharge Diet Recommended Diet: Regular Diet (Was on pudding consistency food, nectar thick liquids-as per Speech recommendation) Pending Studies Studies pending at discharge: no Medical Emergencies . Who to Call and When: Medical Emergencies: If at any time you feel your situation is an emergency, please call 911 immediately. . Non-Emergent Contact Non-Emergency issues call your: Primary Care Provider . 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 "Provider Documentation" section prepared by Chela Woodruff. . Core Measure Problem Core Measures: None
[2017-07-21 10:35] VITALS: BP 109/68; PULSE 79; TEMP 36.6; O2SAT 92
--- NOTE | 2017-07-21 16:01 | Discharge Summary ---
Discharge Summary Date of Service Jul 21, 2017. Discharge Summary Admission Date: Jul 08, 2017 at 13:57 Discharge Date: Jul 21, 2017 Discharge Disposition: long term facility Principal Diagnosis: Pneumonia-resolved,MICHELINE-corrected Secondary Diagnoses/Problems: Please see H&P and Hospital Progress note Medication Reconciliation New Medications: Aspirin (Aspirin EC Low Dose) 81 Mg Ectab 81 MG PO QAM for 30 Days, #30 Magnesium Chloride (Slow-Mag Tab) 64 Mg Tabcr 64 MG PO BID for 30 Days, #60 Miconazole Nitrate (Desenex Shake Powder) 43 Appln/43 Gm Powd 1 APPLN EXT PRN PRN for NATASHA-AREA AND GROINS for 30 Days, #1 BTL Potassium Chloride (Klor-Con M20) 20 Meq Tabcr 20 MEQ PO QAM for 30 Days, #30 Continued Medications: Acetaminophen (Tylenol) 325 Mg Tab 650 MG PO Q6 PRN for Pain, TAB Alendronate Sodium (Alendronate Sodium) 70 Mg Tab 70 MG PO WK TAKE FIRST THING IN THE MORNING WITH 8OZ OF WATER. DO NOT LAY FLAT FOR 1 HR AFTER TAKING PILL. TAKES ON FRIDAYS Alum & Mag Hydrox-Simethicone (Mylanta) 1 Jossy Jossy 30 ML PO Q6 PRN for GI Upset Atorvastatin (Lipitor) 20 Mg Tab 20 MG PO DAILY, TAB Budesonide (Pulmicort Respules 0.5MG/2ML) 0.5 Mg/2 Ml Nebu 2 ML INH BID MIX WITH PERFOROMIST Cholecalciferol (Vitamin D3) 1,000 Unit Tab 1000 INTER.UNIT PO DAILY for 90 Days, TAB 3 Refills Chondroitin Sulfate-Vitamin C- (Chondroitin Sulfate) 1 Cap Cap 400 MG PO TID Dextromethorphan-Guaifenesin (Guaifenesin Dm) 1 Syp Syp 2 TSP PO Q6H PRN for Cough Finasteride (Proscar) 5 Mg Tab 5 MG PO DAILY, 0 Refills Fluticasone Propionate (Nasal) (Flonase Allergy Relief) 50 Mcg/Act Spr 2 SPRAYS PRANEETH DAILY Formoterol Fumarate (Perforomist) 20 Mcg/2 Ml Neb 2 ML NEB BID MIX WITH PULMICORT Glucosamine Sulfate (Glucosamine) 1,000 Mg Tab 500 MG PO TID, TAB Guaifenesin La (Guaifenesin Er) 600 Mg Tabcr 600 MG PO BID, TAB TAKE WITH PLENTY OF WATER. DO NOT CRUSH OR CHEW Ipratropium-Albuterol (Duoneb) 3 Ml Nebu 1 TREATMENT INH TID PRN for SOB/Wheezing, INHA Loperamide Hcl (Imodium) 2 Mg Cap 2 MG PO UD PRN for Diarrhea, CAP Loratadine (Claritin) 10 Mg Tab 10 MG PO DAILY, TAB Magnesium Hydroxide (Milk Of Magnesia) 30 Ml Susp 30 ML PO Q3D PRN for Constipation, ML Mirtazapine Soltab (Remeron Soltab) 15 Mg Soltab 15 MG PO HS, TAB Omeprazole (Prilosec) 20 Mg Capcr 20 MG PO DAILY, 0 Refills TAKE 30 MINS BEFORE MEAL Ondansetron Hcl (Zofran) 4 Mg Tab 4 MG UT QID PRN for Nausea, TAB Oxybutynin Chloride (Ditropan Xl) 15 Mg Tab 15 MG PO DAILY, 3 Refills Saline ([place] Nasal [place]) 0.65 % Spr 2 SPRAYS PRANEETH DAILY Skin Oils (Baby Oil) 1 Oil Oil 2 DROPS OTB 2XWK Sodium Chloride Hypertonic (Sodium Chloride) 5 % Sissy 1 DROP OPB BID Tamsulosin Hcl (Flomax) 0.4 Mg Cap 0.4 MG PO HS, CAP Triamterene/Hctz (Triamterene/Hctz 37.5-25MG) 1 Tab Tab 1 TAB PO DAILY, TAB Admission Information HPI (per Admitting provider): This is a 87yo M with a PMH of pulmonary interstitial fibrosis, HTN, HLD, nocturnal hypoxia, urinary incontinence, BPH, CKD III, h/o rectal cancer, moderate intellectual disability and other medical problems listed below who presents with fever and worsening SOB. Patient resides at [facility]. Was recently admitted to [facility] from 06/08/17-06/19/17 for aspiration PNA and was treated with Zosyn and discharged to [facility] for rehab. Returned to [facility] 2 days ago. Due to patient's intellectual disability, history was obtained from [facility] employee and sister/POA Cassie, at bedside. They state that the patient's health has been slowly declining ever since his May admission. He ambulates with more difficulty, is harder to transfer and seems to be experiencing generalized weakness. Appetite is consistent to before, despite recent adjustments to food texture made after speech evaluation during last admission. Per staff, patient was sitting on the edge of his bed today awaiting transfer when he slid down to the floor. Seems to be out of breath despite chronic wearing 2L NC O2. Was found to have a temperature of 103 degrees and EMS was called to bring patient to ED for further evaluation. Patient denies that he is in pain. Endorses SOB. Denies fever, chills, CP, palpitations, abd pain, nausea, vomiting. Has not had a bowel movement in 3 days. During previous admission, palliative care met with patient's sister, Cassie, to discuss transitioning patient to hospice care. Sister was not ready to make that decision but has since met with Dr. Phillips, patient's PCP, to further discuss end of life care. Completed paperwork to initiate hospice yesterday and brought a DNR/DNI POLST form to the hospital today. Is still interested in patient receiving IVF and IV abx. Would ideally like patient to return to [facility] at discharge if they are able to care for him with new hospice diagnosis. Past Medical/Surgical History Medical Problems: (1) BPH (benign prostatic hyperplasia) Status: Chronic (2) Cancer of rectum Status: Chronic (3) CKD (chronic kidney disease), stage III Status: Chronic (4) Depression Status: Chronic (5) HLD (hyperlipidemia) Status: Chronic (6) HTN (hypertension) Status: Chronic (7) Moderate intellectual disability Status: Chronic (8) Nocturnal hypoxia Status: Chronic (9) Pulmonary interstitial fibrosis Status: Chronic (10) Urinary incontinence Status: Chronic (11) Vitamin D deficiency Status: Chronic Family History Cancer Heart disease Hypertension Lung disease Social History Smoking Status: Former Smoker Drug Use: none Marital Status: single Housing status: other Occupational Status: disabled Immunizations History of Influenza Vaccine: No History of Tetanus Vaccine?: No Tetanus Immunization Date: Nov 20, 1999 History of Pneumococcal: No History of Hepatitis B Vaccine: No Hepatitis Immunization Date: Mar 08, 2004 Multi-Drug Resistant Organisms History of MDRO: Yes Type of MDRO: MRSA Allergies Coded Allergies: Chocolate (Verified Allergy, Unknown, 07/08/17) Tomato (Verified Allergy, Unknown, 07/08/17) Grapefruit (Verified Adverse Reaction, Severe, SHOULD AVOID DUE TO OTHER MEDS, 07/08/17) Aspirin (Verified Adverse Reaction, Intermediate, STOMACH ISSUES, 07/08/17) Propoxyphene (Verified Adverse Reaction, Intermediate, CONSTIPATION, ) Tramadol (Verified Adverse Reaction, Intermediate, CONSTIPATION, 07/08/17) Home Medications Scheduled Alendronate Sodium (Alendronate Sodium), 70 MG PO WK Atorvastatin (Lipitor), 20 MG PO DAILY Budesonide (Pulmicort Respules 0.5MG/2ML), 2 ML INH BID Cholecalciferol (Vitamin D3), 1,000 INTER.UNIT PO DAILY Chondroitin Sulfate-Vitamin C- (Chondroitin Sulfate), 400 MG PO TID Finasteride (Proscar), 5 MG PO DAILY Fluticasone Propionate (Nasal) (Flonase Allergy Relief), 2 SPRAYS PRANEETH DAILY Formoterol Fumarate (Perforomist), 2 ML NEB BID Glucosamine Sulfate (Glucosamine), 500 MG PO TID Guaifenesin La (Guaifenesin Er), 600 MG PO BID Loratadine (Claritin), 10 MG PO DAILY Mirtazapine Soltab (Remeron Soltab), 15 MG PO HS Omeprazole (Prilosec), 20 MG PO DAILY Oxybutynin Chloride (Ditropan Xl), 15 MG PO DAILY Saline ([place] Nasal [place]), 2 SPRAYS PRANEETH DAILY Skin Oils (Baby Oil), 2 DROPS OTB 2XWK Sodium Chloride Hypertonic (Sodium Chloride), 1 DROP OPB BID Tamsulosin Hcl (Flomax), 0.4 MG PO HS Triamterene/Hctz (Triamterene/Hctz 37.5-25MG), 1 TAB PO DAILY Scheduled PRN Acetaminophen (Tylenol), 650 MG PO Q6 PRN for Pain Alum & Mag Hydrox-Simethicone (Mylanta), 30 ML PO Q6 PRN for GI Upset Dextromethorphan-Guaifenesin (Guaifenesin Dm), 2 TSP PO Q6H PRN for Cough Ipratropium-Albuterol (Duoneb), 1 TREATMENT INH TID PRN for SOB/Wheezing Loperamide Hcl (Imodium), 2 MG PO UD PRN for Diarrhea Magnesium Hydroxide (Milk Of Magnesia), 30 ML PO Q3D PRN for Constipation Ondansetron Hcl (Zofran), 4 MG UT QID PRN for Nausea Review of Systems Ten systems reviewed and negative except as noted in the HPI. Physical Ex - H&P Physical Exam Vital Signs Date Time Temp Pulse Resp B/P (MAP) Pulse Ox O2 Delivery O2 Flow Rate FiO2 07/08/17 13:35 36.4 90 22 124/69 98 Nasal Cannula 2.0 07/08/17 12:55 76 22 124/69 95 Nasal Cannula 2.0 07/08/17 12:50 95 Nasal Cannula 2.0 07/08/17 11:53 75 22 115/59 95 Nasal Cannula 2.0 07/08/17 11:12 73 20 113/60 96 Nasal Cannula 2.0 07/08/17 10:09 96 Nasal Cannula 4.0 07/08/17 10:09 96 Nasal Cannula 4.0 07/08/17 10:03 38.8 87 24 121/61 96 Nasal Cannula 4.0 General Appearance: no apparent distress Head: normocephalic, atraumatic Eyes: normal inspection, PERRL, sclerae normal ENT: normal ENT inspection, hearing grossly normal, pharynx normal Neck: supple, thyroid normal, trachea midline Respiratory/Chest: chest non-tender, no respiratory distress, no accessory muscle use, + decreased breath sounds, + pertinent finding (Breathing comfortably on NC O2) Cardiovascular: regular rate, rhythm, no murmur, normal peripheral pulses Abdomen/GI: non tender, soft, no organomegaly Extremities/Musculoskelatal: normal inspection, no calf tenderness, no pedal edema Neurologic/Psych: alert (at baseline mentation per staff), normal mood/affect, + pertinent finding (communicated mainly with nodding yes/no) Skin: normal color, warm/dry Diagnostics - H&P Diagnostics Laboratory Results Results Past 24 Hours Test 07/08/17 10:30 07/08/17 10:37 07/08/17 10:40 07/08/17 10:50 Range/Units White Blood Count 8.81 4.8-10.8 K/uL Red Blood Count 3.78 4.7-6.1 M/uL Hemoglobin 12.0 14.0-18.0 g/dL Hematocrit 37.5 42-52 % Mean Corpuscular Volume 99.2 80-100 fL Mean Corpuscular Hemoglobin 31.7 25-34 pg Mean Corpuscular Hemoglobin Concent 32.0 32-36 g/dl Platelet Count 289 130-400 K/uL Mean Platelet Volume 9.9 7.4-10.4 fL Neutrophils (%) (Auto) 88.5 % Lymphocytes (%) (Auto) 8.3 % Monocytes (%) (Auto) 2.5 % Eosinophils (%) (Auto) 0.2 % Basophils (%) (Auto) 0.2 % Neutrophils # (Auto) 7.79 1.4-6.5 K/uL Lymphocytes # (Auto) 0.73 1.2-3.4 K/uL Monocytes # (Auto) 0.22 0.11-0.59 K/uL Eosinophils # (Auto) 0.02 0-0.5 K/uL Basophils # (Auto) 0.02 0-0.2 K/uL RDW Standard Deviation 57.7 36.4-46.3 fL RDW Coefficient of Variation 15.9 11.5-14.5 % Immature Granulocyte % (Auto) 0.3 % Immature Granulocyte # (Auto) 0.03 0.00-0.02 K/uL Erythrocyte Sedimentation Rate 75 0-14 mm/hr Prothrombin Time 10.6 9.0-12.0 SECONDS Prothromb Time International Ratio 1.0 0.9-1.1 Activated Partial Thromboplast Time 29.2 21.0-31.0 SECONDS Partial Thromboplastin Ratio 1.1 Sodium Level 145 136-145 mmol/L Potassium Level 3.6 3.5-5.1 mmol/L Chloride Level 112 98-107 mmol/L Carbon Dioxide Level 27 21-32 mmol/L Anion Gap 6.0 3-11 mmol/L Blood Urea Nitrogen 35 7-18 mg/dl Creatinine 1.53 0.60-1.40 mg/dl Est Creatinine Clear Calc Drug Dose 25.1 ml/min Estimated GFR () 46.7 Estimated GFR (Non- 40.3 BUN/Creatinine Ratio 23.1 10-20 Random Glucose 151 70-99 mg/dl Calcium Level 9.6 8.5-10.1 mg/dl Phosphorus Level 2.5 2.5-4.9 mg/dl Magnesium Level 2.2 1.8-2.4 mg/dl Total Bilirubin 0.4 0.2-1 mg/dl Aspartate Amino Transf (AST/SGOT) 27 15-37 U/L Alanine Aminotransferase (ALT/SGPT) 40 12-78 U/L Alkaline Phosphatase 98 45-117 U/L Total Creatine Kinase 27 39-308 U/L Creatine Kinase MB < 0.5 0.5-3.6 ng/ml Creatine Kinase MB Ratio 0-3.0 Troponin I < 0.015 0-0.045 ng/ml C-Reactive Protein 6.41 0-0.29 mg/dl Pro-B-Type Natriuretic Peptide 310 0-1800 pg/ml Total Protein 7.0 6.4-8.2 gm/dl Albumin 2.6 3.4-5.0 gm/dl Globulin 4.4 2.5-4.0 gm/dl Albumin/Globulin Ratio 0.6 0.9-2 Lipase 81 73-393 U/L Venous Blood pH 7.44 7.36-7.41 Venous Blood Partial Pressure CO2 41 38.0-50.0 mmHg Venous Blood Partial Pressure O2 124 mmHg Venous Blood HCO3 27 mmol/L Venous Blood Oxygen Saturation 98.4 % Venous Blood Base Excess 2.5 mEq/L Bedside Lactic Acid Venous 1.30 0.90-1.70 mmol/L Influenza Type A Antigen Neg for Influ A NEG Influenza Type B Antigen Neg for Influ B NEG Urine Color YELLOW Urine Appearance CLEAR CLEAR Urine pH 7.5 4.5-7.5 Urine Specific [place] 1.018 1.000-1.030 Urine Protein NEG NEG Urine Glucose (UA) NEG NEG Urine Ketones NEG NEG Urine Occult Blood NEG NEG Urine Nitrite NEG NEG Urine Bilirubin NEG NEG Urine Urobilinogen NEG NEG Urine Leukocyte Esterase NEG NEG Urine WBC (Auto) 1-5 0-5 /hpf Urine RBC (Auto) 0-4 0-4 /hpf Urine Hyaline Casts (Auto) 1-5 0-5 /lpf Urine Epithelial Cells (Auto) 5-10 0-5 /lpf Urine Bacteria (Auto) NEG NEG Microbiology Results 07/08/17 Blood Culture, Received Pending 07/08/17 Blood Culture, Received Pending Diagnostic Radiology CXR: IMPRESSION: Chronic interstitial thickening consistent with fibrotic change. No new focal lung consolidations. Normal EKG Impression - H&P Impression Assessment and Plan This is a 87yo M with a PMH of pulmonary interstitial fibrosis, HTN, HLD, nocturnal hypoxia, urinary incontinence, BPH, CKD III, h/o rectal cancer, moderate intellectual disability and other medical problems listed below who presents with fever and worsening SOB and was found to have PNA. PNA: -Fever, cough, SOB in setting of interstitial fibrosis -Flu Ag negative -Unasyn empirically -Follow blood cultures -IVF resuscitation -Home nebs, inhalers, mucinex -Supplemental O2 (currently saturating well at baseline of 2L NC) MICHELINE on CKD: -Likely caused by poor po intake -Cr of 1.5 today (baseline ~ 0.8) -IVF resuscitation -Repeat lab work in AM -Hold triamterene/hctz HTN: -Held meds 2/2 MICHELINE -Monitor and add additional agent if needed HLD: -Cont statin Nocturnal hypoxia: -Supplemental O2 as needed BPH: -Has history of urinary incontinence -Cont home tamsulosin, oxybutynin H/o aspiration: -Pudding consistency food, nectar thick liquids -Medications to be given in pudding Dispo: -Palliative care consulted -Cassie wishes patient to return to [facility] after discharge DVT Ppx: SQ heparin Code status: DNR/DNI PCP: Alan Dispo: Admitted to [facility]. Discharge planning ordered. Patient seen in collaboration with Dr. Sarabia. Please see addendum. ATTENDING ADDENDUM : pt seen and examined with Meaghan Vargas PA-C , in agree with above H&P labs and images reviewed 87 yo M with complicated past medical hx of Intellectual disability /MR , pulmonary fibrosis on home 02 , sent form [facility] for generalized weakness hypoxia , moist cough , concern for aspiration P/E: gen : elderly gentleman , frail appearing , no sign of distress HEENT : sclera non icteric HT : regular , tachycardic Lungs : Coarse breath sound ,+ crackles at base abdomen : soft, non tender Ext: no edema , no skin breakdown neuro: Mental retardation , minimally communicative , no focal neurological deficit A/P : HYPOXIA /ASPIRATION PNEUMONIA : will empirically treat with Unasyn baseline dysphagia -on [place] and [place] thick diet NPO except meds till Speech eval Sister Cassie FERRARA present -no feeding tube , wants palliative care to be involved willing for comfort care MICHELINE on CKD stage 3 Due to above, healthcare liaison also reports poor PO intake pt does not like to drink fluid as it is thickened gentle IV fluids VERY POOR PROGNOSIS , multiple co morbidities, severe dysphagia , repeated aspiration at present bed bound , needs complete care , Pt's Sister Cassie had a discussion with Primary Care Physician yesterday at the Clinic POLST form signed -Comfort care only with further clinical decline -referral was made for Hospice agency had long discussion with Sister and Caregiver at the [facility] wants to have D/w Palliative care -consult placed Sister wants pt to be treated with Abx and IVF for Antibiotic and dehydration and return back to [facility] as hospice DNR/DNI please refer to documentation of Meaghan Vargas PA-C for further discussion of other issues Justina Sarabia MD Level of Care Med/Surg Advanced Directives Existing Living Will: No Existing Power of Tester Vibrator Equipment: No Resuscitation Status DO NOT RESUSCITATE VTE Prophylaxis VTE Risk Assessment Done? Y/N: Yes Risk Level: Moderate Given or contraindicated: Enoxaparin (Lovenox)SQ Additional Copies To Barbra Phillips M.D. (MEDICAL) Physical Exam (per Admitting): General Appearance: no apparent distress Head: normocephalic, atraumatic Eyes: normal inspection, PERRL, sclerae normal ENT: normal ENT inspection, hearing grossly normal, pharynx normal Neck: supple, thyroid normal, trachea midline Respiratory/Chest: chest non-tender, no respiratory distress, no accessory muscle use, + decreased breath sounds, + pertinent finding (Breathing comfortably on NC O2) Cardiovascular: regular rate, rhythm, no murmur, normal peripheral pulses Abdomen/GI: non tender, soft, no organomegaly Extremities/Musculoskelatal: normal inspection, no calf tenderness, no pedal edema Neurologic/Psych: alert (at baseline mentation per staff), normal mood/ affect, + pertinent finding (communicated mainly with nodding yes/no) Skin: normal color, warm/dry Hospital Course Pneumonia: likely secondary to aspiration Presented with Fever, cough, SOB, with known interstitial fibrosis .Flu Ag negative Completed antibiotic course (Unasyn >>>Augmentin) Blood cultures: No growth to date continued nebs, Mucinex PRN Aspiration precautions::on pudding consistency food, nectar thick liquids [facility] Will discharge today at [facility] MICHELINE on CKD II: Likely prerenal Cr back to baseline Monitor renal function-stable and normal Advised more fluid intake No acute issue HTN: Continue usual meds monitor -remains lower side of normal No acute issue Hyperlipidemia: Continue statin Nocturnal hypoxia: Supplemental O2 as needed BPH: has history of urinary incontinence continue tamsulosin, oxybutynin H/O Delayed Mental Ability Lives at [facility] Needs placement-will go to [facility] DVT Px: Heparin SQ Code Status: DNR Disposition: Medically stable for discharge PT/OT, phlebotomy services representative on board Accepted at [facility] Total time spent on discharge = 35 minutes This includes examination of the patient, discharge planning, medication reconciliation, and communication with other providers. Discharge Instructions Date of Service Jul 21, 2017. Admission Reason for Admission: Acute Kidney Injury, Pneumonia Discharge Discharge Diagnosis / Problem: Pneumonia-resolved,MICHELINE-corrected Discharge Goals Goal(s): Prevent Disease Progression Activity Recommendations Activity Level: Assistance Required Therapies: Physical Therapy, Occupational Therapy . Additional Information Patient informed of condition: Yes Advance Directives: No DNR: Yes Level of Care: Skilled Communicable Disease: No Prognosis: Stable Oxygen at (LPM): 2 liters/min via NC as needed Current Hospital Diet Patient's current hospital diet: Regular Diet Discharge Diet Recommended Diet: Regular Diet (Was on pudding consistency food, nectar thick liquids-as per Speech recommendation) Pending Studies Studies pending at discharge: no Medical Emergencies . Who to Call and When: Medical Emergencies: If at any time you feel your situation is an emergency, please call 911 immediately. . Non-Emergent Contact Non-Emergency issues call your: Primary Care Provider . 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 "Provider Documentation" section prepared by Chela Woodruff. . Core Measure Problem Core Measures: None <Electronically signed by Chela Woodruff M.D.> Signed: 07/21/17 1034 Additional Copies To Barbra Phillips M.D. (MEDICAL)
== END 2017-07-21 11:00 | DRG 178 ==
LOC: EDBD 09:49 → C.EDA 09:52 → EDBEDREQ 12:09 → C.2E 13:57 → ENRESERV 14:30 → EDBEDREQ 16:40 → ENRESERV 18:56 → C.MS4W 19:55
PROVIDERS: ADMIT Hospitalist; ATTEND Internal Medicine
DX: J69.0 Pneumonitis due to inhalation of food and vomit (principal); N17.9 Acute kidney failure, unspecified; Z82.49 Family history of ischemic heart disease and other diseases of the circulatory system; J84.10 Pulmonary fibrosis, unspecified; N40.0 Benign prostatic hyperplasia without lower urinary tract symptoms; F79 Unspecified intellectual disabilities; N18.3 Chronic kidney disease, stage 3 (moderate); Z87.891 Personal history of nicotine dependence; I12.9 Hypertensive chronic kidney disease with stage 1 through stage 4 chronic kidney disease, or unspecified chronic kidney disease; E78.5 Hyperlipidemia, unspecified; Z51.5 Encounter for palliative care; G47.34 Idiopathic sleep related nonobstructive alveolar hypoventilation; Z66 Do not resuscitate

== ENCOUNTER → 2017-08-24 | Outpatient (CLI) | payer OTHER ==
[~2017-08-24] MED LIST changes: -AMOX400S2 PO; +ASPEC81 PO; -CALC625T4 PO; +MCRK20 PO; +MCTP EXT; -NEOMOIN3 TOP; -NUTRMIS PO; +SLWMEC PO
[2017-08-24 10:46] LABS: ALBUMIN 2.1 gm/dl (3.4-5.0); ALT/SGPT 46 U/L (12-78); BLOOD UREA NITROGEN 29 mg/dl (7-18); CALCIUM 9.8 mg/dl (8.5-10.1); CARBON DIOXIDE 27 mmol/L (21-32); CHOLESTEROL 107 mg/dl (0-200); CREATININE 1.28 mg/dl (0.60-1.40); GLUCOSE 101 mg/dl (70-99); POTASSIUM 4.1 mmol/L (3.5-5.1); SODIUM 138 mmol/L (136-145)
[2017-08-24 10:49] LABS: ALKALINE PHOSPHATASE 158 U/L (45-117); AST/SGOT 34 U/L (15-37); LDL CHOLESTEROL CALCULATED 65 mg/dl; TOTAL PROTEIN 6.9 gm/dl (6.4-8.2)
== END ==
LOC: C.LABCC 10:04
PROVIDERS: ATTEND Internal Medicine
DX: M81.0 Age-related osteoporosis without current pathological fracture (principal)